=== PATIENT | female | born 1935 | race Caucasian/White ===

== ENCOUNTER 2017-04-08 13:39 | Emergency (ER) | payer MEDICARE, MEDICAID ==
[~2017-04-08] VITALS: Ht 152.4 cm; Wt 70.9 kg
[~2017-04-08 13:39] MED LIST: APIX5TAB PO; CYCL10TA45 PO; DRON400T2 PO; IBUP-2055 PO; METO-270 PO; NAPR-689 PO
--- NOTE | 2017-04-08 14:00 | ED Fever ---
History of Present Illness General Stated Complaint: FEVER/WEAKNESS Source: patient, family () Exam Limitations: no limitations History of Present Illness Time seen by provider: 13:54 Initial Comments For 3 days the patient has had malaise and a productive cough with her sputum and pain whenever she coughs or takes a big deep breath and today. This is progressively gotten worse. Today she developed a fever of 101.9 Fahrenheit at home and was seen at [place] [facility] who sent her over to us. She does have a history of atrial fibrillation for which her substation wireman has implanted a monitor and does not plan to take it out until May. She is on multac. She's had no nausea, vomiting, diarrhea, rash. However she has had chills and cough and produced a sputum sample which she brought in a cup with her. She has had no recent travel abroad nor sick contacts. She denies having an a box in the last 4 weeks. Allergies and Home Medications Allergies Coded Allergies: codeine (Unverified Allergy, Unknown, 09/13/16) Uncoded Allergies: PCN (Allergy, Unknown, 09/13/16) SOME ANTIBIOTICS (Allergy, Unknown, 09/13/16) Home Medications Apixaban 5 Mg Tablet, 5 MG PO BID, #60 Ref 4 Prescribed by: SILVIANO ALEGRE on 09/14/16 0804 Cyclobenzaprine Hcl 10 Mg Tablet, 10 MG PO TID PRN for MUSCLE SPASMS, (Reported) Dronedarone HCl 400 Mg Tablet, 400 MG PO BID, #60 Ref 2 Prescribed by: SILVIANO ALEGRE on 09/14/16 0804 Metoprolol Succinate 25 Mg Tab.er.24h, 50 MG PO DAILY, #30 Ref 4 Prescribed by: SILVIANO ALEGRE on 09/14/16 0804 Constitutional: see HPI, chills, No diaphoresis, fever, malaise EENTM: other, No blurred vision, No ear pain, No hearing loss Respiratory: cough, No hemoptysis, No short of breath ( productive) Cardiovascular: No chest pain, No edema, No syncope Gastrointestinal: No abdominal pain, No constipation, No diarrhea Genitourinary: No discharge, No dysuria Skin: No pruritus, No rash Psychiatric/Neurological: Denies Headache, Denies Numbness Past Fddjfka-Vcixmn-Acwhmc Hx Patient Social History Alcohol Use: Denies Use Recreational Drug Use: No Smoking Status: Never a Smoker Recent Foreign Travel: No Contact w/Someone Who Travel: No Recent Hopitalizations: No Immunizations Up To Date Date of Pneumonia Vaccine: Nov 26, 2007 Seasonal Allergies Seasonal Allergies: No Surgeries HX Surgeries: Yes Surgeries: Appendectomy, Gallbladder, Hysterectomy Respiratory Hx Respiratory Disorders: Yes ( PNEUMONIA) Cardiovascular Hx Cardiac Disorders: No Neurological Hx Neurological Disorders: No Reproductive System Hx Reproductive Disorders: No Genitourinary Hx Genitourinary Disorders: No Gastrointestinal Hx Gastrointestinal Disorders: No Musculoskeletal Hx Musculoskeletal Disorders: Yes (BRUSITIS) Endocrine Hx Endocrine Disorders: No HEENT HX ENT Disorders: No Cancer Hx Cancer: No Psychosocial Hx Psychiatric Problems: No Integumentary HX Skin/Integumentary Disorder: No Blood Transfusions Hx Blood Disorders: No Family Medical History Significant Family History: No Pertinent Family Hx Physical Exam Vital Signs Vital Sign - Last 12Hours 04/08/17 14:04 Temp 101.8 Resp 20 B/P (MAP) 142/90 Capillary Refill : General Appearance: WD/WN, no apparent distress Eyes: Bilateral Eye EOMI, Bilateral Eye Normal Inspection, Bilateral Eye PERRL HEENT: PERRL/EOMI, TM abnormal (R) (sclerotic), TM abnormal (L) (sclerotic perforated and sclerotic), pharyngeal erythema Neck: non-tender, full range of motion, supple, normal inspection Respiratory: lungs clear, normal breath sounds, no respiratory distress, no accessory muscle use, other (cough with productive sputum) Cardiovascular: normal peripheral pulses, regular rate, rhythm, no JVD Skin: normal color, warm/dry Lymphatic: no adenopathy Progress/Results/Core Measures Results/Orders Lab Results Laboratory Tests Test 04/08/17 14:00 04/08/17 14:13 Range/Units Group A Streptococcus Screen NEGATIVE NEGATIVE White Blood Count 12.6 H 4.3-11.0 10^3/uL Red Blood Count 5.35 4.35-5.85 10^6/uL Hemoglobin 15.5 11.5-16.0 G/DL Hematocrit 46 35-52 % Mean Corpuscular Volume 86 80-99 FL Mean Corpuscular Hemoglobin 29 25-34 PG Mean Corpuscular Hemoglobin Concent 34 32-36 G/DL Red Cell Distribution Width 14.3 10.0-14.5 % Platelet Count 225 130-400 10^3/uL Mean Platelet Volume 10.3 7.4-10.4 FL Neutrophils (%) (Auto) 81 H 42-75 % Lymphocytes (%) (Auto) 9 L 12-44 % Monocytes (%) (Auto) 10 0-12 % Eosinophils (%) (Auto) 1 0-10 % Basophils (%) (Auto) 0 0-10 % Neutrophils # (Auto) 10.2 H 1.8-7.8 X 10^3 Lymphocytes # (Auto) 1.1 1.0-4.0 X 10^3 Monocytes # (Auto) 1.2 H 0.0-1.0 X 10^3 Eosinophils # (Auto) 0.1 0.0-0.3 10^3/uL Basophils # (Auto) 0.0 0.0-0.1 10^3/uL Sodium Level 136 135-145 MMOL/L Potassium Level 4.3 3.6-5.0 MMOL/L Chloride Level 100 98-107 MMOL/L Carbon Dioxide Level 24 21-32 MMOL/L Anion Gap 12 5-14 MMOL/L Blood Urea Nitrogen 12 7-18 MG/DL Creatinine 0.84 0.60-1.30 MG/DL Estimat Glomerular Filtration Rate > 60 BUN/Creatinine Ratio 14 Glucose Level 98 70-105 MG/DL Calcium Level 9.2 8.5-10.1 MG/DL Total Bilirubin 0.6 0.1-1.0 MG/DL Aspartate Amino Transf (AST/SGOT) 21 5-34 U/L Alanine Aminotransferase (ALT/SGPT) 17 0-55 U/L Alkaline Phosphatase 64 40-136 U/L Total Protein 6.8 6.4-8.2 G/DL Albumin 3.8 3.2-4.5 G/DL Micro Results Microbiology 04/08/17 Influenza Types A,B Antigen (WANDA) - Final, Complete My Orders Orders - FANI CAM Cbc With Automated Diff (04/08/17 14:00) Comprehensive Metabolic Panel (04/08/17 14:00) Chest Pa/Lat (2 View) (04/08/17 14:00) Rapid Strep A Screen (04/08/17 14:00) Influenza A And B Antigens (04/08/17 14:00) Vital Signs/I&O Vital Sign - Last 12Hours 04/08/17 14:04 Temp 101.8 Resp 20 B/P (MAP) 142/90 Progress Note : Time: 14:06 Progress Note Patient with acute febrile illness and cough. We'll obtain chest x-ray basic lab , strep screen and influenza. While she is age over 50 her heart rate and pulse ox are normal she has no history DVT, hemoptysis or recent surgeries or other reason to have DVTs or PEs. 1500: Chest x-ray clear and strep a and influenza A and B- by rapid assay. Diagnostic Imaging Diagonstic Imaging: Xray Plain Films/CT/US/NM/MRI: chest Comments No acute cardiopulmonary process noted. Reviewed: Reviewed by Me Departure Impression Impression: Primary Impression: Bronchitis Disposition: HOME, SELF-CARE Condition: Stable Departure-Patient Inst. Decision time for Depature: 15:00 Referrals: MATEO MUSA DO (PCP/Family) Primary Care Physician Patient Instructions: Acute Bronchitis, Adult (DC) Add. Discharge Instructions: You have bronchitis and you should drink plenty of fluids and get plenty of rest. If you're having shortness of breath you may take 2 puffs off the pro-air inhaler. Inhaler may cause some racing of the heart this is a normal side effect. The upper respiratory tract symptoms appear to be from a virus and will respond well to plenty of fluids, humidifiers, vapor rubs and Tylenol or Motrin. If you're having new or worsening symptoms should return to the ER or your primary care physician as necessary. Scripts Azithromycin (Azithromycin) 250 Mg Tablet 250 MG PO UD, #6 TAB TAKE 2 TABLETS ON DAY ONE THEN TAKE 1 TABLET DAILY FOR FOUR MORE DAYS Prov: FANI CAM 04/08/17 Albuterol Sulfate (PROAIR HFA) 1 Puff Puff 2 PUFF IH Q4H, #1 PUFF 0 Refills 1 PUFF = 90 MCG Prov: FANI CAM 04/08/17 Copy Copies To 1: MATEO MUSA TITUS J April 08, 2017 14:00
[2017-04-08 14:24] LABS: BASOPHILS % (AUTO) 0 % (0-10); EOSINOPHILS # (AUTO) 0.1 10^3/uL (0.0-0.3); EOSINOPHILS % (AUTO) 1 % (0-10); LYMPHOCYTES # (AUTO) 1.1 X 10^3 (1.0-4.0); LYMPHOCYTES % (AUTO) 9 % (12-44); MEAN CORPUSCULAR HEMOGLOBIN 29 PG (25-34); MEAN CORPUSCULAR HGB CONC 34 G/DL (32-36); MEAN CORPUSCULAR VOLUME 86 FL (80-99); MEAN PLATELET VOLUME 10.3 FL (7.4-10.4); MONOCYTES # (AUTO) 1.2 X 10^3 (0.0-1.0); MONOCYTES % (AUTO) 10 % (0-12); NEUTROPHILS # (AUTO) 10.2 X 10^3 (1.8-7.8); NEUTROPHILS % (AUTO) 81 % (42-75); PLATELET COUNT 225 10^3/uL (130-400); RED BLOOD COUNT 5.35 10^6/uL (4.35-5.85); RED CELL DISTRIBUTION WIDTH 14.3 % (10.0-14.5); WHITE BLOOD COUNT 12.6 10^3/uL (4.3-11.0)
[2017-04-08 14:46] LABS: ALANINE AMINOTRANSFERASE 17 U/L (0-55); ALBUMIN 3.8 G/DL (3.2-4.5); ANION GAP 12 MMOL/L (5-14); ASPARTATE AMINO TRANSFERASE 21 U/L (5-34); BILIRUBIN,TOTAL 0.6 MG/DL (0.1-1.0); BLOOD UREA NITROGEN 12 MG/DL (7-18); BUN/CREATININE RATIO 14; CALCIUM 9.2 MG/DL (8.5-10.1); CARBON DIOXIDE 24 MMOL/L (21-32); CHLORIDE 100 MMOL/L (98-107); CREATININE SERUM 0.84 MG/DL (0.60-1.30); GFR ESTIMATED > 60; GLUCOSE 98 MG/DL (70-105); POTASSIUM 4.3 MMOL/L (3.6-5.0); SODIUM 136 MMOL/L (135-145); TOTAL PROTEIN 6.8 G/DL (6.4-8.2)
[2017-04-08] MEDS ORDERED: AZIT250T5 PO (15:03)
[2017-04-08] MEDS ORDERED: RT-ALBUINH IH (15:03)
--- NOTE | 2017-04-08 15:05 | Diagnostic Imaging Report ---
INDICATION: Cough and fever. COMPARISON: 09/04/2016. TECHNIQUE: Two radiographs of the chest dated April 08, 2017. FINDINGS: Cardiac monitors again identified overlying the left heart border. The cardiac silhouette is within normal limits in size. No significant pulmonary vascular congestion. Calcified granuloma overlying the left lung base is again identified. Senescent changes of the lungs are again identified. No additional focal pulmonary opacity. No pleural effusion. No pneumothorax. Compression deformity at the thoracolumbar junction is stable. No acute osseous abnormality. Scattered vascular calcifications. IMPRESSION: Stable appearing examination demonstrating senescent changes of the lungs without superimposed acute cardiopulmonary abnormality. Dictated by: Dictated on workstation # [id number]
[2017-04-08 15:14] VITALS: BP 140/84
== END 2017-04-08 15:14 | disposition home or self-care (01) ==
LOC: EDUNIT# 13:39 → ER 13:41
DX: J40 Bronchitis, not specified as acute or chronic (principal); R50.9 Fever, unspecified; I48.2 Chronic atrial fibrillation; Z79.01 Long term (current) use of anticoagulants; Z79.899 Other long term (current) drug therapy
CPT/HCPCS: 36415; 71020; 80053; 85025; 87430; 87804; 99282

== ENCOUNTER → 2017-04-26 | Outpatient (CLI) | payer MEDICARE, MEDICAID ==
[~2017-04-26] MED LIST changes: +AZIT250T5 PO; +RT-ALBUINH IH
--- NOTE | 2017-04-26 13:12 | Diagnostic Imaging Report ---
INDICATION: Pneumonia. COMPARISON: 04/08/2017. FINDINGS: There is no focal infiltrate. There is no effusion or pneumothorax. There is no failure pattern. No findings of pneumonia on followup. No effusion. IMPRESSION: 1. Clear chest on followup. No evidence of pneumonia or acute pathology. 2. Not mentioned above, chronic mild superior endplate compression in the upper lumbar spine showed no progressive stature loss. Dictated by: Dictated on workstation # [id number]
== END ==
LOC: RAD 12:32
PROVIDERS: ATTEND Nurse Practitioner Family
DX: R05 Cough (principal)
CPT/HCPCS: 71020

== ENCOUNTER → 2017-05-08 | Outpatient (CLI) | payer MEDICARE, MEDICAID ==
[~2017-05-08] VITALS: Ht 152.4 cm; Wt 68.9 kg
[~2017-05-08] MED LIST changes: +CATHETER FLUSH 10 ML SYR IV PRN; +REGADENOSON 0.4 MG/5 ML SYR (LEXISCAN) IV ONE
[2017-05-08 09:46] VITALS: BP 138/84
[2017-05-08 09:50] VITALS: BP 142/98
[2017-05-08 09:52] VITALS: BP 140/92
--- NOTE | 2017-05-10 08:41 | STRESS TEST ---
DATE OF SERVICE: 05/08/2017 RESTING AND POST REGADENOSON TECHNETIUM-99M TETROFOSMIN SPECT CT IMAGING ORDERING PHYSICIAN: Dr. Harmon. PRIMARY CARE PHYSICIAN: Dr. Garza. CLINICAL DIAGNOSES: Abnormal electrocardiogram, fatigue, atrial fibrillation, hypertension, hyperlipidemia. Baseline images were carried out after injection of 10.64 mCi technetium-99m tetrofosmin. This was followed by 0.4 mg regadenoson and 29.9 mCi of technetium-99m tetrofosmin for stress imaging. The electrocardiogram showed sinus rhythm throughout the study and it did not change significantly with the regadenoson infusion. She reported some abdominal cramping and a headache following regadenoson infusion, which resolved in a few minutes. Review of images at rest and following stress does not indicate any significant myocardial ischemia or infarction. Gated images show normal global left ventricular systolic function with normal regional wall motion. Left ventricular ejection fraction is calculated to be 80%. Left ventricular end diastolic volume is 26 mL. CONCLUSIONS: 1. No evidence of any significant myocardial ischemia or infarction on this study. 2. Normal regional wall motion. 3. Normal global left ventricular systolic function with a calculated ejection fraction of 80%. Job ID: [id number] DocumentID: [id number] Dictated Date: 05/08/2017 13:22:25 [employer] Sorter Date: 05/08/2017 15:15:49 Dictated By: EUGENE HARMON MD, MA, FACP, FACC,
== END ==
LOC: CARD 08:18
PROVIDERS: ATTEND Internal Medicine Cardiovascular Disease
DX: I48.0 Paroxysmal atrial fibrillation (principal); I10 Essential (primary) hypertension; E78.2 Mixed hyperlipidemia; R94.31 Abnormal electrocardiogram [ECG] [EKG]; R53.83 Other fatigue; Z86.73 Personal history of transient ischemic attack (TIA), and cerebral infarction without residual deficits
CPT/HCPCS: 78452; 93017

== ENCOUNTER 2017-12-28 09:17 | Outpatient (CLI) | payer MEDICARE, MEDICAID ==
[~2017-12-28] VITALS: Ht 152.4 cm; Wt 68.9 kg
[~2017-12-28 09:17] MED LIST changes: +AZIT250T12 PO; -AZIT250T5 PO; -CATHETER FLUSH 10 ML SYR IV PRN; -METO-270 PO; +METO-387 PO; -REGADENOSON 0.4 MG/5 ML SYR (LEXISCAN) IV ONE
[2017-12-28] MEDS ORDERED: CYCL10TA9 PO (10:59)
[2017-12-28] MEDS ORDERED: METO-370 PO (10:59)
[2017-12-28] MEDS ORDERED: APIX5TAB PO (10:59)
[2017-12-31] MEDS ORDERED: PANT40TA2 PO (12:07)
== END 2017-12-28 11:01 ==
LOC: PREOP 09:17
PROVIDERS: ATTEND Surgery
DX: Z01.818 Encounter for other preprocedural examination (principal); K21.9 Gastro-esophageal reflux disease without esophagitis

== ENCOUNTER → 2017-12-31 | Day surgery (SDC) | payer MEDICARE, MEDICAID ==
[~2017-12-31] VITALS: Ht 152.4 cm; Wt 68.9 kg
[~2017-12-31] MED LIST changes: +CYCL10TA9 PO; +HURRICAINE EXT TUBE (BENZOCAINE) ONE; +HURRICAINE EXT TUBE (BENZOCAINE) XX PRN; +METO-370 PO; +MIDAZOLAM 2 MG/2 ML (VERSED) VIAL ONE; +NS IV 500 ML 500 ML IV PRN; +NS IV 500 ML 500 ML ONE; +PANT40TA2 PO; +fentaNYL INJECTION 100 MCG/2 ML AMP ONE
--- OUTSIDE RECORDS SUMMARY | 2017-12-31 10:32 | XMS REPORT ---
Author Author ZAHRAA TIDWELL [facility] Address [address] [place] [address] Care Team Providers Care Enrollment Nurse Name Role Phone ZAHRAA TIDWELL Unavailable PROBLEMS Unknown Problems ALLERGIES No Information SOCIAL HISTORY Never Assessed PLAN OF CARE VITAL SIGNS MEDICATIONS No Known Medications RESULTS No Results PROCEDURES No Known procedures IMMUNIZATIONS No Known Immunizations MEDICAL (GENERAL) HISTORY Type Description Date Medical History A fib Surgical History appendectomy Surgical History hysterectomy Surgical History cholecystectomy Surgical History bowel blockage Surgical History bladder and colon repair Surgical History prolapsed rectum Surgical History hemorrhoids Hospitalization History surgeries
--- OUTSIDE RECORDS SUMMARY | 2017-12-31 10:33 | XMS REPORT ---
Author Author CITLALI SCHNEIDER Organization [facility] Address [address] [place] [address] Care Team Providers Care Landscape Foreman Name Role Phone CITLALI SCHNEIDER Unavailable PROBLEMS Unknown Problems ALLERGIES Substance Reaction Event Type Date Status Penicillin V Potassium Unknown Drug Allergy Apr, Active Codeine Sulfate Unknown Drug Allergy Apr, Active SOCIAL HISTORY Never Assessed PLAN OF CARE Activity Details Follow Up prn Reason: VITAL SIGNS Temperature 98.0 degrees Fahrenheit 2017-04-28 Heart Rate 69 bpm 2017-04-28 Respiratory Rate 22 2017-04-28 Oximetry 99 % 2017-04-28 Blood pressure systolic 118 mmHg 2017-04-28 Blood pressure diastolic 78 mmHg 2017-04-28 MEDICATIONS Medication Instructions Dosage Frequency Start Date End Date Duration Status Eliquis 5 mg Orally 2 times a day 12h Active Multaq 400 mg Orally Once a day 1 tablet with meals 24h Active Cyclobenzaprine HCl 10 MG Orally Three times a day 1 tablet as needed 8h Active Metoprolol Succinate ER 25 MG Orally Once a day 1 tablet 24h Active Ventolin HFA 108 (90 Base) MCG/ACT Inhalation every 4 hrs 2 puffs as needed 4h Apr, 30 days Active Mucinex 600 MG Orally every 12 hrs 1 tablet as needed 12h Apr, Active Cefdinir 300 MG Orally every 12 hrs 1 capsule 12h Apr, Apr, 10 day(s) Active RESULTS No Results PROCEDURES Procedure Date Ordered Result Body Site MEASURE BLOOD OXYGEN LEVEL April 28, 2017 [facility] VISIT ESTABLISHED PATIENT April 28, 2017 IMMUNIZATIONS No Known Immunizations MEDICAL (GENERAL) HISTORY Type Description Date Medical History A fib Surgical History appendectomy Surgical History hysterectomy Surgical History cholecystectomy Surgical History bowel blockage Surgical History bladder and colon repair Surgical History prolapsed rectum Surgical History hemorrhoids Hospitalization History surgeries
--- OUTSIDE RECORDS SUMMARY | 2017-12-31 10:33 | XMS REPORT | Continuity of Care Document ---
Author Author [facility] Organization [facility] Address Unknown Phone Unavailable Allergies Active Description Code Type Severity Reaction Onset Reported/Identified Relationship to Patient Clinical Status Yes codeine [id number] Drug Allergy Unknown N/A 09/13/2016 Yes PCN PCN Unknown N/ A 09/13/2016 Yes SOME ANTIBIOTICS SOME ANTIBIOTICS Unknown N/A 09/13/2016 Medications There is no data. Problems Date Dx Coded Attending Type Code Diagnosis Diagnosed By 01/18/2010 Ot 724.5 01/18/2010 Ot 791.9 11/12/2012 Ot 211.3 BENIGN NEOPLASM LG BOWEL 11/12/2012 Ot V12.72 PERSONAL HISTORY OF COLONIC POLYPS 11/12/2012 Ot V76.51 SCREEN MAL NEOP-COLON 11/09/2014 MATEO MUSA DO Ot V76.12 01/17/2015 Ot 719.45 JOINT PAIN- PELVIS 01/17/2015 Ot 729.5 PAIN IN LIMB 03/25/2015 Ot 724.5 03/25/2015 Ot 791.9 03/25/2015 Ot V76.12 03/25/2015 Ot 780.79 03/25/2015 Ot V58.69 03/25/2015 Ot V76.12 03/25/2015 Ot 733.90 03/25/2015 Ot V49.81 03/25/2015 Ot V76.12 03/25/2015 Ot V82.81 03/25/2015 Ot V72.84 03/25/2015 AMELIA MUSA PANTS MAKER Ot 786.50 03/25/2015 AMELIA MUSA PANTS MAKER Ot E888.9 03/25/2015 MATEO MUSA DO Ot V76.12 03/25/2015 MATEO MUSA DO Ot V76.12 04/12/2015 Ot 724.5 04/12/2015 Ot 791.9 04/12/2015 Ot V76.12 04/12/2015 Ot 780.79 04/12/2015 Ot V58.69 04/12/2015 Ot V76.12 04/12/2015 Ot 733.90 04/12/2015 Ot V49.81 04/12/2015 Ot V76.12 04/12/2015 Ot V82.81 04/12/2015 Ot V72.84 04/12/2015 AMELIA MUSA PANTS MAKER Ot 786.50 04/12/2015 AMELIA MUSA PANTS MAKER Ot E888.9 04/12/2015 DIMPLE RUBIO MATEO Tyler Ot V76.12 04/12/2015 MATEO MUSA DO Ot V76.12 06/23/2015 MATEO MUSA DO Ot 486 07/01/2015 MATEO MUSA DO Ot V76.12 08/03/2015 MATEO MUSA DO Ot 486 08/23/2015 MATEO MUSA DO Ot 486 04/08/2016 Ot 780.79 OTH MALAISE FATIGUE 04/08/2016 Ot V58.69 OTH MED,LT, CURRENT USE 04/08/2016 Ot V76.12 OTH SCREEN MAMMO-MALIGN NEOPLASM OF RJ 04/08/2016 Ot 733.90 BONE CARTILAGE DIS NOS 04/08/2016 Ot V49.81 ASYMPT POSTMENOPAUSAL STATUS (AGE-RELATE 04/08/2016 Ot V76.12 OTH SCREEN MAMMO-MALIGN NEOPLASM OF RJ 04/08/2016 Ot V82.81 SCREENING FOR OSTEOPOROSIS 04/08/2016 Ot V72.84 EXAM PRE- OPERATIVE NOS 04/08/2016 AMELIA MUSA PANTS MAKER Ot 786.50 CHEST PAIN NOS 04/08/2016 AMELIA MUSA PANTS MAKER Ot E888.9 FALL NOS 04/08/2016 DIMPLE RUBIO MATEO Tyler Ot V76.12 OTH SCREEN MAMMO-MALIGN NEOPLASM OF RJ 04/08/2016 MATEO MUSA DO Ot V76.12 OTH SCREEN MAMMO-MALIGN NEOPLASM OF RJ 04/08/2016 MATEO MUSA DO Ot 486 PNEUMONIA, ORGANISM NOS 04/08/2016 MATEO MUSA DO Ot V76.12 OTH SCREEN MAMMO-MALIGN NEOPLASM OF RJ 04/08/2016 RAE MARTINEZ, DELIA Quiles Ot S00.511A ABRASION OF LIP, INITIAL ENCOUNTER 04/08/2016 RAE MARTINEZ, DELIA Quiles Ot S09.8XXA OTHER SPECIFIED INJURIES OF HEAD, INITIA 04/08/2016 RAE MARTINEZ, DELIA Quiles Ot W01.0XXA FALL SAME LEV FROM SLIP/TRIP W/O STRIKE 04/08/2016 RAE MARTINEZ, DELIA Quiles Ot Y92.512 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, 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 04/08/2016 DELIA MCBRIDE MD Ot Y99.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 09/14/2016 KENN RUBIO ESSENCE Ot I10 ESSENTIAL (PRIMARY) HYPERTENSION 09/14/2016 ESSENCE HAWK DO Ot I48.0 PAROXYSMAL ATRIAL FIBRILLATION 09/14/2016 ESSENCE HAWK DO Ot I49.1 ATRIAL PREMATURE DEPOLARIZATION 09/14/2016 ESSENCE HAWK DO Ot M19.90 UNSPECIFIED OSTEOARTHRITIS, UNSPECIFIED 09/19/2016 Ot 780.79 OTH MALAISE FATIGUE 09/19/2016 Ot V58.69 OTH MED,LT, CURRENT USE 09/19/2016 Ot V76.12 OTH SCREEN MAMMO-MALIGN NEOPLASM OF RJ 09/19/2016 Ot 733.90 BONE CARTILAGE DIS NOS 09/19/2016 Ot V49.81 ASYMPT POSTMENOPAUSAL STATUS (AGE-RELATE 09/19/2016 Ot V76.12 OTH SCREEN MAMMO-MALIGN NEOPLASM OF RJ 09/19/2016 Ot V82.81 SCREENING FOR OSTEOPOROSIS 09/19/2016 Ot V72.84 EXAM PRE- OPERATIVE NOS 09/19/2016 AMELIA MUSA Ot 786.50 CHEST PAIN NOS 09/19/2016 AMELIA MUSA Ot E888.9 FALL NOS 09/19/2016 MATEO MUSA DO Ot V76.12 OTH SCREEN MAMMO-MALIGN NEOPLASM OF RJ 09/19/2016 MATEO MUSA DO Ot V76.12 OTH SCREEN MAMMO-MALIGN NEOPLASM OF RJ 09/19/2016 MUSA DO, MATEO J Ot 486 PNEUMONIA, ORGANISM NOS 09/19/2016 MATEO MUSA DO Ot V76.12 OTH SCREEN MAMMO-MALIGN NEOPLASM OF RJ 04/08/2017 FANI CAM MD Ot I48.2 CHRONIC ATRIAL FIBRILLATION 04/08/2017 FANI CAM MD Ot J40 BRONCHITIS, NOT SPECIFIED ACUTE OR CH 04/08/2017 FANI CAM MD Ot R05 COUGH 04/08/2017 FANI CAM MD Ot R50.9 FEVER, UNSPECIFIED 04/08/2017 FANI CAM MD Ot Z79.01 LONGTERM (CURRENT) USE OF ANTICOAGULANT 04/08/2017 FANI CAM MD Ot Z79.899 OTHER LONGTERM (CURRENT) DRUG THERAPY 04/10/2017 FANI CAM MD Ot I48.2 CHRONIC ATRIAL FIBRILLATION 04/10/2017 FANI CAM MD Ot J40 BRONCHITIS, NOT SPECIFIED ACUTE OR CH 04/10/2017 FANI CAM MD Ot R05 COUGH 04/10/2017 FANI CAM MD Ot R50.9 FEVER, UNSPECIFIED 04/10/2017 FANI CAM MD Ot Z79.01 LONGTERM (CURRENT) USE OF ANTICOAGULANT 04/10/2017 FANI CAM MD Ot Z79.899 OTHER CENTRIFUGAL SEPARATOR (CURRENT) DRUG THERAPY 04/26/2017 Ot 733.90 BONE CARTILAGE DIS NOS 04/26/2017 Ot V49.81 ASYMPT POSTMENOPAUSAL STATUS (AGE-RELATE 04/26/2017 Ot V76.12 OTH SCREEN MAMMO-MALIGN NEOPLASM OF RJ 04/26/2017 Ot V82.81 SCREENING FOR OSTEOPOROSIS 04/26/2017 Ot V72.84 EXAM PRE- OPERATIVE NOS 04/26/2017 AMELIA MUSA PANTS MAKER Ot 786.50 CHEST PAIN NOS 04/26/2017 AMELIA MUSA Ot E888.9 FALL NOS 04/26/2017 MATEO MUSA DO Ot V76.12 OTH SCREEN MAMMO-MALIGN NEOPLASM OF RJ 04/26/2017 MATEO MUSA DO Ot V76.12 OTH SCREEN MAMMO-MALIGN NEOPLASM OF RJ 04/26/2017 MATEO MUSA DO Ot 486 PNEUMONIA, ORGANISM NOS 04/26/2017 MATEO MSUA DO Ot V76.12 OTH SCREEN MAMMO-MALIGN NEOPLASM OF RJ 05/07/2017 Ot 733.90 BONE CARTILAGE DIS NOS 05/07/2017 Ot V49.81 ASYMPT POSTMENOPAUSAL STATUS (AGE-RELATE 05/07/2017 Ot V76.12 OTH SCREEN MAMMO-MALIGN NEOPLASM OF RJ 05/07/2017 Ot V82.81 SCREENING FOR OSTEOPOROSIS 05/07/2017 Ot V72.84 EXAM PRE- OPERATIVE NOS 05/07/2017 AMELIA MUSA PANTS MAKER Ot 786.50 CHEST PAIN NOS 05/07/2017 AMELIA MUSA PANTS MAKER Ot E888.9 FALL NOS 05/07/2017 MATEO MUSA DO Ot V76.12 OTH SCREEN MAMMO-MALIGN NEOPLASM OF RJ 05/07/2017 MATEO MUSA DO Ot V76.12 OTH SCREEN MAMMO-MALIGN NEOPLASM OF RJ 05/07/2017 MATEO MUSA DO Ot 486 PNEUMONIA, ORGANISM NOS 05/07/2017 MATEO MUSA DO Ot V76.12 OTH SCREEN MAMMO-MALIGN NEOPLASM OF RJ 05/07/2017 AMELIA MUSA PANTS MAKER Ot R05 COUGH 05/09/2017 AVI MARTINEZ FACC, EUGENE ANNP CCDS Ot E78.2 MIXED HYPERLIPIDEMIA 05/09/2017 AVI MARTINEZ FACC, EUGENE ANNP CCDS Ot I10 ESSENTIAL (PRIMARY) HYPERTENSION 05/09/2017 AVI MARTINEZ FACC, EUGENE ANNP CCDS Ot I48.0 PAROXYSMAL ATRIAL FIBRILLATION 05/09/2017 AVI MARTINEZ FACC, EUGENE ANNP CCDS Ot R53.83 OTHER FATIGUE 05/09/2017 AVI MARTINEZ FACC, EUGENE ANNP CCDS Ot R94.31 ABNORMAL ELECTROCARDIOGRAM [ECG] [EKG] 05/09/2017 AVI MARTINEZ FACC, EUGENE ANNP CCDS Ot Z86.73 PRSNL HX OF TIA (TIA), AND CEREB INFRC W 05/17/2017 AMELIA MUSA PANTS MAKER Ot R05 COUGH 05/24/2017 AMELIA MUSA PANTS MAKER Ot R05 COUGH 05/31/2017 AVI MARTINEZ FACC, EUGENE ANNP CCDS Ot E78.2 MIXED HYPERLIPIDEMIA 05/31/2017 AVI MD FACC, ALI FACP CCDS Ot I10 ESSENTIAL (PRIMARY) HYPERTENSION 05/31/2017 AVI MARTINEZ FACC, ALI FACP CCDS Ot I48.0 PAROXYSMAL ATRIAL FIBRILLATION 05/31/2017 AVI MD FACC, ALI FACP CCDS Ot R53.83 OTHER FATIGUE 05/31/2017 AVI MD FACC, ALI FACP CCDS Ot R94.31 ABNORMAL ELECTROCARDIOGRAM [ECG] [EKG] 05/31/2017 AVI MARTINEZ FACC, ALI FACP CCDS Ot Z86.73 PRSNL HX OF TIA (TIA), AND CEREB INFRC W 06/08/2017 AVI MD FACC, ALI FACP CCDS Ot E78.2 MIXED HYPERLIPIDEMIA 06/08/2017 AVI MD FACC, ALI FACP CCDS Ot I10 ESSENTIAL (PRIMARY) HYPERTENSION 06/08/2017 AVI MARTINEZ FACC, ALI FACP CCDS Ot I48.0 PAROXYSMAL ATRIAL FIBRILLATION 06/08/2017 AVI MD [facility], ALI FACP CCDS Ot R53.83 OTHER FATIGUE 06/08/2017 AVI [facility]ARTINEZ [facility], ALI FACP CCDS Ot R94.31 ABNORMAL ELECTROCARDIOGRAM [ECG] [EKG] 06/08/2017 AVI MARTINEZ [facility], ALI FACP CCDS Ot Z86.73 PRSNL HX OF TIA (TIA), AND CEREB INFRC W Procedures Code Description Performed By Performed On [id number] INSERT OF MONITOR DEV INTO CHEST SUBCU/F 09/14/2016 Results Test Result Range Complete blood count (CBC) with automated white blood cell (WBC) differential - 09/13/16 13:34 Blood leukocytes automated count (number/volume) 7.6 10*3/uL 4.3-11.0 Blood erythrocytes automated count (number/volume) 5.45 10*6/uL 4.35-5.85 Venous blood hemoglobin measurement (mass/volume) 15.8 g/dL 11.5-16.0 Blood hematocrit (volume fraction) 47 % 35-52 Automated erythrocyte mean corpuscular volume 86 [foz_us] 80-99 Automated erythrocyte mean corpuscular hemoglobin (mass per erythrocyte) 29 pg 25-34 Automated erythrocyte mean corpuscular hemoglobin concentration measurement ( mass/volume) 34 g/dL 32-36 Automated erythrocyte distribution width ratio 13.6 % 10.0-14.5 Automated blood platelet count (count/volume) 240 10*3/uL 130-400 Automated blood platelet mean volume measurement 10.5 [foz_us] 7.4-10.4 Automated blood neutrophils/100 leukocytes 65 % 42-75 Automated blood lymphocytes/100 leukocytes 22 % 12-44 Blood monocytes/100 leukocytes 10 % 0-12 Automated blood eosinophils/100 leukocytes 2 % 0-10 Automated blood basophils/100 leukocytes 0 % 0-10 Blood neutrophils automated count (number/volume) 5.0 10*3 1.8-7.8 Blood lymphocytes automated count (number/volume) 1.7 10*3 1.0-4.0 Blood monocytes automated count (number/volume) 0.8 10*3 0.0-1.0 Automated eosinophil count 0.2 10*3/uL 0.0-0.3 Automated blood basophil count (count/volume) 0.0 10*3/uL 0.0-0.1 PT panel in platelet poor plasma by coagulation assay - 09/13/16 13:34 Prothrombin time (PT) in platelet poor plasma by coagulation assay 12.7 s 12.2-14.7 INR in platelet poor plasma or blood by coagulation assay 1.0 0.8-1.4 Activated partial thromboplastin time (aPTT) in platelet poor plasma bycoagulation assay - 09/13/16 13:34 Activated partial thromboplastin time (aPTT) in platelet poor plasma bycoagulation assay 28 s 24-35 Comprehensive metabolic panel - 09/13/16 13:34 Serum or plasma sodium measurement (moles/volume) 140 mmol/L 135-145 Serum or plasma potassium measurement (moles/volume) 4.0 mmol/L 3.6-5.0 Serum or plasma chloride measurement (moles/volume) 103 mmol/L 98-107 Carbon dioxide 30 mmol/L 21-32 Serum or plasma anion gap determination (moles/volume) 7 mmol/L 5-14 Serum or plasma urea nitrogen measurement (mass/volume) 15 mg/dL 7-18 Serum or plasma creatinine measurement (mass/volume) 0.75 mg/dL 0.60-1.30 Serum or plasma urea nitrogen/creatinine mass ratio 20 NRG Serum or plasma creatinine measurement with calculation of estimated glomerular filtration rate > NRG Serum or plasma glucose measurement (mass/volume) 95 mg/dL 70-105 Serum or plasma calcium measurement (mass/volume) 9.7 mg/dL 8.5-10.1 Serum or plasma total bilirubin measurement (mass/volume) 0.4 mg/dL 0.1-1.0 Serum or plasma alkaline phosphatase measurement (enzymatic activity/volume) 66 U/L 40-136 Serum or plasma aspartate aminotransferase measurement (enzymatic activity/ volume) 18 U/L 5-34 Serum or plasma alanine aminotransferase measurement (enzymatic activity/volume ) 15 U/L 0-55 Serum or plasma protein measurement (mass/volume) 6.6 g/dL 6.4-8.2 Serum or plasma albumin measurement (mass/volume) 3.9 g/dL 3.2-4.5 THYROID STIMULATING HORMONE - 09/13/16 13:34 THYROID STIMULATING HORMONE 2.42 u[iU]/mL 0.35-4.94 Serum or plasma troponin i.cardiac measurement (mass/volume) - 09/13/16 13:34 Serum or plasma troponin i.cardiac measurement (mass/volume) < ng/ mL <0.30 Automated blood complete blood count (hemogram) panel - 09/14/16 03:32 Blood leukocytes automated count (number/volume) 7.3 10*3/uL 4.3-11.0 Blood erythrocytes automated count (number/volume) 4.91 10*6/uL 4.35-5.85 Venous blood hemoglobin measurement (mass/volume) 14.4 g/dL 11.5-16.0 Blood hematocrit (volume fraction) 42 % 35-52 Automated erythrocyte mean corpuscular volume 86 [foz_us] 80-99 Automated erythrocyte mean corpuscular hemoglobin (mass per erythrocyte) 29 pg 25-34 Automated erythrocyte mean corpuscular hemoglobin concentration measurement ( mass/volume) 34 g/dL 32-36 Automated erythrocyte distribution width ratio 13.5 % 10.0-14.5 Automated blood platelet count (count/volume) 233 10*3/uL 130-400 Automated blood platelet mean volume measurement 10.7 [foz_us] 7.4-10.4 Streptococcus pyogenes antigen detection - 04/08/17 14:00 Streptococcus pyogenes antigen detection NEGATIVE NEGATIVE Influenza virus A and B antigen detection - 04/08/17 14:00 FLU RESULT NEGATIVE FOR INFLUENZA A AND B ANTIGENS BY IA NRG Bacterial throat culture - 04/08/17 14:00 Bacterial throat culture [facility] Complete blood count (CBC) with automated white blood cell (WBC) differential - 04/08/17 14:13 Blood leukocytes automated count (number/volume) 12.6 10*3/uL 4.3-11.0 Blood erythrocytes automated count (number/volume) 5.35 10*6/uL 4.35-5.85 Venous blood hemoglobin measurement (mass/volume) 15.5 g/dL 11.5-16.0 Blood hematocrit (volume fraction) 46 % 35-52 Automated erythrocyte mean corpuscular volume 86 [foz_us] 80-99 Automated erythrocyte mean corpuscular hemoglobin (mass per erythrocyte) 29 pg 25-34 Automated erythrocyte mean corpuscular hemoglobin concentration measurement ( mass/volume) 34 g/dL 32-36 Automated erythrocyte distribution width ratio 14.3 % 10.0-14.5 Automated blood platelet count (count/volume) 225 10*3/uL 130-400 Automated blood platelet mean volume measurement 10.3 [foz_us] 7.4-10.4 Automated blood neutrophils/100 leukocytes 81 % 42-75 Automated blood lymphocytes/100 leukocytes 9 % 12-44 Blood monocytes/100 leukocytes 10 % 0-12 Automated blood eosinophils/100 leukocytes 1 % 0-10 Automated blood basophils/100 leukocytes 0 % 0-10 Blood neutrophils automated count (number/volume) 10.2 10*3 1.8-7.8 Blood lymphocytes automated count (number/volume) 1.1 10*3 1.0-4.0 Blood monocytes automated count (number/volume) 1.2 10*3 0.0-1.0 Automated eosinophil count 0.1 10*3/uL 0.0-0.3 Automated blood basophil count (count/volume) 0.0 10*3/uL 0.0-0.1 Comprehensive metabolic panel - 04/08/17 14:13 Serum or plasma sodium measurement (moles/volume) 136 mmol/L 135-145 Serum or plasma potassium measurement (moles/volume) 4.3 mmol/L 3.6-5.0 Serum or plasma chloride measurement (moles/volume) 100 mmol/L 98-107 Carbon dioxide 24 mmol/L 21-32 Serum or plasma anion gap determination (moles/volume) 12 mmol/L 5-14 Serum or plasma urea nitrogen measurement (mass/volume) 12 mg/dL 7-18 Serum or plasma creatinine measurement (mass/volume) 0.84 mg/dL 0.60-1.30 Serum or plasma urea nitrogen/creatinine mass ratio 14 NRG Serum or plasma creatinine measurement with calculation of estimated glomerular filtration rate > NRG Serum or plasma glucose measurement (mass/volume) 98 mg/dL 70-105 Serum or plasma calcium measurement (mass/volume) 9.2 mg/dL 8.5-10.1 Serum or plasma total bilirubin measurement (mass/volume) 0.6 mg/dL 0.1-1.0 Serum or plasma alkaline phosphatase measurement (enzymatic activity/volume) 64 U/L 40-136 Serum or plasma aspartate aminotransferase measurement (enzymatic activity/ volume) 21 U/L 5-34 Serum or plasma alanine aminotransferase measurement (enzymatic activity/volume ) 17 U/L 0-55 Serum or plasma protein measurement (mass/volume) 6.8 g/dL 6.4-8.2 Serum or plasma albumin measurement (mass/volume) 3.8 g/dL 3.2-4.5 Encounters ACCT No. Visit Date/Time Discharge Status Pt. Type Provider Facility Loc./Unit Complaint [id number] 12/28/2017 09:17:00 12/28/2017 11:01:00 DIS Outpatient KRYS PERRY MD [facility] PREOP EGD [id number] 09/25/2017 14:00:00 09/25/2017 23:59:59 CLS Preadmit EUGENE CÁRDENAS MD, FACC, FACP CCDS [facility] CATH REMOVAL OF ILR DEVICE [id number] 05/08/2017 08:18:00 05/08/2017 23:59:59 CLS Outpatient EUGENE CÁRDENAS MD, FACC, FACP CCDS [facility] CARD R94.31 ABNORMAL ECG [id number] 04/26/2017 12:32:00 04/26/2017 23:59:59 CLS Outpatient AMELIA MUSA [facility] RAD CHRONIC COUGH [id number] 04/08/2017 13:41:00 04/08/2017 15:14:00 DIS Emergency FANI CAM MD [facility] ER FEVER/WEAKNESS [id number] 09/13/2016 13:00:00 09/14/2016 10:15:00 DIS Inpatient ESSENCE HAWK DO [facility] ICU AFIB WITH RVR, TIA [id number] 04/08/2016 07:33:00 04/08/2016 08:59:00 DIS Emergency RAE MARTINEZ, DELIA Quiles [facility] ER FALL, HEAD INJ, R SIDE PAIN [id number] 06/10/2015 11:22:00 06/10/2015 23:59:59 CLS Outpatient DIMPLE RUBIO MATEO Tyler [facility] RAD SCREENING [id number] 05/31/2015 12:01:00 05/31/2015 23:59:59 CLS Outpatient MATEO MUSA DO [facility] RAD PNUEMONIA [id number] 11/05/2014 10:43:00 11/05/2014 23:59:59 CLS Outpatient DIMPLE RUBIO MATEO Tyler [facility] RAD ROUTINE [id number] 10/21/2013 10:36:00 10/21/2013 23:59:59 CLS Outpatient DIMPLE RUBIO MATEO Tyler [facility] RAD SCREENING [id number] 05/30/2013 11:34:00 05/30/2013 23:59:59 CLS Outpatient AMELIA MUSA [facility] RAD PAIN IN RT RIBS AFTER FALL [id number] 12/31/2017 10:28:00 ACT Outpatient KRYS PERRY MD [facility] ENDO GERD [id number] 03/25/2015 10:43:00 Document Registration [id number] 03/25/2015 10:43:00 Document Registration [id number] 03/25/2015 10:43:00 Document Registration [id number] 03/25/2015 10:43:00 Document Registration [id number] 03/25/2015 10:43:00 Document Registration [id number] 03/25/2015 10:43:00 Document Registration [id number] 11/12/2012 06:55:00 Document Registration [id number] 07/26/2012 11:13:00 Document Registration [id number] 07/14/2010 13:53:00 Document Registration [id number] 01/19/2010 00:00:00 Document Registration
--- OUTSIDE RECORDS SUMMARY | 2017-12-31 10:33 | XMS REPORT ---
Author Author ZAHRAA TIDWELL [facility] Address [address] [place] [address] Care Team Providers Care Accounts Receivable Associate Name Role Phone ZAHRAA TIDWELL Unavailable PROBLEMS Unknown Problems ALLERGIES No Information SOCIAL HISTORY Never Assessed PLAN OF CARE VITAL SIGNS MEDICATIONS Medication Instructions Dosage Frequency Start Date End Date Duration Status Ventolin HFA 108 (90 Base) MCG/ACT Inhalation every 4 hrs 2 puffs as needed 4h Apr, 30 days Active RESULTS No Results PROCEDURES No Known procedures IMMUNIZATIONS No Known Immunizations MEDICAL (GENERAL) HISTORY Type Description Date Medical History A fib Surgical History appendectomy Surgical History hysterectomy Surgical History cholecystectomy Surgical History bowel blockage Surgical History bladder and colon repair Surgical History prolapsed rectum Surgical History hemorrhoids Hospitalization History surgeries
--- OUTSIDE RECORDS SUMMARY | 2017-12-31 10:33 | XMS REPORT ---
Author Author ZAHRAA TIDWELL [facility] Address [address] [place] [address] Care Team Providers Care Rescue Instructor Name Role Phone ZAHRAA TIDWELL Unavailable PROBLEMS Unknown Problems ALLERGIES Substance Reaction Event Type Date Status Penicillin V Potassium Unknown Drug Allergy Apr, Active Codeine Sulfate Unknown Drug Allergy Apr, Active SOCIAL HISTORY Never Assessed PLAN OF CARE Activity Details Follow Up 1 Week Reason:pneumonia VITAL SIGNS Weight 151 lbs 2017-04-26 Temperature 98.2 degrees Fahrenheit 2017-04-26 Heart Rate 78 bpm 2017-04-26 Respiratory Rate 20 2017-04-26 Oximetry on room air:93 % 2017-04-26 Blood pressure systolic 130 mmHg 2017-04-26 Blood pressure diastolic 80 mmHg 2017-04-26 MEDICATIONS Medication Instructions Dosage Frequency Start Date End Date Duration Status Cefdinir 300 MG Orally every 12 hrs 1 capsule 12h Apr, Apr, 10 day(s) Active Eliquis 5 mg Orally 2 times a day 12h Active Multaq 400 mg Orally Once a day 1 tablet with meals 24h Active Cyclobenzaprine HCl 10 MG Orally Three times a day 1 tablet as needed 8h Active ProAir HFA 108 (90 Base) MCG/ACT Inhalation every 4 hrs 2 puffs as needed 4h Apr, Active Mucinex 600 MG Orally every 12 hrs 1 tablet as needed 12h Apr, Active Metoprolol Succinate ER 25 MG Orally Once a day 1 tablet 24h Active RESULTS No Results PROCEDURES Procedure Date Ordered Result Body Site MEASURE BLOOD OXYGEN LEVEL April 26, 2017 [facility] VISIT NEW PATIENT April 26, 2017 SOLUMEDROL (UP TO 125 MG) April 26, 2017 THER/PROPH/DIAG INJ, SC/IM April 26, 2017 IMMUNIZATIONS Vaccine Route Administration Date Status SOLUMEDROL (UP TO 125 MG) IM Intramuscular April 26, 2017 Administered MEDICAL (GENERAL) HISTORY Type Description Date Medical History A fib Surgical History appendectomy Surgical History hysterectomy Surgical History cholecystectomy Surgical History bowel blockage Surgical History bladder and colon repair Surgical History prolapsed rectum Surgical History hemorrhoids Hospitalization History surgeries
[2017-12-31 11:00] VITALS: BP 141/81
--- NOTE | 2017-12-31 11:09 | History & Physicial ---
History of Present Illness History of Present Illness Reason for visit/HPI to undergo an upper endoscopy regarding epigastric pain and symptoms of reflux disease Date of Admission 12/31/17 Date Seen by Provider: Dec 31, 2017 Time Seen by Provider: 11:08 I consulted on this patient on 12/31/17 11:04 Attending Physician Krys Perry MD Admitting Physician Domenic Garza DO Consult Allergies and Home Medications Allergies Coded Allergies: codeine (Unverified Allergy, Unknown, 09/13/16) Uncoded Allergies: PCN (Allergy, Unknown, 09/13/16) SOME ANTIBIOTICS (Allergy, Unknown, 09/13/16) Home Medications Apixaban 5 Mg Tablet, 5 MG PO BID, (Reported) Cyclobenzaprine HCl 10 Mg Tablet, 10 MG PO TID PRN for MUSCLE SPASMS, (Reported) Metoprolol Succinate 50 Mg Tab.er.24h, 50 MG PO DAILY, (Reported) Past Cfeaihy-Ioapze-Wzszal Hx Patient Social History 2nd Hand Smoke Exposure: No Recent Foreign Travel: No Contact w/other who traveled: No Recent Hopitalizations: No Immunizations Up To Date Date of Pneumonia Vaccine: Nov 26, 2007 Seasonal Allergies Seasonal Allergies: No Surgeries Yes Appendectomy, Gallbladder, Hysterectomy Respiratory Yes ( PNEUMONIA) Cardiovascular No Atrial Fibrillation, Hypertension Neurological No Reproductive System Hx Reproductive Disorders: No Gastrointestinal No Gastroesophageal Reflux Musculoskeletal Yes (BRUSITIS) Arthritis Endocrine History of Endocrine Disorders: No Cancer No Psychosocial History of Psychiatric Problem: No Integumentary History of Skin or Integumenta: No Blood Transfusions History of Blood Disorders: No Family Medical History Significant Family History: No Pertinent Family Hx Constitutional: no symptoms reported EENTM: no symptoms reported Respiratory: no symptoms reported Cardiovascular: no symptoms reported Gastrointestinal: see HPI Genitourinary: no symptoms reported Musculoskeletal: no symptoms reported Skin: no symptoms reported Psychiatric/Neurological: No Symptoms Reported Physical Exam Vital Signs Capillary Refill : General Appearance: No Apparent Distress HEENT: Normal ENT Inspection Neck: Normal Inspection Respiratory: Lungs Clear Cardiovascular: Regular Rate, Rhythm Gastrointestinal: Non Tender, Soft Extremity: Normal Inspection Neurologic/Psychiatric: Alert, Oriented x3 Skin: Warm/Dry Assessment/Plan Assessment and Plan lady with epigastric pain. For upper endoscopy Problems: KRYS PERRY MD Dec 31, 2017 11:09 am
--- NOTE | 2017-12-31 11:11 | Conscious Sedation/ASA ---
Conscious Sedation Pre-Proced Time Reviewed: 11:11 ASA Class: 2 Airway Mallampati Classification: ([place] appropriate class) I. II. III, IV Lungs Heart ASA score ASA 1: a normal healthy patient ASA 2: a patient with a mild systemic disease (mid diabetes, controlled hypertension, obesity ASA 3: a patient with a severe systemic disease that limits activity (angina , COPD, prior Myocardial infarction) ASA 4: a patient with an incapacitating disease that is a constant threat to life (CHF, renal failure) ASA 5: a moribund patient not expected to survive 24 hrs. (ruptured aneurysm) ASA 6: a declared brain patient whose organs are being harvested. For emergent operations, add the letter E after the classification Grade 2 Sedation Plan: Discussed options with patient/fam Note The patient is an appropriate candidate to undergo the planned procedure, sedation, and anesthesia. The patient immediately re-assessed prior to indication. KRYS PERRY MD Dec 31, 2017 11:11 am
[2017-12-31] MEDS: fentaNYL INJECTION 100 MCG/2 ML AMP IVP PRN ×2 (11:43→11:55)
[2017-12-31] MEDS: MIDAZOLAM 2 MG/2 ML (VERSED) VIAL IVP PRN ×2 (11:45→11:50)
--- NOTE | 2017-12-31 12:06 | Endo Procedure Record ---
Endo Procedure Report Date of Procedure Last Colonoscopy: Yes (UNSURE) Dec 31, 2017 Surgeon (s) KRYS PERRY MD Post Procedure/Op Diagnosis Grade 3 esophagitis with a stricture Multiple antral erosions and shallow ulcers Procedure Performed Upper GI endoscopy [place] cytology of esophageal stricture Balloon dilatation of esophageal stricture Description of Procedure Anesthesia Type: Conscious Sedation Specimen(s) collected/removed brushings from esophageal stricture for cytology Description of the Procedure Indication for the procedure: This lady came in for an upper endoscopy to investigate epigastric pain and intermittent dysphagia with some episodes of for impaction. Informed consent was obtained after reviewing the procedure in detail. Description of procedure: She was placed in left lateral rectus position and her vital signs were monitored. Conscious sedation was achieved using Versed and fentanyl. The flexible gastroscope was introduced down the esophagus, past the stomach, into the proximal duodenum Findings: Esophagus: Grade 3 esophagitis with an associated stricture. Cytology was obtained to rule out any neoplastic changes followed by balloon dilatation to 18 mm Stomach: Multiple distal gastric erosions and shallow ulcers were found. Duodenum: Changes of duodenitis along the first part. She tolerated the procedure well and was taken back to the nursing area in a stable condition. Impression: Epigastric pain and dysphagia. Esophagitis with a stricture. Balloon dilatation completed. Incidental gastric ulcers. Will treat with proton pump inhibitors. Copies To: MATEO MUSA XAVIER M MD Dec 31, 2017 12:06 pm
--- NOTE | 2017-12-31 12:09 | Discharge Inst-Simple/Standard ---
Discharge Inst-Standard Discharge Medications New, Converted or Re-Newed RX: RX on Chart Patient Instructions/Follow Up Plan of Care/Instructions/FU: F/u with her primary physician Activity as Tolerated: Yes Discharge Diet: No Restrictions KRYS PERRY MD Dec 31, 2017 12:09 pm
[2017-12-31 12:35] VITALS: BP 155/86
[2017-12-31 13:15] VITALS: BP 148/84
[2017-12-31 13:31] VITALS: BP 148/84
== END | disposition home or self-care (01) ==
LOC: ENDO 10:28
PROVIDERS: ATTEND Surgery
DX: K20.9 Esophagitis, unspecified (principal); K22.2 Esophageal obstruction; K25.9 Gastric ulcer, unspecified as acute or chronic, without hemorrhage or perforation; I48.91 Unspecified atrial fibrillation; I10 Essential (primary) hypertension; Z88.0 Allergy status to penicillin; Z88.1 Allergy status to other antibiotic agents; Z79.899 Other long term (current) drug therapy

== ENCOUNTER → 2018-01-22 | Day surgery (SDC) | payer MEDICARE, MEDICAID ==
[~2018-01-22] VITALS: Ht 152.4 cm; Wt 68.9 kg
[~2018-01-22] MED LIST changes: -HURRICAINE EXT TUBE (BENZOCAINE) ONE; -HURRICAINE EXT TUBE (BENZOCAINE) XX PRN; +LIDOCAINE 1% INJ 50 ML (XYLOCAINE) VIAL ONE; +NS IV 1000 ML 1,000 ML IV SCH; +NS IV 1000 ML 1,000 ML ONE; -NS IV 500 ML 500 ML IV PRN; -NS IV 500 ML 500 ML ONE; -fentaNYL INJECTION 100 MCG/2 ML AMP ONE
[2018-01-22 10:17] VITALS: BP 148/81
--- NOTE | 2018-01-22 14:46 | Cardiac Procedure Note-CS/ASA ---
Pre-Procedure Note Pre-Op Procedure Note H&P Reviewed The H&P was reviewed, patient examined and no changes noted. Date H&P Reviewed: Jan 22, 2018 Time H&P Reviewed: 12:45 Conscious Sedation Pre-Proced Time Reviewed: 12:45 ASA Class: 2 Airway Mallampati Classification: ([place] appropriate class) I. II. III, IV Lungs Heart ASA score ASA 1: a normal healthy patient ASA 2: a patient with a mild systemic disease (mid diabetes, controlled hypertension, obesity ASA 3: a patient with a severe systemic disease that limits activity (angina , COPD, prior Myocardial infarction) ASA 4: a patient with an incapacitating disease that is a constant threat to life (CHF, renal failure) ASA 5: a moribund patient not expected to survive 24 hrs. (ruptured aneurysm) ASA 6: a declared brain patient whose organs are being harvested. For emergent operations, add the letter E after the classification Grade 2 Sedation Plan: Analgesia, Amnesia, Plan communicated to team members, Discussed options with patient/fam, Discussed risks with patient/fam Note The patient is an appropriate candidate to undergo the planned procedure, sedation, and anesthesia. The patient immediately re-assessed prior to indication. EUGENE CÁRDENAS MD FACP FAC CCDS Jan 22, 2018 2:46 pm
--- NOTE | 2018-01-22 21:56 | OPERATIVE REPORT ---
DATE OF SERVICE: NAME OF THE PROCEDURE: Removal of implantable loop recorder. The patient is an 83-year-old lady who had an implantable loop recorder for evaluation of palpitations. Atrial fibrillation has been documented and treated. She has requested that the implantable loop recorder be removed. Informed consent was obtained. She came to the heart center. The left prepectoral area, the site of an implantable loop recorder implantation, was prepared and draped in usual sterile fashion. A 1% lidocaine was used as local anesthesia. We used a sharp and blunt dissection to remove the implantable loop recorder from its subcutaneous pocket without any significant difficulty. The small incision was closed with two sutures applied with 3-0 Vicryl. She tolerated the procedure well. Job ID: [id number] DocumentID: [id number] Dictated Date: 01/22/2018 14:49:53 Deputy Insurance Commissioner Date: 01/22/2018 19:12:46 Dictated By: EUGENE CÁRDENAS MD, MA, FACP, FACC,
== END | disposition home or self-care (01) ==
LOC: CATH 09:51
PROVIDERS: ATTEND Internal Medicine Cardiovascular Disease
DX: I48.91 Unspecified atrial fibrillation (principal)
CPT/HCPCS: 33284

== ENCOUNTER → 2018-02-12 | Outpatient (CLI) | payer MEDICARE, MEDICAID ==
[~2018-02-12] MED LIST changes: -LIDOCAINE 1% INJ 50 ML (XYLOCAINE) VIAL ONE; -MIDAZOLAM 2 MG/2 ML (VERSED) VIAL ONE; -NS IV 1000 ML 1,000 ML IV SCH; -NS IV 1000 ML 1,000 ML ONE
== END ==
LOC: RAD 12:55
PROVIDERS: ATTEND Internal Medicine Cardiovascular Disease
DX: I73.9 Peripheral vascular disease, unspecified (principal)
CPT/HCPCS: 93923

== ENCOUNTER 2018-11-06 19:20 | Inpatient (IN) | payer MEDICARE, MEDICAID ==
[~2018-11-06] VITALS: Ht 152.4 cm; Wt 70.3 kg
[2018-11-06] VITALS (7 sets, daily range): BP systolic 130–160; BP diastolic 85–139
--- OUTSIDE RECORDS SUMMARY | 2018-11-06 19:25 | XMS REPORT ---
Author Author ZAHRAA Hardwick Organization [facility] Address [address] [place] [address] Care Team Providers Care Chip Drier Name Role Phone ZAHRAA Hardwick Unavailable PROBLEMS Unknown Problems ALLERGIES Substance Reaction Event Type Date Status Penicillin V Potassium Unknown Drug Allergy Apr, Active Codeine Sulfate Unknown Drug Allergy Apr, Active ENCOUNTERS Encounter Location Date Diagnosis [facility] [id number] [place] [phone] Apr, Pneumonia of both upper lobes due to Haemophilus influenzae J14 [facility] [address], [place] [phone] Apr, Pneumonia of left upper lobe due to Haemophilus influenzae J14 [facility] [id number] [place] [phone] Apr, [facility] [id number] [place] [phone] Apr, Pneumonia of both upper lobes due to Haemophilus influenzae 14 [facility] [address] [place] [phone] Apr, Pneumonia of both upper lobes due to Haemophilus influenzae J14 IMMUNIZATIONS No Known Immunizations SOCIAL HISTORY Never Assessed REASON FOR VISIT Pneumonia F/U- States she is feeling better- Rory Birch RN PLAN OF CARE Activity Details Follow Up prn Reason: VITAL SIGNS Height 60 in 2017-05-03 Weight 152 lbs 2017-05-03 Temperature 97.0 degrees Fahrenheit 2017-05-03 Heart Rate 74 bpm 2017-05-03 Respiratory Rate 22 2017-05-03 Oximetry 94 % 2017-05-03 BMI 29.68 kg/m2 2017-05-03 Blood pressure systolic 122 mmHg 2017-05-03 Blood pressure diastolic 64 mmHg 2017-05-03 MEDICATIONS Medication Instructions Dosage Frequency Start Date End Date Duration Status Cyclobenzaprine HCl 10 MG Orally Three times a day 1 tablet as needed 8h Active Metoprolol Succinate ER 50 MG Orally Once a day 1 tablet 24h Active Eliquis 5 mg Orally 2 times a day 12h Active Diflucan 100 MG Orally Once a day 1 tablet 24h Apr, Active RESULTS No Results PROCEDURES Procedure Date Ordered Result Body Site MEASURE BLOOD OXYGEN LEVEL May 03, 2017 [facility] VISIT ESTABLISHED PATIENT May 03, 2017 INSTRUCTIONS MEDICATIONS ADMINISTERED No Known Medications MEDICAL (GENERAL) HISTORY Type Description Date Medical History A fib Surgical History appendectomy Surgical History hysterectomy Surgical History cholecystectomy Surgical History bowel blockage Surgical History bladder and colon repair Surgical History prolapsed rectum Surgical History hemorrhoids Hospitalization History surgeries
--- OUTSIDE RECORDS SUMMARY | 2018-11-06 19:27 | XMS REPORT | Continuity of Care Document ---
Author Author [facility] Organization [facility] Address Unknown Phone Unavailable Allergies Active Description Code Type Severity Reaction Onset Reported/Identified Relationship to Patient Clinical Status Yes codeine [id number] Drug Allergy Unknown N/A 09/13/2016 Yes PCN [...] V82.81 03/25/2015 Ot V72.84 03/25/2015 AMELIA MUSA PLUMBING ENGINEER Ot 786.50 03/25/2015 AMELIA MUSA PLUMBING ENGINEER Ot E888.9 03/25/2015 MATEO MUSA DO Ot V76.12 03/25/2015 MATEO MUSA DO Ot V76.12 04/12/2015 Ot 724.5 04/12/2015 Ot 791.9 04/12/2015 Ot V76.12 04/12/2015 Ot 780.79 04/12/2015 Ot V58.69 04/12/2015 Ot V76.12 04/12/2015 Ot 733.90 04/12/2015 Ot V49.81 04/12/2015 Ot V76.12 04/12/2015 Ot V82.81 04/12/2015 Ot V72.84 04/12/2015 AMELIA MUSA PLUMBING ENGINEER Ot 786.50 04/12/2015 AMELIA MUSA PLUMBING ENGINEER Ot E888.9 04/12/2015 DIMPLE RUBIO MATEO Tyler [...] EXAM PRE- OPERATIVE NOS 04/08/2016 AMELIA MUSA PLUMBING ENGINEER Ot 786.50 CHEST PAIN NOS 04/08/2016 AMELIA MUSA PLUMBING ENGINEER Ot E888.9 FALL NOS 04/08/2016 DIMPLE RUBIO [...] UNSPECIFIED 04/08/2017 FANI CAM MD Ot Z79.01 RESIDENTIAL (CURRENT) USE OF ANTICOAGULANT 04/08/2017 FANI CAM MD Ot Z79.899 OTHER RESIDENTIAL (CURRENT) DRUG THERAPY 04/10/2017 FANI CAM MD Ot I48.2 CHRONIC ATRIAL FIBRILLATION 04/10/2017 FANI CAM MD Ot J40 BRONCHITIS, NOT SPECIFIED ACUTE OR CH 04/10/2017 FANI CAM MD Ot R05 COUGH 04/10/2017 FANI CAM MD Ot R50.9 FEVER, UNSPECIFIED 04/10/2017 FANI CAM MD Ot Z79.01 RESIDENTIAL (CURRENT) USE OF ANTICOAGULANT 04/10/2017 FANI CAM MD Ot Z79.899 OTHER WASH AND GREASER (CURRENT) DRUG THERAPY 04/26/2017 Ot 733.90 BONE CARTILAGE DIS NOS 04/26/2017 Ot V49.81 ASYMPT POSTMENOPAUSAL STATUS (AGE-RELATE 04/26/2017 Ot V76.12 OTH SCREEN MAMMO-MALIGN NEOPLASM OF RJ 04/26/2017 Ot V82.81 SCREENING FOR OSTEOPOROSIS 04/26/2017 Ot V72.84 EXAM PRE- OPERATIVE NOS 04/26/2017 AMELIA MUSA PLUMBING ENGINEER Ot 786.50 CHEST PAIN NOS 04/26/2017 AMLEIA MUSA Ot E888.9 FALL NOS 04/26/2017 MATEO MUSA DO Ot V76.12 OTH SCREEN MAMMO-MALIGN NEOPLASM OF RJ 04/26/2017 MATEO MUSA DO Ot V76.12 OTH SCREEN MAMMO-MALIGN NEOPLASM OF RJ 04/26/2017 MATEO MUSA DO Ot 486 PNEUMONIA, ORGANISM NOS 04/26/2017 MATEO MUSA DO Ot V76.12 OTH SCREEN MAMMO-MALIGN NEOPLASM OF RJ 05/07/2017 Ot 733.90 BONE CARTILAGE DIS NOS 05/07/2017 Ot V49.81 ASYMPT POSTMENOPAUSAL STATUS (AGE-RELATE 05/07/2017 Ot V76.12 OTH SCREEN MAMMO-MALIGN NEOPLASM OF RJ 05/07/2017 Ot V82.81 SCREENING FOR OSTEOPOROSIS 05/07/2017 Ot V72.84 EXAM PRE- OPERATIVE NOS 05/07/2017 AMELIA MUSA PLUMBING ENGINEER Ot 786.50 CHEST PAIN NOS 05/07/2017 AMELIA MUSA PLUMBING ENGINEER Ot E888.9 FALL NOS 05/07/2017 MATEO MUSA DO Ot V76.12 OTH SCREEN MAMMO-MALIGN NEOPLASM OF RJ 05/07/2017 MATEO MUSA DO Ot V76.12 OTH SCREEN MAMMO-MALIGN NEOPLASM OF RJ 05/07/2017 MATEO MUSA DO Ot 486 PNEUMONIA, ORGANISM NOS 05/07/2017 MATEO MUSA DO Ot V76.12 OTH SCREEN MAMMO-MALIGN NEOPLASM OF RJ 05/07/2017 AMELIA MUSA PLUMBING ENGINEER Ot R05 COUGH 05/09/2017 AVI MARTINEZ FACC, [...] AND CEREB INFRC W 05/17/2017 AMELIA MUSA PLUMBING ENGINEER Ot R05 COUGH 05/24/2017 AMELIA MUSA PLUMBING ENGINEER Ot R05 COUGH 05/31/2017 AVI MARTINEZ FACC, EUGENE ANNP CCDS Ot E78.2 MIXED HYPERLIPIDEMIA 05/31/2017 AVI MARTINEZ FACC, ALI FACP CCDS Ot I10 ESSENTIAL (PRIMARY) HYPERTENSION 05/31/2017 AVI MARTINEZ [facility], ALI FACP CCDS Ot I48.0 PAROXYSMAL ATRIAL FIBRILLATION 05/31/2017 AVI MARTINEZ FAC, ALI FACP CCDS Ot R53.83 OTHER FATIGUE 05/31/2017 AVI MARTINEZ FACC, ALI FACP CCDS Ot R94.31 ABNORMAL ELECTROCARDIOGRAM [ECG] [EKG] 05/31/2017 AVI MARTINEZ [facility], ALI FACP CCDS Ot Z86.73 PRSNL HX OF TIA (TIA), AND CEREB INFRC W 06/08/2017 AVI MARTINEZ [facility], ALI FACP CCDS Ot E78.2 MIXED HYPERLIPIDEMIA 06/08/2017 AVI MARTINEZ [facility], ALI FACP CCDS Ot I10 ESSENTIAL (PRIMARY) HYPERTENSION 06/08/2017 AVI MARTINEZ [facility], ALI FACP CCDS Ot I48.0 PAROXYSMAL ATRIAL FIBRILLATION 06/08/2017 AVI MARTINEZ [facility], ALI FACP CCDS Ot R53.83 OTHER FATIGUE 06/08/2017 AVI MARTINEZ [facility], ALI FACP CCDS Ot R94.31 ABNORMAL ELECTROCARDIOGRAM [ECG] [EKG] 06/08/2017 AVI MARTINEZ [facility], ALI FACP CCDS Ot Z86.73 PRSNL HX OF TIA (TIA), AND CEREB INFRC W 12/31/2017 KRYS PERRY MD, Ot K21.9 GASTRO-ESOPHAGEAL REFLUX DISEASE WITHOUT 12/31/2017 KRYS PERRY MD Ot Z01.818 ENCOUNTER FOR OTHER PREPROCEDURAL EXAMIN 01/01/2018 KRYS PERRY MD Ot I10 ESSENTIAL (PRIMARY) HYPERTENSION 01/01/2018 KRYS PERRY MD Ot I48.91 UNSPECIFIED ATRIAL FIBRILLATION 01/01/2018 KRYS PERRY MD, Ot K20.9 ESOPHAGITIS, UNSPECIFIED 01/01/2018 KRYS PERRY MD, Ot K22.2 ESOPHAGEAL OBSTRUCTION 01/01/2018 KRYS PERRY MD, Ot K25.9 GASTRIC ULCER, UNSP ACUTE OR CHRONIC, 01/01/2018 KRYS PERRY MD, Ot Z79.899 OTHER WASH AND GREASER (CURRENT) DRUG THERAPY 01/01/2018 KRYS PERRY MD, Ot Z88.0 ALLERGY STATUS TO PENICILLIN 01/01/2018 PERRY MD, KRYS M Ot Z88.1 ALLERGY STATUS TO OTHER ANTIBIOTIC AGENT 01/23/2018 VICKY MARTINEZ, KRYS M Ot I10 ESSENTIAL (PRIMARY) HYPERTENSION 01/23/2018 VICKY MARTINEZ, KRYS M Ot I48.91 UNSPECIFIED ATRIAL FIBRILLATION 01/23/2018 VICKY MARTINEZ, KRYS M Ot K20.9 ESOPHAGITIS, UNSPECIFIED 01/23/2018 VICKY MARTINEZ, KRYS M Ot K22.2 ESOPHAGEAL OBSTRUCTION 01/23/2018 VICKY MARTINEZ, KRYS M Ot K25.9 GASTRIC ULCER, UNSP ACUTE OR CHRONIC, 01/23/2018 VICKY MARTINEZ, KRYS Sandoval Ot Z79.899 OTHER WASH AND GREASER (CURRENT) DRUG THERAPY 01/23/2018 KRYS PERRY MD Ot Z88.0 ALLERGY STATUS TO PENICILLIN 01/23/2018 VICKY MARTINEZ, KRYS Sandoval Ot Z88.1 ALLERGY STATUS TO OTHER ANTIBIOTIC AGENT 01/23/2018 AVI MARTINEZ FACC, ALI FACP CCDS Ot I48.91 UNSPECIFIED ATRIAL FIBRILLATION 01/23/2018 AVI MARTINEZ FACC, ALI FACP CCDS Ot I48.91 UNSPECIFIED ATRIAL FIBRILLATION 01/25/2018 AVI MARTINEZ FACC, ALI FACP CCDS Ot I48.91 UNSPECIFIED ATRIAL FIBRILLATION 02/01/2018 KRYS PERRY MD Ot I10 ESSENTIAL (PRIMARY) HYPERTENSION 02/01/2018 VICKY MARTINEZ, KRYS M Ot I48.91 UNSPECIFIED ATRIAL FIBRILLATION 02/01/2018 KRYS PERRY MD Ot K20.9 ESOPHAGITIS, UNSPECIFIED 02/01/2018 KRYS PERRY MD Ot K22.2 ESOPHAGEAL OBSTRUCTION 02/01/2018 KRYS PERRY MD Ot K25.9 GASTRIC ULCER, UNSP ACUTE OR CHRONIC, 02/01/2018 KRYS PERRY MD Ot Z79.899 OTHER RESIDENTIAL (CURRENT) DRUG THERAPY 02/01/2018 KRYS PERRY MD Ot Z88.0 ALLERGY STATUS TO PENICILLIN 02/01/2018 KRYS PERRY MD M Ot Z88.1 ALLERGY STATUS TO OTHER ANTIBIOTIC AGENT 02/12/2018 AVI MARTINEZ FACC, ALI FACP CCDS Ot I73.9 PERIPHERAL VASCULAR DISEASE, UNSPECIFIED 02/12/2018 AVI MARTINEZ FACC, ALI FACP CCDS Ot I48.91 UNSPECIFIED ATRIAL FIBRILLATION 03/01/2018 AVI MARTINEZ FACC, EUGENE ANNP CCDS Ot I48.91 UNSPECIFIED ATRIAL FIBRILLATION 03/08/2018 AVI MARTINEZ FACC, ALI FACP CCDS Ot I73.9 PERIPHERAL VASCULAR DISEASE, UNSPECIFIED 03/11/2018 AVI MARTINEZ FACC, ALI FACP CCDS Ot I73.9 PERIPHERAL VASCULAR DISEASE, UNSPECIFIED 03/26/2018 AVI MARTINEZ FACC, ALI FACP CCDS Ot I73.9 PERIPHERAL VASCULAR DISEASE, UNSPECIFIED 04/05/2018 AVI MARTINEZ FACC, ALI FACP CCDS Ot I73.9 PERIPHERAL VASCULAR DISEASE, UNSPECIFIED Procedures Code Description Performed By Performed On [id number] INSERT OF MONITOR DEV INTO CHEST SUBCU/F [...] INFLUENZA A AND B ANTIGENS BY IA [facility] Bacterial throat culture - 04/08/17 14:00 Bacterial throat culture [facility] Complete blood count (CBC) with automated white [...] Status Pt. Type Provider Facility Loc./Unit Complaint [id number] 02/12/2018 12:55:00 02/12/2018 23:59:59 CLS Outpatient AVI MARTINEZ FACC, EUGENE FACP CCDS [facility] RAD I73.9 CLAUDICATION [id number] 01/22/2018 09:51:00 01/22/2018 23:59:59 CLS Outpatient EUGENE CÁRDENAS MD, FACC FACJavy CCDS [facility] CATH AFIB,HTN, FATIGUE,SOB [id number] 12/31/2017 10:28:00 12/31/2017 23:59:59 CLS Outpatient KRYS PERRY MD [facility] ENDO GERD [id number] 12/28/2017 09:17:00 12/28/2017 11:01:00 DIS Outpatient KRYS PERRY MD [facility] PREOP EGD [id number] 09/25/2017 14:00:00 09/25/2017 23:59:59 CLS Preadmit EUGENE CÁRDENAS MD, FACC FACP CCDS [facility] CATH REMOVAL OF ILR DEVICE [id number] 05/08/2017 08:18:00 05/08/2017 23:59:59 CLS Outpatient AVI MARTINEZ FACC ALI FACP CCDS [facility] CARD R94.31 ABNORMAL ECG [id number] 04/26/2017 12:32:00 04/26/2017 23:59:59 CLS Outpatient AMELIA MUSA [facility] RAD CHRONIC COUGH [id number] 04/08/2017 13:41:00 04/08/2017 15:14:00 DIS Emergency FANI CAM MD [facility] ER FEVER/WEAKNESS [id number] 09/13/2016 13:00:00 09/14/2016 10:15:00 DIS Inpatient ESSENCE HAWK DO [facility] ICU AFIB WITH RVR, TIA [id number] 04/08/2016 07:33:00 04/08/2016 08:59:00 DIS Emergency RAE MARTINEZ, DELIA Quiles [facility] ER FALL, HEAD INJ, R SIDE PAIN [id number] 06/10/2015 11:22:00 06/10/2015 23:59:59 CLS Outpatient DIMPLE RUBIO MATEO Tyler [facility] RAD SCREENING [id number] 05/31/2015 12:01:00 05/31/2015 23:59:59 CLS Outpatient DIMPLE RUBIO MATEO Tyler [facility] RAD PNUEMONIA [id number] 11/05/2014 10:43:00 11/05/2014 23:59:59 CLS Outpatient DIMPLE RUBIO MATEO Tyler [facility] RAD ROUTINE [id number] 10/21/2013 10:36:00 10/21/2013 23:59:59 CLS Outpatient DIMPLE RUBIO MATEO Scott [facility] RAD SCREENING [id number] 05/30/2013 11:34:00 05/30/2013 23:59:59 CLS Outpatient AMELIA MUSA [facility] RAD PAIN IN RT RIBS AFTER FALL [id number] 11/06/2018 19:21:00 ACT Emergency GIL FERGUSON MD [facility] ER TACHYCARDIC [id number] 03/25/2015 10:43:00 Document Registration [id number] 03/25/2015 10:43:00 Document Registration [id number] 03/25/2015 10:43:00 Document Registration [id number] 03/25/2015 10:43:00 Document Registration [id number] 03/25/2015 10:43:00 Document Registration [id number] 03/25/2015 10:43:00 Document Registration [id number] 11/12/2012 06:55:00 Document Registration [id number] 07/26/2012 11:13:00 Document Registration [id number] 07/14/2010 13:53:00 Document Registration [id number] 01/19/2010 00:00:00 Document Registration
[2018-11-06 19:43] LABS: BASOPHILS % (AUTO) 1 % (0-10); EOSINOPHILS # (AUTO) 0.1 10^3/uL (0.0-0.3); EOSINOPHILS % (AUTO) 1 % (0-10); HEMATOCRIT 46 % (35-52); HEMOGLOBIN 15.4 G/DL (11.5-16.0); LYMPHOCYTES # (AUTO) 2.1 X 10^3 (1.0-4.0); LYMPHOCYTES % (AUTO) 29 % (12-44); MEAN CORPUSCULAR HEMOGLOBIN 29 PG (25-34); MEAN CORPUSCULAR HGB CONC 34 G/DL (32-36); MEAN CORPUSCULAR VOLUME 85 FL (80-99); MEAN PLATELET VOLUME 10.4 FL (7.4-10.4); MONOCYTES # (AUTO) 0.7 X 10^3 (0.0-1.0); MONOCYTES % (AUTO) 10 % (0-12); NEUTROPHILS # (AUTO) 4.3 X 10^3 (1.8-7.8); NEUTROPHILS % (AUTO) 59 % (42-75); PLATELET COUNT 311 10^3/uL (130-400); RED BLOOD COUNT 5.38 10^6/uL (4.35-5.85); RED CELL DISTRIBUTION WIDTH 14.2 % (10.0-14.5); WHITE BLOOD COUNT 7.3 10^3/uL (4.3-11.0)
[2018-11-06] MEDS ORDERED: DILTIAZEM INJECTION 125 MG in NS (IVPB) 100 ML IV SCH (19:45)
[2018-11-06] MEDS ORDERED: ASPIRIN 81 MG CHEW (CHILDREN'S ASA) PO ONE (19:45)
[2018-11-06] MEDS ORDERED: DILTIAZEM 25 MG/5 ML INJ (CARDIZEM) VIAL IVP ONE (19:45)
[2018-11-06 19:57] LABS: INR 1.1 (0.8-1.4); PROTHROMBIN TIME PATIENT 14.2 SEC (12.2-14.7)
[2018-11-06 20:00] LABS: ALANINE AMINOTRANSFERASE 16 U/L (0-55); ALBUMIN 4.1 GM/DL (3.2-4.5); ALKALINE PHOSPHATASE 88 U/L (40-136); BILIRUBIN,TOTAL 0.3 MG/DL (0.1-1.0); BUN/CREATININE RATIO 16; CARBON DIOXIDE 25 MMOL/L (21-32); CHLORIDE 104 MMOL/L (98-107); GFR ESTIMATED > 60; GLUCOSE 120 MG/DL (70-105); MAGNESIUM 2.3 MG/DL (1.8-2.4); POTASSIUM 3.8 MMOL/L (3.6-5.0); SODIUM 142 MMOL/L (135-145); TOTAL PROTEIN 7.4 GM/DL (6.4-8.2)
--- NOTE | 2018-11-06 20:01 | ED Cardiac General ---
History of Present Illness General Chief Complaint: Cardiac/General Problems Stated Complaint: TACHYCARDIC Nursing Triage Note: PT PRESENTS TO ER WITH COMPLAINT OF TACHYCARDIA. STATES IT STARTED AROUND 5PM TONIGHT. Source: patient, old records Exam Limitations: no limitations History of Present Illness Date Seen by Provider: Nov 06, 2018 Time Seen by Provider: 19:35 Initial Comments This 83-year-old woman presents to the emergency room with complaints of tachycardia. Symptoms started somewhere in the 17:00 hour. After the tachycardia started, she developed pain between her shoulder blades and a heartburn sensation in her chest. She has a narrow complex tachycardia on the monitor with fixed rate around 147. She has a history of atrial fibrillation and was admitted in 2016. She is presently on Eliquis. She reports that she forgot to take her Toprol today. 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 Dr. Garza is her primary care provider. She is also notably hypertensive on assessment. Allergies and Home Medications Allergies Coded Allergies: codeine (Unverified Allergy, Unknown, 09/13/16) Uncoded Allergies: PCN (Allergy, Unknown, 09/13/16) SOME ANTIBIOTICS (Allergy, Unknown, 09/13/16) Home Medications Apixaban 5 Mg Tablet, 5 MG PO BID, (Reported) Calcium Carb/Mag Ox/Zinc Sulf 1 Each Tablet, 1 TAB PO DAILY, (Reported) Cephalexin 500 Mg Capsule, 500 MG PO BID, (Reported) 14 DAY SUPPLY FILLED 11-04-18 Cholecalciferol (Vitamin D3) 5,000 Unit Capsule, 5,000 UNIT PO BID, (Reported) Cyclobenzaprine HCl 10 Mg Tablet, 10 MG PO TID PRN for MUSCLE SPASMS, (Reported) Diltiazem HCl 180 Mg Cap.er.24h, 180 MG PO DAILY Prescribed by: EUGENE HARMON on 11/07/18 1218 [place] 500 Mg Capsule, 500 MG PO DAILY, (Reported) Metoprolol Succinate 50 Mg Tab.er.24h, 50 MG PO DAILY, (Reported) Niacinamide 500 Mg Tablet, 1,000 MG PO BID, (Reported) Pantoprazole Sodium 40 Mg Tablet.dr, 40 MG PO DAILY, (Reported) Turmeric Root Extract 538 Mg Capsule, 538 MG PO DAILY, (Reported) [Cbd Oil] , SL BID, (Reported) Patient Home Medication List Home Medication List Reviewed: Yes Review of Systems Review of Systems Constitutional: no symptoms reported EENTM: No Symptoms Reported Respiratory: No Symptoms Reported Cardiovascular: See HPI Gastrointestinal: No Symptoms Reported Genitourinary: No Symptoms Reported Musculoskeletal: no symptoms reported Skin: no symptoms reported Psychiatric/Neurological: No Symptoms Reported Endocrine: No Symptoms Reported Hematologic/Lymphatic: No Symptoms Reported Past Hatuoyb-Msqzor-Lqygnq Hx Past Med/Social Hx: Reviewed Nursing Past Med/Soc Hx Patient Social History Alcohol Use: Denies Use Recreational Drug Use: No Smoking Status: Never a Smoker 2nd Hand Smoke Exposure: No Recent Foreign Travel: No (T) Contact w/Someone Who Travel: No Recent Infectious Disease Expo: No Recent Hopitalizations: No Immunizations Up To Date Tetanus Booster (TDap): Unknown PED Vaccines UTD: No Date of Pneumonia Vaccine: Nov 26, 2007 Seasonal Allergies Seasonal Allergies: No Past Medical History Surgeries: Yes Appendectomy, Gallbladder, Hysterectomy Respiratory: No ( PNEUMONIA) Cardiac: Yes Atrial Fibrillation, Hypertension Neurological: No Reproductive Disorders: No Genitourinary: No Gastrointestinal: Yes Gastroesophageal Reflux Musculoskeletal: Yes (BRUSITIS) Arthritis Endocrine: No HEENT: No Cancer: No Psychosocial: No Integumentary: No Blood Disorders: No Family Medical History No Pertinent Family Hx Physical Exam Vital Signs Vital Signs - First Documented 11/06/18 19:24 Pulse 146 Resp 20 B/P (MAP) 186/125 (145) Pulse Ox 97 O2 Delivery Room Air Capillary Refill : Less Than 3 Seconds Height, Weight, BMI Height: 5'0" Weight: 145lbs. 0.0oz. 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 Norm as Tested Skin: Normal Color, Warm/Dry Progress/Results/Core Measures Results/Orders Lab Results Laboratory Tests Test 11/06/18 19:37 Range/Units White Blood Count 7.3 4.3-11.0 10^3/uL Red Blood Count 5.38 4.35-5.85 10^6/uL Hemoglobin 15.4 11.5-16.0 G/DL Hematocrit 46 35-52 % Mean Corpuscular Volume 85 80-99 FL Mean Corpuscular Hemoglobin 29 25-34 PG Mean Corpuscular Hemoglobin Concent 34 32-36 G/DL Red Cell Distribution Width 14.2 10.0-14.5 % Platelet Count 311 130-400 10^3/uL Mean Platelet Volume 10.4 7.4-10.4 FL Neutrophils (%) (Auto) 59 42-75 % Lymphocytes (%) (Auto) 29 12-44 % Monocytes (%) (Auto) 10 0-12 % Eosinophils (%) (Auto) 1 0-10 % Basophils (%) (Auto) 1 0-10 % Neutrophils # (Auto) 4.3 1.8-7.8 X 10^3 Lymphocytes # (Auto) 2.1 1.0-4.0 X 10^3 Monocytes # (Auto) 0.7 0.0-1.0 X 10^3 Eosinophils # (Auto) 0.1 0.0-0.3 10^3/uL Basophils # (Auto) 0.0 0.0-0.1 10^3/uL Prothrombin Time 14.2 12.2-14.7 SEC INR Comment 1.1 0.8-1.4 Activated Partial Thromboplast Time 34 24-35 SEC Sodium Level 142 135-145 MMOL/L Potassium Level 3.8 3.6-5.0 MMOL/L Chloride Level 104 98-107 MMOL/L Carbon Dioxide Level 25 21-32 MMOL/L Anion Gap 13 5-14 MMOL/L Blood Urea Nitrogen 13 7-18 MG/DL Creatinine 0.80 0.60-1.30 MG/DL Estimat Glomerular Filtration Rate > 60 BUN/Creatinine Ratio 16 Glucose Level 120 H 70-105 MG/DL Calcium Level 10.0 8.5-10.1 MG/DL Corrected Calcium 9.9 8.5-10.1 MG/DL Magnesium Level 2.3 1.8-2.4 MG/DL Total Bilirubin 0.3 0.1-1.0 MG/DL Aspartate Amino Transf (AST/SGOT) 21 5-34 U/L Alanine Aminotransferase (ALT/SGPT) 16 0-55 U/L Alkaline Phosphatase 88 40-136 U/L Myoglobin 44.1 10.0-92.0 NG/ML Troponin I < 0.30 <0.30 NG/ML Total Protein 7.4 6.4-8.2 GM/DL Albumin 4.1 3.2-4.5 GM/DL TSH [place] Testing 3.03 0.35-4.94 UIU/ML My Orders Orders - GIL FERGUSON MD Cbc With Automated Diff (11/06/18:35) Magnesium (11/06/18:35) Chest 1 View, Ap/Pa Only (11/06/18:35) Ekg Tracing (11/06/18:35) Cardiac Profile 1 (11/06/18:35) Comprehensive Metabolic Panel (11/06/18) Myoglobin Serum (11/06/1835) Protime With Inr (11/06/18:35) Partial Thromboplastin Time (11/06/18:35) O2 (11/06/18:35) Monitor-Rhythm Ecg Trace Only (11/06/18:35) Lipid Panel (11/07/18 06:00) Saline Lock/Iv-Start (11/06/18:35) Aspirin Chewable Tablet (Baby Aspirin Ch (11/06/18 19:45) Thyroid Analyzer (11/06/18 19:43) Ns (Ivpb) (Sodium C... W/Diltiazem Injec (11/06/18 19:45) Diltiazem Injection (Cardizem Injection) (11/06/18 19:45) Medications Given in ED Vital Signs/I&O 11/06/18 11/06/18 19:24 19:30 Pulse 146 Resp 20 B/P (MAP) 186/125 (145) Pulse Ox 97 99 O2 Delivery Room Air Room Air Blood Pressure Mean: 145 Progress Progress Note #1: Time: 20:01 Progress Note Patient was seen and examined. She is being started on Cardizem drip and being given a Cardizem bolus. Labs are pending. Progress Note #2: Time: 20:45 Progress Note Patient was started on a Cardizem drip. She occasionally would break through the rapid conduction and the underlying atrial flutter would be revealed. However, tachycardia persisted despite titrating up on the Cardizem drip. Case was discussed with Dr. Hutchinson who would like to start her on the amiodarone bolus and drip per protocol. He would like her to be nothing by mouth after midnight in anticipation of cardioversion in the morning. Progress Note #3: Time: 21:11 Progress Note Patient converted to sinus rhythm on Cardizem drip. Amiodarone had not yet been administered. Orders for amiodarone and amiodarone drip will be canceled per discussion with Dr. Hutchinson. Initial ECG Impression Date: Nov 06, 2018 Initial ECG Impression Time: 19:30 Initial ECG Rate: 147 Comment Narrow complex tachycardia. Subtle ST depression. No overt ST elevation. This EKG likely represents atrial flutter. EKG : EKG Time: 21:32 Rate: 71 Rhythm: Normal Sinus Comment Conversion to sinus rhythm with no ST elevation or depression. No abnormal intervals or axis deviation. P waves are very small but visible. Diagnostic Imaging Diagonstic Imaging: Xray Plain Films/CT/US/NM/MRI: chest Comments Chest x-ray viewed by me and report reviewed. See report below: NAME: JACKSON BURGOS [facility] REC#: [id number] PT STATUS: REG ER : 1935 PHYSICIAN: GIL FERGUSON MD ADMIT DATE: 11/06/18/ER Draft Date of Exam:11/06/18 CHEST 1 VIEW, AP/PA ONLY EXAMINATION: Single frontal view of the chest. INDICATION: Rapid heartbeat and posterior chest pain between the shoulders COMPARISON: Multiple priors, most recent on 04/26/2017. FINDINGS: Unchanged calcified granuloma in the left lung base. The lungs are otherwise clear and the pulmonary vasculature is normal. No pneumothorax or significant pleural effusion. The heart is top normal in size, increased from the prior exam. There is mild tortuosity of the thoracic aorta. No acute osseous abnormality. IMPRESSION: 1. No focal consolidation. 2. Heart is top normal in size, demonstrating an increased from prior exam. Pericardial effusion is not excluded. Dictated on workstation # [id number] Dict: 11/06/182001 Trans: 11/06/182006 [id number] Interpreted by: ABBEY HAIRSTON DO Departure Communication (Admissions) Time/Spoke to Admitting Phy: 20:40 Dr. Singh Time/Spoke to Consulting Phy: 20:30 Dr. Hutchinson Impression Primary Impression: Atrial flutter with rapid ventricular response Additional Impression: Chest discomfort Disposition: ADMITTED INPATIENT Condition: Improved Admissions Decision to Admit Reason: Admit from ER (General) Decision to Admit/Date: Nov 06, 2018 Time/Decision to Admit Time: 20:30 Departure-Patient Inst. Referrals: MATEO GARZA DO (PCP/Family) Primary Care Physician Scripts Diltiazem HCl (Cardizem Cd) 180 Mg Cap.er.24h 180 MG PO DAILY, #30 CAP 5 Refills Prov: EUGENE HARMON MD FACP [facility] CCDS 11/07/18 GIL FERGUSON MD Nov 06, 2018 20:01
--- NOTE | 2018-11-06 20:07 | Diagnostic Imaging Report ---
EXAMINATION: Single frontal view of the chest. INDICATION: Rapid heartbeat and posterior chest pain between the shoulders COMPARISON: Multiple priors, most recent on 04/26/2017. FINDINGS: Unchanged calcified granuloma in the left lung base. The lungs are otherwise clear and the pulmonary vasculature is normal. No pneumothorax or significant pleural effusion. The heart is top normal in size, increased from the prior exam. There is mild tortuosity of the thoracic aorta. No acute osseous abnormality. IMPRESSION: 1. No focal consolidation. 2. Heart is top normal in size, demonstrating an increase from prior exam. Pericardial effusion is not excluded. Dictated by: Dictated on workstation # [id number]
[2018-11-06 20:19] LABS: MYOGLOBIN SERUM 44.1 NG/ML (10.0-92.0)
[2018-11-06] MEDS ORDERED: AMIODARONE FOR BOLUS 150 MG in D5W 100 ML IVPB 100 ML IV ONE (20:45)
[2018-11-06] MEDS ORDERED: NS IV 1000 ML 1,000 ML ONE (22:23)
[2018-11-06] MEDS: NS IV 1000 ML 1,000 ML IV SCH (22:30)
[2018-11-06] MEDS ORDERED: DILTIAZEM 125 MG/NS 100 ML IV SCH ×2 (22:30)
[2018-11-07] VITALS (14 sets, daily range): BP systolic 111–156; BP diastolic 64–91
[2018-11-07 04:05] LABS: BASOPHILS % (AUTO) 0 % (0-10); EOSINOPHILS # (AUTO) 0.2 10^3/uL (0.0-0.3); EOSINOPHILS % (AUTO) 2 % (0-10); HEMATOCRIT 41 % (35-52); HEMOGLOBIN 13.8 G/DL (11.5-16.0); LYMPHOCYTES # (AUTO) 2.5 X 10^3 (1.0-4.0); LYMPHOCYTES % (AUTO) 32 % (12-44); MEAN CORPUSCULAR HEMOGLOBIN 29 PG (25-34); MEAN CORPUSCULAR HGB CONC 34 G/DL (32-36); MEAN CORPUSCULAR VOLUME 85 FL (80-99); MEAN PLATELET VOLUME 10.5 FL (7.4-10.4); MONOCYTES # (AUTO) 0.9 X 10^3 (0.0-1.0); MONOCYTES % (AUTO) 12 % (0-12); NEUTROPHILS # (AUTO) 4.2 X 10^3 (1.8-7.8); NEUTROPHILS % (AUTO) 54 % (42-75); PLATELET COUNT 251 10^3/uL (130-400); RED BLOOD COUNT 4.77 10^6/uL (4.35-5.85); RED CELL DISTRIBUTION WIDTH 14.3 % (10.0-14.5); WHITE BLOOD COUNT 7.8 10^3/uL (4.3-11.0)
[2018-11-07 04:29] LABS: BUN/CREATININE RATIO 15; CALCIUM 9.1 MG/DL (8.5-10.1); CARBON DIOXIDE 23 MMOL/L (21-32); CHLORIDE 105 MMOL/L (98-107); CREATININE SERUM 0.72 MG/DL (0.60-1.30); GFR ESTIMATED > 60; GLUCOSE 100 MG/DL (70-105); MAGNESIUM 1.9 MG/DL (1.8-2.4); PHOSPHORUS 3.6 MG/DL (2.3-4.7); POTASSIUM 3.6 MMOL/L (3.6-5.0); SODIUM 140 MMOL/L (135-145)
[2018-11-07 04:50] LABS: CHOLESTEROL 225 MG/DL (< 200); HDL CHOLESTEROL 53 MG/DL (40-60); TRIGLYCERIDES 144 MG/DL (<150); VLDL CHOLESTEROL 29 MG/DL (5-40)
--- NOTE | 2018-11-07 05:07 | Pulmonary Consultation ---
LILY WOOD MED STUDENT 11/07/18 0507: History of Present Illness History of Present Illness Date of Consultation 11/07/18 05:02 Time Seen by Provider: 05:02 History of Present Illness This is an 83 yo female who presented to ED with chief complaint of tachycardia. It began around 1700 the evening of 11/06/18. She has a hx of atrial fibrillation and is under the care of Dr. Harmon, currently prescribed eloquis and toporol. She reports that preceeding this episode she forgot to take her toporol at home. Pulse on admission to ED was 147 and EKG showed narrow complex tachycardia. She was started on cardizem drip and her rate has been controlled with this throughout the night and is currently 63 bpm. Allergies and Home Medications Allergies Coded Allergies: codeine (Unverified Allergy, Unknown, 09/13/16) Uncoded Allergies: PCN (Allergy, Unknown, 09/13/16) SOME ANTIBIOTICS (Allergy, Unknown, 09/13/16) Home Medications Apixaban 5 Mg Tablet, 5 MG PO BID, (Reported) Cyclobenzaprine HCl 10 Mg Tablet, 10 MG PO TID PRN for MUSCLE SPASMS, (Reported) Metoprolol Succinate 50 Mg Tab.er.24h, 50 MG PO DAILY, (Reported) Pantoprazole Sodium 40 Mg Tablet.dr, 40 MG PO DAILY Prescribed by: KRYS PERRY on 12/31/17 1207 Past Csgayxn-Dkhlyi-Ufwfzt Hx Past Med/Social Hx: Reviewed Nursing Past Med/Soc Hx Patient Social History Alcohol Use: Denies Use Recreational Drug Use: No Smoking Status: Never a Smoker 2nd Hand Smoke Exposure: No Recent Foreign Travel: No Contact w/Someone Who Travel: No Recent Infectious Disease Expo: No Recent Hopitalizations: No Immunizations Up To Date Tetanus Booster (TDap): Unknown PED Vaccines UTD: No Date of Pneumonia Vaccine: Aug 26, 2013 Seasonal Allergies Seasonal Allergies: No Past Medical History Surgeries: Yes (appy, choley, cataracts, hysterectomy , ) Appendectomy, Gallbladder, Hysterectomy Respiratory: Yes ( PNEUMONIA) Cardiac: Yes Atrial Fibrillation, Hypertension Neurological: Yes Reproductive Disorders: No Sexually Transmitted Disease: No Genitourinary: No Gastrointestinal: Yes (ulceritive cholitis, ) Gastroesophageal Reflux, Obstructive Bowel Musculoskeletal: Yes (BRUSITIS) Arthritis Endocrine: No HEENT: Yes Cataract Cancer: No Psychosocial: No Integumentary: Yes (bacterial folliculitis) Blood Disorders: No Adverse Reaction/Blood Tranf: No Family Medical History No Pertinent Family Hx Review of Systems Time Seen by Provider: 05:08 Constitutional: No: Fever, Chills Respiratory: No: Cough Sepsis Event Evaluation Height, Weight, BMI Height: 5'0.00" Weight: 155lbs. 0.0oz. 70.688292fj; 30.3 BMI Method:Stated Exam Exam Vital Signs Date Time Temp Pulse Resp B/P (MAP) Pulse Ox O2 Delivery O2 Flow Rate FiO2 11/07/18 04:00 99 Room Air 11/07/18 04:00 96.8 11/07/18 03:00 63 16 127/64 (85) 96 Room Air 11/07/18 02:00 58 21 123/64 (83) 96 Room Air 11/07/18 01:00 65 21 124/67 (86) 95 Room Air 11/07/18 01:00 65 11/07/18 00:00 65 21 152/91 (111) 98 Room Air 11/07/18 00:00 99 Room Air 11/06/18 23:45 63 11 144/85 (104) 97 Room Air 11/06/18 23:30 67 17 148/95 (112) 96 Room Air 11/06/18 23:15 67 14 160/89 (112) 95 Room Air 11/06/18 23:00 86 25 136/88 (104) 97 Room Air 11/06/18 22:48 99 Room Air 11/06/18 22:45 72 21 149/114 (126) 96 Room Air 11/06/18 22:30 77 23 153/139 (144) 96 Room Air 11/06/18 22:30 77 11/06/18 22:27 97.7 72 22 130/107 (115) 95 Room Air 11/06/18 21:37 72 14 144/87 (106) 98 Room Air 11/06/18 19:30 99 Room Air 11/06/18 19:24 146 20 186/125 (145) 97 Room Air I & O 11/07/18 07:00 Intake Total 150 ml Output Total 300 ml Balance -150 ml Height & Weight Height: 5'0.00" Weight: 155lbs. 0.0oz. 70.634122na; 30.3 BMI Method:Stated General Appearance: No Apparent Distress, WD/WN HEENT: PERRL/EOMI, Normal ENT Inspection Neck: Normal Inspection Respiratory: Lungs Clear, Normal Breath Sounds, No Accessory Muscle Use, No Respiratory Distress Cardiovascular: Regular Rate, Rhythm, No Edema, No Murmur Capillary Refill: Less Than 3 Seconds Extremity: Normal Inspection, No Pedal Edema Neurologic/Psychiatric: Alert, Oriented x3, No Motor/Sensory Deficits, Normal Mood/Affect Skin: Normal Color, Warm/Dry Results Lab Laboratory Tests 11/06/18 19:37 11/07/18 03:46 Assessment/Plan Assessment/Plan A Flutter with RVR -converted to sinus rhythm in ED -cardizem gtt started and titrated down to 2.5 -rate controlled at 50-65 bpm throughout the night -Cardiology consulted Hx Afib -Prescribed Eloquis and Toporol TESSIE BEJARANO DO 11/07/18 0557: History of Present Illness History of Present Illness Time Seen by Provider: 05:52 History of Present Illness 83yo with hx of afib presented to ED secondary to tachycardia that started around 1700 last night. PT did for get to take her home Toprol prior to tachycardia. Pt is also on eliquis for anticoagulation. HR on ED admission was 147. PT was was started on Cardizem gtt and admitted to ICU for close monitoring. She has had prior episodes with Afib. I am consulted for ICU management. Allergies and Home Medications Allergies Coded Allergies: codeine (Unverified Allergy, Unknown, 09/13/16) Uncoded Allergies: PCN (Allergy, Unknown, 09/13/16) SOME ANTIBIOTICS (Allergy, Unknown, 09/13/16) Home Medications Apixaban 5 Mg Tablet, 5 MG PO BID, (Reported) Cyclobenzaprine HCl 10 Mg Tablet, 10 MG PO TID PRN for MUSCLE SPASMS, (Reported) Metoprolol Succinate 50 Mg Tab.er.24h, 50 MG PO DAILY, (Reported) Pantoprazole Sodium 40 Mg Tablet.dr, 40 MG PO DAILY Prescribed by: KRYS PERRY on 12/31/17 1207 Review of Systems Time Seen by Provider: 05:56 Constitutional: No: Fever, Chills Eyes: No: Pain, Vision change, Conjunctivae inflammation, Eyelid inflammation, Other, Redness ENT: No: Ear pain, Ear discharge, Nose pain, Nose discharge, Nose congestion, Mouth pain, Mouth swelling, Throat pain, Throat swelling, Other Respiratory: No: Cough Exam Exam General Appearance: No Apparent Distress, WD/WN HEENT: PERRL/EOMI, Normal ENT Inspection Neck: Normal Inspection Respiratory: Lungs Clear, Normal Breath Sounds, No Accessory Muscle Use, No Respiratory Distress Cardiovascular: Regular Rate, Rhythm, No Edema, No Murmur Extremity: Normal Inspection, No Pedal Edema Neurologic/Psychiatric: Alert, Oriented x3, No Motor/Sensory Deficits, Normal Mood/Affect Skin: Normal Color, Warm/Dry Assessment/Plan Assessment/Plan A Fib/Flutter with RVR - now converted -D/C cardizem gtt -Restart home Toprol, and Eliquis -Cardiology consulted Transfer to 4th floor later today if pt remains rate controlled. Once pt is transferred to 4th I will sign off. Please call with any questions or concerns. LILY WOOD MED STUDENT Nov 07, 2018 05:07 TESSIE BEJARANO DO Nov 07, 2018 05:57
[2018-11-07] MEDS ORDERED: FLU QUADRIvalent (5+ YOA) 2018-2019 (AFLURIA) 0.5 ML IM ONE (07:15)
--- NOTE | 2018-11-07 07:33 | Diagnostic Imaging Report ---
INDICATION: Chest pain. Portable chest 3:12 AM FINDINGS: Heart size and pulmonary vascularity are normal. Lungs are clear. There are no effusions or pneumothoraces. IMPRESSION: Negative chest. Dictated by: Dictated on workstation # [id number]
--- NOTE | 2018-11-07 08:03 | Consultation-Cardiology ---
HPI-Cardiology Cardiology Consultation: Date of Consultation 11/07/18 Time Seen by a Provider: 08:25 Date of Admission 11-06-18 Attending Physician Sylvia Singh DO Admitting Physician Domenic Garza DO Consulting Physician Jett Harmon MD HPI: Chief Complaint: P. a-flutter with RVR Ms. Burgos is an 83 year old female who has been admitted to ICU 9 from the ED with c/o palpitations. She reports last evening she was getting ready to go bowling when she had a sudden onset of palpitations. She reports it lasted for over an hour. She denies any SOB, syncope or near syncope. She reports she got up to sit at the kitchen table and had an ache in between her shoulder blades which lasted for a few minutes. She also reports a feeling of heartburn. She reports she has missed her Toprol XL for the last 2 days. She is on Eliquis, but she has missed "a few doses". She denies any LE edema. She denies any n/v/d. She states she is feeling better this morning. Review of Systems-Cardiology Review of Systems Constitutional: No chills, No fever Eyes: No vision change Ears/Nose/Throat: No epistaxis, No recent hearing loss Respiratory: As described under HPI Cardiovascular: As described under HPI Gastrointestinal: No constipation, No diarrhea, No nausea, No vomiting Genitourinary: No dysuria, No hematuria Musculoskeletal: no symptoms reported Skin: No rash, No ulcerations Psychiatric/Neurological: No seizure, No focal weakness, No syncope Hematologic: No bleeding abnormalities OVE-Orcdel-Rjjoxt Hx Patient Social History Alcohol Use: Denies Use Recreational Drug Use: No Smoking Status: Never a Smoker 2nd Hand Smoke Exposure: No Recent Foreign Travel: No Recent Infectious Disease Expo: No Hospitalization with Isolation: Denies Physical Abuse Screen: No Sexual Abuse: No Immunizations Up To Date Tetanus Booster (TDap): Unknown Date of Pneumonia Vaccine: Aug 26, 2013 Past Medical History PMH As described under Assessment. Allergies and Home Medications Allergies Coded Allergies: codeine (Unverified Allergy, Unknown, 09/13/16) Uncoded Allergies: PCN (Allergy, Unknown, 09/13/16) SOME ANTIBIOTICS (Allergy, Unknown, 09/13/16) Home Medications Apixaban 5 Mg Tablet, 5 MG PO BID, (Reported) Calcium Carb/Mag Ox/Zinc Sulf 1 Each Tablet, 1 TAB PO DAILY, (Reported) Cephalexin 500 Mg Capsule, 500 MG PO BID, (Reported) 14 DAY SUPPLY FILLED 11-04-18 Cholecalciferol (Vitamin D3) 5,000 Unit Capsule, 5,000 UNIT PO BID, (Reported) Cyclobenzaprine HCl 10 Mg Tablet, 10 MG PO TID PRN for MUSCLE SPASMS, (Reported) Diltiazem HCl 180 Mg Cap.er.24h, 180 MG PO DAILY Prescribed by: JETT HARMON on 11/07/18 1218 [place] 500 Mg Capsule, 500 MG PO DAILY, (Reported) Metoprolol Succinate 50 Mg Tab.er.24h, 50 MG PO DAILY, (Reported) Niacinamide 500 Mg Tablet, 1,000 MG PO BID, (Reported) Pantoprazole Sodium 40 Mg Tablet.dr, 40 MG PO DAILY, (Reported) Turmeric Root Extract 538 Mg Capsule, 538 MG PO DAILY, (Reported) [Cbd Oil] , SL BID, (Reported) Patient Home Medication List Home Medication List Reviewed: Yes Physical Exam-Cardiology Physical Exam Vital Signs/I&O 11/07/18 11/07/18 11/07/18 11/07/18 02:00 03:00 04:00 04:00 Temp 96.8 Pulse 58 63 Resp 21 16 B/P (MAP) 123/64 (83) 127/64 (85) Pulse Ox 96 96 99 O2 Delivery Room Air Room Air Room Air 11/07/18 11/07/18 11/07/18 11/07/18 04:00 05:00 06:00 07:00 Pulse 63 65 64 63 Resp 9 34 17 11 B/P (MAP) 136/74 (94) 153/79 (103) 156/82 (106) 145/70 (95) Pulse Ox 96 99 97 95 O2 Delivery Room Air Room Air Room Air Room Air 11/07/18 11/07/18 11/07/18 11/07/18 07:27 08:00 08:00 08:00 Temp 97.2 Pulse 58 62 Resp 21 B/P (MAP) 128/70 (89) Pulse Ox 99 95 O2 Delivery Room Air Room Air 11/07/18 11/07/18 11/07/18 11/07/18 09:00 10:00 11:00 12:00 Pulse 62 66 68 67 Resp 21 10 25 14 B/P (MAP) 136/89 (105) 111/74 (86) 135/65 (88) 150/75 (100) Pulse Ox 95 95 95 95 O2 Delivery Room Air Room Air Room Air Room Air Capillary Refill : Less Than 3 Seconds Constitutional: AAO x 3, well-developed, well-nourished HEENT: PERRL, hearing is well preserved, oral hygience is good Neck: No carotid bruit; carotid pulses are 2 + bilaterally Respiratory: No accessory muscle use, No respiratory distress; chest expansion is symmetric, chest is bilaterally symmetric, lungs clear to auscultation Cardiovascular: regular rate-rhythm; No JVD; S1 and S2 Gastrointestinal: No tender; soft, round, audible bowel sounds Rectal: deferred Extremities: no lower extremity edema bilateral Neurologic/Psychiatric: grossly intact, power is 5/5 both on sides Skin: No rash, No ulcerations Data Review Labs Laboratory Tests 11/06/18 19:37: White Blood Count 7.3, Red Blood Count 5.38, Hemoglobin 15.4, Hematocrit 46, Mean Corpuscular Volume 85, Mean Corpuscular Hemoglobin 29, Mean Corpuscular Hemoglobin Concent 34, Red Cell Distribution Width 14.2, Platelet Count 311, Mean Platelet Volume 10.4, Neutrophils (%) (Auto) 59, Lymphocytes (%) (Auto) 29 , Monocytes (%) (Auto) 10, Eosinophils (%) (Auto) 1, Basophils (%) (Auto) 1, Neutrophils # (Auto) 4.3, Lymphocytes # (Auto) 2.1, Monocytes # (Auto) 0.7, Eosinophils # (Auto) 0.1, Basophils # (Auto) 0.0, Prothrombin Time 14.2, INR Comment 1.1, Activated Partial Thromboplast Time 34, Sodium Level 142, Potassium Level 3.8, Chloride Level 104, Carbon Dioxide Level 25, Anion Gap 13, Blood Urea Nitrogen 13, Creatinine 0.80, Estimat Glomerular Filtration Rate > 60 , BUN/Creatinine Ratio 16, Glucose Level 120H, Calcium Level 10.0, Corrected Calcium 9.9, Magnesium Level 2.3, Total Bilirubin 0.3, Aspartate Amino Transf ( AST/SGOT) 21, Alanine Aminotransferase (ALT/SGPT) 16, Alkaline Phosphatase 88, Myoglobin 44.1, Troponin I < 0.30, Total Protein 7.4, Albumin 4.1, TSH [place] Testing 3.03 11/07/18 03:46: White Blood Count 7.8, Red Blood Count 4.77, Hemoglobin 13.8, Hematocrit 41, Mean Corpuscular Volume 85, Mean Corpuscular Hemoglobin 29, Mean Corpuscular Hemoglobin Concent 34, Red Cell Distribution Width 14.3, Platelet Count 251, Mean Platelet Volume 10.5H, Neutrophils (%) (Auto) 54, Lymphocytes (%) (Auto) 32 , Monocytes (%) (Auto) 12, Eosinophils (%) (Auto) 2, Basophils (%) (Auto) 0, Neutrophils # (Auto) 4.2, Lymphocytes # (Auto) 2.5, Monocytes # (Auto) 0.9, Eosinophils # (Auto) 0.2, Basophils # (Auto) 0.0, Sodium Level 140, Potassium Level 3.6, Chloride Level 105, Carbon Dioxide Level 23, Anion Gap 12, Blood Urea Nitrogen 11, Creatinine 0.72, Estimat Glomerular Filtration Rate > 60, BUN/ Creatinine Ratio 15, Glucose Level 100, Calcium Level 9.1, Magnesium Level 1.9, Troponin I < 0.30, Phosphorus Level 3.6, Triglycerides Level 144, Cholesterol Level 225H, LDL Cholesterol Direct 160H, VLDL Cholesterol 29, HDL Cholesterol 53 Radiology NAME: JACKSON BURGOS [facility] REC#: [id number] PT STATUS: ADM IN : 1935 PHYSICIAN: TESSIE BEJARANO DO ADMIT DATE: 11/06/18/ICU Draft Date of Exam:11/07/18 CHEST 1 VIEW, AP/PA ONLY INDICATION: Chest pain. Portable chest 3:12 AM FINDINGS: Heart size and pulmonary vascularity are normal. Lungs are clear. There are no effusions or pneumothoraces. IMPRESSION: Negative chest. Dictated on workstation # [id number] Dict: 11/07/1809 Trans: 11/07/18 0733 [id number] Interpreted by: NADIA MORA MD Electronically signed by: ECG Impression ECG Comment A-flutter with RVR - converted to SR with a controlled rate A/P-Cardiology Assessment/Admission Diagnosis A-flutter with RVR - converted to SR PAF. ILR (implanted by Dr Sofia in August 2016) interrogations have shown brief PAF with good vent rate control - device removed per pt request on 01-22-18 Probable TIA in Aug 2016 (CT head at that time is reported to have been negative ) Eliquis for stroke prophylaxis No evidence of myocardial ischemia or infarction, LVEF 80%, on MPI of 05/08/17 Gen weakness and malaise TSH normal (2.42) on 09/13/16 Echo of on 09/13/17 (Dr Sofia): LVEF 60%, mild LVH, mild MR & TR, PASP 25 mmHg, small and insignificant pericard eff Abnormal ECG on which a prior ASMI cannot be excluded Symptoms of leg claudication. No evidence of significant obstructive PAD of the legs on seg pressures of 02/17/18 Mild bilat carotid dz on u/s of June 2017 Non-compliance with medications Discussion and Recomendations Episode of a-flutter with RVR - which has converted to SR with a controlled rate Home dose of Toprol XL resumed this morning Continue Eliquis for stroke prophylaxis Discussed the importance of compliance with medications We would like to thank medical services for this consult Further recs will be based on her hospital course Clinical Quality Measures DVT/VTE Risk/Contraindication: Risk Factor Score Per Nursin RFS Level Per Nursing on Admit: 2=Moderate GREG CUMMINS Nov 07, 2018 08:03
[2018-11-07] MEDS ORDERED: APIXABAN 5 MG (ELIQUIS) TABLET PO SCH ×2 (09:00→21:00)
[2018-11-07] MEDS ORDERED: PANTOPRAZOLE 40 MG (PROTONIX) VIAL IV SCH (09:00)
[2018-11-07] MEDS ORDERED: meTOproloL SUCCINATE 50 MG (TOPROL XL) TAB PO SCH (09:00)
[2018-11-07] MEDS ORDERED: PANT40TA3 PO (09:51)
[2018-11-07] MEDS ORDERED: CEPH500C PO (09:51)
[2018-11-07] MEDS ORDERED: CBD OIL SL (09:52)
[2018-11-07] MEDS ORDERED: CHOL5000 PO (09:53)
[2018-11-07] MEDS: NS IV 1000 ML 1,000 ML IV SCH (09:53)
[2018-11-07] MEDS ORDERED: NIAC500T24 PO (09:53)
[2018-11-07] MEDS ORDERED: HAWT500C PO (09:54)
[2018-11-07] MEDS ORDERED: CALC-927 PO (09:54)
[2018-11-07] MEDS ORDERED: TURM538C PO (09:54)
--- NOTE | 2018-11-07 11:43 | Short Stay Summary-Hospitalist ---
History of Present Illness HPI/Chief Complaint CC: Chest pain with atrial fibrillation with rapid ventricular response History of present illness: This is an 83-year-old white female of Dr. Garza who has a past medical history of atrial fibrillation with rapid ventricular response last year maintain on Eliquis and cardiac meds who presented to the ER with heart fluttering found to have heart rate of 147 and malignant hypertension level of 190 systolic so she was admitted risk stratified with troponins and cardiology consultation which required Cardizem drip but now patient is rate controlled. 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 Source: patient, RN/MD Exam Limitations: no limitations Date Seen 11/07/18 Time Seen by a Provider: 10:30 Attending Physician Sylvia Singh DO PCP Domenic Garza DO Referring Physician Date of Admission Nov 06, 2018 at 20:40 Home Medications & Allergies Home Medications Reviewed patient Home Medication Reconciliation performed by pharmacy medication reconciliations on site wastewater systems technician and/or nursing. Patients Allergies have been reviewed. Allergies Allergies Coded Allergies codeine (Unverified Allergy, Unknown, 09/13/16) Uncoded Allergies PCN ( Allergy, Unknown, 09/13/16) SOME ANTIBIOTICS ( Allergy, Unknown, 09/13/16) Past Jbjendn-Kzmiwl-Wtvhom Hx Past Med/Social Hx: Reviewed Nursing Past Med/Soc Hx, Reviewed and Corrections made Patient Social History Marrital Status: Employed/Student: retired Alcohol Use: Denies Use Recreational Drug Use: No Smoking Status: Never a Smoker 2nd Hand Smoke Exposure: No Physical Abuse Screen: No Sexual Abuse: No Recent Foreign Travel: No Contact w/other who traveled: No Recent Hopitalizations: No Recent Infectious Disease Expo: No Immunizations Up To Date Tetanus Booster (TDap): Unknown Pediatric: No Date of Pneumonia Vaccine: Aug 26, 2013 Seasonal Allergies Seasonal Allergies: No Past Medical History Surgeries: Appendectomy, Gallbladder, Hysterectomy Cardiac: Atrial Fibrillation, Hypertension Reproductive: No Sexually Transmitted Disease: No Gastrointestinal: Gastroesophageal Reflux, Obstructive Bowel Musculoskeletal: Arthritis HEENT: Cataract History of Blood Disorders: No Adverse Reaction to Blood Hilario: No Family History No Pertinent Family Hx Review of Systems Constitutional: see HPI, dizziness EENTM: no symptoms reported Respiratory: short of breath Cardiovascular: chest pain Gastrointestinal: no symptoms reported Genitourinary: no symptoms reported Musculoskeletal: no symptoms reported Skin: no symptoms reported Psychiatric/Neurological: No Symptoms Reported All Other Systems Reviewed Negative Unless Noted: Yes Physical Exam Physical Exam Vital Signs Vital Signs - First Documented 11/06/18 11/06/18 19:24 22:27 Temp 97.7 Pulse 146 Resp 20 B/P (MAP) 186/125 (145) Pulse Ox 97 O2 Delivery Room Air Capillary Refill : Less Than 3 Seconds Height, Weight, BMI Height: 5'0.00" Weight: 155lbs. 0.0oz. 70.786901gw; 30.3 BMI Method:Stated General Appearance: No Apparent Distress, WD/WN Eyes: Bilateral Eye Normal Inspection, Bilateral Eye PERRL HEENT: PERRL/EOMI, Normal ENT Inspection, Pharynx Normal Neck: Full Range of Motion, Normal Inspection, Non Tender, Supple, Carotid Bruit Respiratory: Chest Non Tender, Lungs Clear, Normal Breath Sounds, No Accessory Muscle Use, No Respiratory Distress Cardiovascular: Regular Rate, Rhythm, No Edema, No Gallop, No JVD, No Murmur, Normal Peripheral Pulses Gastrointestinal: Normal Bowel Sounds, No Organomegaly, No Pulsatile Mass, Non Tender, Soft Back: Normal Inspection, No CVA Tenderness, No Vertebral Tenderness Extremity: Normal Capillary Refill, Normal Inspection, Normal Range of Motion, Non Tender, No Calf Tenderness, No Pedal Edema Neurologic/Psychiatric: Alert, Oriented x3, No Motor/Sensory Deficits, Normal Mood/Affect Skin: Normal Color, Warm/Dry Lymphatic: No Adenopathy Results Results/Procedures Labs Laboratory Tests 11/06/18 19:37 11/07/18 03:46 Patient resulted labs reviewed. Short Stay Diagnosis Discharge Diagnosis-Short Stay Admission Diagnosis Chest pain Atrial fibrillation with rapid ventricular response Malignant hypertension Final Discharge Diagnosis Chest pain Atrial fibrillation with rapid ventricular response Malignant hypertension Conclusion Plan Cardiology consultation is appreciated Discharge home when okay with cardiology Diagnosis/Problems Diagnosis/Problems (1) Atrial flutter with rapid ventricular response Status: Acute (2) Chest discomfort Status: Acute (3) Hypertension, malignant Status: Acute Clinical Quality Measures DVT/VTE Risk/Contraindication: Risk Factor Score Per Nursin RFS Level Per Nursing on Admit: 2=Moderate SYLVIA SINGH DO Nov 07, 2018 11:43
[2018-11-07] MEDS ORDERED: CYCLOBENZAPRINE 10 MG (FLEXERIL) TAB PO PRN (11:45)
[2018-11-07] MEDS ORDERED: DILT180C67 PO (12:18)
--- NOTE | 2018-11-07 12:20 | Discharge Inst-Cardiology ---
EUGENE CÁRDENAS MD FACP FAC CCDS Nov 07, 2018 12:20
--- NOTE | 2018-11-07 12:26 | Consultation-Cardiology ---
HPI-Cardiology Cardiology Consultation: Date of Consultation 11/07/18 Time Seen by a Provider: 12:10 Date of Admission Attending Physician Sylvia Singh DO Admitting Physician Domenic Garza DO Consulting Physician EUGENE CÁRDENAS MD, MA, FACP, FACC, FSCAI, CCDS HPI: Chief Complaint: Reason for consultation: P. a-flutter with RVR HPI: Ms. Vieyra is an 83 year old female who has been admitted to ICU 9 from the ED with c/o palpitations. She reports last evening she was getting ready to go bowling when she had a sudden onset of palpitations. She reports it lasted for over an hour. She denies any SOB, syncope or near syncope. She reports she got up to sit at the kitchen table and had an ache in between her shoulder blades which lasted for a few minutes. She also reports a feeling of heartburn. She reports she has missed her Toprol XL for the last 2 days. She is on Eliquis, but she has missed "a few doses". She denies any LE edema. She denies any n/v/d. She states she is feeling better this morning. Recently on antibiotics for a skin infection, as prescribed by her pcp Review of Systems-Cardiology Review of Systems Constitutional: No chills, No fever Eyes: No vision change Ears/Nose/Throat: No epistaxis, No recent hearing loss Respiratory: As described under HPI Cardiovascular: As described under HPI Gastrointestinal: No constipation, No diarrhea, No nausea, No vomiting Genitourinary: No dysuria, No hematuria Musculoskeletal: no symptoms reported Skin: No rash, No ulcerations Psychiatric/Neurological: No seizure, No focal weakness, No syncope Hematologic: No bleeding abnormalities All Other Systems Reviewed Negative Unless Noted: Yes UPH-Lvgrre-Yasubf Hx Patient Social History Marrital Status: Employed/Student: retired Alcohol Use: Denies Use Recreational Drug Use: No Smoking Status: Never a Smoker 2nd Hand Smoke Exposure: No Recent Foreign Travel: No Recent Infectious Disease Expo: No Hospitalization with Isolation: Denies Physical Abuse Screen: No Sexual Abuse: No Immunizations Up To Date Tetanus Booster (TDap): Unknown Date of Pneumonia Vaccine: Aug 26, 2013 Past Medical History PMH As described under Assessment. Allergies and Home Medications Allergies Coded Allergies: codeine (Unverified Allergy, Unknown, 09/13/16) Uncoded Allergies: PCN (Allergy, Unknown, 09/13/16) SOME ANTIBIOTICS (Allergy, Unknown, 09/13/16) Home Medications Apixaban 5 Mg Tablet, 5 MG PO BID, (Reported) Calcium Carb/Mag Ox/Zinc Sulf 1 Each Tablet, 1 TAB PO DAILY, (Reported) Cephalexin 500 Mg Capsule, 500 MG PO BID, (Reported) 14 DAY SUPPLY FILLED 11-04-18 Cholecalciferol (Vitamin D3) 5,000 Unit Capsule, 5,000 UNIT PO BID, (Reported) Cyclobenzaprine HCl 10 Mg Tablet, 10 MG PO TID PRN for MUSCLE SPASMS, (Reported) Diltiazem HCl 180 Mg Cap.er.24h, 180 MG PO DAILY Prescribed by: EUGENE CÁRDENAS on 11/07/18 1218 [place] 500 Mg Capsule, 500 MG PO DAILY, (Reported) Metoprolol Succinate 50 Mg Tab.er.24h, 50 MG PO DAILY, (Reported) Niacinamide 500 Mg Tablet, 1,000 MG PO BID, (Reported) Pantoprazole Sodium 40 Mg Tablet.dr, 40 MG PO DAILY, (Reported) Turmeric Root Extract 538 Mg Capsule, 538 MG PO DAILY, (Reported) [Cbd Oil] , SL BID, (Reported) Patient Home Medication List Home Medication List Reviewed: Yes Physical Exam-Cardiology Physical Exam Vital Signs/I&O 11/07/18 11/07/18 11/07/18 11/07/18 01:00 01:00 02:00 03:00 Pulse 65 65 58 63 Resp 21 21 16 B/P (MAP) 124/67 (86) 123/64 (83) 127/64 (85) Pulse Ox 95 96 96 O2 Delivery Room Air Room Air Room Air 11/07/18 11/07/18 11/07/18 11/07/18 04:00 04:00 04:00 05:00 Temp 96.8 Pulse 63 65 Resp 9 34 B/P (MAP) 136/74 (94) 153/79 (103) Pulse Ox 99 96 99 O2 Delivery Room Air Room Air Room Air 11/07/18 11/07/18 11/07/18 11/07/18 06:00 07:00 07:27 08:00 Temp 97.2 Pulse 64 63 58 Resp 17 11 B/P (MAP) 156/82 (106) 145/70 (95) Pulse Ox 97 95 O2 Delivery Room Air Room Air 11/07/18 11/07/18 11/07/18 11/07/18 08:00 08:00 09:00 10:00 Pulse 62 62 66 Resp 21 21 10 B/P (MAP) 128/70 (89) 136/89 (105) 111/74 (86) Pulse Ox 99 95 95 95 O2 Delivery Room Air Room Air Room Air Room Air Capillary Refill : Less Than 3 Seconds Constitutional: AAO x 3, well-developed, well-nourished HEENT: PERRL, hearing is well preserved, oral hygience is good Neck: No carotid bruit; carotid pulses are 2 + bilaterally Respiratory: No accessory muscle use, No respiratory distress; chest expansion is symmetric, chest is bilaterally symmetric, lungs clear to auscultation Cardiovascular: regular rate-rhythm; No JVD; S1 and S2 Gastrointestinal: No tender; soft, round, audible bowel sounds Rectal: deferred Extremities: no lower extremity edema bilateral Neurologic/Psychiatric: grossly intact, power is 5/5 both on sides Skin: No rash, No ulcerations Data Review Labs Laboratory Tests 11/06/18 19:37: White Blood Count 7.3, Red Blood Count 5.38, Hemoglobin 15.4, Hematocrit 46, Mean Corpuscular Volume 85, Mean Corpuscular Hemoglobin 29, Mean Corpuscular Hemoglobin Concent 34, Red Cell Distribution Width 14.2, Platelet Count 311, Mean Platelet Volume 10.4, Neutrophils (%) (Auto) 59, Lymphocytes (%) (Auto) 29 , Monocytes (%) (Auto) 10, Eosinophils (%) (Auto) 1, Basophils (%) (Auto) 1, Neutrophils # (Auto) 4.3, Lymphocytes # (Auto) 2.1, Monocytes # (Auto) 0.7, Eosinophils # (Auto) 0.1, Basophils # (Auto) 0.0, Prothrombin Time 14.2, INR Comment 1.1, Activated Partial Thromboplast Time 34, Sodium Level 142, Potassium Level 3.8, Chloride Level 104, Carbon Dioxide Level 25, Anion Gap 13, Blood Urea Nitrogen 13, Creatinine 0.80, Estimat Glomerular Filtration Rate > 60 , BUN/Creatinine Ratio 16, Glucose Level 120H, Calcium Level 10.0, Corrected Calcium 9.9, Magnesium Level 2.3, Total Bilirubin 0.3, Aspartate Amino Transf ( AST/SGOT) 21, Alanine Aminotransferase (ALT/SGPT) 16, Alkaline Phosphatase 88, Myoglobin 44.1, Troponin I < 0.30, Total Protein 7.4, Albumin 4.1, TSH [place] Testing 3.03 11/07/18 03:46: White Blood Count 7.8, Red Blood Count 4.77, Hemoglobin 13.8, Hematocrit 41, Mean Corpuscular Volume 85, Mean Corpuscular Hemoglobin 29, Mean Corpuscular Hemoglobin Concent 34, Red Cell Distribution Width 14.3, Platelet Count 251, Mean Platelet Volume 10.5H, Neutrophils (%) (Auto) 54, Lymphocytes (%) (Auto) 32 , Monocytes (%) (Auto) 12, Eosinophils (%) (Auto) 2, Basophils (%) (Auto) 0, Neutrophils # (Auto) 4.2, Lymphocytes # (Auto) 2.5, Monocytes # (Auto) 0.9, Eosinophils # (Auto) 0.2, Basophils # (Auto) 0.0, Sodium Level 140, Potassium Level 3.6, Chloride Level 105, Carbon Dioxide Level 23, Anion Gap 12, Blood Urea Nitrogen 11, Creatinine 0.72, Estimat Glomerular Filtration Rate > 60, BUN/ Creatinine Ratio 15, Glucose Level 100, Calcium Level 9.1, Magnesium Level 1.9, Troponin I < 0.30, Phosphorus Level 3.6, Triglycerides Level 144, Cholesterol Level 225H, LDL Cholesterol Direct 160H, VLDL Cholesterol 29, HDL Cholesterol 53 A/P-Cardiology Assessment/Admission Diagnosis Paroxysmal A-flutter with RVR - converted to SR PAF. ILR (implanted by Dr Sofia in August 2016) interrogations have shown brief PAF with good vent rate control - device removed per pt request on 01-22-18 Probable TIA in Aug 2016 (CT head at that time is reported to have been negative ) Eliquis for stroke prophylaxis No evidence of myocardial ischemia or infarction, LVEF 80%, on MPI of 05/08/17 Gen weakness and malaise TSH normal (2.42) on 09/13/16 Echo of on 09/13/17 (Dr Sofia): LVEF 60%, mild LVH, mild MR & TR, PASP 25 mmHg, small and insignificant pericard eff Abnormal ECG on which a prior ASMI cannot be excluded Symptoms of leg claudication. 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 She states she will consider and let us know We discussed rhythm vs rate control treatment options for A Fib/Fl Close outpt f/u for now Clinical Quality Measures DVT/VTE Risk/Contraindication: Risk Factor Score Per Nursin RFS Level Per Nursing on Admit: 2=Moderate EUGENE CÁRDENAS MD FACP FAC CCDS Nov 07, 2018 12:26
[2018-11-07] MEDS ORDERED: CEPHALEXIN 250 MG (KEFLEX) CAP PO SCH (21:00)
[2018-11-08] MEDS ORDERED: meTOproloL SUCCINATE 50 MG (TOPROL XL) TAB PO SCH (09:00)
[2018-11-08] MEDS ORDERED: PANTOPRAZOLE 40 MG (PROTONIX) TAB PO SCH (09:00)
== END 2018-11-07 13:53 | disposition home or self-care (01) | DRG 310 ==
LOC: EDUNIT# 19:20 → ER 19:21 → ICU 20:40
PROVIDERS: ADMIT Internal Medicine; ATTEND Internal Medicine
DX: I48.92 Unspecified atrial flutter (principal); I48.0 Paroxysmal atrial fibrillation; R07.89 Other chest pain; I10 Essential (primary) hypertension; I73.9 Peripheral vascular disease, unspecified; I87.8 Other specified disorders of veins; K21.9 Gastro-esophageal reflux disease without esophagitis; R94.31 Abnormal electrocardiogram [ECG] [EKG]; Z79.01 Long term (current) use of anticoagulants; Z91.14 Patient's other noncompliance with medication regimen
CPT/HCPCS: 36415; 71045; 80048; 80053; 80061; 83735; 83874; 84100; 84443; 84484; 85025; 85610; 85730; 87081; 93005; 93041; 96365; 96366

== ENCOUNTER 2018-11-18 11:15 | Emergency (ER) | payer MEDICARE, MEDICAID ==
[~2018-11-18] VITALS: Ht 152.4 cm; Wt 65.8 kg
[~2018-11-18 11:15] MED LIST changes: +CALC-927 PO; +CBD OIL SL; +CEPH500C PO; +CHOL5000 PO; +DILT180C67 PO; +HAWT500C PO; +NIAC500T24 PO; +PANT40TA3 PO; +TURM538C PO
--- OUTSIDE RECORDS SUMMARY | 2018-11-18 11:22 | XMS REPORT | Continuity of Care Document ---
Author Author [facility] Organization [facility] Address Unknown Phone Unavailable Allergies Active Description Code Type Severity Reaction Onset Reported/Identified Relationship to Patient Clinical Status Yes codeine [id number] Drug Allergy Unknown N/A 09/13/2016 Yes PCN [...] V82.81 03/25/2015 Ot V72.84 03/25/2015 AMELIA MUSA CORROSION CONTROL TECHNICIAN Ot 786.50 03/25/2015 AMELIA MUSA CORROSION CONTROL TECHNICIAN Ot E888.9 03/25/2015 MATEO MUSA DO Ot V76.12 03/25/2015 MATEO MUSA DO Ot V76.12 04/12/2015 Ot 724.5 04/12/2015 Ot 791.9 04/12/2015 Ot V76.12 04/12/2015 Ot 780.79 04/12/2015 Ot V58.69 04/12/2015 Ot V76.12 04/12/2015 Ot 733.90 04/12/2015 Ot V49.81 04/12/2015 Ot V76.12 04/12/2015 Ot V82.81 04/12/2015 Ot V72.84 04/12/2015 AMELIA MUSA CORROSION CONTROL TECHNICIAN Ot 786.50 04/12/2015 AMELIA MUSA CORROSION CONTROL TECHNICIAN Ot E888.9 04/12/2015 DIMPLE RUBIO MATEO Tyler Ot V76.12 04/12/2015 DIMPLE RUBIO MATEO Tyler Ot V76.12 06/23/2015 MATEO MUSA DO Ot [...] EXAM PRE- OPERATIVE NOS 04/08/2016 AMELIA MUSA CORROSION CONTROL TECHNICIAN Ot 786.50 CHEST PAIN NOS 04/08/2016 AMELIA MUSA CORROSION CONTROL TECHNICIAN Ot E888.9 FALL NOS 04/08/2016 DIMPLE RUBIO [...] 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.512 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, 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 04/08/2016 RAE MARTINEZ, DELIA Quiles Ot Y99.8 OTHER EXTERNAL CAUSE STATUS 09/14/2016 [...] OF RJ 09/19/2016 MATEO MUSA DO Ot 486 PNEUMONIA, ORGANISM NOS 09/19/2016 MATEO MUSA DO Ot V76.12 OTH SCREEN MAMMO-MALIGN NEOPLASM OF RJ 04/08/2017 FANI CAM MD Ot I48.2 CHRONIC ATRIAL FIBRILLATION 04/08/2017 FANI CAM MD Ot J40 BRONCHITIS, NOT SPECIFIED ACUTE OR CH 04/08/2017 FANI CAM MD Ot R05 COUGH 04/08/2017 FANI CAM MD Ot R50.9 FEVER, UNSPECIFIED 04/08/2017 FANI CAM MD Ot Z79.01 SOLE SEAMER (CURRENT) USE OF ANTICOAGULANT 04/08/2017 FANI CAM MD Ot Z79.899 OTHER RESIDENTIAL (CURRENT) DRUG THERAPY 04/10/2017 FANI CAM MD Ot I48.2 CHRONIC ATRIAL FIBRILLATION 04/10/2017 FANI CAM MD Ot J40 BRONCHITIS, NOT SPECIFIED ACUTE OR CH 04/10/2017 FANI CAM MD Ot R05 COUGH 04/10/2017 FANI CAM MD Ot R50.9 FEVER, UNSPECIFIED 04/10/2017 FANI CAM MD Ot Z79.01 SOLE SEAMER (CURRENT) USE OF ANTICOAGULANT 04/10/2017 FANI CAM MD Ot Z79.899 OTHER SOLE SEAMER (CURRENT) DRUG THERAPY 04/26/2017 Ot 733.90 BONE CARTILAGE DIS NOS 04/26/2017 Ot V49.81 ASYMPT POSTMENOPAUSAL STATUS (AGE-RELATE 04/26/2017 Ot V76.12 OTH SCREEN MAMMO-MALIGN NEOPLASM OF RJ 04/26/2017 Ot V82.81 SCREENING FOR OSTEOPOROSIS 04/26/2017 Ot V72.84 EXAM PRE- OPERATIVE NOS 04/26/2017 AMELIA MUSA CORROSION CONTROL TECHNICIAN Ot 786.50 CHEST PAIN NOS 04/26/2017 AMELIA [...] EXAM PRE- OPERATIVE NOS 05/07/2017 AMELIA MUSA CORROSION CONTROL TECHNICIAN Ot 786.50 CHEST PAIN NOS 05/07/2017 AMELIA MUSA CORROSION CONTROL TECHNICIAN Ot E888.9 FALL NOS 05/07/2017 MATEO MUSA DO Ot V76.12 OTH SCREEN MAMMO-MALIGN NEOPLASM OF RJ 05/07/2017 MATEO MUSA DO Ot V76.12 OTH SCREEN MAMMO-MALIGN NEOPLASM OF RJ 05/07/2017 MATEO MUSA DO Ot 486 PNEUMONIA, ORGANISM NOS 05/07/2017 MATEO MUSA DO Ot V76.12 OTH SCREEN MAMMO-MALIGN NEOPLASM OF RJ 05/07/2017 AMELIA MUSA CORROSION CONTROL TECHNICIAN Ot R05 COUGH 05/09/2017 AVI MARTINEZ FACC, [...] AND CEREB INFRC W 05/17/2017 AMELIA MUSA CORROSION CONTROL TECHNICIAN Ot R05 COUGH 05/24/2017 AMELIA MUSA CORROSION CONTROL TECHNICIAN Ot R05 COUGH 05/31/2017 AVI MARTINEZ FACC, EUGENE ANNP CCDS Ot E78.2 MIXED HYPERLIPIDEMIA 05/31/2017 AVI MD FACC, ALI FACP CCDS Ot I10 ESSENTIAL (PRIMARY) HYPERTENSION 05/31/2017 AVI MARTINEZ FACC, ALI FACP CCDS Ot I48.0 PAROXYSMAL ATRIAL FIBRILLATION 05/31/2017 AVI MARTINEZ FACC, ALI FACP CCDS Ot R53.83 OTHER FATIGUE 05/31/2017 AVI MARTINEZ FACC, ALI FACP CCDS Ot R94.31 ABNORMAL ELECTROCARDIOGRAM [ECG] [EKG] 05/31/2017 AVI MARTINEZ FACC, ALI FACP CCDS Ot Z86.73 PRSNL HX OF TIA (TIA), AND CEREB INFRC W 06/08/2017 AVI MARTINEZ [facility], ALI FACP CCDS Ot E78.2 MIXED HYPERLIPIDEMIA 06/08/2017 AVI MARTINEZ [facility], ALI FACP CCDS Ot I10 ESSENTIAL (PRIMARY) HYPERTENSION 06/08/2017 AVI MARTINEZ [facility], ALI FACP CCDS Ot I48.0 PAROXYSMAL ATRIAL FIBRILLATION 06/08/2017 AVI MARTINEZ [facility], ALI FACP CCDS Ot R53.83 OTHER FATIGUE 06/08/2017 AVI MARTINEZ [facility], ALI FACP CCDS Ot R94.31 ABNORMAL ELECTROCARDIOGRAM [ECG] [EKG] 06/08/2017 AVI MARTINEZ [facility], ALI FACP CCDS Ot Z86.73 PRSNL HX OF TIA (TIA), AND CEREB INFRC W 12/28/2017 KRYS PERRY MD Ot K21.9 GASTRO-ESOPHAGEAL REFLUX DISEASE WITHOUT 12/28/2017 KRYS PERRY MD Ot Z01.818 ENCOUNTER FOR OTHER PREPROCEDURAL EXAMIN 12/31/2017 KRYS PERRY MD Ot K21.9 GASTRO-ESOPHAGEAL REFLUX DISEASE WITHOUT 12/31/2017 KRYS PERRY MD Ot Z01.818 ENCOUNTER FOR OTHER PREPROCEDURAL EXAMIN 01/01/2018 KRYS PERRY MD Ot I10 ESSENTIAL (PRIMARY) HYPERTENSION 01/01/2018 VICKY MARTINEZ, KRYS Sandoval Ot I48.91 UNSPECIFIED ATRIAL FIBRILLATION 01/01/2018 KRYS PERRY MD, Ot K20.9 ESOPHAGITIS, UNSPECIFIED 01/01/2018 KRYS PERRY MD Ot K22.2 ESOPHAGEAL OBSTRUCTION 01/01/2018 KRYS PERRY MD, Ot K25.9 GASTRIC ULCER, UNSP ACUTE OR CHRONIC, 01/01/2018 VICKY MARTINEZ, KRYS Snadoval Ot Z79.899 OTHER RESIDENTIAL (CURRENT) DRUG THERAPY 01/01/2018 KRYS PERRY MD M Ot Z88.0 ALLERGY STATUS TO PENICILLIN 01/01/2018 VICKY MARTINEZ, KRYS M Ot Z88.1 ALLERGY STATUS TO OTHER ANTIBIOTIC AGENT 01/23/2018 VICKY MARTINEZ, KRYS M Ot I10 ESSENTIAL (PRIMARY) HYPERTENSION 01/23/2018 VICKY MARTINEZ, KRYS M Ot I48.91 UNSPECIFIED ATRIAL FIBRILLATION 01/23/2018 VICKY MARTINEZ, KRYS M Ot K20.9 ESOPHAGITIS, UNSPECIFIED 01/23/2018 VICKY MARTINEZ, KRYS M Ot K22.2 ESOPHAGEAL OBSTRUCTION 01/23/2018 KRYS PERRY MD Ot K25.9 GASTRIC ULCER, UNSP ACUTE OR CHRONIC, 01/23/2018 KRYS PERRY MD Ot Z79.899 OTHER SOLE SEAMER (CURRENT) DRUG THERAPY 01/23/2018 KRYS PERRY MD Ot Z88.0 ALLERGY STATUS TO PENICILLIN 01/23/2018 KRYS PERRY MD M Ot Z88.1 ALLERGY [...] UNSPECIFIED ATRIAL FIBRILLATION 02/01/2018 KRYS PERRY MD M Ot K20.9 ESOPHAGITIS, UNSPECIFIED 02/01/2018 KRYS PERRY MD M Ot K22.2 ESOPHAGEAL OBSTRUCTION 02/01/2018 KRYS PERRY MD Ot K25.9 GASTRIC ULCER, UNSP ACUTE OR CHRONIC, 02/01/2018 KRYS PERRY MD Ot Z79.899 OTHER SOLE SEAMER (CURRENT) DRUG THERAPY 02/01/2018 KRYS PERRY MD M Ot Z88.0 ALLERGY STATUS TO PENICILLIN 02/01/2018 KRYS PERRY MD M Ot Z88.1 ALLERGY STATUS TO OTHER ANTIBIOTIC AGENT 02/12/2018 AVI MARTINEZ FACC, EUGENE FACP CCDS Ot I73.9 PERIPHERAL VASCULAR DISEASE, UNSPECIFIED 02/12/2018 AVI MARTINEZ FACC, EUGENE FACP CCDS Ot I48.91 UNSPECIFIED ATRIAL FIBRILLATION 03/01/2018 AVI MARTINEZ FACC, ALI FACP CCDS Ot I48.91 UNSPECIFIED ATRIAL FIBRILLATION 03/08/2018 AVI MARTINEZ FACC, ALI FACP CCDS Ot I73.9 PERIPHERAL VASCULAR DISEASE, UNSPECIFIED 03/11/2018 AVI MARTINEZ FACC, EUGENE FACP CCDS Ot I73.9 PERIPHERAL VASCULAR DISEASE, UNSPECIFIED 03/26/2018 AVI MARTINEZ FACC, EUGENE FACP CCDS Ot I73.9 PERIPHERAL VASCULAR DISEASE, UNSPECIFIED 04/05/2018 AVI MARTINEZ FACC, EUGENE FACP CCDS Ot I73.9 PERIPHERAL VASCULAR DISEASE, UNSPECIFIED 11/06/2018 AMELIA MUSA CORROSION CONTROL TECHNICIAN Ot 786.50 CHEST PAIN NOS 11/06/2018 AMELIA MUSA CORROSION CONTROL TECHNICIAN Ot E888.9 FALL NOS 11/06/2018 MATEO MUSA DO Ot V76.12 OTH SCREEN MAMMO-MALIGN NEOPLASM OF RJ 11/06/2018 MATEO MUSA DO Ot V76.12 OTH SCREEN MAMMO-MALIGN NEOPLASM OF RJ 11/06/2018 MATEO MUSA DO Ot 486 PNEUMONIA, ORGANISM NOS 11/06/2018 MATEO MUSA DO Ot V76.12 OTH SCREEN MAMMO-MALIGN NEOPLASM OF RJ 11/06/2018 AMELIA MUSA CORROSION CONTROL TECHNICIAN Ot R05 COUGH 11/06/2018 AVI MARTINEZ FACC, EUGENE ANNP CCDS Ot E78.2 MIXED HYPERLIPIDEMIA 11/06/2018 EUGENE CÁRDENAS MD, FACC FACP CCDS Ot I10 ESSENTIAL (PRIMARY) HYPERTENSION 11/06/2018 EUGENE CÁRDENAS MD, FACC FACP CCDS Ot I48.0 PAROXYSMAL ATRIAL FIBRILLATION 11/06/2018 EUGENE CÁRDENAS MD, FACC FACP CCDS Ot R53.83 OTHER FATIGUE 11/06/2018 EUGENE CÁRDENAS MD, FACC FACP CCDS Ot R94.31 ABNORMAL ELECTROCARDIOGRAM [ECG] [EKG] 11/06/2018 EUGENE CÁRDENAS MD, FACC FACP CCDS Ot Z86.73 PRSNL HX OF TIA (TIA), AND CEREB INFRC W 11/06/2018 VICKY MARTINEZ, KRYS Sandoval Ot I10 ESSENTIAL (PRIMARY) HYPERTENSION 11/06/2018 VICKY MARTINEZ, KRYS Sandoval Ot I48.91 UNSPECIFIED ATRIAL FIBRILLATION 11/06/2018 VICKY MARTINEZ, KRYS Sandoval Ot K20.9 ESOPHAGITIS, UNSPECIFIED 11/06/2018 KRYS PERRY MD Ot K22.2 ESOPHAGEAL OBSTRUCTION 11/06/2018 KRYS PERRY MD Ot K25.9 GASTRIC ULCER, UNSP ACUTE OR CHRONIC, 11/06/2018 VICKY MARTINEZ, KRYS Sandoval Ot Z79.899 OTHER RESIDENTIAL (CURRENT) DRUG THERAPY 11/06/2018 KRYS PERRY MD Ot Z88.0 ALLERGY STATUS TO PENICILLIN 11/06/2018 KRYS PERRY MD Ot Z88.1 ALLERGY STATUS TO OTHER ANTIBIOTIC AGENT 11/06/2018 AVI ANNC, EUGENE FACP CCDS Ot I73.9 PERIPHERAL VASCULAR DISEASE, UNSPECIFIED 11/06/2018 AVI MARTINEZ FACC, ALI FACP CCDS Ot I48.91 UNSPECIFIED ATRIAL FIBRILLATION 11/06/2018 AMELIA MUSA CORROSION CONTROL TECHNICIAN Ot 786.50 CHEST PAIN NOS 11/06/2018 AMELIA MUSA CORROSION CONTROL TECHNICIAN Ot E888.9 FALL NOS 11/06/2018 MATEO MUSA DO Ot V76.12 OTH SCREEN MAMMO-MALIGN NEOPLASM OF RJ 11/06/2018 MATEO MUSA DO Ot V76.12 OTH SCREEN MAMMO-MALIGN NEOPLASM OF RJ 11/06/2018 MATEO MUSA DO Ot 486 PNEUMONIA, ORGANISM NOS 11/06/2018 MATEO MUSA DO Ot V76.12 OTH SCREEN MAMMO-MALIGN NEOPLASM OF RJ 11/06/2018 AMELIA MUSA L CORROSION CONTROL TECHNICIAN Ot R05 COUGH 11/06/2018 AVI MARTINEZ FACC, ALI FACP CCDS Ot E78.2 MIXED HYPERLIPIDEMIA 11/06/2018 AVI MARTINEZ FACC, ALI FACP CCDS Ot I10 ESSENTIAL (PRIMARY) HYPERTENSION 11/06/2018 AVI ANNC, ALI FACP CCDS Ot I48.0 PAROXYSMAL ATRIAL FIBRILLATION 11/06/2018 AVI MARTINEZ FACC, ALI FACP CCDS Ot R53.83 OTHER FATIGUE 11/06/2018 AVI MARTINEZ FAC, ALI FACP CCDS Ot R94.31 ABNORMAL ELECTROCARDIOGRAM [ECG] [EKG] 11/06/2018 AVI MATRINEZ FACC, ALI FACP CCDS Ot Z86.73 PRSNL HX OF TIA (TIA), AND CEREB INFRC W 11/06/2018 VICKY MARTINEZ, KRYS Sandoval Ot I10 ESSENTIAL (PRIMARY) HYPERTENSION 11/06/2018 VICKY MARTINEZ, KRYS Sandoval Ot I48.91 UNSPECIFIED ATRIAL FIBRILLATION 11/06/2018 VICKY MARTINEZ, KRYS Sandoval Ot K20.9 ESOPHAGITIS, UNSPECIFIED 11/06/2018 VICKY MARTINEZ, KRYS Sandoval Ot K22.2 ESOPHAGEAL OBSTRUCTION 11/06/2018 KRYS PERRY MD, Ot K25.9 GASTRIC ULCER, UNSP ACUTE OR CHRONIC, 11/06/2018 VICKY MARTINEZ, KRYS Sandoval Ot Z79.899 OTHER SOLE SEAMER (CURRENT) DRUG THERAPY 11/06/2018 KRYS PERRY MD Ot Z88.0 ALLERGY STATUS TO PENICILLIN 11/06/2018 VICKY MARTINEZ, KRYS Sandoval Ot Z88.1 ALLERGY STATUS TO OTHER ANTIBIOTIC AGENT 11/06/2018 AVI MARTINEZ [facility], ALI FACP CCDS Ot I73.9 PERIPHERAL VASCULAR DISEASE, UNSPECIFIED 11/06/2018 AVI MARTINEZ FAC, ALI FACP CCDS Ot I48.91 UNSPECIFIED ATRIAL FIBRILLATION 11/07/2018 KENN DO, ESSENCE Ot I10 ESSENTIAL (PRIMARY) HYPERTENSION 11/07/2018 KENN RUBIO ESSENCE Ot I48.0 PAROXYSMAL ATRIAL FIBRILLATION 11/07/2018 KENN RUBIO ESSENCE Ot I48.92 UNSPECIFIED ATRIAL FLUTTER 11/07/2018 KENN DO ESSENCE Ot I73.9 PERIPHERAL VASCULAR DISEASE, UNSPECIFIED 11/07/2018 HAWK DO ESSENCE Ot I87.8 OTHER SPECIFIED DISORDERS OF VEINS 11/07/2018 KENN RUBIO ESSENCE Ot K21.9 GASTRO-ESOPHAGEAL REFLUX DISEASE WITHOUT 11/07/2018 KENN DO ESSENCE Ot R07.89 OTHER CHEST PAIN 11/07/2018 KENN RUBIO ESSENCE Ot R94.31 ABNORMAL ELECTROCARDIOGRAM [ECG] [EKG] 11/07/2018 KENN RUBIO ESSENCE Ot Z79.01 SOLE SEAMER (CURRENT) USE OF ANTICOAGULANT 11/07/2018 KENN RUBIO ESSENCE Ot Z91.14 PATIENT'S OTHER NONCOMPLIANCE WITH MEDIC Procedures Code Description Performed By Performed On [id number] INSERT OF MONITOR DEV INTO CHEST SUBCU/F [...] INFLUENZA A AND B ANTIGENS BY IA NR Bacterial throat culture - 04/08/17 14:00 Bacterial throat culture [facility] Complete blood count (CBC) with automated white [...] plasma albumin measurement (mass/volume) 3.8 g/dL 3.2-4.5 Complete blood count (CBC) with automated white blood cell (WBC) differential - 11/06/18 19:37 Blood leukocytes automated count (number/volume) 7.3 10*3/uL 4.3-11.0 Blood erythrocytes automated count (number/volume) 5.38 10*6/uL 4.35-5.85 Venous blood hemoglobin measurement (mass/volume) 15.4 g/dL 11.5-16.0 Blood hematocrit (volume fraction) 46 % 35-52 Automated erythrocyte mean corpuscular volume 85 [foz_us] 80-99 Automated erythrocyte mean corpuscular hemoglobin (mass per erythrocyte) 29 pg 25-34 Automated erythrocyte mean corpuscular hemoglobin concentration measurement ( mass/volume) 34 g/dL 32-36 Automated erythrocyte distribution width ratio 14.2 % 10.0-14.5 Automated blood platelet count (count/volume) 311 10*3/uL 130-400 Automated blood platelet mean volume measurement 10.4 [foz_us] 7.4-10.4 Automated blood neutrophils/100 leukocytes 59 % 42-75 Automated blood lymphocytes/100 leukocytes 29 % 12-44 Blood monocytes/100 leukocytes 10 % 0-12 Automated blood eosinophils/100 leukocytes 1 % 0-10 Automated blood basophils/100 leukocytes 1 % 0-10 Blood neutrophils automated count (number/volume) 4.3 10*3 1.8-7.8 Blood lymphocytes automated count (number/volume) 2.1 10*3 1.0-4.0 Blood monocytes automated count (number/volume) 0.7 10*3 0.0-1.0 Automated eosinophil count 0.1 10*3/uL 0.0-0.3 Automated blood basophil count (count/volume) 0.0 10*3/uL 0.0-0.1 PT panel in platelet poor plasma by coagulation assay - 11/06/18 19:37 Prothrombin time (PT) in platelet poor plasma by coagulation assay 14.2 s 12.2-14.7 INR in platelet poor plasma or blood by coagulation assay 1.1 0.8-1.4 Activated partial thromboplastin time (aPTT) in platelet poor plasma bycoagulation assay - 11/06/18 19:37 Activated partial thromboplastin time (aPTT) in platelet poor plasma bycoagulation assay 34 s 24-35 Comprehensive metabolic panel - 11/06/18 19:37 Serum or plasma sodium measurement (moles/volume) 142 mmol/L 135-145 Serum or plasma potassium measurement (moles/volume) 3.8 mmol/L 3.6-5.0 Serum or plasma chloride measurement (moles/volume) 104 mmol/L 98-107 Carbon dioxide 25 mmol/L 21-32 Serum or plasma anion gap determination (moles/volume) 13 mmol/L 5-14 Serum or plasma urea nitrogen measurement (mass/volume) 13 mg/dL 7-18 Serum or plasma creatinine measurement (mass/volume) 0.80 mg/dL 0.60-1.30 Serum or plasma urea nitrogen/creatinine mass ratio 16 NRG Serum or plasma creatinine measurement with calculation of estimated glomerular filtration rate > NRG Serum or plasma glucose measurement (mass/volume) 120 mg/dL 70-105 Serum or plasma calcium measurement (mass/volume) 10.0 mg/dL 8.5-10.1 Serum or plasma total bilirubin measurement (mass/volume) 0.3 mg/dL 0.1-1.0 Serum or plasma alkaline phosphatase measurement (enzymatic activity/volume) 88 U/L 40-136 Serum or plasma aspartate aminotransferase measurement (enzymatic activity/ volume) 21 U/L 5-34 Serum or plasma alanine aminotransferase measurement (enzymatic activity/volume ) 16 U/L 0-55 Serum or plasma protein measurement (mass/volume) 7.4 g/dL 6.4-8.2 Serum or plasma albumin measurement (mass/volume) 4.1 g/dL 3.2-4.5 CALCIUM CORRECTED 9.9 mg/dL 8.5-10.1 Magnesium - 11/06/18 19:37 Magnesium 2.3 mg/dL 1.8-2.4 Serum or plasma troponin i.cardiac measurement (mass/volume) - 11/06/18 19:37 Serum or plasma troponin i.cardiac measurement (mass/volume) < ng/ mL <0.30 Myoglobin, serum - 11/06/18 19:37 Myoglobin, serum 44.1 ng/mL 10.0-92.0 Serum or plasma thyrotropin measurement by detection limit <=0.05 miu/l (units/ volume) - 11/06/18 19:37 Serum or plasma thyrotropin measurement by detection limit <=0.05 miu/l (units/ volume) 3.03 u[iU]/mL 0.35-4.94 Methicillin resistant Staphylococcus aureus (MRSA) screening culture - 23:05 Methicillin resistant Staphylococcus aureus (MRSA) screening culture NEG NRG Complete blood count (CBC) with automated white blood cell (WBC) differential - 11/07/18 03:46 Blood leukocytes automated count (number/volume) 7.8 10*3/uL 4.3-11.0 Blood erythrocytes automated count (number/volume) 4.77 10*6/uL 4.35-5.85 Venous blood hemoglobin measurement (mass/volume) 13.8 g/dL 11.5-16.0 Blood hematocrit (volume fraction) 41 % 35-52 Automated erythrocyte mean corpuscular volume 85 [foz_us] 80-99 Automated erythrocyte mean corpuscular hemoglobin (mass per erythrocyte) 29 pg 25-34 Automated erythrocyte mean corpuscular hemoglobin concentration measurement ( mass/volume) 34 g/dL 32-36 Automated erythrocyte distribution width ratio 14.3 % 10.0-14.5 Automated blood platelet count (count/volume) 251 10*3/uL 130-400 Automated blood platelet mean volume measurement 10.5 [foz_us] 7.4-10.4 Automated blood neutrophils/100 leukocytes 54 % 42-75 Automated blood lymphocytes/100 leukocytes 32 % 12-44 Blood monocytes/100 leukocytes 12 % 0-12 Automated blood eosinophils/100 leukocytes 2 % 0-10 Automated blood basophils/100 leukocytes 0 % 0-10 Blood neutrophils automated count (number/volume) 4.2 10*3 1.8-7.8 Blood lymphocytes automated count (number/volume) 2.5 10*3 1.0-4.0 Blood monocytes automated count (number/volume) 0.9 10*3 0.0-1.0 Automated eosinophil count 0.2 10*3/uL 0.0-0.3 Automated blood basophil count (count/volume) 0.0 10*3/uL 0.0-0.1 Whole blood basic metabolic panel - 11/07/18 03:46 Serum or plasma sodium measurement (moles/volume) 140 mmol/L 135-145 Serum or plasma potassium measurement (moles/volume) 3.6 mmol/L 3.6-5.0 Serum or plasma chloride measurement (moles/volume) 105 mmol/L 98-107 Carbon dioxide 23 mmol/L 21-32 Serum or plasma anion gap determination (moles/volume) 12 mmol/L 5-14 Serum or plasma urea nitrogen measurement (mass/volume) 11 mg/dL 7-18 Serum or plasma creatinine measurement (mass/volume) 0.72 mg/dL 0.60-1.30 Serum or plasma urea nitrogen/creatinine mass ratio 15 NRG Serum or plasma creatinine measurement with calculation of estimated glomerular filtration rate > NRG Serum or plasma glucose measurement (mass/volume) 100 mg/dL 70-105 Serum or plasma calcium measurement (mass/volume) 9.1 mg/dL 8.5-10.1 Serum or plasma phosphate measurement (mass/volume) - 11/07/18 03:46 Serum or plasma phosphate measurement (mass/volume) 3.6 mg/dL 2.3-4.7 Magnesium - 11/07/18 03:46 Magnesium 1.9 mg/dL 1.8-2.4 Serum or plasma troponin i.cardiac measurement (mass/volume) - 11/07/18 03:46 Serum or plasma troponin i.cardiac measurement (mass/volume) < ng/ mL <0.30 Lipid 1996 panel - 11/07/18 03:46 Serum or plasma triglyceride measurement (mass/volume) 144 mg/dL <150 Serum or plasma cholesterol measurement (mass/volume) 225 mg/dL < 200 Serum or plasma cholesterol in HDL measurement (mass/volume) 53 mg/ dL 40-60 Cholesterol in LDL [mass/volume] in serum or plasma by direct assay 160 mg/dL 1-129 Serum or plasma cholesterol in VLDL measurement (mass/volume) 29 mg/ dL 5-40 Encounters ACCT No. Visit Date/Time Discharge Status Pt. Type Provider Facility Loc./Unit Complaint [id number] 11/06/2018 20:40:00 11/06/2018 23:59:59 CLS Outpatient ESSENCE HAWK DO [facility] ICU A FLUTTER WITH RVR, CHEST PAIN [id number] 02/12/2018 12:55:00 02/12/2018 23:59:59 CLS Outpatient AVI MARTINEZ FACC, EUGENE VIERA CCDS [facility] RAD I73.9 CLAUDICATION [id number] 01/22/2018 09:51:00 01/22/2018 23:59:59 CLS Outpatient AVI MARTINEZ FACC, EUGENE VIERA CCDS [facility] CATH AFIB,HTN, FATIGUE,SOB [id number] 12/31/2017 10:28:00 12/31/2017 23:59:59 CLS Outpatient KRYS PERRY MD [facility] ENDO GERD [id number] 12/28/2017 09:17:00 12/28/2017 11:01:00 DIS Outpatient KRYS PERRY MD [facility] PREOP EGD [id number] 09/25/2017 14:00:00 09/25/2017 23:59:59 CLS Preadmit AVI MARTINEZ FACC, EUGENE VIERA CCDS [facility] CATH REMOVAL OF ILR DEVICE [id number] 05/08/2017 08:18:00 05/08/2017 23:59:59 CLS Outpatient EUGENE CÁRDENAS MD, FACC FACP CCDS [facility] CARD R94.31 ABNORMAL ECG [id number] 04/26/2017 12:32:00 04/26/2017 23:59:59 CLS Outpatient AMELIA MUSA CORROSION CONTROL TECHNICIAN [facility] RAD CHRONIC COUGH [id number] 04/08/2017 13:41:00 04/08/2017 15:14:00 DIS Emergency FANI CAM MD [facility] ER FEVER/WEAKNESS [id number] 09/13/2016 13:00:00 09/14/2016 10:15:00 DIS Inpatient ESSENCE HAWK DO [facility] ICU AFIB WITH RVR, TIA [id number] 04/08/2016 07:33:00 04/08/2016 08:59:00 DIS Emergency DELIA MCBRIDE MD [facility] ER FALL, HEAD INJ, R SIDE PAIN [id number] 06/10/2015 11:22:00 06/10/2015 23:59:59 CLS Outpatient MATEO MUSA DO [facility] RAD SCREENING [id number] 05/31/2015 12:01:00 05/31/2015 23:59:59 CLS Outpatient MATEO MUSA DO [facility] RAD PNUEMONIA [id number] 11/05/2014 10:43:00 11/05/2014 23:59:59 CLS Outpatient MATEO MUSA DO [facility] RAD ROUTINE [id number] 10/21/2013 10:36:00 10/21/2013 23:59:59 CLS Outpatient MATEO MUSA DO [facility] RAD SCREENING [id number] 05/30/2013 11:34:00 05/30/2013 23:59:59 CLS Outpatient AMELIA MUSA [facility] RAD PAIN IN RT RIBS AFTER FALL [id number] 12/16/2018 11:00:00 PEN Preadmit Jaime KAUR MD [facility] CATH TYPICAL ATRIAL FLUTTER [id number] 03/25/2015 10:43:00 Document Registration [id number] 03/25/2015 10:43:00 Document Registration [id number] 03/25/2015 10:43:00 Document Registration [id number] 03/25/2015 10:43:00 Document Registration [id number] 03/25/2015 10:43:00 Document Registration [id number] 03/25/2015 10:43:00 Document Registration [id number] 11/12/2012 06:55:00 Document Registration [id number] 07/26/2012 11:13:00 Document Registration [id number] 07/14/2010 13:53:00 Document Registration [id number] 01/19/2010 00:00:00 Document Registration
[2018-11-18] MEDS ORDERED: LIDOCAINE 1% INJ 20 ML 20 ML VIAL INJ ONE (12:15)
[2018-11-18] MEDS ORDERED: SULF-222 PO (12:15)
[2018-11-18] MEDS ORDERED: METR-197 PO (12:15)
--- NOTE | 2018-11-18 12:15 | ED Integumentary General ---
General Chief Complaint: Skin/Wound Problems Stated Complaint: PELVIC/GROIN PAIN Nursing Triage Note: ARRIVED VIA AMB TO ROOM 09. COMPLAINS OF ABSCESS ON GROIN AREA X1 WEEK. Source: patient Exam Limitations: no limitations History of Present Illness Date Seen by Provider: Nov 18, 2018 Time Seen by Provider: 11:56 Initial Comments Here with complaint of abscess to left labia majora periods been going on for several days. She was on Keflex at the time when the abscess started and that did not help. It is swollen and worsening. Unable to get into her doctor today so presented to the emergency department due to pain and worsening. Timing/Duration: week, getting worse Severity: moderate Location: genitalia Possible Cause: no cause identified Associated Symptoms: edema; No fever; swelling/mass/lumps Allergies and Home Medications Allergies Coded Allergies: codeine (Unverified Allergy, Unknown, 09/13/16) Uncoded Allergies: PCN (Allergy, Unknown, 09/13/16) SOME ANTIBIOTICS (Allergy, Unknown, 09/13/16) Home Medications Apixaban 5 Mg Tablet, 5 MG PO BID, (Reported) Calcium Carb/Mag Ox/Zinc Sulf 1 Each Tablet, 1 TAB PO DAILY, (Reported) Cephalexin 500 Mg Capsule, 500 MG PO BID, (Reported) 14 DAY SUPPLY FILLED 11-04-18 Cholecalciferol (Vitamin D3) 5,000 Unit Capsule, 5,000 UNIT PO BID, (Reported) Cyclobenzaprine HCl 10 Mg Tablet, 10 MG PO TID PRN for MUSCLE SPASMS, (Reported) Diltiazem HCl 180 Mg Cap.er.24h, 180 MG PO DAILY Prescribed by: EUGENE CÁRDENAS on 11/07/18 1218 [place] 500 Mg Capsule, 500 MG PO DAILY, (Reported) Metoprolol Succinate 50 Mg Tab.er.24h, 50 MG PO DAILY, (Reported) Metronidazole 500 Mg Tablet, 500 MG PO BID Prescribed by: NADIA HUYNH on 11/18/18 1215 Niacinamide 500 Mg Tablet, 1,000 MG PO BID, (Reported) Pantoprazole Sodium 40 Mg Tablet.dr, 40 MG PO DAILY, (Reported) Sulfamethoxazole/Trimethoprim 1 Each Tablet, 1 EACH PO BID Prescribed by: NADIA HUYNH on 11/18/18 1215 Turmeric Root Extract 538 Mg Capsule, 538 MG PO DAILY, (Reported) [Cbd Oil] , SL BID, (Reported) Patient Home Medication List Home Medication List Reviewed: Yes Review of Systems Review of Systems Constitutional: see HPI; No chills, No fever Respiratory: no symptoms reported Cardiovascular: no symptoms reported Genitourinary: No dysuria, No frequency, No pain Skin: see HPI, change in color, lesions Psychiatric/Neurological: No Symptoms Reported Past Jjbeizm-Acehwr-Pxupew Hx Past Med/Social Hx: Reviewed Nursing Past Med/Soc Hx Patient Social History Alcohol Use: Denies Use Recreational Drug Use: No Smoking Status: Never a Smoker 2nd Hand Smoke Exposure: No Recent Foreign Travel: No Contact w/Someone Who Travel: No Recent Infectious Disease Expo: No Recent Hopitalizations: No Immunizations Up To Date Tetanus Booster (TDap): Unknown PED Vaccines UTD: No Date of Pneumonia Vaccine: Aug 26, 2013 Seasonal Allergies Seasonal Allergies: No Past Medical History Surgeries: Yes (appy, choley, cataracts, hysterectomy , ) Appendectomy, Gallbladder, Hysterectomy Respiratory: Yes ( PNEUMONIA) Cardiac: Yes Atrial Fibrillation, Hypertension Neurological: Yes Reproductive Disorders: No Sexually Transmitted Disease: No Genitourinary: No Gastrointestinal: Yes (ulceritive cholitis, ) Gastroesophageal Reflux, Obstructive Bowel Musculoskeletal: Yes (BRUSITIS) Arthritis Endocrine: No HEENT: No Cataract Cancer: No Psychosocial: No Integumentary: Yes (bacterial folliculitis) Blood Disorders: No Adverse Reaction/Blood Tranf: No Family Medical History Reviewed Nursing Family Hx No Pertinent Family Hx Physical Exam Vital Signs Vital Signs - First Documented 11/18/18 11:44 Temp 97.8 Pulse 16 B/P (MAP) 149/87 (107) Pulse Ox 96 O2 Delivery Room Air Capillary Refill : Less Than 3 Seconds General Appearance: WD/WN, no apparent distress Cardiovascular: regular rate, rhythm, no murmur Respiratory: lungs clear, normal breath sounds Neurologic/Psychiatric: alert, oriented x 3 Skin: warm/dry Skin Problem Location: other (left labia) Skin Problem Character: abscess (1.5 x 1.5 cm), erythema (2 cm surrounding abscess) Procedures/Interventions I&D : Blade Size: 11 I & D Procedure: betadine prep Packing/Drain: Plain Packing 1/2 Progress Prepped with Betadine. Anesthetized with 1 percent lidocaine plain 5 mL around the abscess. Incised 2 cm opening and had several milliliters of purulent drainage. Wound culture obtained. Flushed and packed with half-inch plain packing. Covered with dressing. Tolerated procedure well with no complications. Progress/Results/Core Measures Results/Orders My Orders Orders - NADIA HUYNH MD Wound Culture (11/18/18 12:07) Lidocaine 1% Inj 20 Ml (Xylocaine 1% Inj (11/18/18 12:15) Vital Signs/I&O 11/18/18 11:44 Temp 97.8 Pulse 16 B/P (MAP) 149/87 (107) Pulse Ox 96 O2 Delivery Room Air Blood Pressure Mean: 107 Progress Progress Note : Progress Note Seen and evaluated. I&D required. I did discuss with the patient and she agrees. 1250: I&D complete. Wound culture complete. Discharged home with return precautions. Patient verbalize understanding instructions and agreement with plan. Departure Impression Primary Impression: Abscess of labia majora Disposition: 01 HOME, SELF-CARE Condition: Improved Departure-Patient Inst. Decision time for Depature: 12:14 Referrals: MATEO MUSA DO (PCP/Family) Primary Care Physician Patient Instructions: Abscess Incision and Drainage (DC) Add. Discharge Instructions: All discharge instructions reviewed with patient and/or family. Voiced understanding. You may shower. Keep wound covered otherwise. If the wick falls out, that is okay, continue to rinse wound once or twice daily to clear drainage. Cover with dressing. Return in a few days for recheck if not improving. Take medications as directed. You may take Tylenol/acetaminophen 1000 mg every 8 hours as needed for pain. You may take that with the prescribed pain medicine. Return for worse pain, fever, weakness, breathing problems or other concerns as needed. Scripts Tramadol HCl (Tramadol HCl) 50 Mg Tablet 50 MG PO Q6H PRN for PAIN, #20 TAB 0 Refills Prov: NADIA HUYNH MD 11/18/18 Metronidazole (Metronidazole) 500 Mg Tablet 500 MG PO BID, #14 TAB 0 Refills Prov: NADIA HUYNH MD 11/18/18 Sulfamethoxazole/Trimethoprim (Sulfamethoxazole-Tmp Ds Tablet) 1 Each Tablet 1 EACH PO BID, #14 TAB 0 Refills Prov: NADIA HUYNH MD 11/18/18 Copy Copies To 1: MATEO MUSA TIMOTHY D MD Nov 18, 2018 12:15
[2018-11-18] MEDS ORDERED: TRAM50TA2 PO (12:52)
[2018-11-18 13:03] VITALS: BP 149/87
== END 2018-11-18 13:03 | disposition home or self-care (01) ==
LOC: EDUNIT# 11:15 → ER 11:16
DX: N76.4 Abscess of vulva (principal); I48.91 Unspecified atrial fibrillation; I10 Essential (primary) hypertension; K21.9 Gastro-esophageal reflux disease without esophagitis; Z86.19 Personal history of other infectious and parasitic diseases; Z87.19 Personal history of other diseases of the digestive system; Z88.5 Allergy status to narcotic agent; Z88.0 Allergy status to penicillin; Z79.01 Long term (current) use of anticoagulants; Z90.710 Acquired absence of both cervix and uterus; Z90.49 Acquired absence of other specified parts of digestive tract
CPT/HCPCS: 10061; 87070; 87077; 87205

== ENCOUNTER 2018-11-20 10:43 | Emergency (ER) | payer MEDICARE, MEDICAID ==
[~2018-11-20] VITALS: Ht 152.4 cm; Wt 65.8 kg
[~2018-11-20 10:43] MED LIST changes: +METR-197 PO; +SULF-222 PO; +TRAM50TA2 PO
[2018-11-20] MEDS ORDERED: NS IV 500 ML 500 ML IV ONE (11:45)
[2018-11-20] MEDS ORDERED: ONDANSETRON 4 MG/2 ML (SDV) Z0FRAN IVP ONE (11:45)
[2018-11-20 11:52] LABS: BASOPHILS % (AUTO) 0 % (0-10); EOSINOPHILS # (AUTO) 0.1 10^3/uL (0.0-0.3); EOSINOPHILS % (AUTO) 1 % (0-10); HEMATOCRIT 43 % (35-52); HEMOGLOBIN 14.2 G/DL (11.5-16.0); LYMPHOCYTES # (AUTO) 1.6 X 10^3 (1.0-4.0); LYMPHOCYTES % (AUTO) 20 % (12-44); MEAN CORPUSCULAR HEMOGLOBIN 29 PG (25-34); MEAN CORPUSCULAR HGB CONC 33 G/DL (32-36); MEAN CORPUSCULAR VOLUME 85 FL (80-99); MEAN PLATELET VOLUME 10.6 FL (7.4-10.4); MONOCYTES # (AUTO) 0.6 X 10^3 (0.0-1.0); MONOCYTES % (AUTO) 8 % (0-12); NEUTROPHILS # (AUTO) 5.5 X 10^3 (1.8-7.8); NEUTROPHILS % (AUTO) 71 % (42-75); PLATELET COUNT 293 10^3/uL (130-400); RED BLOOD COUNT 4.99 10^6/uL (4.35-5.85); RED CELL DISTRIBUTION WIDTH 14.3 % (10.0-14.5); WHITE BLOOD COUNT 7.8 10^3/uL (4.3-11.0)
[2018-11-20 12:07] LABS: BUN/CREATININE RATIO 14; CALCIUM 9.4 MG/DL (8.5-10.1); CARBON DIOXIDE 25 MMOL/L (21-32); CHLORIDE 103 MMOL/L (98-107); CREATININE SERUM 0.86 MG/DL (0.60-1.30); GFR ESTIMATED > 60; GLUCOSE 96 MG/DL (70-105); POTASSIUM 4.1 MMOL/L (3.6-5.0); SODIUM 138 MMOL/L (135-145)
[2018-11-20] MEDS ORDERED: ONDA4TAB11 SL (12:22)
--- NOTE | 2018-11-20 12:23 | ED General ---
General Chief Complaint: General Problems/Pain Stated Complaint: LOW HEART RATE;TIRED;N/V Nursing Triage Note: Pt reports HR running in 40s at home. Pt reports she has not taken her home medication for heart rate since it has been low. Pt was seen here at this facility and had an abcess drained on labia. Pt reports nausea/vomiting since abcess procedure. Nursing Sepsis Screen: No Definite Risk Source of Information: Patient, Old Records Exam Limitations: No Limitations History of Present Illness Date Seen by Provider: Nov 20, 2018 Time Seen by Provider: 11:38 Initial Comments This pleasant 83-year-old woman presents to emergency room with 2 concerns. First, she has a left labial abscess that was incised and drained [address] Huynh. She had a packing placed. The packing needs to be removed. Also , she has been experiencing nausea and vomiting which she believes is directly due to Flagyl she was prescribed during that encounter. Her second concern is regarding her heart rate. She has been experiencing bradycardia as low as 39 at home after starting Cartia XT 180 mg daily. She was started on this medication after an admission for atrial fibrillation with RVR. She denies any lightheadedness, shortness of breath, or dizziness associated with this bradycardia. She does feel tired. She did not take any of her medications this morning due to nausea. Wound cultures from the incision and drainage were checked and were still pending. Allergies and Home Medications Allergies Coded Allergies: codeine (Unverified Allergy, Unknown, 09/13/16) Uncoded Allergies: PCN (Allergy, Unknown, 09/13/16) SOME ANTIBIOTICS (Allergy, Unknown, 09/13/16) Home Medications Apixaban 5 Mg Tablet, 5 MG PO BID, (Reported) Calcium Carb/Mag Ox/Zinc Sulf 1 Each Tablet, 1 TAB PO DAILY, (Reported) Cephalexin 500 Mg Capsule, 500 MG PO BID, (Reported) 14 DAY SUPPLY FILLED 11-04-18 Cholecalciferol (Vitamin D3) 5,000 Unit Capsule, 5,000 UNIT PO BID, (Reported) Cyclobenzaprine HCl 10 Mg Tablet, 10 MG PO TID PRN for MUSCLE SPASMS, (Reported) Diltiazem HCl 180 Mg Cap.er.24h, 180 MG PO DAILY Prescribed by: EUGENE HARMON on 11/07/18 1218 [place] 500 Mg Capsule, 500 MG PO DAILY, (Reported) Metoprolol Succinate 50 Mg Tab.er.24h, 50 MG PO DAILY, (Reported) Metronidazole 500 Mg Tablet, 500 MG PO BID Prescribed by: NADIA HUYNH on 11/18/18 1215 Niacinamide 500 Mg Tablet, 1,000 MG PO BID, (Reported) Ondansetron 4 Mg Tab.rapdis, 4 MG SL Q4H PRN for NAUSEA/VOMITING Prescribed by: GIL PARRA on 11/20/18 1222 Pantoprazole Sodium 40 Mg Tablet.dr, 40 MG PO DAILY, (Reported) Sulfamethoxazole/Trimethoprim 1 Each Tablet, 1 EACH PO BID Prescribed by: NADIA HUYNH on 11/18/18 1215 Tramadol HCl 50 Mg Tablet, 50 MG PO Q6H PRN for PAIN Prescribed by: NADIA HUYNH on 11/18/18 1252 Turmeric Root Extract 538 Mg Capsule, 538 MG PO DAILY, (Reported) [Cbd Oil] , SL BID, (Reported) Patient Home Medication List Home Medication List Reviewed: Yes Review of Systems Review of Systems Constitutional: no symptoms reported EENTM: no symptoms reported Respiratory: no symptoms reported Cardiovascular: see HPI Gastrointestinal: see HPI Genitourinary: see HPI : No Musculoskeletal: no symptoms reported Skin: see HPI Psychiatric/Neurological: No Symptoms Reported Hematologic/Lymphatic: No Symptoms Reported Immunological/Allergic: no symptoms reported Past Euidqmd-Bfcthu-Chopqx Hx Past Med/Social Hx: Reviewed Nursing Past Med/Soc Hx Patient Social History 2nd Hand Smoke Exposure: No Recent Foreign Travel: No Contact w/Someone Who Travel: No Recent Infectious Disease Expo: No Recent Hopitalizations: No Immunizations Up To Date Tetanus Booster (TDap): Unknown PED Vaccines UTD: No Date of Pneumonia Vaccine: Aug 26, 2013 Seasonal Allergies Seasonal Allergies: No Past Medical History Surgeries: Yes (appy, choley, cataracts, hysterectomy , ) Appendectomy, Gallbladder, Hysterectomy Respiratory: Yes ( PNEUMONIA) Cardiac: Yes Atrial Fibrillation, Hypertension Neurological: Yes Reproductive Disorders: No Sexually Transmitted Disease: No Genitourinary: No Gastrointestinal: Yes (ulceritive cholitis, ) Gastroesophageal Reflux, Obstructive Bowel Musculoskeletal: Yes (BRUSITIS) Arthritis Endocrine: No HEENT: No Cataract Cancer: No Psychosocial: No Integumentary: Yes (bacterial folliculitis) Blood Disorders: No Adverse Reaction/Blood Tranf: No Family Medical History No Pertinent Family Hx Physical Exam Vital Signs Vital Signs - First Documented 11/20/18 10:59 Temp 96.7 Pulse 45 Resp 18 B/P (MAP) 167/64 (98) Pulse Ox 97 O2 Delivery Room Air Capillary Refill : Less Than 3 Seconds Height, Weight, BMI Height: 5'0" Weight: 145lbs. 0.0oz. [id number]; 30.3 BMI Method:Stated General Appearance: No Apparent Distress, WD/WN HEENT: PERRL/EOMI, Normal ENT Inspection Neck: Normal Inspection Respiratory: Lungs Clear, Normal Breath Sounds, No Accessory Muscle Use, No Respiratory Distress Cardiovascular: No Edema, No Murmur, Irregularly Irregular Genital/Rectal: Other (packing in the left labia in place with some purulent drainage on the packing. Mild erythema around the incisional wound.) Extremity: Normal Inspection, No Pedal Edema Neurologic/Psychiatric: Alert, Oriented x3, No Motor/Sensory Deficits, Normal Mood/Affect, adult protective caseworker II-XII Norm as Tested Skin: Normal Color, Warm/Dry, Other (see above) Progress/Results/Core Measures Suspected Sepsis Recent Fever Within 48 Hours: No Infection Criteria Present: Suspected New Infection New/Unexplained Altered Menta: No Sepsis Screen: No Definite Risk SIRS Temperature:96.7 Pulse: 45 Respiratory Rate: 18 Laboratory Tests 11/20/18 11:45: White Blood Count 7.8 Blood Pressure 167 /64 Mean: 98 Laboratory Tests 11/20/18 11:45: Creatinine 0.86, Platelet Count 293 Results/Orders Lab Results Laboratory Tests Test 11/20/18 11:45 Range/Units White Blood Count 7.8 4.3-11.0 10^3/uL Red Blood Count 4.99 4.35-5.85 10^6/uL Hemoglobin 14.2 11.5-16.0 G/DL Hematocrit 43 35-52 % Mean Corpuscular Volume 85 80-99 FL Mean Corpuscular Hemoglobin 29 25-34 PG Mean Corpuscular Hemoglobin Concent 33 32-36 G/DL Red Cell Distribution Width 14.3 10.0-14.5 % Platelet Count 293 130-400 10^3/uL Mean Platelet Volume 10.6 H 7.4-10.4 FL Neutrophils (%) (Auto) 71 42-75 % Lymphocytes (%) (Auto) 20 12-44 % Monocytes (%) (Auto) 8 0-12 % Eosinophils (%) (Auto) 1 0-10 % Basophils (%) (Auto) 0 0-10 % Neutrophils # (Auto) 5.5 1.8-7.8 X 10^3 Lymphocytes # (Auto) 1.6 1.0-4.0 X 10^3 Monocytes # (Auto) 0.6 0.0-1.0 X 10^3 Eosinophils # (Auto) 0.1 0.0-0.3 10^3/uL Basophils # (Auto) 0.0 0.0-0.1 10^3/uL Sodium Level 138 135-145 MMOL/L Potassium Level 4.1 3.6-5.0 MMOL/L Chloride Level 103 98-107 MMOL/L Carbon Dioxide Level 25 21-32 MMOL/L Anion Gap 10 5-14 MMOL/L Blood Urea Nitrogen 12 7-18 MG/DL Creatinine 0.86 0.60-1.30 MG/DL Estimat Glomerular Filtration Rate > 60 BUN/Creatinine Ratio 14 Glucose Level 96 70-105 MG/DL Calcium Level 9.4 8.5-10.1 MG/DL Magnesium Level 2.0 1.8-2.4 MG/DL My Orders Orders - GIL FERGUSON MD Ekg Tracing (11/20/18 11:32) Basic Metabolic Panel (11/20/18 11:45) Cbc With Automated Diff (11/20/18 11:45) Magnesium (11/20/18 11:45) Saline Lock/Iv-Start (11/20/18 11:45) Monitor-Rhythm Ecg Trace Only (11/20/18 11:45) Ondansetron Injection (Zofran Injectio (11/20/18 11:45) Ns Iv 500 Ml (Sodium Chloride 0.9%) (11/20/18 11:45) Vital Signs/I&O Capillary Refill : Less Than 3 Seconds Blood Pressure Mean: 98 Progress Note : Progress Note Packing was removed. Labs were checked because of vomiting. I discussed the case with Dr. Harmon who recommended stopping either Toprol or Cartia. Patient has been on Toprol for a very long time and feels more comfortable continuing this medication. She will stop Cartia until she sees Dr. Harmon again. Packing was removed from the incisional wound. Patient was instructed to stop Flagyl. ECG Initial ECG Impression Date: Nov 20, 2018 Initial ECG Impression Time: 11:34 Initial ECG Rate: 57 Comment Bradycardic arrhythmia, likely atrial fibrillation. No ST elevation or depression. No axis deviation. Departure Impression Primary Impression: Atrial fibrillation Qualified Codes: I48.91 - Unspecified atrial fibrillation Additional Impressions: Bradycardia Nausea and vomiting Qualified Codes: R11.2 - Nausea with vomiting, unspecified Labial abscess Disposition: HOME, SELF-CARE Condition: Stable Departure-Patient Inst. Decision time for Depature: 12:19 Referrals: MATEO MUSA DO (PCP/Family) Primary Care Physician Patient Instructions: Atrial Fibrillation Add. Discharge Instructions: Stop Cartia XT. Continue with Toprol. Stop metronidazole (Flagyl). Continue with Bactrim (trimethoprim/sulfamethoxazole). Fill the Zofran prescription as prescribed and use if needed for nausea and vomiting. Follow-up with Dr. Harmon as soon as possible. Drink plenty of clear liquids. All discharge instructions reviewed with patient and/or family. Voiced understanding. Scripts Ondansetron (Ondansetron Odt) 4 Mg Tab.rapdis 4 MG SL Q4H PRN for NAUSEA/VOMITING, #10 TAB Prov: GIL FERGUSON MD 11/20/18 Copy Copies To 1: EUGENE HARMON MD FACP FAC CCDS Copies To 2: MATEO MUSA JOSHUA T MD Nov 20, 2018 12:23
[2018-11-20 12:37] VITALS: BP 167/64
--- OUTSIDE RECORDS SUMMARY | 2018-11-20 14:20 | XMS REPORT | Continuity of Care Document ---
Author Author [facility] Organization [facility] Address Unknown Phone Unavailable Allergies Active Description Code Type Severity Reaction Onset Reported/Identified Relationship to Patient Clinical Status Yes codeine [id number] Drug Allergy Unknown N/A 09/13/2016 Yes PCN [...] V82.81 03/25/2015 Ot V72.84 03/25/2015 AMELIA MUSA BAR ROLLER Ot 786.50 03/25/2015 AMELIA MUSA BAR ROLLER Ot E888.9 03/25/2015 MATEO MUSA DO Ot V76.12 03/25/2015 MATEO MUSA DO Ot V76.12 04/12/2015 Ot 724.5 04/12/2015 Ot 791.9 04/12/2015 Ot V76.12 04/12/2015 Ot 780.79 04/12/2015 Ot V58.69 04/12/2015 Ot V76.12 04/12/2015 Ot 733.90 04/12/2015 Ot V49.81 04/12/2015 Ot V76.12 04/12/2015 Ot V82.81 04/12/2015 Ot V72.84 04/12/2015 AMELIA MUSA BAR ROLLER Ot 786.50 04/12/2015 AMELIA MUSA BAR ROLLER Ot E888.9 04/12/2015 DIMPLE RUBIO MATEO Tyler [...] EXAM PRE- OPERATIVE NOS 04/08/2016 AMELIA MUSA BAR ROLLER Ot 786.50 CHEST PAIN NOS 04/08/2016 AMELIA MUSA BAR ROLLER Ot E888.9 FALL NOS 04/08/2016 DIMPLE RUBIO [...] Ot V72.84 EXAM PRE- OPERATIVE NOS 09/19/2016 AMELAI MUSA Ot 786.50 CHEST PAIN NOS 09/19/2016 [...] UNSPECIFIED 04/08/2017 FANI CAM MD Ot Z79.01 ELEVATED WORK PLATFORM OPERATOR (CURRENT) USE OF ANTICOAGULANT 04/08/2017 FANI CAM MD Ot Z79.899 OTHER [facility] (CURRENT) DRUG THERAPY 04/10/2017 FANI CAM MD Ot I48.2 CHRONIC ATRIAL FIBRILLATION 04/10/2017 FANI CAM MD Ot J40 BRONCHITIS, NOT SPECIFIED ACUTE OR CH 04/10/2017 FANI CAM MD Ot R05 COUGH 04/10/2017 FANI CAM MD Ot R50.9 FEVER, UNSPECIFIED 04/10/2017 FANI CAM MD Ot Z79.01 ELEVATED WORK PLATFORM OPERATOR (CURRENT) USE OF ANTICOAGULANT 04/10/2017 FANI CAM MD Ot Z79.899 OTHER E[employer] WORK [employer]ATFORM OPERATOR (CURRENT) DRUG THERAPY 04/26/2017 Ot 733.90 BONE CARTILAGE DIS NOS 04/26/2017 Ot V49.81 ASYMPT POSTMENOPAUSAL STATUS (AGE-RELATE 04/26/2017 Ot V76.12 OTH SCREEN MAMMO-MALIGN NEOPLASM OF RJ 04/26/2017 Ot V82.81 SCREENING FOR OSTEOPOROSIS 04/26/2017 Ot V72.84 EXAM PRE- OPERATIVE NOS 04/26/2017 AMELIA MUSA BAR ROLLER Ot 786.50 CHEST PAIN NOS 04/26/2017 AMELIA [...] EXAM PRE- OPERATIVE NOS 05/07/2017 AMELIA MUSA BAR ROLLER Ot 786.50 CHEST PAIN NOS 05/07/2017 AMELIA MUSA BAR ROLLER Ot E888.9 FALL NOS 05/07/2017 MATEO MUSA DO Ot V76.12 OTH SCREEN MAMMO-MALIGN NEOPLASM OF RJ 05/07/2017 MATEO MUSA DO Ot V76.12 OTH SCREEN MAMMO-MALIGN NEOPLASM OF RJ 05/07/2017 MATEO MUSA DO Ot 486 PNEUMONIA, ORGANISM NOS 05/07/2017 MATEO MUSA DO Ot V76.12 OTH SCREEN MAMMO-MALIGN NEOPLASM OF RJ 05/07/2017 AMELIA MUSA BAR ROLLER Ot R05 COUGH 05/09/2017 AVI MARTINEZ FACC, [...] AND CEREB INFRC W 05/17/2017 AMELIA MUSA BAR ROLLER Ot R05 COUGH 05/24/2017 AMELIA MUSA BAR ROLLER Ot R05 COUGH 05/31/2017 AVI MARTINEZ FACC, [...] AND CEREB INFRC W 06/08/2017 AVI MARTINEZ [facility], ALI FACP CCDS Ot E78.2 MIXED HYPERLIPIDEMIA 06/08/2017 AVI MARTINEZ [facility], ALI FACP CCDS Ot I10 ESSENTIAL (PRIMARY) HYPERTENSION 06/08/2017 AVI MARTINEZ [facility], ALI FACP CCDS Ot I48.0 PAROXYSMAL ATRIAL FIBRILLATION 06/08/2017 AVI MARTINEZ [facility], ALI FACP CCDS Ot R53.83 OTHER FATIGUE 06/08/2017 AVI MARTINEZ [facility], ALI FACP CCDS Ot R94.31 ABNORMAL ELECTROCARDIOGRAM [ECG] [EKG] 06/08/2017 AVI MARTINEZ [facility], ALI FACP CCDS Ot Z86.73 PRSNL [...] ACUTE OR CHRONIC, 01/01/2018 VICKY MARTINEZ, KRYS Sandoval Ot Z79.899 OTHER [facility] (CURRENT) DRUG THERAPY 01/01/2018 KRYS PERRY MD [...] ULCER, UNSP ACUTE OR CHRONIC, 01/23/2018 KRYS PRERY MD Ot Z79.899 OTHER ELEVATED WORK PLATFORM OPERATOR (CURRENT) DRUG THERAPY 01/23/2018 KRYS PERRY MD [...] 02/01/2018 KRYS PERRY MD Ot Z79.899 OTHER ELEVATED WORK PLATFORM OPERATOR (CURRENT) DRUG THERAPY 02/01/2018 KRYS PERRY MD [...] PERIPHERAL VASCULAR DISEASE, UNSPECIFIED 11/06/2018 AMELIA MUSA BAR ROLLER Ot 786.50 CHEST PAIN NOS 11/06/2018 AMELIA MUSA BAR ROLLER Ot E888.9 FALL NOS 11/06/2018 MATEO MUSA DO Ot V76.12 OTH SCREEN MAMMO-MALIGN NEOPLASM OF RJ 11/06/2018 MATEO MUSA DO Ot V76.12 OTH SCREEN MAMMO-MALIGN NEOPLASM OF RJ 11/06/2018 MATEO MUSA DO Ot 486 PNEUMONIA, ORGANISM NOS 11/06/2018 MATEO MUSA DO Ot V76.12 OTH SCREEN MAMMO-MALIGN NEOPLASM OF RJ 11/06/2018 AMELIA MUSA BAR ROLLER Ot R05 COUGH 11/06/2018 AVI MARTINEZ FACC, [...] VICKY MARTINEZ, KRYS Sandoval Ot Z79.899 OTHER [facility] (CURRENT) DRUG THERAPY 11/06/2018 KRYS PERRY MD Ot Z88.0 ALLERGY STATUS TO PENICILLIN 11/06/2018 KRYS PERRY MD Ot Z88.1 ALLERGY STATUS TO OTHER ANTIBIOTIC AGENT 11/06/2018 AVI ANNC, EUGENE FACP CCDS Ot I73.9 PERIPHERAL VASCULAR DISEASE, UNSPECIFIED 11/06/2018 AVI MARTINEZ FACC, ALI FACP CCDS Ot I48.91 UNSPECIFIED ATRIAL FIBRILLATION 11/06/2018 AMELIA MUSA BAR ROLLER Ot 786.50 CHEST PAIN NOS 11/06/2018 AMELIA MUSA BAR ROLLER Ot E888.9 FALL NOS 11/06/2018 MATEO MUSA DO Ot V76.12 OTH SCREEN MAMMO-MALIGN NEOPLASM OF RJ 11/06/2018 MATEO MUSA DO Ot V76.12 OTH SCREEN MAMMO-MALIGN NEOPLASM OF RJ 11/06/2018 MATEO MUSA DO Ot 486 PNEUMONIA, ORGANISM NOS 11/06/2018 MATEO MUSA DO Ot V76.12 OTH SCREEN MAMMO-MALIGN NEOPLASM OF RJ 11/06/2018 AMELIA MUSA L BAR ROLLER Ot R05 COUGH 11/06/2018 AVI MARTINEZ FACC, ALI FACP CCDS Ot E78.2 MIXED HYPERLIPIDEMIA 11/06/2018 AVI MARTINEZ FACC, ALI FACP CCDS Ot I10 ESSENTIAL (PRIMARY) HYPERTENSION 11/06/2018 AVI ANNC, ALI FACP CCDS Ot I48.0 PAROXYSMAL ATRIAL FIBRILLATION 11/06/2018 AVI MARTINEZ FACC, ALI FACP CCDS Ot R53.83 OTHER FATIGUE 11/06/2018 AVI MARTINEZ FAC, ALI FACP CCDS Ot R94.31 ABNORMAL ELECTROCARDIOGRAM [ECG] [EKG] 11/06/2018 AVI MARTINEZ FACC, ALI FACP CCDS [...] VICKY MARTINEZ, KRYS Sandoval Ot Z79.899 OTHER ELEVATED WORK PLATFORM OPERATOR (CURRENT) DRUG THERAPY 11/06/2018 KRYS PERRY MD Ot Z88.0 ALLERGY STATUS TO PENICILLIN 11/06/2018 VICKY MARTINEZ, KRYS Sandoval Ot Z88.1 ALLERGY STATUS TO OTHER ANTIBIOTIC AGENT 11/06/2018 AVI MARTINEZ [facility], ALI FACP CCDS Ot I73.9 PERIPHERAL VASCULAR [...] [EKG] 11/07/2018 KENN RUBIO ESSENCE Ot Z79.01 ELEVATED WORK PLATFORM OPERATOR (CURRENT) USE OF ANTICOAGULANT 11/07/2018 KENN RUBIO ESSENCE Ot Z91.14 PATIENT'S OTHER NONCOMPLIANCE WITH MEDIC Procedures Code Description Performed By Performed On [id number] INSERT OF MONITOR DEV INTO CHEST SUBCU/F [...] - 04/08/17 14:00 Bacterial throat culture [facility] Complete blood count (CBC) with [...] Status Pt. Type Provider Facility Loc./Unit Complaint [id number] 11/06/2018 20:40:00 11/06/2018 23:59:59 CLS Outpatient ESSENCE HAWK DO [facility] ICU A FLUTTER WITH RVR, CHEST PAIN [id number] 02/12/2018 12:55:00 02/12/2018 23:59:59 CLS Outpatient AVI MARTINEZ FACC, EUGENE VIERA CCDS [facility] RAD I73.9 CLAUDICATION [id number] 01/22/2018 09:51:00 01/22/2018 23:59:59 CLS Outpatient AVI MARTINEZ FACC, EUGENE VIERA CCDS [facility] CATH AFIB,HTN, FATIGUE,SOB [id number] 12/31/2017 10:28:00 12/31/2017 23:59:59 CLS Outpatient KRYS PERRY MD [facility] ENDO GERD [id number] 12/28/2017 09:17:00 12/28/2017 11:01:00 DIS Outpatient KRYS PERRY MD [facility] PREOP EGD [id number] 09/25/2017 14:00:00 09/25/2017 23:59:59 CLS Preadmit AVI MARTINEZ FACC, EUGENE VIERA CCDS [facility] CATH REMOVAL OF ILR DEVICE [id number] 05/08/2017 08:18:00 05/08/2017 23:59:59 CLS Outpatient EUGENE CÁRDENAS MD, FACC FACP CCDS [facility] CARD R94.31 ABNORMAL ECG [id number] 04/26/2017 12:32:00 04/26/2017 23:59:59 CLS Outpatient AMELIA MUSA BAR ROLLER [facility] RAD CHRONIC COUGH [id number] 04/08/2017 13:41:00 04/08/2017 15:14:00 DIS Emergency FANI CAM MD [facility] ER FEVER/WEAKNESS [id number] 09/13/2016 13:00:00 09/14/2016 10:15:00 DIS Inpatient ESSENCE HAWK DO [facility] ICU AFIB WITH RVR, TIA [id number] 04/08/2016 07:33:00 04/08/2016 08:59:00 DIS Emergency DELIA MCBRIDE MD [facility] ER FALL, HEAD INJ, R SIDE PAIN [id number] 06/10/2015 11:22:00 06/10/2015 23:59:59 CLS Outpatient MATEO MUSA DO [facility] RAD SCREENING [id number] 05/31/2015 12:01:00 05/31/2015 23:59:59 CLS Outpatient MATEO MUSA DO [facility] RAD PNUEMONIA [id number] 11/05/2014 10:43:00 11/05/2014 23:59:59 CLS Outpatient MATEO MUSA DO [facility] RAD ROUTINE [id number] 10/21/2013 10:36:00 10/21/2013 23:59:59 CLS Outpatient MATEO MUSA DO [facility] RAD SCREENING [id number] 05/30/2013 11:34:00 05/30/2013 23:59:59 CLS Outpatient AMELIA MUSA [facility] RAD PAIN IN RT RIBS AFTER FALL [id number] 12/16/2018 11:00:00 PEN Preadmit Jaime KAUR MD [facility] CATH TYPICAL ATRIAL FLUTTER [id number] 03/25/2015 10:43:00 Document Registration [id number] 03/25/2015 10:43:00 Document Registration [id number] 03/25/2015 10:43:00 Document Registration [id number] 03/25/2015 10:43:00 Document Registration [id number] 03/25/2015 10:43:00 Document Registration [id number] 03/25/2015 10:43:00 Document Registration [id number] 11/12/2012 06:55:00 Document Registration [id number] 07/26/2012 11:13:00 Document Registration [id number] 07/14/2010 13:53:00 Document Registration [id number] 01/19/2010 00:00:00 Document Registration
== END 2018-11-20 12:37 | disposition home or self-care (01) ==
LOC: EDUNIT# 10:43 → ER 10:44
DX: I48.91 Unspecified atrial fibrillation (principal); N76.4 Abscess of vulva; R11.2 Nausea with vomiting, unspecified; I10 Essential (primary) hypertension; K21.9 Gastro-esophageal reflux disease without esophagitis; Z86.19 Personal history of other infectious and parasitic diseases; Z87.19 Personal history of other diseases of the digestive system; Z88.5 Allergy status to narcotic agent; Z88.0 Allergy status to penicillin; Z88.1 Allergy status to other antibiotic agents; Z79.01 Long term (current) use of anticoagulants; Z90.710 Acquired absence of both cervix and uterus; Z90.49 Acquired absence of other specified parts of digestive tract
CPT/HCPCS: 36415; 80048; 83735; 85025; 93005; 93041

== ENCOUNTER 2018-12-08 12:22 | Emergency (ER) | payer MEDICARE, MEDICAID ==
[~2018-12-08] VITALS: Ht 152.4 cm; Wt 63.5 kg
[~2018-12-08 12:22] MED LIST changes: +ONDA4TAB11 SL
--- OUTSIDE RECORDS SUMMARY | 2018-12-08 12:28 | XMS REPORT | Continuity of Care Document ---
Author Author [facility] Organization [facility] Address Unknown Phone Unavailable Allergies Active Description Code Type Severity Reaction Onset Reported/Identified Relationship to Patient Clinical Status Yes codeine [id number] Drug Allergy Unknown N/A 09/13/2016 Yes PCN [...] V82.81 03/25/2015 Ot V72.84 03/25/2015 AMELIA MUSA ENGLISH FACULTY MEMBER Ot 786.50 03/25/2015 AMELIA MUSA ENGLISH FACULTY MEMBER Ot E888.9 03/25/2015 MATEO MUSA DO Ot V76.12 03/25/2015 MATEO MUSA DO Ot V76.12 04/12/2015 Ot 724.5 04/12/2015 Ot 791.9 04/12/2015 Ot V76.12 04/12/2015 Ot 780.79 04/12/2015 Ot V58.69 04/12/2015 Ot V76.12 04/12/2015 Ot 733.90 04/12/2015 Ot V49.81 04/12/2015 Ot V76.12 04/12/2015 Ot V82.81 04/12/2015 Ot V72.84 04/12/2015 AMELIA MUSA ENGLISH FACULTY MEMBER Ot 786.50 04/12/2015 AMELIA MUSA ENGLISH FACULTY MEMBER Ot E888.9 04/12/2015 DIMPLE RUBIO MATEO Tyler [...] EXAM PRE- OPERATIVE NOS 04/08/2016 AMELIA MUSA ENGLISH FACULTY MEMBER Ot 786.50 CHEST PAIN NOS 04/08/2016 AMELIA MUSA ENGLISH FACULTY MEMBER Ot E888.9 FALL NOS 04/08/2016 DIMPLE RUBIO [...] UNSPECIFIED 04/08/2017 FANI CAM MD Ot Z79.01 WORKDAY CONSULTANT (CURRENT) USE OF ANTICOAGULANT 04/08/2017 FANI CAM MD Ot Z79.899 OTHER SKILLED NURSING (CURRENT) DRUG THERAPY 04/10/2017 FANI CAM MD Ot I48.2 CHRONIC ATRIAL FIBRILLATION 04/10/2017 FANI CAM MD Ot J40 BRONCHITIS, NOT SPECIFIED ACUTE OR CH 04/10/2017 FANI CAM MD Ot R05 COUGH 04/10/2017 FANI CAM MD Ot R50.9 FEVER, UNSPECIFIED 04/10/2017 FANI CAM MD Ot Z79.01 WORKDAY CONSULTANT (CURRENT) USE OF ANTICOAGULANT 04/10/2017 FANI CAM MD Ot Z79.899 OTHER WORKDAY CONSULTANT (CURRENT) DRUG THERAPY 04/26/2017 Ot 733.90 BONE CARTILAGE DIS NOS 04/26/2017 Ot V49.81 ASYMPT POSTMENOPAUSAL STATUS (AGE-RELATE 04/26/2017 Ot V76.12 OTH SCREEN MAMMO-MALIGN NEOPLASM OF RJ 04/26/2017 Ot V82.81 SCREENING FOR OSTEOPOROSIS 04/26/2017 Ot V72.84 EXAM PRE- OPERATIVE NOS 04/26/2017 AMELIA MUSA ENGLISH FACULTY MEMBER Ot 786.50 CHEST PAIN NOS 04/26/2017 AMELIA [...] EXAM PRE- OPERATIVE NOS 05/07/2017 AMELIA MUSA ENGLISH FACULTY MEMBER Ot 786.50 CHEST PAIN NOS 05/07/2017 AMELIA MUSA ENGLISH FACULTY MEMBER Ot E888.9 FALL NOS 05/07/2017 MATEO MUSA DO Ot V76.12 OTH SCREEN MAMMO-MALIGN NEOPLASM OF RJ 05/07/2017 MATEO MUSA DO Ot V76.12 OTH SCREEN MAMMO-MALIGN NEOPLASM OF RJ 05/07/2017 MATEO MUSA DO Ot 486 PNEUMONIA, ORGANISM NOS 05/07/2017 MATEO MUSA DO Ot V76.12 OTH SCREEN MAMMO-MALIGN NEOPLASM OF RJ 05/07/2017 AMELIA MUSA ENGLISH FACULTY MEMBER Ot R05 COUGH 05/09/2017 AVI MARTINEZ FACC, [...] AND CEREB INFRC W 05/17/2017 AMELIA MUSA ENGLISH FACULTY MEMBER Ot R05 COUGH 05/24/2017 AMELIA MUSA ENGLISH FACULTY MEMBER Ot R05 COUGH 05/31/2017 AVI MARTINEZ FACC, [...] AND CEREB INFRC W 06/08/2017 AVI MARTINEZ [facility], ALI FACP CCDS Ot E78.2 MIXED HYPERLIPIDEMIA 06/08/2017 AVI MARTINEZ [facility], ALI FACP CCDS Ot I10 ESSENTIAL (PRIMARY) HYPERTENSION 06/08/2017 AVI MARTINEZ [facility], ALI FACP CCDS Ot I48.0 PAROXYSMAL ATRIAL FIBRILLATION 06/08/2017 AVI MARTINEZ [facility], ALI FACP CCDS Ot R53.83 OTHER FATIGUE 06/08/2017 AVI MARTINEZ [facility], ALI FACP CCDS Ot R94.31 ABNORMAL ELECTROCARDIOGRAM [ECG] [EKG] 06/08/2017 AVI MARTINEZ [facility], ALI FACP CCDS Ot Z86.73 PRSNL HX [...] VICKY MARTINEZ, KRYS Sandoval Ot Z79.899 OTHER SKILLED NURSING (CURRENT) DRUG THERAPY 01/01/2018 KRYS PERRY MD [...] 01/23/2018 KRYS PERRY MD Ot Z79.899 OTHER WORKDAY CONSULTANT (CURRENT) DRUG THERAPY 01/23/2018 KRYS PERRY MD [...] 02/01/2018 KRYS PERRY MD Ot Z79.899 OTHER WORKDAY CONSULTANT (CURRENT) DRUG THERAPY 02/01/2018 KRYS PERRY MD [...] PERIPHERAL VASCULAR DISEASE, UNSPECIFIED 11/06/2018 AMELIA MUSA ENGLISH FACULTY MEMBER Ot 786.50 CHEST PAIN NOS 11/06/2018 AMELIA MUSA ENGLISH FACULTY MEMBER Ot E888.9 FALL NOS 11/06/2018 MATEO MUSA DO Ot V76.12 OTH SCREEN MAMMO-MALIGN NEOPLASM OF RJ 11/06/2018 MATEO MUSA DO Ot V76.12 OTH SCREEN MAMMO-MALIGN NEOPLASM OF RJ 11/06/2018 MATEO MUSA DO Ot 486 PNEUMONIA, ORGANISM NOS 11/06/2018 MATEO MUSA DO Ot V76.12 OTH SCREEN MAMMO-MALIGN NEOPLASM OF RJ 11/06/2018 AMELIA MUSA ENGLISH FACULTY MEMBER Ot R05 COUGH 11/06/2018 AVI MARTINEZ FACC, [...] VICKY MARTINEZ, KRYS Sandoval Ot Z79.899 OTHER SKILLED NURSING (CURRENT) DRUG THERAPY 11/06/2018 KRYS PERRY MD Ot Z88.0 ALLERGY STATUS TO PENICILLIN 11/06/2018 KRYS PERRY MD Ot Z88.1 ALLERGY STATUS TO OTHER ANTIBIOTIC AGENT 11/06/2018 AVI ANNC, EUGENE FACP CCDS Ot I73.9 PERIPHERAL VASCULAR DISEASE, UNSPECIFIED 11/06/2018 AVI MARTINEZ FACC, ALI FACP CCDS Ot I48.91 UNSPECIFIED ATRIAL FIBRILLATION 11/06/2018 AMELIA MUSA ENGLISH FACULTY MEMBER Ot 786.50 CHEST PAIN NOS 11/06/2018 AMELIA MUSA ENGLISH FACULTY MEMBER Ot E888.9 FALL NOS 11/06/2018 MATEO MUSA DO Ot V76.12 OTH SCREEN MAMMO-MALIGN NEOPLASM OF RJ 11/06/2018 MATEO MUSA DO Ot V76.12 OTH SCREEN MAMMO-MALIGN NEOPLASM OF RJ 11/06/2018 MATEO MUSA DO Ot 486 PNEUMONIA, ORGANISM NOS 11/06/2018 MATEO MUSA DO Ot V76.12 OTH SCREEN MAMMO-MALIGN NEOPLASM OF RJ 11/06/2018 AMELIA MUSA L ENGLISH FACULTY MEMBER Ot R05 COUGH 11/06/2018 AVI MARTINEZ FACC, [...] VICKY MARTINEZ, KRYS Sandoval Ot Z79.899 OTHER WORKDAY CONSULTANT (CURRENT) DRUG THERAPY 11/06/2018 KRYS PERRY MD Ot Z88.0 ALLERGY STATUS TO PENICILLIN 11/06/2018 VICKY MARTINEZ, KRYS Sandoval Ot Z88.1 ALLERGY STATUS TO OTHER ANTIBIOTIC AGENT 11/06/2018 AVI MARTINEZ [facility], ALI FACP CCDS Ot I73.9 PERIPHERAL VASCULAR [...] [EKG] 11/07/2018 KENN RUBIO ESSENCE Ot Z79.01 WORKDAY CONSULTANT (CURRENT) USE OF ANTICOAGULANT 11/07/2018 HAWK DO, ESSENCE Ot Z91.14 PATIENT'S OTHER NONCOMPLIANCE WITH MEDIC 11/22/2018 GIL FERGUSON MD Ot I10 ESSENTIAL (PRIMARY) HYPERTENSION 11/22/2018 GIL FERGUSON MD Ot I48.91 UNSPECIFIED ATRIAL FIBRILLATION 11/22/2018 GIL FERGUSON MD, Ot K21.9 GASTRO-ESOPHAGEAL REFLUX DISEASE WITHOUT 11/22/2018 GIL FERGUSON MD Ot N76.4 ABSCESS OF VULVA 11/22/2018 GIL FERGUSON MD Ot R11.2 NAUSEA WITH VOMITING, UNSPECIFIED 11/22/2018 GIL FERGUSON MD Ot Z79.01 SKILLED NURSING (CURRENT) USE OF ANTICOAGULANT 11/22/2018 GIL FERGUSON MD Ot Z86.19 PERSONAL HISTORY OF OTHER INFECTIOUS AND 11/22/2018 GIL FERGUSON MD Ot Z87.19 PERSONAL HISTORY OF OTHER DISEASES OF TH 11/22/2018 GIL FERGUSON MD Ot Z88.0 ALLERGY STATUS TO PENICILLIN 11/22/2018 GIL FERGUSON MD Ot Z88.1 ALLERGY STATUS TO OTHER ANTIBIOTIC AGENT 11/22/2018 GIL FERGUSON MD Ot Z88.5 ALLERGY STATUS TO NARCOTIC AGENT STATUS 11/22/2018 GIL FERGUSON MD Ot Z90.49 ACQUIRED ABSENCE OF OTHER SPECIFIED PART 11/22/2018 GIL FERGUSON MD Ot Z90.710 ACQUIRED ABSENCE OF BOTH CERVIX AND UTER 11/24/2018 NADIA HUYNH MD Ot I10 ESSENTIAL (PRIMARY) HYPERTENSION 11/24/2018 NADIA HUYNH MD, Ot I48.91 UNSPECIFIED ATRIAL FIBRILLATION 11/24/2018 NADIA HUYNH MD, Ot K21.9 GASTRO-ESOPHAGEAL REFLUX DISEASE WITHOUT 11/24/2018 NADIA HUYNH MD Ot N76.4 ABSCESS OF VULVA 11/24/2018 NADIA HUYNH MD Ot Z79.01 SKILLED NURSING (CURRENT) USE OF ANTICOAGULANT 11/24/2018 NADIA HUYNH MD Ot Z86.19 PERSONAL HISTORY OF OTHER INFECTIOUS AND 11/24/2018 NADIA HUYNH MD Ot Z87.19 PERSONAL HISTORY OF OTHER DISEASES OF 11/24/2018 NADIA HUYNH MD, Ot Z88.0 ALLERGY STATUS TO PENICILLIN 11/24/2018 NADIA HUYNH MD, Ot Z88.5 ALLERGY STATUS TO NARCOTIC AGENT STATUS 11/24/2018 NADIA HUYNH MD, Ot Z90.49 ACQUIRED ABSENCE OF OTHER SPECIFIED PART 11/24/2018 NADIA HUYNH MD, Ot Z90.710 ACQUIRED ABSENCE OF BOTH CERVIX AND UTER Procedures Code Description Performed By Performed On [id number] INSERT OF MONITOR DEV INTO CHEST SUBCU/F [...] INFLUENZA A AND B ANTIGENS BY [facility] Bacterial throat culture - 04/08/17 14:00 Bacterial throat culture [facility] Complete blood count (CBC) with [...] VLDL measurement (mass/volume) 29 mg/ dL 5-40 Gram stain microscopy - 11/18/18 12:30 Gram stain microscopy Many Gram positive cocci NRG Bacteria identification in wound by culture - 11/18/18 12:30 Bacteria identification in wound by culture [id number] NR FREE TEXT EXTERNAL ID REPORTED 11/21/18 14:05 NR QUANTITY OF GROWTH FEW NR FREE TEXT ENTRY 2 SENSITIVITY REPORTED 11/22/18 11:05 [facility] Sensitivity [facility] - 11/18/18 12:30 Oxacillin susceptibility test by minimum inhibitory concentration < = NRG Clindamycin susceptibility test by minimum inhibitory concentration <= NRG Erythromycin susceptibility test by minimum inhibitory concentration <= NRG Vancomycin susceptibility test by minimum inhibitory concentration 1 NRG Levofloxacin susceptibility test by minimum inhibitory concentration <= NRG Rifampin susceptibility test by minimum inhibitory concentration <= NRG Cefazolin susceptibility test by minimum inhibitory concentration < = NRG Linezolid susceptibility test by minimum inhibitory concentration < = NRG Moxifloxacin susceptibility test by minimum inhibitory concentration S NRG Minocycline susc WANDA <= NRG RML Sensitivity Panel - 11/18/18 12:30 Gentamicin susceptibility test by minimum inhibitory concentration < = NRG Trimethoprim/sulfamethoxazole susceptibility test by minimum inhibitoryconcentration S NRG Levofloxacin susceptibility test by minimum inhibitory concentration <= NRG Ampicillin susceptibility test by minimum inhibitory concentration < = NRG Cefazolin susceptibility test by minimum inhibitory concentration 8 NRG Ceftriaxone susceptibility test by minimum inhibitory concentration <= NRG Piperacillin/tazobactam susceptibility test by minimum inhibitory concentration S NRG Ciprofloxacin susceptibility test by minimum inhibitory concentration <= NRG Amoxicillin and clavulanate potassium susc WANDA <= NRG Complete blood count (CBC) with automated white blood cell (WBC) differential - 11/20/18 11:45 Blood leukocytes automated count (number/volume) 7.8 10*3/uL 4.3-11.0 Blood erythrocytes automated count (number/volume) 4.99 10*6/uL 4.35-5.85 Venous blood hemoglobin measurement (mass/volume) 14.2 g/dL 11.5-16.0 Blood hematocrit (volume fraction) 43 % 35-52 Automated erythrocyte mean corpuscular volume 85 [foz_us] 80-99 Automated erythrocyte mean corpuscular hemoglobin (mass per erythrocyte) 29 pg 25-34 Automated erythrocyte mean corpuscular hemoglobin concentration measurement ( mass/volume) 33 g/dL 32-36 Automated erythrocyte distribution width ratio 14.3 % 10.0-14.5 Automated blood platelet count (count/volume) 293 10*3/uL 130-400 Automated blood platelet mean volume measurement 10.6 [foz_us] 7.4-10.4 Automated blood neutrophils/100 leukocytes 71 % 42-75 Automated blood lymphocytes/100 leukocytes 20 % 12-44 Blood monocytes/100 leukocytes 8 % 0-12 Automated blood eosinophils/100 leukocytes 1 % 0-10 Automated blood basophils/100 leukocytes 0 % 0-10 Blood neutrophils automated count (number/volume) 5.5 10*3 1.8-7.8 Blood lymphocytes automated count (number/volume) 1.6 10*3 1.0-4.0 Blood monocytes automated count (number/volume) 0.6 10*3 0.0-1.0 Automated eosinophil count 0.1 10*3/uL 0.0-0.3 Automated blood basophil count (count/volume) 0.0 10*3/uL 0.0-0.1 Whole blood basic metabolic panel - 11/20/18 11:45 Serum or plasma sodium measurement (moles/volume) 138 mmol/L 135-145 Serum or plasma potassium measurement (moles/volume) 4.1 mmol/L 3.6-5.0 Serum or plasma chloride measurement (moles/volume) 103 mmol/L 98-107 Carbon dioxide 25 mmol/L 21-32 Serum or plasma anion gap determination (moles/volume) 10 mmol/L 5-14 Serum or plasma urea nitrogen measurement (mass/volume) 12 mg/dL 7-18 Serum or plasma creatinine measurement (mass/volume) 0.86 mg/dL 0.60-1.30 Serum or plasma urea nitrogen/creatinine mass ratio 14 NRG Serum or plasma creatinine measurement with calculation of estimated glomerular filtration rate > NRG Serum or plasma glucose measurement (mass/volume) 96 mg/dL 70-105 Serum or plasma calcium measurement (mass/volume) 9.4 mg/dL 8.5-10.1 Magnesium - 11/20/18 11:45 Magnesium 2.0 mg/dL 1.8-2.4 Encounters ACCT No. Visit Date/Time Discharge Status Pt. Type Provider Facility Loc./Unit Complaint [id number] 11/20/2018 10:44:00 11/20/2018 12:37:00 DIS Outpatient PHYLLIS MARTINEZ, GIL Lee [facility] ER LOW HEART RATE;TIRED ;N/V [id number] 11/18/2018 11:16:00 11/18/2018 13:03:00 DIS Outpatient LINO MARTINEZ, NADIA Zavala [facility] ER PELVIC/GROIN PAIN [id number] 11/06/2018 20:40:00 11/06/2018 23:59:59 CLS Inpatient ESSENCE HAWK DO [facility] ICU A FLUTTER WITH RVR, CHEST PAIN [id number] 02/12/2018 12:55:00 02/12/2018 23:59:59 CLS Outpatient AVI MARTINEZ FACC, ALI FACP CCDS [facility] RAD I73.9 CLAUDICATION [id number] 01/22/2018 09:51:00 01/22/2018 23:59:59 CLS Outpatient AVI MARTINEZ FACC, ALI FACP CCDS [facility] CATH AFIB,HTN, FATIGUE,SOB [id number] 12/31/2017 10:28:00 12/31/2017 23:59:59 CLS Outpatient KRYS PERRY MD [facility] ENDO GERD [id number] 12/28/2017 09:17:00 12/28/2017 11:01:00 DIS Outpatient KRYS PERRY MD [facility] PREOP EGD [id number] 09/25/2017 14:00:00 09/25/2017 23:59:59 CLS Preadmit AVI MARTINEZ FACC, ALI FACP CCDS [facility] CATH REMOVAL OF ILR DEVICE [id number] 05/08/2017 08:18:00 05/08/2017 23:59:59 CLS Outpatient AVI MARTINEZ FACC, ALI FACP CCDS [facility] CARD R94.31 ABNORMAL ECG [id number] 04/26/2017 12:32:00 04/26/2017 23:59:59 CLS Outpatient AMELIA MUSA [facility] RAD CHRONIC COUGH [id number] 04/08/2017 13:41:00 04/08/2017 15:14:00 DIS Emergency FANI CAM MD [facility] ER FEVER/WEAKNESS [id number] 09/13/2016 13:00:00 09/14/2016 10:15:00 DIS Inpatient ESSENCE HAWK DO [facility] ICU AFIB WITH RVR, TIA [id number] 04/08/2016 07:33:00 04/08/2016 08:59:00 DIS Emergency DELIA MCBRIDE MD [facility] ER FALL, HEAD INJ, R SIDE PAIN [id number] 06/10/2015 11:22:00 06/10/2015 23:59:59 CLS Outpatient DIMPLE RUBIO MATEO Tyler [facility] RAD SCREENING [id number] 05/31/2015 12:01:00 05/31/2015 23:59:59 CLS Outpatient MUSA MATEO Tyler [facility] RAD PNUEMONIA [id number] 11/05/2014 10:43:00 11/05/2014 23:59:59 CLS Outpatient MUSA MATEO Tyler [facility] RAD ROUTINE [id number] 10/21/2013 10:36:00 10/21/2013 23:59:59 CLS Outpatient MATEO MUSA DO [facility] RAD SCREENING [id number] 05/30/2013 11:34:00 05/30/2013 23:59:59 CLS Outpatient AMELIA MUSA [facility] RAD PAIN IN RT RIBS AFTER FALL [id number] 12/16/2018 11:00:00 PEN Preadmit Jaime KAUR MD [facility] CATH TYPICAL ATRIAL FLUTTER [id number] 03/25/2015 10:43:00 Document Registration [id number] 03/25/2015 10:43:00 Document Registration [id number] 03/25/2015 10:43:00 Document Registration [id number] 03/25/2015 10:43:00 Document Registration [id number] 03/25/2015 10:43:00 Document Registration [id number] 03/25/2015 10:43:00 Document Registration [id number] 11/12/2012 06:55:00 Document Registration [id number] 07/26/2012 11:13:00 Document Registration [id number] 07/14/2010 13:53:00 Document Registration [id number] 01/19/2010 00:00:00 Document Registration
[2018-12-08] MEDS ORDERED: LEVO500T2 PO (13:08)
--- NOTE | 2018-12-08 13:08 | ED General ---
General Chief Complaint: Skin/Wound Problems Stated Complaint: GENITAL ABSCESS Nursing Triage Note: PT PRESENTS TO ED ROOM 9 WITH COMPLAINTS OF GENITAL/GROIN ABCESS. PT WAS SEEN IN ED ON 11/18/18 FOR SAME ISSUE. ABCESS WAS DRAINED ATT AND PT WAS PLACED ON ANTIBIOTICS. ABCESS BEGAN BLEEDING AGAIN TODAY. PT HAS NOT FOLLOWED UP WITH HER PCP FOR THIS ISSUE. Nursing Sepsis Screen: No Definite Risk Source of Information: Patient, Old Records Exam Limitations: No Limitations Allergies and Home Medications Allergies Coded Allergies: codeine (Unverified Allergy, Unknown, 09/13/16) Uncoded Allergies: PCN (Allergy, Unknown, 09/13/16) SOME ANTIBIOTICS (Allergy, Unknown, 09/13/16) Home Medications Apixaban 5 Mg Tablet, 5 MG PO BID, (Reported) Calcium Carb/Mag Ox/Zinc Sulf 1 Each Tablet, 1 TAB PO DAILY, (Reported) Cephalexin 500 Mg Capsule, 500 MG PO BID, (Reported) 14 DAY SUPPLY FILLED 11-04-18 Cholecalciferol (Vitamin D3) 5,000 Unit Capsule, 5,000 UNIT PO BID, (Reported) Cyclobenzaprine HCl 10 Mg Tablet, 10 MG PO TID PRN for MUSCLE SPASMS, (Reported) Diltiazem HCl 180 Mg Cap.er.24h, 180 MG PO DAILY Prescribed by: EUGENE CÁRDENAS on 11/07/18 1218 Diana 500 Mg Capsule, 500 MG PO DAILY, (Reported) Metoprolol Succinate 50 Mg Tab.er.24h, 50 MG PO DAILY, (Reported) Metronidazole 500 Mg Tablet, 500 MG PO BID Prescribed by: NADIA HUYNH on 11/18/18 1215 Niacinamide 500 Mg Tablet, 1,000 MG PO BID, (Reported) Ondansetron 4 Mg Tab.rapdis, 4 MG SL Q4H PRN for NAUSEA/VOMITING Prescribed by: GIL PARRA on 11/20/18 1222 Pantoprazole Sodium 40 Mg Tablet.dr, 40 MG PO DAILY, (Reported) Sulfamethoxazole/Trimethoprim 1 Each Tablet, 1 EACH PO BID Prescribed by: NADIA HUYNH on 11/18/18 1215 Tramadol HCl 50 Mg Tablet, 50 MG PO Q6H PRN for PAIN Prescribed by: NADIA HUYNH on 11/18/18 1252 Turmeric Root Extract 538 Mg Capsule, 538 MG PO DAILY, (Reported) [Cbd Oil] , SL BID, (Reported) Past Sqwzdsp-Rwdrir-Drbzyr Hx Patient Social History Alcohol Use: Denies Use Recreational Drug Use: No 2nd Hand Smoke Exposure: No Recent Foreign Travel: No Contact w/Someone Who Travel: No Recent Infectious Disease Expo: No Recent Hopitalizations: No Physical Abuse: No Sexual Abuse: No Immunizations Up To Date Tetanus Booster (TDap): Unknown PED Vaccines UTD: No Date of Pneumonia Vaccine: Aug 26, 2013 Seasonal Allergies Seasonal Allergies: No Past Medical History Surgeries: Yes (appy, choley, cataracts, hysterectomy , ) Appendectomy, Gallbladder, Hysterectomy Respiratory: Yes ( PNEUMONIA) Cardiac: Yes Atrial Fibrillation, Hypertension Neurological: Yes Reproductive Disorders: No Sexually Transmitted Disease: No Genitourinary: No Gastrointestinal: Yes (ulceritive cholitis, ) Gastroesophageal Reflux, Obstructive Bowel Musculoskeletal: Yes (BRUSITIS) Arthritis Endocrine: No HEENT: No Cataract Cancer: No Psychosocial: No Integumentary: Yes (bacterial folliculitis) Blood Disorders: No Adverse Reaction/Blood Tranf: No Family Medical History No Pertinent Family Hx Physical Exam Vital Signs Vital Signs - First Documented 12/08/18 12:26 Temp 98.4 Pulse 77 Resp 16 B/P (MAP) 147/82 (103) Pulse Ox 95 Capillary Refill : Less Than 3 Seconds Height, Weight, BMI Height: 5'0" Weight: 140lbs. 0oz. 63.030575oq; 30.3 BMI Method:Stated Progress/Results/Core Measures Suspected Sepsis Recent Fever Within 48 Hours: No Infection Criteria Present: None New/Unexplained Altered Menta: No Sepsis Screen: No Definite Risk SIRS Temperature:98.4 Pulse: 77 Respiratory Rate: 16 Blood Pressure 147 /82 Mean: 103 Results/Orders Vital Signs/I&O 12/08/18 12:26 Temp 98.4 Pulse 77 Resp 16 B/P (MAP) 147/82 (103) Pulse Ox 95 Capillary Refill : Less Than 3 Seconds Blood Pressure Mean: 103 Departure Impression Primary Impression: Labial abscess Disposition: 01 HOME, SELF-CARE Condition: Stable Departure-Patient Inst. Decision time for Depature: 13:06 Referrals: MATEO MUSA DO (PCP/Family) Primary Care Physician Patient Instructions: Skin Abscess Add. Discharge Instructions: Complete your antibiotic as prescribed. Contact your primary care provider within the other problems or concerns. All discharge instructions reviewed with patient and/or family. Voiced understanding. Scripts Levofloxacin (Levaquin) 500 Mg Tablet 500 MG PO DAILY, #5 TAB Prov: GIL FERGUSON MD 12/08/18 GIL FERGUSON MD Dec 08, 2018 13:08
[2018-12-08 13:12] VITALS: BP 147/82
== END 2018-12-08 13:12 | disposition home or self-care (01) ==
LOC: EDUNIT# 12:22 → ER 12:22
DX: N76.4 Abscess of vulva (principal); I48.91 Unspecified atrial fibrillation; I10 Essential (primary) hypertension; K21.9 Gastro-esophageal reflux disease without esophagitis; Z87.19 Personal history of other diseases of the digestive system; Z88.5 Allergy status to narcotic agent; Z88.0 Allergy status to penicillin; Z88.1 Allergy status to other antibiotic agents; Z79.01 Long term (current) use of anticoagulants; Z90.49 Acquired absence of other specified parts of digestive tract; Z90.710 Acquired absence of both cervix and uterus; Z98.890 Other specified postprocedural states; Z87.01 Personal history of pneumonia (recurrent)
CPT/HCPCS: 99281

== ENCOUNTER 2018-12-12 09:45 | Outpatient (CLI) | payer MEDICARE, MEDICAID ==
[~2018-12-12] VITALS: Ht 152.4 cm; Wt 63.5 kg
[~2018-12-12 09:45] MED LIST changes: +LEVO500T2 PO
[2018-12-12] MEDS ORDERED: VIT1CAPS44 PO (09:48)
[2018-12-12] MEDS ORDERED: COCO1000 PO (09:48)
== END 2018-12-12 09:52 | disposition home or self-care (01) ==
LOC: PREOP 09:45
PROVIDERS: ATTEND Internal Medicine Interventional Cardiology
DX: Z01.818 Encounter for other preprocedural examination (principal)

== ENCOUNTER 2018-12-16 07:42 | Day surgery (SDC) | payer MEDICARE, MEDICAID ==
[~2018-12-16] VITALS: Ht 152.4 cm; Wt 64.4 kg
[~2018-12-16 07:42] MED LIST changes: +COCO1000 PO; +METR-145 PO; -METR-197 PO; +VIT1CAPS44 PO
[2018-12-16] MEDS ORDERED: NS IV 1000 ML 1,000 ML ONE (07:47)
[2018-12-16] MEDS ORDERED: HEParin (CATH LAB) 1,000 ML IV ONE ×2 (07:47→09:22)
[2018-12-16] MEDS ORDERED: LIDOCAINE 1% INJ 20 ML 20 ML VIAL ONE (07:47)
[2018-12-16] MEDS ORDERED: NS IV 1000 ML 1,000 ML IV SCH (07:53)
[2018-12-16] MEDS ORDERED: ISOPROTERENOL 0.2 MG/100 ML D5W IV ONE (08:00)
[2018-12-16 08:12] VITALS: BP 167/93
[2018-12-16] MEDS ORDERED: proPOfol 200 MG/20 ML (DIPRIVAN) VIAL IV ONE (08:13)
[2018-12-16] MEDS ORDERED: ONDANSETRON 4 MG/2 ML (SDV) Z0FRAN ONE (08:13)
[2018-12-16] MEDS ORDERED: LIDOCAINE 2% 20 ML (XYLOCAINE) VIAL ONE (08:13)
[2018-12-16] MEDS ORDERED: SEVOFLURANE (ULTANE) 15 ML INHAL SOLN ONE ×2 (08:16→13:08)
[2018-12-16 08:21] LABS: HEMOGLOBIN 14.8 G/DL (11.5-16.0); MEAN PLATELET VOLUME 10.1 FL (7.4-10.4); RED BLOOD COUNT 5.24 10^6/uL (4.35-5.85); WHITE BLOOD COUNT 6.8 10^3/uL (4.3-11.0)
[2018-12-16 08:33] LABS: INR 0.9 (0.8-1.4); PROTHROMBIN TIME PATIENT 12.5 SEC (12.2-14.7)
[2018-12-16 08:40] LABS: ALANINE AMINOTRANSFERASE 12 U/L (0-55); ALKALINE PHOSPHATASE 70 U/L (40-136); BILIRUBIN,TOTAL 0.4 MG/DL (0.1-1.0); BUN/CREATININE RATIO 18; CALCIUM 9.8 MG/DL (8.5-10.1); CARBON DIOXIDE 27 MMOL/L (21-32); CHLORIDE 103 MMOL/L (98-107); CREATININE SERUM 0.84 MG/DL (0.60-1.30); GFR ESTIMATED > 60; GLUCOSE 89 MG/DL (70-105); POTASSIUM 4.1 MMOL/L (3.6-5.0); SODIUM 139 MMOL/L (135-145); TOTAL PROTEIN 7.1 GM/DL (6.4-8.2)
[2018-12-16] MEDS ORDERED: FLU QUADRIvalent (5+ YOA) 2018-2019 (AFLURIA) 0.5 ML IM ONE (08:45)
[2018-12-16] MEDS ORDERED: PHENYLEPHRINE 100 MCG/ML 10 ML (ANESTHESIA) SYR ONE (11:36)
[2018-12-16] MEDS ORDERED: LACTATED RINGERS 1,000 ML IV ONE (12:29)
--- NOTE | 2018-12-16 13:13 | Cardiac Procedure Note-CS/ASA ---
Pre-Procedure Note Pre-Op Procedure Note H&P Reviewed The H&P was reviewed, patient examined and no changes noted. Date H&P Reviewed: Dec 16, 2018 Time H&P Reviewed: 09:00 Conscious Sedation Pre-Proced Time 09:00 ASA Score 3 For ASA 3 and 4: Consider anesthesia and medical clearance. Also, for patients with a history of failed moderate sedation consider anesthesia. Airway Lungs Heart ASA score ASA 1: a normal healthy patient ASA 2: a patient with a mild systemic disease (mid diabetes, controlled hypertension, obesity ASA 3: a patient with a severe systemic disease that limits activity (angina , COPD, prior Myocardial infarction) ASA 4: a patient with an incapacitating disease that is a constant threat to life (CHF, renal failure) ASA 5: a moribund patient not expected to survive 24 hrs. (ruptured aneurysm) ASA 6: a declared brain patient whose organs are being harvested. For emergent operations, add the letter E after the classification Mallampati Classification Grade 1 Sedation Plan Analgesia, Amnesia, Plan communicated to team members, Discussed options with patient/fam, Discussed risks with patient/fam The patient is an appropriate candidate to undergo the planned procedure, sedation, and anesthesia. The patient immediately re-assessed prior to indication. Jaime KAUR MD Dec 16, 2018 13:13
--- NOTE | 2018-12-16 13:13 | Electrophysiology Procedure ---
EP Procedure DATE OF SERVICE:12/16/18 REFERRING PHYSICIAN: Dr. Jett Harmon CARDIAC ANTHROPOLOGICAL LINGUIST: Dr. Yusuf Hutchinson INDICATION: Typical Atrial Flutter PREOPERATIVE DIAGNOSIS: Typical Atrial Flutter, AVNRT POSTOPERATIVE DIAGNOSES: 1. Typical Atrial Flutter ablation. 2. AVNRT ablation (Slow pathway ablation). HISTORY: This is a 83 year old lady with history of PAF. However, she presented on 2017 with typical atrial flutter with 2:1 AV block. The patient is planned for comprehensive EP study and ablation. PROCEDURE PERFORMED: 1. Comprehensive EP study with induction. 2. Fluoroscopy. 3. CS pacing. 4. Drug infusion. 5. Ablation of typical atrial flutter. 6. AVNRT ablation. 7. Comprehensive 3D mapping with the carto system. COMPLICATION: None. ESTIMATED BLOOD LOSS: 10 mL. CONTRAST USED: None. FLUOROSCOPY TIME: 10.21 minutes. FLUOROSCOPY DOSE: 58 mgy. SPECIMENS: None. ANESTHESIA: Done by our anesthesia colleagues. ANTICOAGULATION: None. PROCEDURE IN DETAIL: After informed consent was taken, the patient was brought to the EP lab. Anesthesia was provided by our anesthesia colleagues. The patient was draped and prepped in the usual sterile fashion. The patient presented to the EP lab in sinus rhythm. Access was gained in the right femoral vein with a 6-Lithuanian and an 8-Lithuanian sheath. Left access in left femoral vein was gained with 5-Lithuanian and 6-Lithuanian sheath respectively. High right atrial catheter was an ablation catheter, right ventricular catheter was placed, his catheter and the CS catheter were also placed. A comprehensive EP study was done including a CS pacing. Typical atrial flutter was not induced with rapid atrial pacing with and without Isuprel infusion. A 3D electroanatomic mapping was donewith the carto system. Ablation was performed in the cavotricuspid isthmus.CS pacing and pacing from the ablation catheter at different positions on the lateral side of the ablation line were used to verify bidirectional block. We then waited for 30 minutes and rechecked and confirmed bidirectional block.Isuprel was given post-procedure, however, we could not induce atrial flutter. Dual AV vijaya physiology was noted with dual AV vijaya echos with and without isuprel. No sustained tachycardia induced. However, AV vijaya echos were consistently noted at critical AH. Therefore, fine voltage mapping was done of the slow pathway region and slow pathway ablation was done based on EGM and under carto guidance. Numerous junctional beats were noted. Reliable AV conduction was demonstrated post procedure. Post ablation, no jump or echos were noted with and without isuprel. The patienttolerated the procedurewell and did not have any complication. The patientleft the lab in sinus rhythm. Total ablation time was 6 minutes and 58 seconds. MEASUREMENTS/EP STUDY: AH Interval 144 ms, HV Interval 39 ms, AV Wenckebachpacing cycle length 370 ms, retrograde Wenckebachpacing cycle length 440 ms, AV node [id number]/320 ms, Ventricular [id number]/300 ms PLAN: The patient will be observed overnight and will be discharged home tomorrow with precise followup instructions. Yusuf Hutchinson MD, RS, CCDS Cardiac Electrophysiology Jaime HUTCHINSON MD Dec 16, 2018 1:13 pm
[2018-12-16] MEDS ORDERED: PATIENT MAY USE OWN MEDS, ALL PO SCH (13:15)
[2018-12-16 14:45] VITALS: BP 167/81
--- NOTE | 2018-12-16 14:45 | NUR ---
PT ADMITTED TO ICU12 VIA BED W/ PACU STAFF. PT PLACED ON MONITORS AND ORIENTED TO SURROUNDINGS. VSS. [facility] SITES WNL. NO C/O AT THIS TIME. WILL CONT TO MONITOR.
[2018-12-16 15:15] VITALS: BP 143/86
[2018-12-16 15:30] VITALS: BP 153/83
[2018-12-16] MEDS: NS IV 1000 ML 1,000 ML IV SCH (17:46)
[2018-12-16 19:00] VITALS: BP 158/98
[2018-12-16 20:02] VITALS: BP 132/77
[2018-12-17] VITALS: BP 138/62
[2018-12-17] MEDS: NS IV 1000 ML 1,000 ML IV SCH (01:52)
[2018-12-17 03:49] VITALS: BP 133/66
[2018-12-17 03:53] LABS: HEMOGLOBIN 12.5 G/DL (11.5-16.0); RED BLOOD COUNT 4.34 10^6/uL (4.35-5.85); RED CELL DISTRIBUTION WIDTH 14.5 % (10.0-14.5); WHITE BLOOD COUNT 7.4 10^3/uL (4.3-11.0)
[2018-12-17 04:21] LABS: BUN/CREATININE RATIO 18; CALCIUM 8.1 MG/DL (8.5-10.1); CARBON DIOXIDE 23 MMOL/L (21-32); CHLORIDE 108 MMOL/L (98-107); CREATININE SERUM 0.72 MG/DL (0.60-1.30); GFR ESTIMATED > 60; GLUCOSE 104 MG/DL (70-105); SODIUM 140 MMOL/L (135-145)
[2018-12-17 08:00] VITALS: BP 138/67
[2018-12-17] MEDS ORDERED: APIXABAN 5 MG (ELIQUIS) TABLET PO NR (09:30)
--- NOTE | 2018-12-17 09:30 | NUR ---
Pt taking one of her own medications of the following Eliquis 5 mg Metoprolol 50 mg er refused hospital medication due to having her own
--- NOTE | 2018-12-17 10:05 | NUR ---
PT DISCHARGED HOME WITH DAUGHTER VIA PRIVATE CAR. ALL POSSESSIONS AND MEDICATIONS WHERE SENT. WITH PT. APPOINTMENT FOR [address] KAUR'S OFFICE. DISCHARGE INSTRUCTION PACKET WAS REVIEWED WITH PT AND HER DAUGHTER BEFORE DISCHARGE. SHE IS TAKEN TO [facility] BY WHEELCHAIR AND PLACED IN PRIVATE CARE FOR TRANSPORT.
--- NOTE | 2018-12-17 10:11 | Anesthesia-General Post-Op ---
General Patient Condition Mental Status/LOC: Same as Preop Cardiovascular: Satisfactory Nausea/Vomiting: Absent Respiratory: Satisfactory Pain: Controlled Complications: Absent Post Op Complications Complications None Follow Up Care/Instructions Patient Instructions None needed. Anesthesia/Patient Condition Patient Condition Patient is doing well, no complaints, stable vital signs, no apparent adverse anesthesia problems. No complications reported per nursing. DAMIAN CARVAJAL CRNA Dec 17, 2018 10:11
--- NOTE | 2018-12-17 10:39 | Discharge Inst-Post CATH ---
Discharge Inst-CATH/EP Post Cardiac Cath/EP D/C Inst Follow Up/Plan Dr Hutchinson in two to three weeks CARDIAC CATH DISCHARGE INSTRUCTIONS *Hold Metformin for 48 hours post heart cath. ACTIVITY * Go Home directly and rest. * Limit activity of the leg (or wrist if it was used) for 7 days including aerobics, swimming, jogging, bicycling, etc. * Restrict stair-climbing for 7 days if possible, if not, climb up with your non -cath leg, then bring together on the same step. * Avoid lifting, pushing, pulling or excessive movement of the affected extremity for 7 days. * Customary sexual activity may be resumed after 2 days-use caution not to use a position that strains or causes pain to the affected extremity. * No driving for 24 hours. * NO SMOKING. * Avoid straining for bowel movements for 7 days. * Gentle walking on level ground is allowed. * Returning to work will depend on the type of procedure and the results. Your doctor will discuss this with you. CALL YOUR DOCTOR FOR ANY OF THE FOLLOWING: *If bleeding from the puncture site occurs- Apply gentle pressure to site with clean cloth and call your doctor or EMS. * If a knot or lump forms under the skin, increases in size, or causes pain. * If bruising appears to be worsening or moving further down your leg instead of disappearing. * Temperature above 101 F. CARE OF YOUR GROIN INCISION; * Bruising or purple discoloration of the skin near the puncture site is common. * You may shower only, no bathtub bathing for 5 days. Be careful to avoid slipping as your leg may feel stiff. * If a closure device was used on your femoral artery, please see the attached guide regarding care of the device and your leg. * Leave the dressing on, until removed by office staff. CARE OF YOUR WRIST INCISION; * Bruising or purple discoloration of the skin near the puncture site is common. * You may shower. * DO NOT submerge wrist. * Leave dressing on, until removed by office staff.. Jaime HUTCHINSON MD Dec 17, 2018 10:39
--- NOTE | 2018-12-17 10:39 | Cardiology Discharge Summary ---
Diagnosis/Chief Complaint Date of Admission 12/16/2018 Date of Discharge 12/17/2018 Admission Diagnosis Typical atrial flutter Final/Discharge Diagnosis Typical atrial flutter, s/p ablation. AVNRT, s/p ablation Chief Complaint/HPI Chief Complaint/HPI This is a 83 year old lady with history of PAF. However, she presented on 2017 with typical atrial flutter with 2:1 AV block. The patient is planned for comprehensive EP study and ablation. Discharge Summary Procedures Comprehensive EP study with 3D mapping. Typical atrial flutter ablation. AVNRT ablation. Discharge Physical Examination Normal Hospital Course Was the Problem List Reviewed?: Yes Unremarkable Pending Labs Laboratory Tests 12/17/18 03:40: White Blood Count 7.4, Red Blood Count 4.34, Hemoglobin 12.5, Hematocrit 38, Mean Corpuscular Volume 87, Mean Corpuscular Hemoglobin 29, Mean Corpuscular Hemoglobin Concent 33, Red Cell Distribution Width 14.5, Platelet Count 250, Mean Platelet Volume 10.0, Sodium Level 140, Potassium Level 4.0, Chloride Level 108, Carbon Dioxide Level 23, Anion Gap 9, Blood Urea Nitrogen 13, Creatinine 0.72, Estimat Glomerular Filtration Rate > 60, BUN/Creatinine Ratio 18, Glucose Level 104, Calcium Level 8.1 Discussion & Recommendations Discussion Procedure discussed at length with the daughter, and again with the patient. All dc instructions discussed and given. Patient will continue NOAC and BB. Discharge took over 30 minutes to complete. Follow up appt.: Dr Hutchinson in two to three weeks. Dicharge Diet: Regular Diet Activity as Tolerated: Yes Home Medications Reviewed patient Home Medication Reconciliation performed by pharmacy medication reconciliations technician telecommunication systems and/or nursing. Patients Allergies have been reviewed. Discharge Home Medications: Reviewed and agree with Discharge Medication list on patient's Discharge Instruction sheet Condition at discharge stable Instructions to patient/family Provided Jaime HUTCHINSON MD Dec 17, 2018 10:39
[2018-12-17 10:53] VITALS: BP 138/67
== END 2018-12-17 10:05 | disposition home or self-care (01) ==
LOC: CATH 07:42 → ICU 14:42 → CATH 12-17 10:05
PROVIDERS: ATTEND Internal Medicine Interventional Cardiology
DX: I48.3 Typical atrial flutter (principal); I48.0 Paroxysmal atrial fibrillation; I10 Essential (primary) hypertension; E78.2 Mixed hyperlipidemia; Z79.01 Long term (current) use of anticoagulants; Z79.899 Other long term (current) drug therapy
CPT/HCPCS: 36415; 80048; 80053; 85027; 85610; 85730; 87081; 93005; 93613; 93621; 93623; 93653; 93655

== ENCOUNTER 2020-02-12 20:50 | Emergency (ER) | payer MEDICARE, MEDICAID ==
[~2020-02-12] VITALS: Ht 152 cm; Wt 66.8 kg
[~2020-02-12 20:50] MED LIST changes: -IBUP-2055 PO; +IBUP-2473 PO; -METO-370 PO; -METO-387 PO; +METO50TA7 PO; +MTP25TSR PO; -TRAM50TA2 PO; +TRM50T PO
[2020-02-12] MEDS ORDERED: dilTIAZem DRIP PRE-MIX 125 ML IV SCH (21:00)
[2020-02-12] MEDS ORDERED: APIXABAN 5 MG (ELIQUIS) TABLET PO ONE (21:00)
--- NOTE | 2020-02-12 21:07 | NUR ---
pt converted to sinus rhythm prior to cardizem bolus.
[2020-02-12 21:19] LABS: BASOPHILS % (AUTO) 0 % (0-10); EOSINOPHILS # (AUTO) 0.1 10^3/uL (0.0-0.3); EOSINOPHILS % (AUTO) 1 % (0-10); HEMATOCRIT 47 % (35-52); HEMOGLOBIN 15.6 G/DL (11.5-16.0); LYMPHOCYTES # (AUTO) 2.2 X 10^3 (1.0-4.0); LYMPHOCYTES % (AUTO) 26 % (12-44); MEAN CORPUSCULAR HEMOGLOBIN 28 PG (25-34); MEAN CORPUSCULAR HGB CONC 33 G/DL (32-36); MEAN CORPUSCULAR VOLUME 84 FL (80-99); MEAN PLATELET VOLUME 10.5 FL (7.4-10.4); MONOCYTES # (AUTO) 0.8 X 10^3 (0.0-1.0); MONOCYTES % (AUTO) 9 % (0-12); NEUTROPHILS # (AUTO) 5.5 X 10^3 (1.8-7.8); NEUTROPHILS % (AUTO) 64 % (42-75); PLATELET COUNT 323 10^3/uL (130-400); RED CELL DISTRIBUTION WIDTH 14.5 % (10.0-14.5); WHITE BLOOD COUNT 8.7 10^3/uL (4.3-11.0)
[2020-02-12 21:27] LABS: PROTHROMBIN TIME PATIENT 13.3 SEC (12.2-14.7)
[2020-02-12 21:34] LABS: ALANINE AMINOTRANSFERASE 17 U/L (0-55); ALBUMIN 4.2 GM/DL (3.2-4.5); ALKALINE PHOSPHATASE 90 U/L (40-136); BILIRUBIN,TOTAL 0.2 MG/DL (0.1-1.0); BUN/CREATININE RATIO 18; CARBON DIOXIDE 24 MMOL/L (21-32); CHLORIDE 104 MMOL/L (98-107); CREATININE SERUM 0.79 MG/DL (0.60-1.30); GFR ESTIMATED > 60; GLUCOSE 152 MG/DL (70-105); MAGNESIUM 2.5 MG/DL (1.6-2.4); POTASSIUM 3.6 MMOL/L (3.6-5.0); SODIUM 141 MMOL/L (135-145); TOTAL PROTEIN 7.4 GM/DL (6.4-8.2)
--- NOTE | 2020-02-12 21:43 | Diagnostic Imaging Report ---
INDICATION: Atrial fibrillation. EXAMINATION: Portable chest was obtained. FINDINGS: Normal heart size and vascularity. The lungs are clear. There is no effusion or pneumothorax. There is no bony abnormality. IMPRESSION: Normal chest with no change from 11/07/2018. Dictated by: Dictated on workstation # [id number]
[2020-02-12] MEDS ORDERED: AMIODARONE 200 MG (CORDARONE) TAB PO ONE (21:45)
--- NOTE | 2020-02-12 22:29 | ED Cardiac General ---
History of Present Illness General Chief Complaint: Cardiac/General Problems Stated Complaint: FAST HEART RATE 143 Nursing Triage Note: weakness, palpatations Source: patient Exam Limitations: no limitations History of Present Illness Date Seen by Provider: Feb 13, 2020 Time Seen by Provider: 20:54 Initial Comments This 85-year-old woman with history of atrial flutter status post ablation presents to the emergency room with sudden onset of tachycardia and pain in the left neck radiating up through her head starting at 17:30. She noted her blood pressure to be lower at 19:00 and her heart rate to be accelerated. On arrival her heart rate is in the 130s to 150s. She reports having no difficulty with atrial fibrillation since her ablation in November. She is not currently on any antiarrhythmics. She is on Eliquis. Her cardiology team includes both Dr. Harmon and Dr. Hutchinson. Allergies and Home Medications Allergies Coded Allergies: Penicillins (Verified Allergy, Unknown, 12/16/18) codeine (Unverified Allergy, Unknown, 12/16/18) glycopyrrolate (Verified Allergy, Unknown, VOMITING, 12/16/18) Home Medications Amiodarone HCl 400 Mg Tablet, 400 MG PO BID Prescribed by: GIL PARRA on 02/12/202230 Apixaban 5 Mg Tablet, 5 MG PO BID, (Reported) Calcium Carb/Mag Ox/Zinc Sulf 1 Each Tablet, 1 TAB PO DAILY, (Reported) Cholecalciferol (Vitamin D3) 5,000 Unit Capsule, 5,000 UNIT PO BID, (Reported) Coconut Oil 1,000 Mg Capsule, 1,000 MG PO DAILY, (Reported) Cyclobenzaprine HCl 10 Mg Tablet, 10 MG PO TID PRN for MUSCLE SPASMS, (Reported) [place] 500 Mg Capsule, 500 MG PO DAILY, (Reported) Metoprolol Succinate 50 Mg Tab.er.24h, 50 MG PO DAILY, (Reported) Niacinamide 500 Mg Tablet, 1,000 MG PO BID, (Reported) Pantoprazole Sodium 40 Mg Tablet.dr, 40 MG PO DAILY, (Reported) Turmeric Root Extract 538 Mg Capsule, 538 MG PO DAILY, (Reported) Vit C/E/Zn/Coppr/Lutein/Zeaxan 1 Each Capsule, 1 EACH PO DAILY, (Reported) [Cbd Oil] , SL BID, (Reported) Patient Home Medication List Home Medication List Reviewed: Yes Review of Systems Review of Systems Constitutional: no symptoms reported EENTM: No Symptoms Reported Respiratory: No Symptoms Reported Cardiovascular: See HPI Gastrointestinal: No Symptoms Reported Genitourinary: No Symptoms Reported Musculoskeletal: no symptoms reported Skin: no symptoms reported Psychiatric/Neurological: No Symptoms Reported Endocrine: No Symptoms Reported Past Roshtaq-Thjqwx-Jscnsw Hx Past Med/Social Hx: Reviewed Nursing Past Med/Soc Hx Patient Social History Alcohol Use: Denies Use Recreational Drug Use: No Smoking Status: Never a Smoker 2nd Hand Smoke Exposure: No Recent Foreign Travel: No Contact w/Someone Who Travel: No Recent Infectious Disease Expo: No Recent Hopitalizations: No Physical Abuse: No Sexual Abuse: No Mistreated: No Fear: No Immunizations Up To Date Tetanus Booster (TDap): Unknown PED Vaccines UTD: No Date of Pneumonia Vaccine: Aug 26, 2013 Seasonal Allergies Seasonal Allergies: No Past Medical History Surgeries: Yes ( cataracts, colon sx, hemorrhoids x3, labia abscess) Appendectomy, Cardiac (cardiac ablation for atrial flutter), Gallbladder, Hysterectomy Respiratory: No Cardiac: Yes (typical atrial flutter) Atrial Fibrillation, Hypertension Neurological: No : No Reproductive Disorders: 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 Sexually Transmitted Disease: No Genitourinary: No Gastrointestinal: Yes (ulceritive cholitis, ) Gastroesophageal Reflux, Obstructive Bowel Musculoskeletal: Yes (BRUSITIS) Arthritis Endocrine: No HEENT: Yes Cataract Cancer: No Psychosocial: No Integumentary: Yes (bacterial folliculitis) Blood Disorders: No Adverse Reaction/Blood Tranf: No Family Medical History No Pertinent Family Hx Physical Exam Vital Signs Vital Signs - First Documented 02/12/20 20:53 Temp 36.7 Pulse 152 Resp 16 B/P (MAP) 164/116 (132) Pulse Ox 98 O2 Delivery Room Air Capillary Refill : Less Than 3 Seconds Height, Weight, BMI Height: 5'0.00" Weight: 142lbs. 0.0oz. 64.293429cx; 28.00 BMI Method:Stated General Appearance: No Apparent Distress, WD/WN HEENT: PERRL/EOMI, Normal ENT Inspection Neck: Normal Inspection Respiratory: Lungs Clear, Normal Breath Sounds, No Accessory Muscle Use, No Respiratory Distress Cardiovascular: No Edema, No Murmur, Irregularly Irregular, Tachycardia Gastrointestinal: Normal Bowel Sounds, Non Tender, Soft Extremity: Normal Inspection, Non Tender, No Pedal Edema Neurologic/Psychiatric: Alert, Oriented x3, No Motor/Sensory Deficits, Normal Mood/Affect, crime scene photographer II-XII Norm as Tested Skin: Normal Color, Warm/Dry Progress/Results/Core Measures Results/Orders Lab Results Laboratory Tests Test 02/12/20 21:00 Range/Units White Blood Count 8.7 4.3-11.0 10^3/uL Red Blood Count 5.56 4.35-5.85 10^6/uL Hemoglobin 15.6 11.5-16.0 G/DL Hematocrit 47 35-52 % Mean Corpuscular Volume 84 80-99 FL Mean Corpuscular Hemoglobin 28 25-34 PG Mean Corpuscular Hemoglobin Concent 33 32-36 G/DL Red Cell Distribution Width 14.5 10.0-14.5 % Platelet Count 323 130-400 10^3/uL Mean Platelet Volume 10.5 H 7.4-10.4 FL Neutrophils (%) (Auto) 64 42-75 % Lymphocytes (%) (Auto) 26 12-44 % Monocytes (%) (Auto) 9 0-12 % Eosinophils (%) (Auto) 1 0-10 % Basophils (%) (Auto) 0 0-10 % Neutrophils # (Auto) 5.5 1.8-7.8 X 10^3 Lymphocytes # (Auto) 2.2 1.0-4.0 X 10^3 Monocytes # (Auto) 0.8 0.0-1.0 X 10^3 Eosinophils # (Auto) 0.1 0.0-0.3 10^3/uL Basophils # (Auto) 0.0 0.0-0.1 10^3/uL Prothrombin Time 13.3 12.2-14.7 SEC INR Comment 1.0 0.8-1.4 Activated Partial Thromboplast Time 33 24-35 SEC Sodium Level 141 135-145 MMOL/L Potassium Level 3.6 3.6-5.0 MMOL/L Chloride Level 104 98-107 MMOL/L Carbon Dioxide Level 24 21-32 MMOL/L Anion Gap 13 5-14 MMOL/L Blood Urea Nitrogen 14 7-18 MG/DL Creatinine 0.79 0.60-1.30 MG/DL Estimat Glomerular Filtration Rate > 60 BUN/Creatinine Ratio 18 Glucose Level 152 H 70-105 MG/DL Calcium Level 9.0 8.5-10.1 MG/DL Corrected Calcium 8.8 8.5-10.1 MG/DL Magnesium Level 2.5 H 1.6-2.4 MG/DL Total Bilirubin 0.2 0.1-1.0 MG/DL Aspartate Amino Transf (AST/SGOT) 22 5-34 U/L Alanine Aminotransferase (ALT/SGPT) 17 0-55 U/L Alkaline Phosphatase 90 40-136 U/L Myoglobin 33.9 10.0-92.0 NG/ML Troponin I < 0.028 <0.028 NG/ML Total Protein 7.4 6.4-8.2 GM/DL Albumin 4.2 3.2-4.5 GM/DL TSH [place] Testing 2.35 0.35-4.94 UIU/ML My Orders Orders - GIL FERGUSON MD Ekg Tracing (02/12/20 20:54) Monitor-Rhythm Ecg Trace Only (02/12/20 20:54) Cbc With Automated Diff (02/12/20 20:59) Magnesium (02/12/20 20:59) Chest 1 View, Ap/Pa Only (02/12/20 20:59) Ekg Tracing (02/12/20 20:59) Comprehensive Metabolic Panel (02/12/20 20:59) Myoglobin Serum (02/12/20 20:59) Protime With Inr (02/12/20 20:59) Partial Thromboplastin Time (02/12/20 20:59) O2 (02/12/20 20:59) Ed Iv/Invasive Line Start (02/12/20 20:59) Troponin I (02/12/20 20:59) Diltiazem Injection (Cardizem Injection) (02/12/20 21:00) Diltiazem Drip Pre-Mix (Cardizem Drip Pr (02/12/20 21:00) Apixaban Tablet (Eliquis Tablet) (02/12/20 21:00) Amiodarone Tablet (Cordarone Tablet) (02/12/20 21:45) Thyroid Analyzer (02/12/20 21:39) Medications Given in ED Current Medications Medications Dose Ordered Sig/Marysol Route Start Time Stop Time Status Last Admin Dose Admin Amiodarone HCl 400 mg ONCE ONCE PO 02/12/20 21:45 02/12/20 21:46 DC 02/12/20 21:47 400 MG Apixaban 5 mg ONCE ONCE PO 02/12/20 21:00 02/12/20 21:01 DC 02/12/20 21:06 5 MG Vital Signs/I&O 02/12/20 02/12/20 20:53 22:34 Temp 36.7 36.5 Pulse 152 73 Resp 16 18 B/P (MAP) 164/116 (132) 142/86 (132) Pulse Ox 98 95 O2 Delivery Room Air Room Air Blood Pressure Mean: 132 Progress Progress Note : Progress Note Patient demonstrated atrial fibrillation with RVR on the cardiac monitors. Cardizem bolus and drip were ordered. The Cardizem drip was being initiated when patient suddenly converted to sinus rhythm. She did not receive the Cardizem bolus. Case was discussed with Dr. Sofia. He recommended starting amiodarone 400 mg twice a day. The first dose was given in the ER. Patient remained in sinus rhythm throughout her ER stay. Initial ECG Impression Date: Feb 12, 2020 Initial ECG Impression Time: 21:22 Initial ECG Rate: 67 Initial ECG Rhythm: Normal Sinus Initial ECG Impression: Normal Comment Normal sinus rhythm with no ST elevation or depression. No abnormal intervals or axis deviation. Diagnostic Imaging Diagonstic Imaging: Xray Plain Films/CT/US/NM/MRI: chest Comments Chest x-ray viewed by me and report reviewed. See report below: NAME: JACKSON BURGOS [facility] REC#: [id number] PT STATUS: REG ER : 1935 PHYSICIAN: GIL FERGUSON MD ADMIT DATE: 02/12/20/ER Signed Date of Exam:02/12/20 CHEST 1 VIEW, AP/PA ONLY INDICATION: Atrial fibrillation. EXAMINATION: Portable chest was obtained. FINDINGS: Normal heart size and vascularity. The lungs are clear. There is no effusion or pneumothorax. There is no bony abnormality. IMPRESSION: Normal chest with no change from 11/07/2018. Dictated by: Dictated on workstation # [id number] Dict: 02/12/202141 Trans: 02/12/202143 [facility] [id number] Interpreted by: GUEVARA HALL MD Electronically signed by: GUEVARA HALL MD 02/12/202143 Departure Impression Primary Impression: Paroxysmal atrial fibrillation Additional Impression: Atrial fibrillation with RVR Disposition: 01 HOME, SELF-CARE Condition: Improved Departure-Patient Inst. Decision time for Depature: 22:27 Referrals: MATEO MUSA DO (PCP/Family) Primary Care Physician Patient Instructions: Atrial Fibrillation (DC) Add. Discharge Instructions: Start amiodarone as prescribed. Please contact Dr. Hutchinson's office tomorrow morning to arrange follow-up. Inform him you had atrial fibrillation with rapid rate in the ER and you were started on amiodarone. Continue your other medications. Return to care if you have worsening symptoms or return of persistent rapid heart rate. All discharge instructions reviewed with patient and/or family. Voiced understanding. Scripts Amiodarone HCl (Amiodarone HCl) 400 Mg Tablet 400 MG PO BID, #30 TAB Prov: GIL FERGUSON MD 02/12/20 Copy Copies To 1: Jaime HUTCHINSON MD Copies To 2: EUGENE HARMON MD FACP FAC CCDS GIL FERGUSON MD Feb 12, 2020 22:29
[2020-02-12] MEDS ORDERED: AMIO400T5 PO (22:31)
[2020-02-12 22:34] VITALS: BP 142/86
== END 2020-02-12 22:38 | disposition home or self-care (01) ==
LOC: EDUNIT# 20:50 → ER 20:52
DX: I48.0 Paroxysmal atrial fibrillation (principal); I48.4 Atypical atrial flutter; K21.9 Gastro-esophageal reflux disease without esophagitis; Z79.01 Long term (current) use of anticoagulants; Z88.0 Allergy status to penicillin; Z88.5 Allergy status to narcotic agent; Z88.8 Allergy status to other drugs, medicaments and biological substances; Z90.49 Acquired absence of other specified parts of digestive tract
CPT/HCPCS: 36415; 71045; 80053; 83735; 83874; 84443; 84484; 85025; 85610; 85730; 93005; 93041; 96365

== ENCOUNTER → 2020-05-10 | Outpatient (CLI) | payer MEDICARE, MEDICAID ==
[~2020-05-10] MED LIST changes: +AMIO400T5 PO
== END ==
LOC: CARD 11:37
PROVIDERS: ATTEND Internal Medicine Cardiovascular Disease
DX: I48.91 Unspecified atrial fibrillation (principal); I77.89 Other specified disorders of arteries and arterioles; I10 Essential (primary) hypertension; E78.5 Hyperlipidemia, unspecified; R53.83 Other fatigue; Z86.73 Personal history of transient ischemic attack (TIA), and cerebral infarction without residual deficits
CPT/HCPCS: 93306

== ENCOUNTER → 2020-05-11 | Outpatient (CLI) | payer MEDICARE, MEDICAID ==
[~2020-05-11] VITALS: Ht 152 cm; Wt 70.0 kg
[~2020-05-11] MED LIST changes: +REGADENOSON 0.4 MG/5 ML SYR (LEXISCAN) IV ONE
[2020-05-11] MEDS: CATHETER FLUSH 10 ML SYR IV PRN ×2 (11:38→13:00)
[2020-05-11 12:58] VITALS: BP 168/98
--- NOTE | 2020-05-12 09:38 | STRESS TEST ---
DATE OF SERVICE: 05/11/2020 RESTING AND POST REGADENOSON TECHNETIUM-99M TETROFOSMIN ORDERING PHYSICIAN: Dr. Harmon. PRIMARY PHYSICIAN: Dr. Garza. CLINICAL DIAGNOSES: Atrial fibrillation, hypertension, hyperlipidemia and obesity. Baseline images were carried out after injection of 10.32 mCi of technetium-99m Tetrofosmin. This was followed by 0.4 mg of Regadenoson and 29.7 mCi of technetium-99m Tetrofosmin for stress imaging. The electrocardiogram showed sinus rhythm at baseline. Old septal wall myocardial infarction cannot be excluded on the electrocardiogram. The electrocardiogram did not change significantly with the Regadenoson infusion. The patient tolerated the procedure well. Review of images at rest and following stress does not indicate evidence of significant myocardial ischemia or infarction. Gated images show normal global left ventricular systolic function with normal regional wall motion. Left ventricular ejection fraction is calculated to be 77%. Left ventricular end diastolic volume is 21 mL. TID is absent (0.95). CONCLUSIONS: 1. No evidence of any significant myocardial ischemia or infarction on this study. 2. Normal regional wall motion. 3. Normal global left ventricular systolic function with an ejection fraction of 67%. Job ID: [id number] DocumentID: [id number] Dictated Date: 05/12/2020 08:56:14 Load Checker Date: 05/12/2020 09:37:41 Dictated By: EUGENE HARMON MD, MA, FACP, FACC,
== END ==
LOC: CARD 11:12
PROVIDERS: ATTEND Internal Medicine Cardiovascular Disease
DX: I48.91 Unspecified atrial fibrillation (principal); I10 Essential (primary) hypertension; E78.2 Mixed hyperlipidemia; I65.23 Occlusion and stenosis of bilateral carotid arteries; E66.9 Obesity, unspecified; Z86.73 Personal history of transient ischemic attack (TIA), and cerebral infarction without residual deficits
CPT/HCPCS: 78452; 93017; A9502

== ENCOUNTER 2020-07-08 16:40 | Inpatient (IN) | payer MEDICARE, MEDICAID ==
[~2020-07-08] VITALS: Ht 152.4 cm; Wt 69.2 kg
[2020-07-08] MEDS: polyethylene glycoL POWDER 17 GM (MIRALAX) PACK PO SCH ×2 (09:00→19:47)
[2020-07-08] MEDS: SENNA W/DOCUSATE (SENOKOT S) TABLET PO SCH ×2 (09:00→19:53)
--- NOTE | 2020-07-08 15:46 | NUR ---
I ENTERED THE MED REC USING THE DISCHARGE ORDERS FROM [facility]- AFTER THE MEDICATIONS ARE CONTINUED I WILL SPEAK WITH THE PT AND MAKE ANY CHANGES TO THE MED REC/NOTES IF NEEDED Addendum: 07/12/20 at 1549 by NIKKI CROUCH CPhT I SPOKE WITH THE PT TO COMPLETE THE MED REC THE FOLLOWING MEDICATIONS HAVE BEEN REMOVED DUE TO PT NOT TAKING PRIOR TO [facility]: AMLODIPINE 10MG ATORVASTATIN 40MG LISINOPRIL 10MG THERE WERE NO MEDICATIONS THE PT WAS TAKING PRIOR TO [facility] THAT THEY DISCONTINUED OTC MEDS: AMNINO ACIDS CO-Q 10 PRESERVISION MTV NIACIN FLUSH FREE CARDIO OGL[place] PHOSPHA NEUTRAL SELENIUM TURMERIC
[~2020-07-08 16:40] MED LIST changes: +ACETAMINOPHEN 500 MG TAB (TYLENOL) PO PRN; +ALPRAZolam 0.25 MG (XANAX) TAB PO PRN; +AMIN1CAP5 PO; +AMIO200T4 PO; +AMLO10TA7 PO; +ASPI-999 PO; +ATOR40TA70 PO; +BISACODYL 10 MG SUPP (DULCOLAX) PR PRN; +BLACK SEED OIL; +CALCIUM CARBONATE 500 MG (TUMS) TAB.CHEW PO PRN; +DOCUSATE SODIUM 100 MG (COLACE) CAP PO PRN; +DOCUSATE SODIUM 100 MG (COLACE) CAP PO SCH; +FLEET ENEMA ADULT 1 EA BTL PR PRN; +LACTULOSE SYRUP 10GM/15ML (ENULOSE) 30ML UDC PO PRN; +LEVO25TA5 PO; +LISI10TA2 PO; +LOPERAMIDE 2 MG (IMODIUM) TABLET PO PRN; +MELATONIN 3 MG TABLET PO PRN; +MULT-1136 PO; +NIAC250T8 PO; +ONDANSETRON 4 MG (ZOFRAN) ORAL DISSOLVE TAB PO PRN; +PHOS250T5 PO; -REGADENOSON 0.4 MG/5 ML SYR (LEXISCAN) IV ONE; +SELE200C PO; +UBID30CA13 PO; +[UNRECOGNIZED DRUG - OTHER] PO; +diphenhydrAMINE 25 MG TAB (BENADRYL) PO PRN; +guaiFENesin/CODEINE (ROBITUSSIN AC) 10ML UDC PO PRN
--- NOTE | 2020-07-08 18:00 | NUR ---
Jacksonjaclyn Vieyra admitted to room 229-1, with an admitting diagnosis of CVA, on 07/08/20 from [facility] via Private Vehicle, accompanied by Daughter.JACKSON VIEYRA introduced to surroundings, call light, bed controls, phone, TV, temperature control, lights, meal times, smoking policy, visitor policy, side rail policy, bathrooms and showers. Patient Rights given to patient in the handbook.JACKSON VIEYRA verbalizes understanding that [facility] is not responsible for the loss or damage to any personal effects or valuables that are kept in the patients possession during their hospitalization. The following Patient Care Plans were discussed with the Patient: Discharge Planning,CVA, Risk for falls. JACKSON VIEYRA verbalizes understanding of Interdisciplinary Patient Education. Patient and/or family were informed about the Rapid Response Team and its purpose.
[2020-07-08 18:28] VITALS: BP 137/68
[2020-07-08] MEDS ORDERED: AMIODARONE 200 MG (CORDARONE) TAB PO PRN (18:30)
[2020-07-08] MEDS ORDERED: ACETAMINOPHEN 325 MG TABLET PO PRN (18:45)
--- OUTSIDE RECORDS SUMMARY | 2020-07-08 19:05 | XMS REPORT | Continuity of Care Document ---
Author Organization Unknown Address Unknown Phone Unavailable Allergies Active Description Code Type Severity Reaction Onset Reported/Identified Relationship to Patient Clinical Status Yes PCN PCN Unknown N/A 09/13/2016 Yes SOME ANTIBIOTICS SOME ANTIBIOTICS Unknown N/A 09/13/2016 Yes codeine [id number] Drug Allergy Unknown N/A 12/16/[id number] ug Allergy Unknown VOMITING 12/16/2018 Yes Penicillins [id number] Drug Aller gy Unknown N/A 12/16/2018 Medications There is no data. Problems Date Dx Coded Attending Type Code Diagnosis Diagnosed By 01/18/2010 Ot 724.5 01/18/2010 Ot 791.9 11/12/2012 Ot 211.3 EDD GN NEOPLASM LG BOWEL 11/12/2012 Ot V12.72 PER DI HISTORY OF COLONIC POLYPS 11/12/2012 Ot V76.51 SCR EEN MAL NEOP- COLON 11/09/2014 MATEO MUSA DO Ot V76.12 01/17/2015 Ot 719.45 LATONIA NT PAIN-PELVIS 01/17/2015 Ot 729.5 PAIN IN LIMB 03/25/2015 Ot 724.5 03/25/2015 Ot 791.9 03/25/2015 Ot V76.12 03/25/2015 Ot 780.79 03/25/2015 Ot V58.69 03/25/2015 Ot V76.12 03/25/2015 Ot 733.90 03/25/2015 Ot V49.81 03/25/2015 Ot V76.12 03/25/2015 Ot V82.81 03/25/2015 Ot V72.84 03/25/2015 AMELIA MUSA TRAIN SYSTEM OPERATOR Ot 786.50 03/25/2015 AMELIA MUSA TRAIN SYSTEM OPERATOR Ot E888.9 03/25/2015 MATEO MUSA DO Ot V76.12 03/25/2015 MATEO MUSA DO Ot V76.12 04/12/2015 Ot 724.5 04/12/2015 Ot 791.9 04/12/2015 Ot V76.12 04/12/2015 Ot 780.79 04/12/2015 Ot V58.69 04/12/2015 Ot V76.12 04/12/2015 Ot 733.90 04/12/2015 Ot V49.81 04/12/2015 Ot V76.12 04/12/2015 Ot V82.81 04/12/2015 Ot V72.84 04/12/2015 AMELIA MUSA TRAIN SYSTEM OPERATOR Ot 786.50 04/12/2015 AMELIA MUSA TRAIN SYSTEM OPERATOR Ot E888.9 04/12/2015 MATEO MUSA DO Ot V76.12 04/12/2015 MATEO MUSA DO Ot V76.12 06/23/2015 MATEO MUSA DO Ot 486 07/01/2015 MATEO MUSA DO Ot V76.12 08/03/2015 MATEO MUSA DO Ot 486 08/23/2015 MATEO MUSA DO Ot 486 04/08/2016 Ot 780.79 OTH MALAISE FATIGUE 04/08/2016 Ot V58.69 OTH MED,LT,CURRENT USE 04/08/2016 Ot V76.12 OTH SCREEN MAMMO- MALIGN NEOPLASM OF RJ 04/08/2016 Ot 733.90 BON E CARTILAGE DIS NOS 04/08/2016 Ot V49.81 ASY MPT POSTMENOPAUSAL STATUS (AGE-RELATE 04/08/2016 Ot V76.12 OTH SCREEN MAMMO- MALIGN NEOPLASM OF RJ 04/08/2016 Ot V82.81 SCR EENING FOR OSTEOPOROSIS 04/08/2016 Ot V72.84 EXA M PRE- OPERATIVE NOS 04/08/2016 AMELIA MUSA TRAIN SYSTEM OPERATOR Ot 786.50 CHEST PAIN NOS 04/08/2016 AMELIA MUSA TRAIN SYSTEM OPERATOR Ot E888.9 FALL NOS 04/08/2016 MATEO MUSA DO Ot V76.12 [...] PLACE 04/08/2016 RAE MARTINEZ, DELIA Quiles Ot Y99. 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 09/14/2016 ESSENCE HAWK DO Ot I10 ESSENTIAL (PRIMARY) HYPERTENSION 09/14/2016 ESSENCE HAWK DO Ot I48.0 PAROXYSMAL ATRIAL FIBRILLATION 09/14/2016 ESSENCE HAWK DO Ot I49.1 ATRIAL PREMATURE DEPOLARIZATION 09/14/2016 ESSENCE HAWK DO Ot M19.90 UNSPECIFIED OSTEOARTHRITIS, UNSPECIFIED 09/19/2016 Ot 780.79 OTH MALAISE FATIGUE 09/19/2016 Ot V58.69 OTH MED,LT,CURRENT USE 09/19/2016 Ot V76.12 OTH SCREEN MAMMO- MALIGN NEOPLASM OF RJ 09/19/2016 Ot 733.90 BON E CARTILAGE DIS NOS 09/19/2016 Ot V49.81 ASY MPT POSTMENOPAUSAL STATUS (AGE-RELATE 09/19/2016 Ot V76.12 OTH SCREEN MAMMO- MALIGN NEOPLASM OF RJ 09/19/2016 Ot V82.81 SCR EENING FOR OSTEOPOROSIS 09/19/2016 Ot V72.84 EXA M PRE- OPERATIVE NOS 09/19/2016 AMELIA MUSA TRAIN SYSTEM OPERATOR Ot 786.50 CHEST PAIN NOS 09/19/2016 AMELIA MUSA TRAIN SYSTEM OPERATOR Ot E888.9 FALL NOS 09/19/2016 MATEO MUSA DO Ot V76.12 OTH SCREEN MAMMO-MALIGN NEOPLASM OF RJ 09/19/2016 MATEO MUSA DO Ot V76.12 OTH SCREEN MAMMO-MALIGN NEOPLASM OF RJ 09/19/2016 MATEO MUSA DO Ot 486 PNEUMONIA, ORGANISM NOS 09/19/2016 MATEO MUSA DO, Ot V76.12 OTH SCREEN MAMMO-MALIGN NEOPLASM OF RJ 04/08/2017 FANI CAM MD Ot I48. 2 CHRONIC ATRIAL FIBRILLATION 04/08/2017 FANI CAM MD Ot J40 BRONCHITIS, NOT SPECIFIED ACUTE OR CH 04/08/2017 FANI CAM MD Ot R05 COUGH 04/08/2017 FANI CAM MD Ot R50. 9 FEVER, UNSPECIFIED 04/08/2017 FANI CAM MD Ot Z79. 01 DIRECTOR OF EDUCATION AND TRAINING (CURRENT) USE OF ANTICOAGULANT 04/08/2017 FANI CAM MD Ot Z79.899 OTHER DIRECTOR OF EDUCATION AND TRAINING (CURRENT) DRUG THERAPY 04/10/2017 FANI CAM MD Ot I48. 2 CHRONIC ATRIAL FIBRILLATION 04/10/2017 FANI CAM MD Ot J40 BRONCHITIS, NOT SPECIFIED ACUTE OR CH 04/10/2017 FANI CAM MD Ot R05 COUGH 04/10/2017 FANI CAM MD Ot R50. 9 FEVER, UNSPECIFIED 04/10/2017 FANI CAM MD Ot Z79. 01 DIRECTOR OF EDUCATION AND TRAINING (CURRENT) USE OF ANTICOAGULANT 04/10/2017 FANI CAM MD Ot Z79.899 OTHER SHELTER (CURRENT) DRUG THERAPY 04/26/2017 Ot 733.90 BON E CARTILAGE DIS NOS 04/26/2017 Ot V49.81 ASY MPT POSTMENOPAUSAL STATUS (AGE-RELATE 04/26/2017 Ot V76.12 OTH SCREEN MAMMO- MALIGN NEOPLASM OF RJ 04/26/2017 Ot V82.81 SCR EENING FOR OSTEOPOROSIS 04/26/2017 Ot V72.84 EXA M PRE- OPERATIVE NOS 04/26/2017 AMELIA MUSA TRAIN SYSTEM OPERATOR Ot 786.50 CHEST PAIN NOS 04/26/2017 AMELIA MUSA TRAIN SYSTEM OPERATOR Ot E888.9 FALL NOS 04/26/2017 MATEO MUSA DO Ot V76.12 OTH SCREEN MAMMO-MALIGN NEOPLASM OF RJ 04/26/2017 DIMPLE RUBIO MATEO Tyler Ot V76.12 OTH SCREEN MAMMO-MALIGN NEOPLASM OF RJ 04/26/2017 MATEO MUSA DO Ot 486 PNEUMONIA, ORGANISM NOS 04/26/2017 DIMPLE RUBIO MATEO Tyler Ot V76.12 OTH SCREEN MAMMO-MALIGN NEOPLASM OF RJ 05/07/2017 Ot 733.90 BON E CARTILAGE DIS NOS 05/07/2017 Ot V49.81 ASY MPT POSTMENOPAUSAL STATUS (AGE-RELATE 05/07/2017 Ot V76.12 OTH SCREEN MAMMO- MALIGN NEOPLASM OF RJ 05/07/2017 Ot V82.81 SCR EENING FOR OSTEOPOROSIS 05/07/2017 Ot V72.84 EXA M PRE- OPERATIVE NOS 05/07/2017 AMEILA MUSA TRAIN SYSTEM OPERATOR Ot 786.50 CHEST PAIN NOS 05/07/2017 AMELIA MUSA TRAIN SYSTEM OPERATOR Ot E888.9 FALL NOS 05/07/2017 MATEO MUSA DO Ot V76.12 OTH SCREEN MAMMO-MALIGN NEOPLASM OF RJ 05/07/2017 DIMPLE RUBIO MATEO Tyler Ot V76.12 OTH SCREEN MAMMO-MALIGN NEOPLASM OF RJ 05/07/2017 MATEO MUSA DO Ot 486 PNEUMONIA, ORGANISM NOS 05/07/2017 MATEO MUSA DO Ot V76.12 OTH SCREEN MAMMO-MALIGN NEOPLASM OF RJ 05/07/2017 AMELIA MUSA TRAIN SYSTEM OPERATOR Ot R05 COUGH 05/09/2017 AVI MARTINEZ FACC, EUGENE ANNP CCDS Ot E78.2 MIXED HYPERLIPIDEMIA 05/09/2017 AVI MARTINEZ FACC, EUGENE FACP CCDS Ot I10 ESSENTIAL (PRIMARY) HYPERTENSION 05/09/2017 AVI MARTINEZ FACC, EUGENE ANNP CCDS Ot I48.0 PAROXYSMAL ATRIAL FIBRILLATION 05/09/2017 AVI MARTINEZ FACC, EUGENE ANNP CCDS Ot R53.83 OTHER FATIGUE 05/09/2017 AVI MARTINEZ FACC, EUGENE ANNP CCDS Ot R94.31 ABNORMAL ELECTROCARDIOGRAM [ECG] [EKG] 05/09/2017 AVI MARTINEZ FACC, EUGENE FACP CCDS Ot Z86.73 PRSNL HX OF TIA (TIA), AND CEREB INFRC W 05/17/2017 AMELIA MUSA TRAIN SYSTEM OPERATOR Ot R05 COUGH 05/24/2017 DIMPLEAMELIA TRAIN SYSTEM OPERATOR Ot R05 COUGH 05/31/2017 AVI ANN, ALI FACP CCDS Ot E78.2 MIXED HYPERLIPIDEMIA 05/31/2017 AVI MARTINEZ FACC, ALI FACP CCDS Ot I10 ESSENTIAL (PRIMARY) HYPERTENSION 05/31/2017 AVI MARTINEZ FACC, ALI FACP CCDS Ot I48.0 PAROXYSMAL ATRIAL FIBRILLATION 05/31/2017 AVI MARTINEZ FACC, ALI FACP CCDS Ot R53.83 OTHER FATIGUE 05/31/2017 AVI MARTINEZ FACC, ALI FACP CCDS Ot R94.31 ABNORMAL ELECTROCARDIOGRAM [ECG] [EKG] 05/31/2017 [facility]I [facility]ARTINEZ [facility], ALI FACP CCDS Ot Z86.73 PRSNL HX OF TIA (TIA), AND CEREB INFRC W 06/08/2017 AVI ANN, ALI FACP CCDS Ot E78.2 MIXED HYPERLIPIDEMIA 06/08/2017 AVI MARTINEZ [facility], ALI FACP CCDS Ot I10 ESSENTIAL (PRIMARY) HYPERTENSION 06/08/2017 AVI MARTINEZ [facility], ALI FACP CCDS Ot I48.0 PAROXYSMAL ATRIAL FIBRILLATION 06/08/2017 AVI MARTINEZ [facility], ALI FACP CCDS Ot R53.83 OTHER FATIGUE 06/08/2017 AVI MARTINEZ [facility], ALI FACP CCDS Ot R94.31 ABNORMAL ELECTROCARDIOGRAM [ECG] [EKG] 06/08/2017 AVI MARTINEZ [facility], ALI FACP CCDS Ot Z86.73 PRSNL HX OF TIA (TIA), AND CEREB INFRC W 12/28/2017 KRYS PERRY MD Ot K21.9 GASTRO-ESOPHAGEAL REFLUX DISEASE WITHOUT 12/28/2017 KRYS PERRY MD Ot Z01.818 ENCOUNTER FOR OTHER PREPROCEDURAL EXAMIN 12/31/2017 KRYS PERRY MD Ot K21.9 GASTRO-ESOPHAGEAL REFLUX DISEASE WITHOUT 12/31/2017 KRYS PERRY MD Ot Z01.818 ENCOUNTER FOR OTHER PREPROCEDURAL EXAMIN 01/01/2018 KRYS PERRY MD Ot I1 0 ESSENTIAL (PRIMARY) HYPERTENSION 01/01/2018 KRYS PERRY MD Ot I48.91 UNSPECIFIED ATRIAL FIBRILLATION 01/01/2018 PERRY MD, KRYS M Ot K20.9 ESOPHAGITIS, UNSPECIFIED 01/01/2018 VICKY MARTINEZ, KRYS M Ot K22.2 ESOPHAGEAL OBSTRUCTION 01/01/2018 VICKY MARTINEZ, KRYS M Ot K25.9 GASTRIC ULCER, UNSP ACUTE OR CHRONIC, 01/01/2018 VICKY MARTINEZ, KRYS M Ot Z79.899 OTHER SHELTER (CURRENT) DRUG THERAPY 01/01/2018 VICKY MARTINEZ, KRYS M Ot Z88.0 ALLERGY STATUS TO PENICILLIN 01/01/2018 VICKY MARTINEZ, KRYS M Ot Z88.1 ALLERGY STATUS TO OTHER ANTIBIOTIC AGENT 01/23/2018 VICKY MARTINEZ, KRYS M Ot I1 0 ESSENTIAL (PRIMARY) HYPERTENSION 01/23/2018 VICKY MARTINEZ, KRYS M Ot I48.91 UNSPECIFIED ATRIAL FIBRILLATION 01/23/2018 VICKY MARTINEZ, KRYS M Ot K20.9 ESOPHAGITIS, UNSPECIFIED 01/23/2018 VICKY MARTINEZ, KRYS M Ot K22.2 ESOPHAGEAL OBSTRUCTION 01/23/2018 KRYS PERRY MD Ot K25.9 GASTRIC ULCER, UNSP ACUTE OR CHRONIC, 01/23/2018 VICKY MARTINEZ, KRYS Sandoval Ot Z79.899 OTHER DIRECTOR OF EDUCATION AND TRAINING (CURRENT) DRUG THERAPY 01/23/2018 KRYS PERRY MD M Ot Z88.0 ALLERGY STATUS TO PENICILLIN 01/23/2018 VICKY MARTINEZ, KRYS M Ot Z88.1 ALLERGY STATUS TO OTHER ANTIBIOTIC AGENT 01/23/2018 AVI MARTINEZ FACC, ALI FACP CCDS Ot I48.91 UNSPECIFIED ATRIAL FIBRILLATION 01/23/2018 AVI MARTINEZ FACC, ALI FACP CCDS Ot I48.91 UNSPECIFIED ATRIAL FIBRILLATION 01/25/2018 AVI MARTINEZ FACC, ALI FACP CCDS Ot I48.91 UNSPECIFIED ATRIAL FIBRILLATION 02/01/2018 KRYS PERRY MD Ot I1 0 ESSENTIAL (PRIMARY) HYPERTENSION 02/01/2018 VICKY MARTINEZ, KRYS M Ot I48.91 UNSPECIFIED ATRIAL FIBRILLATION 02/01/2018 KRYS PERRY MD M Ot K20.9 ESOPHAGITIS, UNSPECIFIED 02/01/2018 VICKY MARTINEZ, KRYS M Ot K22.2 ESOPHAGEAL OBSTRUCTION 02/01/2018 KRYS PERRY MD Ot K25.9 GASTRIC ULCER, UNSP ACUTE OR CHRONIC, 02/01/2018 KRYS PERRY MD Ot Z79.899 OTHER DIRECTOR OF EDUCATION AND TRAINING (CURRENT) DRUG THERAPY 02/01/2018 VICKY MARTINEZ, KRYS Sandoval Ot Z88.0 ALLERGY STATUS TO PENICILLIN 02/01/2018 VICKY MARTINEZ, KRYS Sandoval Ot Z88.1 ALLERGY [...] I73.9 PERIPHERAL VASCULAR DISEASE, UNSPECIFIED 03/26/2018 AVI MRATINEZ FACC, ALI FACP CCDS Ot I73.9 PERIPHERAL VASCULAR DISEASE, UNSPECIFIED 04/05/2018 AVI MARTINEZ FACC, ALI FACP CCDS Ot I73.9 PERIPHERAL VASCULAR DISEASE, UNSPECIFIED 11/06/2018 AMELIA MUSA TRAIN SYSTEM OPERATOR Ot 786.50 CHEST PAIN NOS 11/06/2018 AMELIA MUSA TRAIN SYSTEM OPERATOR Ot E888.9 FALL NOS 11/06/2018 MATEO MUSA DO Ot V76.12 OTH SCREEN MAMMO-MALIGN NEOPLASM OF RJ 11/06/2018 MATEO MUSA DO Ot V76.12 OTH SCREEN MAMMO-MALIGN NEOPLASM OF RJ 11/06/2018 MATEO MUSA DO Ot 486 PNEUMONIA, ORGANISM NOS 11/06/2018 MATEO MUSA DO Ot V76.12 OTH SCREEN MAMMO-MALIGN NEOPLASM OF RJ 11/06/2018 AMELIA MUSA TRAIN SYSTEM OPERATOR Ot R05 COUGH 11/06/2018 AVI MARTINEZ FACC, EUGENE FACP CCDS Ot E78.2 MIXED HYPERLIPIDEMIA 11/06/2018 AVI MARTINEZ FACC, ALI FACP CCDS Ot I10 ESSENTIAL (PRIMARY) HYPERTENSION 11/06/2018 AVI MARTINEZ FACC, ALI FACP CCDS Ot I48.0 PAROXYSMAL ATRIAL FIBRILLATION 11/06/2018 AVI MARTINEZ FACC, ALI FACP CCDS Ot R53.83 OTHER FATIGUE 11/06/2018 AVI MARTINEZ FACNikolas, EUGENE FACP CCDS Ot R94.31 ABNORMAL ELECTROCARDIOGRAM [ECG] [EKG] 11/06/2018 AVI MARTINEZ FACNikolas, ALI FACP CCDS Ot Z86.73 PRSNL HX OF TIA (TIA), AND CEREB INFRC W 11/06/2018 VICKY MARTINEZ, KRYS Sandoval Ot I1 0 ESSENTIAL (PRIMARY) HYPERTENSION 11/06/2018 VICKY MARTINEZ, KRYS Sandoval Ot I48.91 UNSPECIFIED ATRIAL FIBRILLATION 11/06/2018 VICKY MARTINEZ, KRYS Sandoval Ot K20.9 ESOPHAGITIS, UNSPECIFIED 11/06/2018 VICKY MARTINEZ, KRYS Sandoval Ot K22.2 ESOPHAGEAL OBSTRUCTION 11/06/2018 KRYS PERRY MD, Ot K25.9 GASTRIC ULCER, UNSP ACUTE OR CHRONIC, 11/06/2018 VICKY MARTINEZ, KRYS Sandoval Ot Z79.899 OTHER SHELTER (CURRENT) DRUG THERAPY 11/06/2018 VICKY MARTINEZ, KRYS Sandoval Ot Z88.0 ALLERGY STATUS TO PENICILLIN 11/06/2018 VICKY MARTINEZ, KRYS Sandoval Ot Z88.1 ALLERGY STATUS TO OTHER ANTIBIOTIC AGENT 11/06/2018 AVI MARTINEZ FACC, EUGENE FACP CCDS Ot I73.9 PERIPHERAL VASCULAR DISEASE, UNSPECIFIED 11/06/2018 AVI MARTINEZ FACC, EUGENE FACP CCDS Ot I48.91 UNSPECIFIED ATRIAL FIBRILLATION 11/06/2018 AMELIA MUSA TRAIN SYSTEM OPERATOR Ot 786.50 CHEST PAIN NOS 11/06/2018 AMELIA MUSA TRAIN SYSTEM OPERATOR Ot E888.9 FALL NOS 11/06/2018 MATEO MUSA DO Ot V76.12 OTH SCREEN MAMMO-MALIGN NEOPLASM OF RJ 11/06/2018 MATEO MUSA DO Ot V76.12 OTH SCREEN MAMMO-MALIGN NEOPLASM OF RJ 11/06/2018 MATEO MUSA DO Ot 486 PNEUMONIA, ORGANISM NOS 11/06/2018 MATEO MUSA DO Ot V76.12 OTH SCREEN MAMMO-MALIGN NEOPLASM OF RJ 11/06/2018 AMELIA MUSA TRAIN SYSTEM OPERATOR Ot R05 COUGH 11/06/2018 AVI MARTINEZ FACC, ALI FACP CCDS Ot E78.2 MIXED HYPERLIPIDEMIA 11/06/2018 AVI MD FACC, ALI FACP CCDS Ot I10 ESSENTIAL (PRIMARY) HYPERTENSION 11/06/2018 AVI MARTINEZ FAC, ALI FACP CCDS Ot I48.0 PAROXYSMAL ATRIAL FIBRILLATION 11/06/2018 AVI MARTINEZ FAC, ALI FACP CCDS Ot R53.83 OTHER FATIGUE 11/06/2018 AVI MARTINEZ FAC, ALI FACP CCDS Ot R94.31 ABNORMAL ELECTROCARDIOGRAM [ECG] [EKG] 11/06/2018 AVI MARTINEZ [facility], ALI FACP CCDS Ot Z86.73 PRSNL HX OF TIA (TIA), AND CEREB INFRC W 11/06/2018 KRYS PERRY MD Ot I1 0 ESSENTIAL (PRIMARY) HYPERTENSION 11/06/2018 KRYS PERRY MD Ot I48.91 UNSPECIFIED ATRIAL FIBRILLATION 11/06/2018 KRYS PERRY MD Ot K20.9 ESOPHAGITIS, UNSPECIFIED 11/06/2018 KRYS PERRY MD Ot K22.2 ESOPHAGEAL OBSTRUCTION 11/06/2018 KRYS PERRY MD Ot K25.9 GASTRIC ULCER, UNSP ACUTE OR CHRONIC, 11/06/2018 VICKY MARTINEZ, KRYS Sandoval Ot Z79.899 OTHER SHELTER (CURRENT) DRUG THERAPY 11/06/2018 KRYS PERRY MD Ot Z88.0 ALLERGY STATUS TO PENICILLIN 11/06/2018 KRYS PERRY MD Ot Z88.1 ALLERGY STATUS TO OTHER ANTIBIOTIC AGENT 11/06/2018 AVI MARTINEZ [facility], ALI FACP CCDS Ot I73.9 PERIPHERAL VASCULAR DISEASE, UNSPECIFIED 11/06/2018 AVI MARTINEZ [facility], ALI FACP CCDS Ot I48.91 UNSPECIFIED ATRIAL FIBRILLATION 11/07/2018 HAWK DO, ESSENCE Ot I10 ESSENTIAL (PRIMARY) HYPERTENSION 11/07/2018 HAWK DO, ESSENCE Ot I48.0 PAROXYSMAL ATRIAL FIBRILLATION 11/07/2018 HAWK DO, ESSENCE Ot I48.92 UNSPECIFIED ATRIAL FLUTTER 11/07/2018 HAWK DO, ESSENCE Ot I73.9 PERIPHERAL VASCULAR DISEASE, UNSPECIFIED 11/07/2018 HAWK DO, ESSENCE Ot I87.8 OTHER SPECIFIED DISORDERS OF VEINS 11/07/2018 HAWK DO, ESSENCE Ot K21.9 GASTRO-ESOPHAGEAL REFLUX DISEASE WITHOUT 11/07/2018 HAWK DO, ESSENCE Ot R07.89 OTHER CHEST PAIN 11/07/2018 ESSENCE HAWK DO Ot R94.31 ABNORMAL ELECTROCARDIOGRAM [ECG] [EKG] 11/07/2018 ESSENCE HAWK DO Ot Z79.01 DIRECTOR OF EDUCATION AND TRAINING (CURRENT) USE OF ANTICOAGULANT 11/07/2018 ESSENCE HAWK DO Ot Z91.14 PATIENT'S OTHER NONCOMPLIANCE WITH MEDIC 11/18/2018 NADIA HUYNH MD, Ot I10 ESSENTIAL (PRIMARY) HYPERTENSION 11/18/2018 NADIA HUYNH MD, Ot I48.91 UNSPECIFIED ATRIAL FIBRILLATION 11/18/2018 NADIA HUYNH MD, Ot K21.9 GASTRO-ESOPHAGEAL REFLUX DISEASE WITHOUT 11/18/2018 NADIA HUYNH MD, Ot N76.4 ABSCESS OF VULVA 11/18/2018 NADIA HUYNH MD, Ot Z79.01 DIRECTOR OF EDUCATION AND TRAINING (CURRENT) USE OF ANTICOAGULANT 11/18/2018 NADIA HUYNH MD, Ot Z86.19 PERSONAL HISTORY OF OTHER INFECTIOUS AND 11/18/2018 NADIA HUYNH MD, Ot Z87.19 PERSONAL HISTORY OF OTHER DISEASES OF TH 11/18/2018 NADIA HUYNH MD, Ot Z88.0 ALLERGY STATUS TO PENICILLIN 11/18/2018 NADIA HUYNH MD, Ot Z88.5 ALLERGY STATUS TO NARCOTIC AGENT STATUS 11/18/2018 NADIA HUYNH MD, Ot Z90.49 ACQUIRED ABSENCE OF OTHER SPECIFIED PART 11/18/2018 NADIA HUYNH MD Ot Z90.710 ACQUIRED ABSENCE OF BOTH CERVIX AND UTER 11/20/2018 GIL FERGUSON MD, Ot I10 ESSENTIAL (PRIMARY) HYPERTENSION 11/20/2018 GIL FERGUSON MD, Ot I48.91 UNSPECIFIED ATRIAL FIBRILLATION 11/20/2018 GIL FERGUSON MD, Ot K21.9 GASTRO-ESOPHAGEAL REFLUX DISEASE WITHOUT 11/20/2018 GIL FERGUSON MD Ot N76.4 ABSCESS OF VULVA 11/20/2018 GIL FERGUSON MD Ot R11.2 NAUSEA WITH VOMITING, UNSPECIFIED 11/20/2018 GIL FERGUSON MD, Ot Z79.01 DIRECTOR OF EDUCATION AND TRAINING (CURRENT) USE OF ANTICOAGULANT 11/20/2018 BRUEGGEMANN MD, GIL T Ot Z86.19 PERSONAL HISTORY OF OTHER INFECTIOUS AND 11/20/2018 GIL FERGUSON MD Ot Z87.19 PERSONAL HISTORY OF OTHER DISEASES OF 11/20/2018 GIL FERGUSON MD Ot Z88.0 ALLERGY STATUS TO PENICILLIN 11/20/2018 GIL FERGUSON MD Ot Z88.1 ALLERGY STATUS TO OTHER ANTIBIOTIC AGENT 11/20/2018 GIL FERGUSON MD Ot Z88.5 ALLERGY STATUS TO NARCOTIC AGENT STATUS 11/20/2018 GIL FERGUSON MD Ot Z90.49 ACQUIRED ABSENCE OF OTHER SPECIFIED PART 11/20/2018 GIL FERGUSON MD Ot Z90.710 ACQUIRED ABSENCE OF BOTH CERVIX AND UTER 11/22/2018 GIL FERGUSON MD Ot I10 ESSENTIAL (PRIMARY) HYPERTENSION 11/22/2018 GIL FERGUSON MD Ot I48.91 UNSPECIFIED ATRIAL FIBRILLATION 11/22/2018 GIL FERGUSON MD Ot K21.9 GASTRO-ESOPHAGEAL REFLUX DISEASE WITHOUT 11/22/2018 GIL FERGUSON MD Ot N76.4 ABSCESS OF VULVA 11/22/2018 GIL FERGUSON MD Ot R11.2 NAUSEA WITH VOMITING, UNSPECIFIED 11/22/2018 GIL FERGUSON MD Ot Z79.01 DIRECTOR OF EDUCATION AND TRAINING (CURRENT) USE OF ANTICOAGULANT 11/22/2018 GIL FERGUSON MD Ot Z86.19 PERSONAL HISTORY OF OTHER INFECTIOUS AND 11/22/2018 GIL FERGUSON MD Ot Z87.19 PERSONAL HISTORY OF OTHER DISEASES OF 11/22/2018 GIL FERGUSON MD Ot Z88.0 ALLERGY [...] N76.4 ABSCESS OF VULVA 11/24/2018 NADIA HUYNH MD, Ot Z79.01 SHELTER (CURRENT) USE OF ANTICOAGULANT 11/24/2018 NADIA HUYNH MD, Ot Z86.19 PERSONAL HISTORY OF OTHER INFECTIOUS AND 11/24/2018 NADIA HUYNH MD, Ot Z87.19 PERSONAL HISTORY OF OTHER DISEASES OF 11/24/2018 NADIA HUYNH MD, Ot Z88.0 ALLERGY STATUS TO PENICILLIN 11/24/2018 NADIA HUYNH MD, Ot Z88.5 ALLERGY STATUS TO NARCOTIC AGENT STATUS 11/24/2018 NADIA HUYNH MD Ot Z90.49 ACQUIRED ABSENCE OF OTHER SPECIFIED PART 11/24/2018 NADIA HUYNH MD Ot Z90.710 ACQUIRED ABSENCE OF BOTH CERVIX AND UTER 12/08/2018 GIL FERGUSON MD Ot I10 ESSENTIAL (PRIMARY) HYPERTENSION 12/08/2018 GIL FERGUSON MD, Ot I48.91 UNSPECIFIED ATRIAL FIBRILLATION 12/08/2018 GIL FERGUSON MD, Ot K21.9 GASTRO-ESOPHAGEAL REFLUX DISEASE WITHOUT 12/08/2018 GIL FERGUSON MD Ot L02.214 CUTANEOUS ABSCESS OF GROIN 12/08/2018 GIL FERGUSON MD Ot N76.4 ABSCESS OF VULVA 12/08/2018 GIL FREGUSON MD Ot Z79.01 SHELTER (CURRENT) USE OF ANTICOAGULANT 12/08/2018 GIL FERGUSON MD Ot Z87.01 PERSONAL HISTORY OF PNEUMONIA (RECURRENT 12/08/2018 GIL FERGUSON MD Ot Z87.19 PERSONAL HISTORY OF OTHER DISEASES OF 12/08/2018 GIL FERGUSON MD Ot Z88.0 ALLERGY STATUS TO PENICILLIN 12/08/2018 GIL FERGUSON MD Ot Z88.1 ALLERGY STATUS TO OTHER ANTIBIOTIC AGENT 12/08/2018 GIL FERGUSON MD Ot Z88.5 ALLERGY STATUS TO NARCOTIC AGENT STATUS 12/08/2018 GIL FERGUSON MD Ot Z90.49 ACQUIRED ABSENCE OF OTHER SPECIFIED PART 12/08/2018 GIL FERGUSON MD Ot Z90.710 ACQUIRED ABSENCE OF BOTH CERVIX AND UTER 12/08/2018 GIL FERGUSON MD Ot Z98.890 OTHER SPECIFIED POSTPROCEDURAL STATES 12/12/2018 Jaime KAUR MD Ot Z01.818 ENCOUNTER FOR OTHER PREPROCEDURAL EXAMIN 12/17/2018 Jaime KAUR MD Ot E78 .2 MIXED HYPERLIPIDEMIA 12/17/2018 Jaime KAUR MD Ot I10 ESSENTIAL (PRIMARY) HYPERTENSION 12/17/2018 Jaime KAUR MD Ot I48 .0 PAROXYSMAL ATRIAL FIBRILLATION 12/17/2018 Jaime KAUR MD Ot I48 .3 TYPICAL ATRIAL FLUTTER 12/17/2018 Jaime KAUR MD Ot Z79.01 SHELTER (CURRENT) USE OF ANTICOAGULANT 12/17/2018 Jaime KAUR MD Ot Z79.899 OTHER DIRECTOR OF EDUCATION AND TRAINING (CURRENT) DRUG THERAPY 12/18/2018 Jaime KAUR MD Ot E78 .2 MIXED HYPERLIPIDEMIA 12/18/2018 Jaime KAUR MD Ot I10 ESSENTIAL (PRIMARY) HYPERTENSION 12/18/2018 Jaime KAUR MD Ot I48 .0 PAROXYSMAL ATRIAL FIBRILLATION 12/18/2018 Jaime KAUR MD Ot I48 .3 TYPICAL ATRIAL FLUTTER 12/18/2018 Jaime KAUR MD Ot Z79.01 SHELTER (CURRENT) USE OF ANTICOAGULANT 12/18/2018 Jaime KAUR MD Ot Z79.899 OTHER DIRECTOR OF EDUCATION AND TRAINING (CURRENT) DRUG THERAPY 02/12/2020 GIL FERGUSON MD Ot I48.0 PAROXYSMAL ATRIAL FIBRILLATION 02/12/2020 GIL FERGUSON MD Ot I48.4 ATYPICAL ATRIAL FLUTTER 02/12/2020 GIL FERGUSON MD Ot K21.9 GASTRO-ESOPHAGEAL REFLUX DISEASE WITHOUT 02/12/2020 GIL FERGUSON MD Ot R00.0 TACHYCARDIA, UNSPECIFIED 02/12/2020 GIL FERGUSON MD Ot Z79.01 DIRECTOR OF EDUCATION AND TRAINING (CURRENT) USE OF ANTICOAGULANT 02/12/2020 GIL FERGUSON MD Ot Z88.0 ALLERGY STATUS TO PENICILLIN 02/12/2020 GIL FERGUSON MD Ot Z88.5 ALLERGY STATUS TO NARCOTIC AGENT STATUS 02/12/2020 GIL FERGUSON MD Ot Z88.8 ALLERGY STATUS TO OTH DRUG/MEDS/BIOL SUB 02/12/2020 GIL FERGUSON MD Ot Z90.49 ACQUIRED ABSENCE OF OTHER SPECIFIED PART 02/17/2020 GIL FERGUSON MD Ot I48.0 PAROXYSMAL ATRIAL FIBRILLATION 02/17/2020 GIL FERGUSON MD Ot I48.4 ATYPICAL ATRIAL FLUTTER 02/17/2020 GIL FERGUSON MD Ot K21.9 GASTRO-ESOPHAGEAL REFLUX DISEASE WITHOUT 02/17/2020 GIL FERGUSON MD Ot R00.0 TACHYCARDIA, UNSPECIFIED 02/17/2020 GIL FERGUSON MD Ot Z79.01 DIRECTOR OF EDUCATION AND TRAINING (CURRENT) USE OF ANTICOAGULANT 02/17/2020 GIL FERGUSON MD Ot Z88.0 ALLERGY STATUS TO PENICILLIN 02/17/2020 GIL FERGUSON MD Ot Z88.5 ALLERGY STATUS TO NARCOTIC AGENT STATUS 02/17/2020 GIL FERGUSON MD Ot Z88.8 ALLERGY STATUS TO OTH DRUG/MEDS/BIOL SUB 02/17/2020 GIL FERGUSON MD Ot Z90.49 ACQUIRED ABSENCE OF OTHER SPECIFIED PART 02/18/2020 MATEO MUSA DO Ot V76.12 OTH SCREEN MAMMO-MALIGN NEOPLASM OF RJ 02/18/2020 MATEO MUSA DO Ot 486 PNEUMONIA, ORGANISM NOS 02/18/2020 MATEO MUSA DO Ot V76.12 OTH SCREEN MAMMO-MALIGN NEOPLASM OF RJ 02/18/2020 AMELIA MUSA TRAIN SYSTEM OPERATOR Ot R05 COUGH 02/18/2020 [facility], ALI F[facility] CCDS Ot E78.2 MIXED HYPERLIPIDEMIA 02/18/2020 [facility], ALI [facility] CCDS Ot I10 ESSENTIAL (PRIMARY) HYPERTENSION 02/18/2020 [facility], ALI [facility] CCDS Ot I48.0 PAROXYSMAL ATRIAL FIBRILLATION 02/18/2020 [facility], [facility]I [facility] CCDS Ot R53.83 OTHER FATIGUE 02/18/2020 [facility], [facility]I [facility] CCDS Ot R94.31 ABNORMAL ELECTROCARDIOGRAM [ECG] [EKG] 02/18/2020 [facility], ALI [facility] CCDS Ot Z86.73 PRSNL HX OF TIA (TIA), AND CEREB INFRC W 02/18/2020 VICKY MARTINEZ, KRYS Sandoval Ot I1 0 ESSENTIAL (PRIMARY) HYPERTENSION 02/18/2020 VICKY MARTINEZ, KRYS Sandoval Ot I48.91 UNSPECIFIED ATRIAL FIBRILLATION 02/18/2020 KRYS PERRY MD Ot K20.9 ESOPHAGITIS, UNSPECIFIED 02/18/2020 KRYS PERRY MD Ot K22.2 ESOPHAGEAL OBSTRUCTION 02/18/2020 KRYS PERRY MD Ot K25.9 GASTRIC ULCER, UNSP ACUTE OR CHRONIC, 02/18/2020 VICKY MARTINEZ, KRYS Sandoval Ot Z79.899 OTHER SHELTER (CURRENT) DRUG THERAPY 02/18/2020 KRYS PERRY MD Ot Z88.0 ALLERGY STATUS TO PENICILLIN 02/18/2020 KRYS PERRY MD Ot Z88.1 ALLERGY STATUS TO OTHER ANTIBIOTIC AGENT 02/18/2020 [facility], EUGENE FACP CCDS Ot I73.9 PERIPHERAL VASCULAR DISEASE, UNSPECIFIED 02/18/2020 [facility], EUGENE FACP CCDS Ot I48.91 UNSPECIFIED ATRIAL FIBRILLATION 05/06/2020 MATEO MUSA DO Ot 486 PNEUMONIA, ORGANISM NOS 05/06/2020 MATEO MUSA DO Ot V76.12 OTH SCREEN MAMMO-MALIGN NEOPLASM OF RJ 05/06/2020 AMELIA MUSA TRAIN SYSTEM OPERATOR Ot R05 COUGH 05/06/2020 [facility], ALI FACP CCDS Ot E78.2 MIXED HYPERLIPIDEMIA 05/06/2020 [facility], ALI FACP CCDS Ot I10 ESSENTIAL (PRIMARY) HYPERTENSION 05/06/2020 [facility], ALI FACP CCDS Ot I48.0 PAROXYSMAL ATRIAL FIBRILLATION 05/06/2020 [facility] ANN, ALI FACP CCDS Ot R53.83 OTHER FATIGUE 05/06/2020 [facility], ALI FACP CCDS Ot R94.31 ABNORMAL ELECTROCARDIOGRAM [ECG] [EKG] 05/06/2020 [facility], ALI FACP CCDS Ot Z86.73 PRSNL HX OF TIA (TIA), AND CEREB INFRC W 05/06/2020 VICKY MARTINEZ, KRYS Sandoval Ot I1 0 ESSENTIAL (PRIMARY) HYPERTENSION 05/06/2020 VICKY MARTINEZ, KRYS Sandoval Ot I48.91 UNSPECIFIED ATRIAL FIBRILLATION 05/06/2020 KRYS PERRY MD Ot K20.9 ESOPHAGITIS, UNSPECIFIED 05/06/2020 KRYS PERRY MD Ot K22.2 ESOPHAGEAL OBSTRUCTION 05/06/2020 KRYS PERRY MD, Ot K25.9 GASTRIC ULCER, UNSP ACUTE OR CHRONIC, 05/06/2020 VICKY MARTINEZ, KRYS Sandoval Ot Z79.899 OTHER DIRECTOR OF EDUCATION AND TRAINING (CURRENT) DRUG THERAPY 05/06/2020 KRYS PERRY MD Ot Z88.0 ALLERGY STATUS TO PENICILLIN 05/06/2020 KRYS PERRY MD Ot Z88.1 ALLERGY STATUS TO OTHER ANTIBIOTIC AGENT 05/06/2020 AVI ANN, EUGENE ANNP CCDS Ot I73.9 PERIPHERAL VASCULAR DISEASE, UNSPECIFIED 05/06/2020 AVI ANN, EUGENE ANNP CCDS Ot I48.91 UNSPECIFIED ATRIAL FIBRILLATION 05/10/2020 MATEO MUSA DO Ot 486 PNEUMONIA, ORGANISM NOS 05/10/2020 MATEO MUSA DO Ot V76.12 OTH SCREEN MAMMO-MALIGN NEOPLASM OF RJ 05/10/2020 AMELIA MUSA TRAIN SYSTEM OPERATOR Ot R05 COUGH 05/10/2020 [facility], EUGENE FACP CCDS Ot E78.2 MIXED HYPERLIPIDEMIA 05/10/2020 AVI ANN, ALI FACP CCDS Ot I10 ESSENTIAL (PRIMARY) HYPERTENSION 05/10/2020 [facility], ALI FACP CCDS Ot I48.0 PAROXYSMAL ATRIAL FIBRILLATION 05/10/2020 AVI MARTINEZ FACC, EUGENE FACP CCDS Ot R53.83 OTHER FATIGUE 05/10/2020 AVI MARTINEZ FACC, EUGENE FACP CCDS Ot R94.31 ABNORMAL ELECTROCARDIOGRAM [ECG] [EKG] 05/10/2020 AVI MARTINEZ FACC, ALI FACP CCDS Ot Z86.73 PRSNL HX OF TIA (TIA), AND CEREB INFRC W 05/10/2020 KRYS PERRY MD Ot I1 0 ESSENTIAL (PRIMARY) HYPERTENSION 05/10/2020 VICKY MARTINEZ, KRYS Sandoval Ot I48.91 UNSPECIFIED ATRIAL FIBRILLATION 05/10/2020 VICKY MARTINEZ, KRYS Sandoval Ot K20.9 ESOPHAGITIS, UNSPECIFIED 05/10/2020 VICKY MARTINEZ, KRYS Sandoval Ot K22.2 ESOPHAGEAL OBSTRUCTION 05/10/2020 VICKY MARTINEZ, KRYS Sandoval Ot K25.9 GASTRIC ULCER, UNSP ACUTE OR CHRONIC, 05/10/2020 VICKY MARTINEZ, KRYS Sandoval Ot Z79.899 OTHER DIRECTOR OF EDUCATION AND TRAINING (CURRENT) DRUG THERAPY 05/10/2020 VICKY MARTINEZ, KRYS Sandoval Ot Z88.0 ALLERGY STATUS TO PENICILLIN 05/10/2020 VICKY MARTINEZ, KRYS Sandoval Ot Z88.1 ALLERGY STATUS TO OTHER ANTIBIOTIC AGENT 05/10/2020 AVI MARTINEZ FACC, EUGENE FACP CCDS Ot I73.9 PERIPHERAL VASCULAR DISEASE, UNSPECIFIED 05/10/2020 AVI MARTINEZ FACC, EUGENE FACP CCDS Ot I48.91 UNSPECIFIED ATRIAL FIBRILLATION 05/11/2020 MATEO MUSA DO Ot 486 PNEUMONIA, ORGANISM NOS 05/11/2020 MATEO MUSA DO Ot V76.12 OTH SCREEN MAMMO-MALIGN NEOPLASM OF RJ 05/11/2020 AMELIA MUSA L TRAIN SYSTEM OPERATOR Ot R05 COUGH 05/11/2020 AVI MARTINEZ FAC, EUGENE FACP CCDS Ot E78.2 MIXED HYPERLIPIDEMIA 05/11/2020 AVI MARTINEZ FACC, ALI FACP CCDS Ot I10 ESSENTIAL (PRIMARY) HYPERTENSION 05/11/2020 AVI MARTINEZ FACC, ALI FACP CCDS Ot I48.0 PAROXYSMAL ATRIAL FIBRILLATION 05/11/2020 AVI MARTINEZ FACC, ALI FACP CCDS Ot R53.83 OTHER FATIGUE 05/11/2020 AVI MARTINEZ FACC, ALI FACP CCDS Ot R94.31 ABNORMAL ELECTROCARDIOGRAM [ECG] [EKG] 05/11/2020 [facility], ALI FACP CCDS Ot Z86.73 PRSNL HX OF TIA (TIA), AND CEREB INFRC W 05/11/2020 KRYS PERRY MD Ot I1 0 ESSENTIAL (PRIMARY) HYPERTENSION 05/11/2020 KRYS PERRY MD Ot I48.91 UNSPECIFIED ATRIAL FIBRILLATION 05/11/2020 KRYS PERRY MD Ot K20.9 ESOPHAGITIS, UNSPECIFIED 05/11/2020 KRYS PERRY MD Ot K22.2 ESOPHAGEAL OBSTRUCTION 05/11/2020 KRYS PERRY MD, Ot K25.9 GASTRIC ULCER, UNSP ACUTE OR CHRONIC, 05/11/2020 KRYS PERRY MD Ot Z79.899 OTHER DIRECTOR OF EDUCATION AND TRAINING (CURRENT) DRUG THERAPY 05/11/2020 KRYS PERRY MD Ot Z88.0 ALLERGY STATUS TO PENICILLIN 05/11/2020 KRYS PERRY MD Ot Z88.1 ALLERGY STATUS TO OTHER ANTIBIOTIC AGENT 05/11/2020 [facility], ALI FACP CCDS Ot I73.9 PERIPHERAL VASCULAR DISEASE, UNSPECIFIED 05/11/2020 [facility], EUGENE FACP CCDS Ot I48.91 UNSPECIFIED ATRIAL FIBRILLATION 05/11/2020 MATEO MUSA DO Ot 486 PNEUMONIA, ORGANISM NOS 05/11/2020 MATEO MUSA DO Ot V76.12 OTH SCREEN MAMMO-MALIGN NEOPLASM OF RJ 05/11/2020 AMELIA MUSA TRAIN SYSTEM OPERATOR Ot R05 COUGH 05/11/2020 [facility], ALI FACP CCDS Ot E78.2 MIXED HYPERLIPIDEMIA 05/11/2020 [facility], ALI FACP CCDS Ot I10 ESSENTIAL (PRIMARY) HYPERTENSION 05/11/2020 [facility], ALI FACP CCDS Ot I48.0 PAROXYSMAL ATRIAL FIBRILLATION 05/11/2020 [facility], ALI FACP CCDS Ot R53.83 OTHER FATIGUE 05/11/2020 [facility], ALI FACP CCDS Ot R94.31 ABNORMAL ELECTROCARDIOGRAM [ECG] [EKG] 05/11/2020 [facility], ALI FACP CCDS Ot Z86.73 PRSNL HX OF TIA (TIA), AND CEREB INFRC W 05/11/2020 PERRY MD, KRYS M Ot I1 0 ESSENTIAL (PRIMARY) HYPERTENSION 05/11/2020 KRYS PERRY MD Ot I48.91 UNSPECIFIED ATRIAL FIBRILLATION 05/11/2020 KRYS PERRY MD Ot K20.9 ESOPHAGITIS, UNSPECIFIED 05/11/2020 KRYS PERRY MD Ot K22.2 ESOPHAGEAL OBSTRUCTION 05/11/2020 KRYS PERRY MD Ot K25.9 GASTRIC ULCER, UNSP ACUTE OR CHRONIC, 05/11/2020 KRYS PERRY MD Ot Z79.899 OTHER SHELTER (CURRENT) DRUG THERAPY 05/11/2020 KRYS PERRY MD Ot Z88.0 ALLERGY STATUS TO PENICILLIN 05/11/2020 KRYS PERRY MD Ot Z88.1 ALLERGY STATUS TO OTHER ANTIBIOTIC AGENT 05/11/2020 AVI MARTINEZ FAC, ALI FACP CCDS Ot I73.9 PERIPHERAL VASCULAR DISEASE, UNSPECIFIED 05/11/2020 AVI MARTINEZ FACC, ALI FACP CCDS Ot I48.91 UNSPECIFIED ATRIAL FIBRILLATION 05/11/2020 MATEO MUSA DO Ot 486 PNEUMONIA, ORGANISM NOS 05/11/2020 MATEO MUSA DO Ot V76.12 OTH SCREEN MAMMO-MALIGN NEOPLASM OF RJ 05/11/2020 AMELIA MUSA TRAIN SYSTEM OPERATOR Ot R05 COUGH 05/11/2020 AVI [facility]ARTINEZ FAC, ALI FACP CCDS Ot E78.2 MIXED HYPERLIPIDEMIA 05/11/2020 AVI MARTINEZ FACC, ALI FACP CCDS Ot I10 ESSENTIAL (PRIMARY) HYPERTENSION 05/11/2020 AVI MARTINEZ FACC, ALI FACP CCDS Ot I48.0 PAROXYSMAL ATRIAL FIBRILLATION 05/11/2020 AVI MARTINEZ FAC, ALI FACP CCDS Ot R53.83 OTHER FATIGUE 05/11/2020 AVI MARTINEZ FACC, ALI FACP CCDS Ot R94.31 ABNORMAL ELECTROCARDIOGRAM [ECG] [EKG] 05/11/2020 AVI MARTINEZ FACC, ALI FACP CCDS Ot Z86.73 PRSNL HX OF TIA (TIA), AND CEREB INFRC W 05/11/2020 KRYS PERRY MD Ot I1 0 ESSENTIAL (PRIMARY) HYPERTENSION 05/11/2020 KRYS PERRY MD Ot I48.91 UNSPECIFIED ATRIAL FIBRILLATION 05/11/2020 KRYS PERRY MD Ot K20.9 ESOPHAGITIS, UNSPECIFIED 05/11/2020 VICKY MARTINEZ, KRYS Sandoval Ot K22.2 ESOPHAGEAL OBSTRUCTION 05/11/2020 VICKY MARTINEZ, KRYS Sandoval Ot K25.9 GASTRIC ULCER, UNSP ACUTE OR CHRONIC, 05/11/2020 VICKY MARTINEZ, KRYS Sandoval Ot Z79.899 OTHER SHELTER (CURRENT) DRUG THERAPY 05/11/2020 KRYS PERRY MD Ot Z88.0 ALLERGY STATUS TO PENICILLIN 05/11/2020 VICKY MARTINEZ, KRYS Sandoval Ot Z88.1 ALLERGY STATUS TO OTHER ANTIBIOTIC AGENT 05/11/2020 [facility], ALI FACP CCDS Ot I73.9 PERIPHERAL VASCULAR DISEASE, UNSPECIFIED 05/11/2020 [facility], ALI FACP CCDS Ot I48.91 UNSPECIFIED ATRIAL FIBRILLATION 05/14/2020 [facility], ALI FACP CCDS Ot E78.5 HYPERLIPIDEMIA, UNSPECIFIED 05/14/2020 [facility], ALI FACP CCDS Ot I10 ESSENTIAL (PRIMARY) HYPERTENSION 05/14/2020 [facility], ALI FACP CCDS Ot I48.91 UNSPECIFIED ATRIAL FIBRILLATION 05/14/2020 [facility], ALI FACP CCDS Ot 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 05/14/2020 [facility], ALI FACP CCDS Ot R53.83 OTHER FATIGUE 05/14/2020 [facility], ALI FACP CCDS Ot Z86.73 PRSNL HX OF TIA (TIA), AND CEREB INFRC W 05/17/2020 [facility], ALI FACP CCDS Ot E66.9 OBESITY, UNSPECIFIED 05/17/2020 [facility], ALI FACP CCDS Ot E78.2 MIXED HYPERLIPIDEMIA 05/17/2020 [facility], ALI FACP CCDS Ot I10 ESSENTIAL (PRIMARY) HYPERTENSION 05/17/2020 [facility], ALI FACP CCDS Ot I48.91 UNSPECIFIED ATRIAL FIBRILLATION 05/17/2020 [facility], ALI FACP CCDS Ot I65.23 OCCLUSION AND STENOSIS OF BILATERAL [place] 05/17/2020 [facility], ALI FACP CCDS Ot Z86.73 PRSNL HX OF TIA (TIA), AND CEREB INFRC W 05/18/2020 DIMPLE RUBIO MATEO Scott Ot 486 PNEUMONIA, ORGANISM NOS 05/18/2020 DIMPLE RUBIO MATEO Scott Ot V76.12 OTH SCREEN MAMMO-MALIGN NEOPLASM OF RJ 05/18/2020 DIMPLE AMELIA Ledezma TRAIN SYSTEM OPERATOR Ot R05 COUGH 05/18/2020 [facility], EUGENE FACP CCDS Ot E78.2 MIXED HYPERLIPIDEMIA 05/18/2020 [facility], ALI FACP CCDS Ot I10 ESSENTIAL (PRIMARY) HYPERTENSION 05/18/2020 [facility], ALI FACP CCDS Ot I48.0 PAROXYSMAL ATRIAL FIBRILLATION 05/18/2020 [facility], ALI FACP CCDS Ot R53.83 OTHER FATIGUE 05/18/2020 AVI ANN, EUGENE FACP CCDS Ot R94.31 ABNORMAL ELECTROCARDIOGRAM [ECG] [EKG] 05/18/2020 AVI ANN, EUGENE ANNP CCDS Ot Z86.73 PRSNL HX OF TIA (TIA), AND CEREB INFRC W 05/18/2020 KRYS PERRY MD Ot I1 0 ESSENTIAL (PRIMARY) HYPERTENSION 05/18/2020 KRYS PERRY MD Ot I48.91 UNSPECIFIED ATRIAL FIBRILLATION 05/18/2020 KRYS PERRY MD Ot K20.9 ESOPHAGITIS, UNSPECIFIED 05/18/2020 VICKY MARTINEZ, KRYS Sandoval Ot K22.2 ESOPHAGEAL OBSTRUCTION 05/18/2020 KRYS PERRY MD Ot K25.9 GASTRIC ULCER, UNSP ACUTE OR CHRONIC, 05/18/2020 KRYS PERRY MD Ot Z79.899 OTHER SHELTER (CURRENT) DRUG THERAPY 05/18/2020 VICKY MARTINEZ, KRYS Sandoval Ot Z88.0 ALLERGY STATUS TO PENICILLIN 05/18/2020 VICKY MARTINEZ, KRYS Sandoval Ot Z88.1 ALLERGY STATUS TO OTHER ANTIBIOTIC AGENT 05/18/2020 [facility], EUGENE FACP CCDS Ot I73.9 PERIPHERAL VASCULAR DISEASE, UNSPECIFIED 05/18/2020 AVI ANN, EUGENE FACP CCDS Ot I48.91 UNSPECIFIED ATRIAL FIBRILLATION 05/18/2020 [facility], ALI FACP CCDS Ot E66.9 OBESITY, UNSPECIFIED 05/18/2020 AVI ANN, ALI FACP CCDS Ot E78.2 MIXED HYPERLIPIDEMIA 05/18/2020 [facility], ALI FACP CCDS Ot I10 ESSENTIAL (PRIMARY) HYPERTENSION 05/18/2020 [facility], ALI FACP CCDS Ot I48.91 UNSPECIFIED ATRIAL FIBRILLATION 05/18/2020 [facility], ALI FACP CCDS Ot I65.23 OCCLUSION AND STENOSIS OF BILATERAL [place] 05/18/2020 [facility], ALI FACP CCDS Ot Z86.73 PRSNL HX OF TIA (TIA), AND CEREB INFRC W 05/18/2020 [facility], ALI FACP CCDS Ot E78.5 HYPERLIPIDEMIA, UNSPECIFIED 05/18/2020 [facility], ALI FACP CCDS Ot I10 ESSENTIAL (PRIMARY) HYPERTENSION 05/18/2020 [facility], ALI FACP CCDS Ot I48.91 UNSPECIFIED ATRIAL FIBRILLATION 05/18/2020 [facility], ALI FACP CCDS Ot 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 05/18/2020 [facility], ALI FACP CCDS Ot R53.83 OTHER FATIGUE 05/18/2020 [facility], ALI FACP CCDS Ot Z86.73 PRSNL HX OF TIA (TIA), AND CEREB INFRC W 05/27/2020 [facility], ALI FACP CCDS Ot E66.9 OBESITY, UNSPECIFIED 05/27/2020 [facility], ALI FACP CCDS Ot E78.2 MIXED HYPERLIPIDEMIA 05/27/2020 [facility], ALI FACP CCDS Ot I10 ESSENTIAL (PRIMARY) HYPERTENSION 05/27/2020 [facility], ALI FACP CCDS Ot I48.91 UNSPECIFIED ATRIAL FIBRILLATION 05/27/2020 [facility], ALI FACP CCDS Ot I65.23 OCCLUSION AND STENOSIS OF BILATERAL [place] 05/27/2020 [facility], ALI FACP CCDS Ot Z86.73 PRSNL HX OF TIA (TIA), AND CEREB INFRC W 06/10/2020 [facility], ALI FACP CCDS Ot E78.5 HYPERLIPIDEMIA, UNSPECIFIED 06/10/2020 [facility], ALI FACP CCDS Ot I10 ESSENTIAL (PRIMARY) HYPERTENSION 06/10/2020 [facility], ALI FACP CCDS Ot I48.91 UNSPECIFIED ATRIAL FIBRILLATION 06/10/2020 AVI MARTINEZ FACC, EUGENE ANNP CCDS Ot 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 06/10/2020 AVI MARTINEZ FACC, EUGENE ANNP CCDS Ot R53.83 OTHER FATIGUE 06/10/2020 [facility], [facility] Z86.73 PRSNL HX OF TIA (TIA), AND CEREB INFRC W Procedures Code Description Performed By Per kristan On [id number] IN SERT OF MONITOR DEV INTO CHEST SUBCU/F 09/14/2016 Results Test Result Range Complete blood count (CBC) with automate d white blood cell (WBC) differential - 09/13/16 13:34 Blood leukocytes automated count (number/volume) 7.6 10*3/uL 4.3-11.0 Blood erythrocytes automated count (number/volume) 5.45 10*6/uL 4.35-5.85 Venous blood hemoglobin measurement (mass/volume) 15.8 g/dL 11.5-16.0 Blood hematocrit (volume fraction) 47 % 35-52 Automated erythrocyte mean corpuscular volume 86 [ foz_us] 80-99 Automated erythrocyte mean corpuscular h emoglobin (mass per erythrocyte) 29 pg 25-34 Automated erythrocyte mean corpuscular h emoglobin concentration measurement (mass/volume) 34 g/dL 32-36 Automated erythrocyte distribution width ratio 13. 6 % 10.0- 14.5 Automated blood platelet count (count/volume) 240 10*3/uL [...] 10*3 1.0-4.0 Blood monocytes automated count (number/volume) 0. 8 10*3 0.0-1.0 Automated eosinophil count 0.2 10*3/uL 0 .0-0.3 Automated blood basophil count (count/volume) 0.0 10*3/uL 0.0-0.1 PT panel in platelet poor plasma by coag ulation assay - 09/13/16 13:34 Prothrombin time (PT) in platelet poor plasma by coagu lation assay 12.7 s 12.2-14.7 INR in platelet poor plasma or blood by coagulation as say 1.0 0.8-1.4 Activated partial thromboplastin time (a PTT) in platelet poor plasma bycoagulation assay - 09/13/16 13:34 Activated partial thromboplastin time (a PTT) in platelet poor plasma bycoagulation assay 28 s 24-35 Comprehensive metabolic panel - 09/13/16 13:34 Serum or plasma sodium measurement (moles/volume) 140 mmol/L 135-145 Serum or plasma potassium measurement (moles/volume) 4.0 mmol/L 3.6-5.0 Serum or plasma chloride measurement (moles/volume) 103 mmol/L 98-107 Carbon dioxide 30 mmol/L 21-32 Serum or plasma anion gap determination (moles/volume) 7 mmol/L 5-14 Serum or plasma urea nitrogen measurement (mass/volume ) 15 mg/dL 7-18 Serum or plasma creatinine measurement (mass/volume) 0.75 mg/dL 0.60-1.30 Serum or plasma urea nitrogen/creatinine mass ratio 20 NRG Serum or plasma creatinine measurement w ith calculation of estimated glomerular filtration rate > NRG Serum or plasma glucose measurement (mass/volume) 95 mg/dL 70-105 Serum or plasma calcium measurement (mass/volume) 9.7 mg/dL 8.5-10.1 Serum or plasma total bilirubin measurement (mass/volu me) 0.4 mg/dL 0.1-1.0 Serum or plasma alkaline phosphatase frank surement (enzymatic activity/volume) 66 U/L 40-136 Serum or plasma aspartate aminotransfera se measurement (enzymatic activity/volume) 18 U/L 5-34 Serum or plasma alanine aminotransferase measurement (enzymatic activity/volume) 15 U/L 0-55 Serum or plasma protein measurement (mass/volume) 6.6 g/dL 6.4-8.2 Serum or plasma albumin measurement (mass/volume) 3.9 g/dL 3.2-4.5 THYROID STIMULATING HORMONE - 09/13/16 1 3:34 THYROID STIMULATING HORMONE 2.42 u[iU]/mL 0.35-4.94 Serum or plasma troponin i.cardiac measu rement (mass/volume) - 09/13/16 13:34 Serum or plasma troponin i.cardiac measurement (mass/v olume) < ng/mL <0.30 Automated blood complete blood count (he mogram) panel - 09/14/16 03:32 Blood leukocytes automated count (number/volume) 7.3 10*3/uL 4.3-11.0 Blood erythrocytes automated count (number/volume) 4.91 10*6/uL 4.35-5.85 Venous blood hemoglobin measurement (mass/volume) 14.4 g/dL 11.5-16.0 Blood hematocrit (volume fraction) 42 % 35-52 Automated erythrocyte mean corpuscular volume 86 [ foz_us] 80-99 Automated erythrocyte mean corpuscular h emoglobin (mass per erythrocyte) 29 pg 25-34 Automated erythrocyte mean corpuscular h emoglobin concentration measurement (mass/volume) 34 g/dL 32-36 Automated erythrocyte distribution width ratio 13. 5 % 10.0- 14.5 Automated blood platelet count (count/volume) 233 10*3/uL 130-400 Automated blood platelet mean volume measurement 10.7 [foz_us] 7.4-10.4 Streptococcus pyogenes antigen detection - 04/08/17 14:00 Streptococcus pyogenes antigen detection NEGATIVE NEGATIVE Influenza virus A and B antigen detectio n - 04/08/17 14:00 FLU RESULT NEGATIVE FOR INFLUENZA A AND B ANTIGENS BY [facility] Bacterial throat culture - 04/08/17 14:0 0 Bacterial throat culture [facility] Complete blood count (CBC) with automate d white blood cell (WBC) differential - 04/08/17 14:13 Blood leukocytes automated count (number/volume) 12.6 10*3/uL 4.3-11.0 Blood erythrocytes automated count (number/volume) 5.35 10*6/uL 4.35-5.85 Venous blood hemoglobin measurement (mass/volume) 15.5 g/dL 11.5-16.0 Blood hematocrit (volume fraction) 46 % 35-52 Automated erythrocyte mean corpuscular volume 86 [ foz_us] 80-99 Automated erythrocyte mean corpuscular h emoglobin (mass per erythrocyte) 29 pg 25-34 Automated erythrocyte mean corpuscular h emoglobin concentration measurement (mass/volume) 34 g/dL 32-36 Automated erythrocyte distribution width ratio 14. 3 % 10.0- 14.5 Automated blood platelet count (count/volume) 225 10*3/uL [...] 10*3 1.0-4.0 Blood monocytes automated count (number/volume) 1. 2 10*3 0.0-1.0 Automated eosinophil count 0.1 10*3/uL 0 .0-0.3 Automated blood basophil count (count/volume) 0.0 10*3/uL 0.0-0.1 Comprehensive metabolic panel - 04/08/17 14:13 Serum or plasma sodium measurement (moles/volume) 136 mmol/L 135-145 Serum or plasma potassium measurement (moles/volume) 4.3 mmol/L 3.6-5.0 Serum or plasma chloride measurement (moles/volume) 100 mmol/L 98-107 Carbon dioxide 24 mmol/L 21-32 Serum or plasma anion gap determination (moles/volume) 12 mmol/L 5-14 Serum or plasma urea nitrogen measurement (mass/volume ) 12 mg/dL 7-18 Serum or plasma creatinine measurement (mass/volume) 0.84 mg/dL 0.60-1.30 Serum or plasma urea nitrogen/creatinine mass ratio 14 NRG Serum or plasma creatinine measurement w ith calculation of estimated glomerular filtration rate > NRG Serum or plasma glucose measurement (mass/volume) 98 mg/dL 70-105 Serum or plasma calcium measurement (mass/volume) 9.2 mg/dL 8.5-10.1 Serum or plasma total bilirubin measurement (mass/volu me) 0.6 mg/dL 0.1-1.0 Serum or plasma alkaline phosphatase frank surement (enzymatic activity/volume) 64 U/L 40-136 Serum or plasma aspartate aminotransfera se measurement (enzymatic activity/volume) 21 U/L 5-34 Serum or plasma alanine aminotransferase measurement (enzymatic activity/volume) 17 U/L 0-55 Serum or plasma protein measurement (mass/volume) 6.8 g/dL 6.4-8.2 Serum or plasma albumin measurement (mass/volume) 3.8 g/dL 3.2-4.5 Complete blood count (CBC) with automate d white blood cell (WBC) differential - 11/06/18 19:37 Blood leukocytes automated count (number/volume) 7.3 10*3/uL 4.3-11.0 Blood erythrocytes automated count (number/volume) 5.38 10*6/uL 4.35-5.85 Venous blood hemoglobin measurement (mass/volume) 15.4 g/dL 11.5-16.0 Blood hematocrit (volume fraction) 46 % 35-52 Automated erythrocyte mean corpuscular volume 85 [ foz_us] 80-99 Automated erythrocyte mean corpuscular h emoglobin (mass per erythrocyte) 29 pg 25-34 Automated erythrocyte mean corpuscular h emoglobin concentration measurement (mass/volume) 34 g/dL 32-36 Automated erythrocyte distribution width ratio 14. 2 % 10.0- 14.5 Automated blood platelet count (count/volume) 311 10*3/uL [...] 10*3 1.0-4.0 Blood monocytes automated count (number/volume) 0. 7 10*3 0.0-1.0 Automated eosinophil count 0.1 10*3/uL 0 .0-0.3 Automated blood basophil count (count/volume) 0.0 10*3/uL 0.0-0.1 PT panel in platelet poor plasma by coag ulation assay - 11/06/18 19:37 Prothrombin time (PT) in platelet poor plasma by coagu lation assay 14.2 s 12.2-14.7 INR in platelet poor plasma or blood by coagulation as say 1.1 0.8-1.4 Activated partial thromboplastin time (a PTT) in platelet poor plasma bycoagulation assay - 11/06/18 19:37 Activated partial thromboplastin time (a PTT) in platelet poor plasma bycoagulation assay 34 s 24-35 Comprehensive metabolic panel - 11/06/18 19:37 Serum or plasma sodium measurement (moles/volume) 142 mmol/L 135-145 Serum or plasma potassium measurement (moles/volume) 3.8 mmol/L 3.6-5.0 Serum or plasma chloride measurement (moles/volume) 104 mmol/L 98-107 Carbon dioxide 25 mmol/L 21-32 Serum or plasma anion gap determination (moles/volume) 13 mmol/L 5-14 Serum or plasma urea nitrogen measurement (mass/volume ) 13 mg/dL 7-18 Serum or plasma creatinine measurement (mass/volume) 0.80 mg/dL 0.60-1.30 Serum or plasma urea nitrogen/creatinine mass ratio 16 NRG Serum or plasma creatinine measurement w ith calculation of estimated glomerular filtration rate > NRG Serum or plasma glucose measurement (mass/volume) 120 mg/dL 70-105 Serum or plasma calcium measurement (mass/volume) 10.0 mg/dL 8.5-10.1 Serum or plasma total bilirubin measurement (mass/volu me) 0.3 mg/dL 0.1-1.0 Serum or plasma alkaline phosphatase frank surement (enzymatic activity/volume) 88 U/L 40-136 Serum or plasma aspartate aminotransfera se measurement (enzymatic activity/volume) 21 U/L 5-34 Serum or plasma alanine aminotransferase measurement (enzymatic activity/volume) 16 U/L 0-55 Serum or plasma protein measurement (mass/volume) 7.4 g/dL 6.4-8.2 Serum or plasma albumin measurement (mass/volume) 4.1 g/dL 3.2-4.5 CALCIUM CORRECTED 9.9 mg/dL 8.5-10.1 Magnesium - 11/06/18 19:37 Magnesium 2.3 mg/dL 1.8-2.4 Serum or plasma troponin i.cardiac measu rement (mass/volume) - 11/06/18 19:37 Serum or plasma troponin i.cardiac measurement (mass/v olume) < ng/mL <0.30 Myoglobin, serum - 11/06/18 19:37 Myoglobin, serum 44.1 ng/mL 10.0-92.0 Serum or plasma thyrotropin measurement by detection limit <=0.05 miu/l (units/volume) - 11/06/18 19:37 Serum or plasma thyrotropin measurement by detection limit <=0.05 miu/l (units/volume) 3.03 u[iU]/mL 0.35-4.94 Methicillin resistant Staphylococcus aur eus (MRSA) screening culture - 11/06/18 23:05 Methicillin resistant Staphylococcus aureus (MRSA) scr eening culture NEG NRG Complete blood count (CBC) with automate d white blood cell (WBC) differential - 11/07/18 03:46 Blood leukocytes automated count (number/volume) 7.8 10*3/uL 4.3-11.0 Blood erythrocytes automated count (number/volume) 4.77 10*6/uL 4.35-5.85 Venous blood hemoglobin measurement (mass/volume) 13.8 g/dL 11.5-16.0 Blood hematocrit (volume fraction) 41 % 35-52 Automated erythrocyte mean corpuscular volume 85 [ foz_us] 80-99 Automated erythrocyte mean corpuscular h emoglobin (mass per erythrocyte) 29 pg 25-34 Automated erythrocyte mean corpuscular h emoglobin concentration measurement (mass/volume) 34 g/dL 32-36 Automated erythrocyte distribution width ratio 14. 3 % 10.0- 14.5 Automated blood platelet count (count/volume) 251 10*3/uL [...] 10*3 1.0-4.0 Blood monocytes automated count (number/volume) 0. 9 10*3 0.0-1.0 Automated eosinophil count 0.2 10*3/uL 0 .0-0.3 Automated blood basophil count (count/volume) 0.0 10*3/uL 0.0-0.1 Whole blood basic metabolic panel - 10/26 02/10 03:46 Serum or plasma sodium measurement (moles/volume) 140 mmol/L 135-145 Serum or plasma potassium measurement (moles/volume) 3.6 mmol/L 3.6-5.0 Serum or plasma chloride measurement (moles/volume) 105 mmol/L 98-107 Carbon dioxide 23 mmol/L 21-32 Serum or plasma anion gap determination (moles/volume) 12 mmol/L 5-14 Serum or plasma urea nitrogen measurement (mass/volume ) 11 mg/dL 7-18 Serum or plasma creatinine measurement (mass/volume) 0.72 mg/dL 0.60-1.30 Serum or plasma urea nitrogen/creatinine mass ratio 15 NRG Serum or plasma creatinine measurement w ith calculation of estimated glomerular filtration rate > NRG Serum or plasma glucose measurement (mass/volume) 100 mg/dL 70-105 Serum or plasma calcium measurement (mass/volume) 9.1 mg/dL 8.5-10.1 Serum or plasma phosphate measurement (m ass/volume) - 11/07/18 03:46 Serum or plasma phosphate measurement (mass/volume) 3.6 mg/dL 2.3-4.7 Magnesium - 11/07/18 03:46 Magnesium 1.9 mg/dL 1.8-2.4 Serum or plasma troponin i.cardiac measu rement (mass/volume) - 11/07/18 03:46 Serum or plasma troponin i.cardiac measurement (mass/v olume) < ng/mL <0.30 Lipid 1996 panel - 11/07/18 03:46 Serum or plasma triglyceride measurement (mass/volume) 144 mg/dL <150 Serum or plasma cholesterol measurement (mass/volume) 225 mg/dL < 200 Serum or plasma cholesterol in HDL measurement (mass/v olume) 53 mg/dL 40-60 Cholesterol in LDL [mass/volume] in serum or plasma by direct assay 160 mg/dL 1-129 Serum or plasma cholesterol in VLDL measurement (mass/ volume) 29 mg/dL 5-40 Gram stain microscopy - 11/18/18 12:30 Gram stain microscopy Many Gram positive cocci NRG Bacteria identification in wound by cult ure - 11/18/18 12:30 Bacteria identification in wound by culture [id number] NRG FREE TEXT EXTERNAL ID REPORTED 11/21/18 14:05 NRG QUANTITY OF GROWTH FEW NRG FREE TEXT ENTRY 2 SENSITIVITY REPORTED 11/22/18 11 :05 NRG RML Sensitivity Panel - 11/18/18 12:30 Oxacillin susceptibility test by minimum inhibitory co ncentration <= NRG Clindamycin susceptibility test by minimum inhibitory concentration <= NRG Erythromycin susceptibility test by minimum inhibitory concentration <= NRG Vancomycin susceptibility test by minimum inhibitory c oncentration 1 NRG Levofloxacin susceptibility test by minimum inhibitory concentration <= NRG Rifampin susceptibility test by minimum inhibitory con centration <= NRG Cefazolin susceptibility test by minimum inhibitory co ncentration <= NRG Linezolid susceptibility test by minimum inhibitory co ncentration <= NRG Moxifloxacin susceptibility test by minimum inhibitory concentration S NRG Minocycline susc WANDA <= NRG RML Sensitivity Panel - 11/18/18 12:30 Gentamicin susceptibility test by minimum inhibitory c oncentration <= NRG Trimethoprim/sulfamethoxazole susceptibi lity test by minimum inhibitoryconcentration S NRG Levofloxacin susceptibility test by minimum inhibitory concentration <= NRG Ampicillin susceptibility test by minimum inhibitory c oncentration <= NRG Cefazolin susceptibility test by minimum inhibitory co ncentration 8 NRG Ceftriaxone susceptibility test by minimum inhibitory concentration <= NRG Piperacillin/tazobactam susceptibility t est by minimum inhibitory concentration S NRG Ciprofloxacin susceptibility test by minimum inhibitor y concentration <= NRG Amoxicillin and clavulanate potassium susc WANDA <= NRG Complete blood count (CBC) with automate d white blood cell (WBC) differential - 11/20/18 11:45 Blood leukocytes automated count (number/volume) 7.8 10*3/uL 4.3-11.0 Blood erythrocytes automated count (number/volume) 4.99 10*6/uL 4.35-5.85 Venous blood hemoglobin measurement (mass/volume) 14.2 g/dL 11.5-16.0 Blood hematocrit (volume fraction) 43 % 35-52 Automated erythrocyte mean corpuscular volume 85 [ foz_us] 80-99 Automated erythrocyte mean corpuscular h emoglobin (mass per erythrocyte) 29 pg 25-34 Automated erythrocyte mean corpuscular h emoglobin concentration measurement (mass/volume) 33 g/dL 32-36 Automated erythrocyte distribution width ratio 14. 3 % 10.0- 14.5 Automated blood platelet count (count/volume) 293 10*3/uL [...] 10*3 1.0-4.0 Blood monocytes automated count (number/volume) 0. 6 10*3 0.0-1.0 Automated eosinophil count 0.1 10*3/uL 0 .0-0.3 Automated blood basophil count (count/volume) 0.0 10*3/uL 0.0-0.1 Whole blood basic metabolic panel - 10/27 05/13 11:45 Serum or plasma sodium measurement (moles/volume) 138 mmol/L 135-145 Serum or plasma potassium measurement (moles/volume) 4.1 mmol/L 3.6-5.0 Serum or plasma chloride measurement (moles/volume) 103 mmol/L 98-107 Carbon dioxide 25 mmol/L 21-32 Serum or plasma anion gap determination (moles/volume) 10 mmol/L 5-14 Serum or plasma urea nitrogen measurement (mass/volume ) 12 mg/dL 7-18 Serum or plasma creatinine measurement (mass/volume) 0.86 mg/dL 0.60-1.30 Serum or plasma urea nitrogen/creatinine mass ratio 14 NRG Serum or plasma creatinine measurement w ith calculation of estimated glomerular filtration rate > NRG Serum or plasma glucose measurement (mass/volume) 96 mg/dL 70-105 Serum or plasma calcium measurement (mass/volume) 9.4 mg/dL 8.5-10.1 Magnesium - 11/20/18 11:45 Magnesium 2.0 mg/dL 1.8-2.4 Automated blood complete blood count (he mogram) panel - 12/16/18 08:14 Blood leukocytes automated count (number/volume) 6.8 10*3/uL 4.3-11.0 Blood erythrocytes automated count (number/volume) 5.24 10*6/uL 4.35-5.85 Venous blood hemoglobin measurement (mass/volume) 14.8 g/dL 11.5-16.0 Blood hematocrit (volume fraction) 45 % 35-52 Automated erythrocyte mean corpuscular volume 86 [ foz_us] 80-99 Automated erythrocyte mean corpuscular h emoglobin (mass per erythrocyte) 28 pg 25-34 Automated erythrocyte mean corpuscular h emoglobin concentration measurement (mass/volume) 33 g/dL 32-36 Automated erythrocyte distribution width ratio 14. 0 % 10.0- 14.5 Automated blood platelet count (count/volume) 275 10*3/uL 130-400 Automated blood platelet mean volume measurement 10.1 [foz_us] 7.4-10.4 PT panel in platelet poor plasma by coag ulation assay - 12/16/18 08:14 Prothrombin time (PT) in platelet poor plasma by coagu lation assay 12.5 s 12.2-14.7 INR in platelet poor plasma or blood by coagulation as say 0.9 0.8-1.4 Activated partial thromboplastin time (a PTT) in platelet poor plasma bycoagulation assay - 12/16/18 08:14 Activated partial thromboplastin time (a PTT) in platelet poor plasma bycoagulation assay 30 s 24-35 Comprehensive metabolic panel - 12/16/18 08:14 Serum or plasma sodium measurement (moles/volume) 139 mmol/L 135-145 Serum or plasma potassium measurement (moles/volume) 4.1 mmol/L 3.6-5.0 Serum or plasma chloride measurement (moles/volume) 103 mmol/L 98-107 Carbon dioxide 27 mmol/L 21-32 Serum or plasma anion gap determination (moles/volume) 9 mmol/L 5-14 Serum or plasma urea nitrogen measurement (mass/volume ) 15 mg/dL 7-18 Serum or plasma creatinine measurement (mass/volume) 0.84 mg/dL 0.60-1.30 Serum or plasma urea nitrogen/creatinine mass ratio 18 NRG Serum or plasma creatinine measurement w ith calculation of estimated glomerular filtration rate > NRG Serum or plasma glucose measurement (mass/volume) 89 mg/dL 70-105 Serum or plasma calcium measurement (mass/volume) 9.8 mg/dL 8.5-10.1 Serum or plasma total bilirubin measurement (mass/volu me) 0.4 mg/dL 0.1-1.0 Serum or plasma alkaline phosphatase frank surement (enzymatic activity/volume) 70 U/L 40-136 Serum or plasma aspartate aminotransfera se measurement (enzymatic activity/volume) 18 U/L 5-34 Serum or plasma alanine aminotransferase measurement (enzymatic activity/volume) 12 U/L 0-55 Serum or plasma protein measurement (mass/volume) 7.1 g/dL 6.4-8.2 Serum or plasma albumin measurement (mass/volume) 4.0 g/dL 3.2-4.5 CALCIUM CORRECTED 9.8 mg/dL 8.5-10.1 Methicillin resistant Staphylococcus aur eus (MRSA) screening culture - 12/16/18 08:14 Methicillin resistant Staphylococcus aureus (MRSA) scr eening culture NEG NRG Automated blood complete blood count (he mogram) panel - 12/17/18 03:40 Blood leukocytes automated count (number/volume) 7.4 10*3/uL 4.3-11.0 Blood erythrocytes automated count (number/volume) 4.34 10*6/uL 4.35-5.85 Venous blood hemoglobin measurement (mass/volume) 12.5 g/dL 11.5-16.0 Blood hematocrit (volume fraction) 38 % 35-52 Automated erythrocyte mean corpuscular volume 87 [ foz_us] 80-99 Automated erythrocyte mean corpuscular h emoglobin (mass per erythrocyte) 29 pg 25-34 Automated erythrocyte mean corpuscular h emoglobin concentration measurement (mass/volume) 33 g/dL 32-36 Automated erythrocyte distribution width ratio 14. 5 % 10.0- 14.5 Automated blood platelet count (count/volume) 250 10*3/uL 130-400 Automated blood platelet mean volume measurement 10.0 [foz_us] 7.4-10.4 Whole blood basic metabolic panel - 11/27 01/14 03:40 Serum or plasma sodium measurement (moles/volume) 140 mmol/L 135-145 Serum or plasma potassium measurement (moles/volume) 4.0 mmol/L 3.6-5.0 Serum or plasma chloride measurement (moles/volume) 108 mmol/L 98-107 Carbon dioxide 23 mmol/L 21-32 Serum or plasma anion gap determination (moles/volume) 9 mmol/L 5-14 Serum or plasma urea nitrogen measurement (mass/volume ) 13 mg/dL 7-18 Serum or plasma creatinine measurement (mass/volume) 0.72 mg/dL 0.60-1.30 Serum or plasma urea nitrogen/creatinine mass ratio 18 NRG Serum or plasma creatinine measurement w ith calculation of estimated glomerular filtration rate > NRG Serum or plasma glucose measurement (mass/volume) 104 mg/dL 70-105 Serum or plasma calcium measurement (mass/volume) 8.1 mg/dL 8.5-10.1 Complete blood count (CBC) with automate d white blood cell (WBC) differential - 02/12/20 21:00 Blood leukocytes automated count (number/volume) 8.7 10*3/uL 4.3-11.0 Blood erythrocytes automated count (number/volume) 5.56 10*6/uL 4.35-5.85 Venous blood hemoglobin measurement (mass/volume) 15.6 g/dL 11.5-16.0 Blood hematocrit (volume fraction) 47 % 35-52 Automated erythrocyte mean corpuscular volume 84 [ foz_us] 80-99 Automated erythrocyte mean corpuscular h emoglobin (mass per erythrocyte) 28 pg 25-34 Automated erythrocyte mean corpuscular h emoglobin concentration measurement (mass/volume) 33 g/dL 32-36 Automated erythrocyte distribution width ratio 14. 5 % 10.0- 14.5 Automated blood platelet count (count/volume) 323 10*3/uL 130-400 Automated blood platelet mean volume measurement 10.5 [foz_us] 7.4-10.4 Automated blood neutrophils/100 leukocytes 64 % 42-75 Automated blood lymphocytes/100 leukocytes 26 % 12-44 Blood monocytes/100 leukocytes 9 % 0-12 Automated blood eosinophils/100 leukocytes 1 % 0-10 Automated blood basophils/100 leukocytes 0 % 0-10 Blood neutrophils automated count (number/volume) 5.5 10*3 1.8-7.8 Blood lymphocytes automated count (number/volume) 2.2 10*3 1.0-4.0 Blood monocytes automated count (number/volume) 0. 8 10*3 0.0-1.0 Automated eosinophil count 0.1 10*3/uL 0 .0-0.3 Automated blood basophil count (count/volume) 0.0 10*3/uL 0.0-0.1 Comprehensive metabolic panel - 02/12/20 21:00 Serum or plasma sodium measurement (moles/volume) 141 mmol/L 135-145 Serum or plasma potassium measurement (moles/volume) 3.6 mmol/L 3.6-5.0 Serum or plasma chloride measurement (moles/volume) 104 mmol/L 98-107 Carbon dioxide 24 mmol/L 21-32 Serum or plasma anion gap determination (moles/volume) 13 mmol/L 5-14 Serum or plasma urea nitrogen measurement (mass/volume ) 14 mg/dL 7-18 Serum or plasma creatinine measurement (mass/volume) 0.79 mg/dL 0.60-1.30 Serum or plasma urea nitrogen/creatinine mass ratio 18 NRG Serum or plasma creatinine measurement w ith calculation of estimated glomerular filtration rate > NRG Serum or plasma glucose measurement (mass/volume) 152 mg/dL 70-105 Serum or plasma calcium measurement (mass/volume) 9.0 mg/dL 8.5-10.1 Serum or plasma total bilirubin measurement (mass/volu me) 0.2 mg/dL 0.1-1.0 Serum or plasma alkaline phosphatase frank surement (enzymatic activity/volume) 90 U/L 40-136 Serum or plasma aspartate aminotransfera se measurement (enzymatic activity/volume) 22 U/L 5-34 Serum or plasma alanine aminotransferase measurement (enzymatic activity/volume) 17 U/L 0-55 Serum or plasma protein measurement (mass/volume) 7.4 g/dL 6.4-8.2 Serum or plasma albumin measurement (mass/volume) 4.2 g/dL 3.2-4.5 CALCIUM CORRECTED 8.8 mg/dL 8.5-10.1 Magnesium - 02/12/20 21:00 Magnesium 2.5 mg/dL 1.6-2.4 PT panel in platelet poor plasma by coag ulation assay - 02/12/20 21:00 Prothrombin time (PT) in platelet poor plasma by coagu lation assay 13.3 s 12.2-14.7 INR in platelet poor plasma or blood by coagulation as say 1.0 0.8-1.4 Activated partial thromboplastin time (a PTT) in platelet poor plasma bycoagulation assay - 02/12/20 21:00 Activated partial thromboplastin time (a PTT) in platelet poor plasma bycoagulation assay 33 s 24-35 Myoglobin, serum - 02/12/20 21:00 Myoglobin, serum 33.9 ng/mL 10.0-92.0 Serum or plasma troponin i.cardiac measu rement (mass/volume) - 02/12/20 21:00 Serum or plasma troponin i.cardiac measurement (mass/v olume) < ng/mL <0.028 Serum or plasma thyrotropin measurement by detection limit <=0.05 miu/l (units/volume) - 02/12/20 21:00 Serum or plasma thyrotropin measurement by detection limit <=0.05 miu/l (units/volume) 2.35 u[iU]/mL 0.35-4.94 Encounters ACCT No. Visit Date/Time Discharge Status Pt. Type Provider Facility Loc./Unit Complaint [id number] 08/27/2018 13:34:00 08/27/2018 23:59: 00 DIS Outpatient MARC MARCELINO [id number] 07/19/2018 10:19:00 07/19/2018 23:59: 00 DIS Outpatient Rufino Oscar [id number] 05/11/2020 11:12:00 23:59:59 CLS Outpatient AVI MARTINEZ FACC, EUGENE VIERA CC DS [facility] CARD AFIB,HYPERLIPIDEMIA,FATIGUE,HTN [id number] 05/10/2020 11:37:00 23:59:59 CLS Outpatient EUGENE CÁRDENAS MD, FACC, FACP CC DS [facility] CARD AFIB,HYPERLIPIDEMIA,FATIGUE,HTN [id number] 02/12/2020 20:52:00 22:38:00 DIS Emergency GIL FERGUSON MD [facility] ER FAST HEART RATE 143 [id number] 12/16/2018 07:42:00 019 10:05:00 DIS Outpatient Jaime KAUR MD [facility] CATH TYPICAL ATRIAL FLUTTER [id number] 12/12/2018 09:45:00 09:52:00 DIS Outpatient Jaime KAUR MD [facility] PREOP RIGHT EP STUDY [id number] 12/08/2018 12:22:00 13:12:00 DIS Emergency GIL FERGUSON MD [facility] ER GENITAL ABSCESS [id number] 11/20/2018 10:44:00 12:37:00 DIS Emergency PHYLLIS MARTINEZ, GIL Lee [facility] ER LOW HEART RATE; TIRED;N/V [id number] 11/18/2018 11:16:00 13:03:00 DIS Emergency NADIA HUYNH MD [facility] ER PELVIC/GROIN PA IN [id number] 11/06/2018 20:40:00 23:59:59 CLS Inpatient ESSENCE HAWK DO, V [facility] ICU A FLUTTER WITH RVR, LIU ST PAIN [id number] 02/12/2018 12:55:00 23:59:59 CLS Outpatient AVI MARTINEZ FACC, EUGENE VIERA CC DS [facility] RAD I73.9 TIMBO ICATION [id number] 01/22/2018 09:51:00 23:59:59 CLS Outpatient AVI MARTINEZ FACC, EUGENE VIERA CC DS [facility] CATH AFIB,HTN,FA TIGUE,SOB [id number] 12/31/2017 10:28:00 23:59:59 CLS Outpatient KRYS PERRY MD [facility] ENDO GERD [id number] 12/28/2017 09:17:00 11:01:00 DIS Outpatient KRYS PERRY MD [facility] PREOP EGD [id number] 09/25/2017 14:00:00 23:59:59 CLS Preadmit AVI MARTINEZ FACC, EUGENE VIERA CCDS [facility] CATH REMOVAL OF ILR DEVICE [id number] 05/08/2017 08:18:00 017 23:59:59 CLS Outpatient AVI MARTINEZ FACC, EUGENE VEIRA CC DS [facility] CARD R94.31 ABNO RMAL ECG [id number] 04/26/2017 12:32:00 017 23:59:59 CLS Outpatient AMELIA MUSA [facility] RAD CHRONIC COUGH [id number] 04/08/2017 13:41:00 017 15:14:00 DIS Emergency TUTU MARTINEZ, FANI Scott [facility] ER FEVER/WEAKNESS [id number] 09/13/2016 13:00:00 016 10:15:00 DIS Inpatient ESSENCE HAWK DO, V [facility] ICU AFIB WITH RVR, TIA [id number] 04/08/2016 07:33:00 016 08:59:00 DIS Emergency DELIA MCBRIDE MD [facility] ER FALL, HEAD INJ, R SIDE PAIN [id number] 06/10/2015 11:22:00 015 23:59:59 CLS Outpatient MATEO MUSA DO [facility] RAD SCREENING [id number] 05/31/2015 12:01:00 015 23:59:59 CLS Outpatient MATEO MUSA DO [facility] RAD PNUEMONIA [id number] 11/05/2014 10:43:00 014 23:59:59 CLS Outpatient MATEO MUSA DO [facility] RAD ROUTINE [id number] 10/21/2013 10:36:00 013 23:59:59 CLS Outpatient MATEO MUSA DO [facility] RAD SCREENING [id number] 05/30/2013 11:34:00 23:59:59 CLS Outpatient AMELIA MUSA [facility] RAD PAIN IN RT RIBS AFTER FALL [id number] 07/08/2020 16:40:00 P EN Preadmit HAWK DO, ESSENCE CV A [id number] 03/25/2015 10:43:00 Document Registration [id number] 03/25/2015 10:43:00 Document Registration [id number] 03/25/2015 10:43:00 Document Registration [id number] 03/25/2015 10:43:00 Document Registration [id number] 03/25/2015 10:43:00 Document Registration [id number] 03/25/2015 10:43:00 Document Registration [id number] 11/12/2012 06:55:00 Document Registration [id number] 07/26/2012 11:13:00 Document Registration [id number] 07/14/2010 13:53:00 Document Registration [id number] 01/19/2010 00:00:00 Document Registration
[2020-07-08] MEDS ORDERED: IBUPROFEN TABLET 200 MG TAB PO ONE (19:46)
[2020-07-08] MEDS: DOCUSATE SODIUM 100 MG (COLACE) CAP PO SCH (19:53)
[2020-07-08] MEDS: APIXABAN 5 MG (ELIQUIS) TABLET PO SCH (19:54)
[2020-07-08] MEDS: IBUPROFEN TABLET 200 MG TAB PO PRN (19:54)
--- NOTE | 2020-07-08 20:41 | PM&R Post Admission Assessment ---
PM&R HP Date of Visit: Jul 08, 2020 Time of Visit: 18:20 History of Present Illness CC: CVA embolic type following right CEA HPI: This is an 85yoWF clinic patient of Dr Garza and Dr Harmon with known h/o AF who presents to IRF in need of recovery following CVA with resultant left arm weakness along with left hand flaccidity. 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 She lives at home with her . Her daughter is also at the bedside. Patient reports a headache currently. PLOF was independent. [facility] note: Admit date:07/02/2020 Discharge date:07/08/2020 Admitting Diagnoses:Principal Problem: Atherosclerosis of both carotid arteries Overview: S/p right CEA with PTFE repair 07/04/2020 Active Problems: Benign hypertension Mixed hyperlipidemia History of atrial fibrillation Cerebrovascular accident (CVA) Discharge Diagnoses:Principal Problem: Atherosclerosis of both carotid arteries Overview: S/p right CEA with PTFE repair 07/04/2020 Active Problems: Benign hypertension Mixed hyperlipidemia History of atrial fibrillation Cerebrovascular accident (CVA) Operations/Procedures: Procedure(s) and Anesthesia Type: * CAROTID ENDARTERECTOMY - General Hospital Course: The patient was admitted to [facility] carotid endarterectomy. She tolerated surgery well and arrived to the recovery unit neurologically intact. Approximately 30 minutes after surgery patient developed left hemiparesis. Stat CT scan of the head showed no acute bleed or other abnormality. Stat carotid duplex scan showed patent repair with no technical abnormalities identified. Patient was admitted to the intensive care unit. Her symptoms have slowly improved significantly. By the next morning she was moving her left leg almost normally. She has normal speech. She is able to swallow without difficulties. She has proximal muscle strength 4/5 in the left arm. Fine motor movements of the hand are still lacking but slowly regaining. Upon evaluation, the patient does have known paroxysmal atrial fibrillation. It appears that she is having more frequent paroxysms than she had appreciated. She did develop atrial fibrillation while here in the hospital and was converted with IV amiodarone. She was asymptomatic with the atrial fibrillation with rapid rate. She has been maintaining sinus rhythm. We resumed her Eliquis today. We did consult Dr. Chapman electrophysiology. He agreed with continuing amiodarone. He had discussed appropriateness of Coumadin for anticoagulation as it appears that she has failed Eliquis therapy. The patient is fairly adamant she does not want to take Coumadin due to the difficulties in the medication. It appears that her postoperative stroke was secondary to cardiac etiology of embolus as opposed to the carotid surgery as the repair appeared to be widely patent and without issue. Patient is making a very nice recovery and will be transferred to rehab today. Plans were discussed with patient and her daughter. All questions were answered. We will defer further rhythm management to Dr. Patricia who is the patient's treating chief inspector. 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) Alcohol Use: Denies Use Smoking Status: Never a Smoker 2nd Hand Smoke Exposure: No Recent Foreign Travel: No Contact w/other who traveled: No Recent Hopitalizations: No Recent Infectious Disease Expo: No Immunizations Up To Date Tetanus Booster (TDap): Unknown Pediatric: No Date of Pneumonia Vaccine: Aug 26, 2013 Seasonal Allergies Seasonal Allergies: No Past Medical History Surgeries: Appendectomy, Cardiac, Gallbladder, Hysterectomy, Vascular Surgery Cardiac: Atrial Fibrillation, Hypertension, Peripheral Vascular Reproductive: No Sexually Transmitted Disease: No Menopausal Gastrointestinal: Gastroesophageal Reflux, Obstructive Bowel Musculoskeletal: Arthritis HEENT: Cataract History of Blood Disorders: No Adverse Reaction to Blood Hilario: No Family History No Pertinent Family Hx PM&R Allergy/Meds/Data Review Allergies Coded Allergies: Penicillins (Verified Allergy, Unknown, 12/16/18) codeine (Unverified Allergy, Unknown, 12/16/18) glycopyrrolate (Verified Allergy, Unknown, VOMITING, 12/16/18) Home Medications Scheduled Amino Acids (Amino Acid), 1 EACH PO DAILY, (Reported) Amlodipine Besylate (Amlodipine Besylate), 10 MG PO DAILY, (Reported) Apixaban (Eliquis), 5 MG PO BID, (Reported) Aspirin (Aspirin), 81 MG PO DAILY, (Reported) Atorvastatin Calcium (Atorvastatin Calcium), 40 MG PO HS, (Reported) Levothyroxine Sodium (Levothyroxine Sodium), 25 MCG PO DAILY, (Reported) Lisinopril (Lisinopril), 10 MG PO DAILY, (Reported) Multivitamin (Multivitamin), 1 EACH PO DAILY, (Reported) Niacin (Niacin), 250 MG PO DAILY, (Reported) Phosphate (Phospha 250 Neutral Tablet), 1 EA PO DAILY, (Reported) Selenium (Selenium), 200 MCG PO DAILY, (Reported) Turmeric Root Extract (Turmeric), 538 MG PO DAILY, (Reported) Ubidecarenone (Coq-10), 30 MG PO DAILY, (Reported) Vit C/E/Zn/Coppr/Lutein/Zeaxan (Preservision Areds 2 Softgel), 1 EACH PO DAILY, (Reported) [Cardio [place]], 1 PO DAILY, (Reported) Scheduled PRN Amiodarone HCl (Amiodarone HCl), 200 MG PO DAILY PRN for IRREGULAR HEART RYTHYM, (Reported) Cyclobenzaprine HCl (Cyclobenzaprine HCl), 10 MG PO TID PRN for MUSCLE SPASMS, (Reported) Discontinued Medications Amiodarone HCl (Amiodarone HCl), 400 MG PO BID Discontinued Reason: Duplicate Order Calcium Carb/Mag Ox/Zinc Sulf (Zhjzrfz-Vgijevmgp-Xybk Tablet), 1 TAB PO DAILY, (Reported) Discontinued Reason: No Longer Taking Cholecalciferol (Vitamin D3) (Vitamin D3), 5,000 UNIT PO BID, (Reported) Discontinued Reason: No Longer Taking Coconut Oil (Coconut Oil), 1,000 MG PO DAILY, (Reported) Discontinued Reason: No Longer Taking [place] ([place]), 500 MG PO DAILY, (Reported) Discontinued Reason: No Longer Taking Lisinopril (Lisinopril), 10 MG PO DAILY, (Reported) Discontinued Reason: No Longer Taking Metoprolol Succinate (Metoprolol Succinate), 50 MG PO DAILY, (Reported) Discontinued Reason: No Longer Taking Niacinamide (Niacin), 1,000 MG PO BID, (Reported) Discontinued Reason: Prescription changed Pantoprazole Sodium (Pantoprazole Sodium), 40 MG PO DAILY, (Reported) Discontinued Reason: No Longer Taking [Cbd Oil], SL BID, (Reported) Discontinued Reason: No Longer Taking Current Medications Current Medications Reviewed Review of Systems Constitutional: see HPI, malaise, weakness EENTM: no symptoms reported Respiratory: no symptoms reported Cardiovascular: no symptoms reported Gastrointestinal: no symptoms reported Genitourinary: no symptoms reported Musculoskeletal: no symptoms reported Skin: no symptoms reported Psychiatric/Neurological: Depressed, Weakness All Other Systems Reviewed Negative Unless Noted: Yes Physical Exam Physical Exam Vital Signs Vital Signs - First Documented 07/08/20 18:28 Temp 36.2 Pulse 63 Resp 18 B/P (MAP) 137/68 Pulse Ox 93 O2 Delivery Room Air Capillary Refill : Height, Weight, BMI Height: 5'0.00" Weight: 142lbs. 0.0oz. 64.290857tt; 29.79 BMI Method:Stated General Appearance: No Apparent Distress, WD/WN, Chronically ill Eyes: Bilateral Eye Normal Inspection, Bilateral Eye PERRL HEENT: PERRL/EOMI, Normal ENT Inspection, Pharynx Normal Neck: Full Range of Motion, Normal Inspection, Non Tender, Supple, Carotid Bruit Respiratory: Chest Non Tender, Lungs Clear, Normal Breath Sounds, No Accessory Muscle Use, No Respiratory Distress Cardiovascular: No Edema, No Gallop, No JVD, No Murmur, Normal Peripheral Pulses, Irregularly Irregular Gastrointestinal: Normal Bowel Sounds, No Organomegaly, No Pulsatile Mass, Non Tender, Soft Back: Normal Inspection, No CVA Tenderness, No Vertebral Tenderness Extremity: Normal Capillary Refill, Normal Inspection, Normal Range of Motion (except left upper extremity upper arm 3/5 left hand 0/5), Non Tender, No Calf Tenderness, No Pedal Edema Neurologic/Psychiatric: Alert, Oriented x3, No Motor/Sensory Deficits, Normal Mood/Affect, Abnormal Gait, Motor Weakness (left arm) Skin: Normal Color, Warm/Dry Lymphatic: No Adenopathy PM&R Medical Assessment & Plan REHAB/MEDICAL ASSESSMENT AND PLAN: REHAB IMPAIRMENT GROUP: CVA ETIOLOGIC DIAGNOSIS: CVA The comorbidities that impact the patients function and/or functional outcome by: advanced age, AF, subtle confusion and memory loss REHAB PLAN: The patient is being admitted to our comprehensive inpatient rehabilitation facility and can tolerate the intensity of service consisting of at least: 180 minutes of therapy a day, 5 out of 7 days a week Rehab treatment will consist of: PT OT will focus on regaining strength in left arm and left hand and ST will focus on swallowing and left facial droop and subtle confusion The patient/family has a good understanding of our discharge process and will benefit from an interdisciplinary inpatient rehabilitation program. The patient has potential to make improvement and is in need of at least two of the following multidisciplinary therapies including but not limited to physical, occupational, speech, and prosthetics and orthotics. Additionally the patient will need services from respiratory, nutritional services, wound care, psychology, etc. (Customize this to each patient). Given the patients complex condition and risk of further medical complications, rehabilitation services cannot be safely or effectively provided at a lower level of care such as a penitentiary facility. BARRIERS TO DISCHARGE: Advanced age ESTIMATED LOS: 14 days DISPOSITION: Home RELEVANT CHANGES SINCE PREADMISSION SCREENING: I have compared the patients medical and functional status at the time of the preadmission screening and there are: no changes PROGNOSIS: Good REHABILITATION GOALS: 1. PT OT will focus on regaining strength in left arm and left hand and ST will focus on swallowing and left facial droop and subtle confusion All the above goals were reviewed with the patient and he/she is in agreement. By signing this document, I acknowledge that I have personally performed a full physical examination on this patient within 24 hours of admission to this inpatient rehabilitation facility and have determined the patient to be able to tolerate the above course of treatment at an intensive level for a reasonable period of time. I will be completing a detailed individualized Plan of Care for this patient by day #4 of the patients stay based upon the Preadmission Screen, the Post-Admission Evaluation, and the therapy evaluations. Admission Dx/Comorbidities: (1) CVA (cerebral vascular accident) ICD Codes: I63.9 - Cerebral infarction, unspecified (2) Atrial fibrillation Status: Acute ICD Codes: I48.91 - Atrial fibrillation (3) Carotid stenosis, bilateral ICD Codes: I65.23 - Occlusion and stenosis of bilateral carotid arteries (4) S/P carotid endarterectomy ICD Codes: Z98.890 - Other specified postprocedural states (5) Confusion ICD Codes: R41.0 - Disorientation, unspecified Assessment/Plan Assessment and Plan Assess & Plan/Chief Complaint Assessment: CVA embolic type following right CEA Left arm weakness and left hand flaccidity Chronic AF OAC HTN Plan: Cardiology consulting Home meds Pain meds IRF protocol ESSENCE HAWK DO Jul 08, 2020 20:41
[2020-07-09 05:05] LABS: BASOPHILS % (AUTO) 0 % (0-10); EOSINOPHILS # (AUTO) 0.2 10^3/uL (0.0-0.3); EOSINOPHILS % (AUTO) 2 % (0-10); HEMATOCRIT 40 % (35-52); HEMOGLOBIN 13.4 G/DL (11.5-16.0); LYMPHOCYTES # (AUTO) 1.6 X 10^3 (1.0-4.0); LYMPHOCYTES % (AUTO) 20 % (12-44); MEAN CORPUSCULAR HEMOGLOBIN 29 PG (25-34); MEAN CORPUSCULAR HGB CONC 33 G/DL (32-36); MEAN CORPUSCULAR VOLUME 87 FL (80-99); MEAN PLATELET VOLUME 10.6 FL (7.4-10.4); MONOCYTES # (AUTO) 0.9 X 10^3 (0.0-1.0); MONOCYTES % (AUTO) 11 % (0-12); NEUTROPHILS # (AUTO) 5.4 X 10^3 (1.8-7.8); NEUTROPHILS % (AUTO) 67 % (42-75); PLATELET COUNT 297 10^3/uL (130-400); RED CELL DISTRIBUTION WIDTH 13.8 % (10.0-14.5)
[2020-07-09] MEDS: MULTIVIT W/MINERALS TAB (THERAGRAN M) PO SCH (05:42)
[2020-07-09] MEDS: IBUPROFEN TABLET 200 MG TAB PO PRN ×2 (05:42→16:41)
[2020-07-09] MEDS: LEVOTHYROXINE 25 MCG (LEVOTHROID) TAB PO SCH (05:42)
[2020-07-09 05:46] LABS: ALANINE AMINOTRANSFERASE 41 U/L (0-55); ALBUMIN 3.4 GM/DL (3.2-4.5); ALKALINE PHOSPHATASE 104 U/L (40-136); BILIRUBIN,TOTAL 0.3 MG/DL (0.1-1.0); BUN/CREATININE RATIO 15; CALCIUM 9.2 MG/DL (8.5-10.1); CARBON DIOXIDE 24 MMOL/L (21-32); CHLORIDE 107 MMOL/L (98-107); CREATININE SERUM 0.67 MG/DL (0.60-1.30); GFR ESTIMATED > 60; GLUCOSE 109 MG/DL (70-105); POTASSIUM 3.2 MMOL/L (3.6-5.0); SODIUM 141 MMOL/L (135-145)
[2020-07-09 06:00] VITALS: BP 180/72
[2020-07-09] MEDS ORDERED: PRESERVISION AREDS PO SCH (09:00)
[2020-07-09] MEDS ORDERED: NON-FORMULARY MEDICATION 1 EA EA (Multivitamin 1 EACH) PO SCH (09:00)
[2020-07-09] MEDS ORDERED: lisINopril 10 MG (PRINIVIL) TABLET PO SCH (09:00)
[2020-07-09] MEDS ORDERED: UBIDECARENONE 30 MG PO SCH (09:00)
[2020-07-09] MEDS: APIXABAN 5 MG (ELIQUIS) TABLET PO SCH ×2 (09:09→20:58)
[2020-07-09] MEDS: amLODIPine 10 MG (NORVASC) TAB PO SCH (09:14)
--- NOTE | 2020-07-09 09:14 | ST Cognitive Linguistic Eval ---
Speech Evaluation-General Medical Diagnosis CVA Onset Date: Jul 02, 2020 Therapy Diagnosis Therapy Diagnosis: Cognitive-communication Referral Referring Physician: Dr. Singh Medical History Pertinent Medical History: HTN Reviewed History: Yes Social History Home: Multilevel Current Living Status: Spouse Speech PLF-Current Status Prior Level of Function Patient lived at home with her of 50 years. 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 Subjective Patient presented with a flat affect, however she warmed up during the session and was cooperative with the cognitive assessment. Language Eval: Auditory Comprehends Simple Yes/No Ques: Functional Indent/Objects Multiple Carr: Functional Ident/Pics in Multiple Carr: Functional Follows 1-Step Commands: Functional Follows Complex Directions: Functional Follows General Conversations: Mild Language Eval: Verbal Language Completes Spontaneous Greeting: Functional Produces Auto, Serial Info: Functional Imitates Simple Words/Phrases: Functional Word Finding: Functional Requests Basic Needs: Functional States Basic Personal Info: Functional Expresses Complex Ideas: Functional Objective Cognitive Domain Attention: WNL Memory: Mild Problem Solving: Functional Executive Functions: WNL Visuospatial Skills: WNL Composite Severity Rating: WNL Clock Drawing Severity Rating: WNL Objective Formal/Standardized Tests [facility] Mental Status ([facility] [email or web address] Results 26/30, Mild Neurocognitive Disorder range of function Oral Motor/Speech Production Within Normal Limits Impression Patient is an 85 y/o woman who was admitted to the ARU s/p CVA during surgery. Patient was given the SLUMS at bedside with a score of 26/30 obtained. Patient's schedule falls in the MNCD range of function. Patient will receive skilled ST with focus on safety awareness and memory so that she may return home safely. Speech Patient Assess Expression of Ideas/Wants: Exhibits (3) Understanding Verbal Content: Usually Understands (3) Brief Interview-Mental Status: Yes Repetition of Three Words: Three (3) Temporal Orientation: Year: Correct (3) Temporal Orientation: Month: Accurate within 5 days(2) Temporal Orientation: Day: Correct (1) Recall : Wear to say "Sock": Yes,after cueing (1) Recall : Color: Yes, after cueing (1) Recall : Bed: Yes,after cueing (1) Memory/Recall Ability: Current season, That he or she is in a hsp/hsp unit Speech Short Term Goals Short Term Goals Short Term Goals 1) Patient will complete memory tasks related to her daily needs at 90% or greater. 2) Patient will complete problem solving tasks related to her daily needs at 90% or greater. 3) Patient will complete safety awareness tasks related to her daily needs at 90% or greater. Speech Residential Goals Residential Goals Patient will improve cognitive-communication necessary for safety and daily living tasks with minimal assist. Speech-Plan Patient/Family Goals Patient/Family Goals: Patient plans on returning to her home and resuming her prior level of function. Treatment Plan Speech Therapy Treatment Plan: Continue Plan of Care Treatment Duration: Jul 21, 2020 Frequency: 4 times per week (Patient will receive 4-5 ST treatments per week) Estimated Hrs Per Day: .5 hour per day Rehab Potential: Good Barriers to Learning: Patient's recent CVA Pt/Family Agrees to Plan: Yes Safety Risks/Education Teaching Recipient: Patient Teaching Methods: Discussion Response to Teaching: Verbalize Understanding Education Topics Provided: Safety within her room and utilization of the call light as needed Time Speech Therapy Time In: 08:30 Speech Therapy Time Out: 09:00 Total Billed Time: 30 Billed Treatment Time 1, DIRK STEVEN BETH[address] ST Jul 09, 2020 09:14
[2020-07-09] MEDS: SENNA W/DOCUSATE (SENOKOT S) TABLET PO SCH ×2 (09:15→21:02)
[2020-07-09] MEDS: POT PHOS/NA PHOS (K-PHOS NEUTRAL) PO SCH (09:15)
[2020-07-09] MEDS: DOCUSATE SODIUM 100 MG (COLACE) CAP PO SCH ×2 (09:15→21:02)
[2020-07-09] MEDS: ASPIRIN 81 MG CHEW (CHILDREN'S ASA) PO SCH (09:15)
[2020-07-09] MEDS: polyethylene glycoL POWDER 17 GM (MIRALAX) PACK PO SCH ×2 (09:16→21:02)
--- NOTE | 2020-07-09 09:54 | PM&R Progress Note ---
Subjective HPI/CC On Admission Date Seen by Provider: Jul 09, 2020 Time Seen by Provider: 10:00 Subjective/Events-last exam Pt doing pretty well Worried about Lipitor and her liver Lymphedema of the left arm will require therapy Bowels are moving well Cardiology consulted Checked meds and labs Reviewed therapy notes Conferred with surgical pathologist of Systems General: Fatigue, Malaise Neurological: Weakness Objective Exam Vital Signs Vital Signs Date Time Temp Pulse Resp B/P (MAP) Pulse Ox O2 Delivery O2 Flow Rate FiO2 07/09/20 21:21 Room Air 07/09/20 17:30 70 182/79 (113) 07/09/20 16:15 37.2 14 97 Capillary Refill : Less Than 3 Seconds General Appearance: No Apparent Distress, WD/WN, Chronically ill HEENT: PERRL/EOMI, Normal ENT Inspection, Pharynx Normal Neck: Full Range of Motion, Normal Inspection, Non Tender, Supple, Carotid Bruit Respiratory: Chest Non Tender, Lungs Clear, Normal Breath Sounds, No Accessory Muscle Use, No Respiratory Distress Cardiovascular: No Edema, No Gallop, No JVD, No Murmur, Normal Peripheral Pulses, Irregularly Irregular Gastrointestinal: Normal Bowel Sounds, No Organomegaly, No Pulsatile Mass, Non Tender, Soft Back: Normal Inspection, No CVA Tenderness, No Vertebral Tenderness Extremity: Normal Capillary Refill, Normal Inspection, Normal Range of Motion (except left upper extremity upper arm 3/5 left hand 0/5), Non Tender, No Calf Tenderness, No Pedal Edema Neurologic/Psychiatric: Alert, Oriented x3, No Motor/Sensory Deficits, Normal Mood/Affect, Abnormal Gait, Motor Weakness (left arm) Skin: Normal Color, Warm/Dry Lymphatic: No Adenopathy Results/Procedures Lab Laboratory Tests 07/09/20 04:55 Patient resulted labs reviewed. [facility] Transfers Therapy Code Descriptions/Definitions Functional [place] Measure: 0=Not Assessed/NA 4=Minimal Assistance 1=Total Assistance 5=Supervision or Setup 2=Maximal Assistance 6=Modified [place] 3=Moderate Assistance 7=Complete IndependenceSCALE: Activities may be completed with or without assistive devices. 9-Kempgsgeta-dfjjpnn completes the activity by him/herself with no assistance from a helper. 5-Set-up or Clean-up Assistance-helper sets up or cleans up; patient completes activity. [place] assists only prior to or following the activity. 4-Supervision or Touching Assistance-helper provides verbal cues and/or touching/steadying and/or contact guard assistance as patient completes activity. Assistance may be provided throughout the activity or intermittently. 3-Partial/Moderate Assistance-helper does LESS THAN HALF the effort. [place] lifts, holds or supports trunk or limbs, but provides less than half the effort. 2-Substantial/Maximal Assistance-helper does MORE THAN HALF the effort. [place] lifts or holds trunk or limbs and provides more than half the effort. 9-Ungggcfcy-mijpiu does ALL the effort. Patient does none of the effort to comp lete the activity. Or, the assistance of 2 or more helpers is required for the patient to complete the activity. If activity was not attempted, code reason: 7-Patient Refused. 9-Not Applicable-not attempted and the patient did not perform the activity before the current illness, exacerbation or injury. 10-Not Attempted due to Environmental Limitations-(lack of equipment, weather restraints, etc.). 88-Not Attempted due to Medical Conditions or Safety Concerns. Assessment/Plan Assessment and Plan Assess & Plan/Chief Complaint Assessment: CVA embolic type following right CEA Left arm weakness and left hand flaccidity Chronic AF OAC HTN Plan: Cardiology consulting Home meds Pain meds IRF protocol 07/09/20: Therapy for left arm flaccidity Monitor bowels Cardiology consultation Patient dislikes Lipitor (1) CVA (cerebral vascular accident) (2) Atrial fibrillation Status: Acute (3) Carotid stenosis, bilateral (4) S/P carotid endarterectomy (5) Confusion ESSENCE HAWK DO Jul 09, 2020 09:54
[2020-07-09] MEDS: CYCLOBENZAPRINE 10 MG (FLEXERIL) TAB PO PRN (10:50)
--- NOTE | 2020-07-09 12:41 | Physical Therapy Evaluation ---
PT Evaluation-General Medical Diagnosis Admission Date Jul 08, 2020 at 18:20 Medical Diagnosis: CVA Onset Date: Jul 02, 2020 Therapy Diagnosis Therapy Diagnosis: impaired mobility, strength, endurance, balance Height/Weight Height (Feet): 5 Height (Inches): 0.00 Weight (Pounds): 142 Weight (Ounces): 0.0 Precautions Precautions/Isolations: Fall Prevention, Standard Precautions Referral Physician: Sylvia Singh DO Reason for Referral: Evaluation/Treatment Medical History Pertinent Medical History: HTN Reviewed History: Yes Social History Home: [facility] Current Living Status: Spouse Entry Into Home: Stairs With Railing PT Steps Inside Home: 12 Prior Prior Level of Function SCALE: Activities may be completed with or without assistive devices. 5-Qvcqvjxwrp-lhvxtby completes the activity by him/herself with no assistance from a helper. 5-Set-up or Clean-up Assistance-helper sets up or cleans up; patient completes activity. [place] assists only prior to or following the activity. 4-Supervision or Touching Assistance-helper provides verbal cues and/or touching/steadying and/or contact guard assistance as patient completes activity. Assistance may be provided throughout the activity or intermittently. 3-Partial/Moderate Assistance-helper does LESS THAN HALF the effort. [place] lifts, holds or supports trunk or limbs, but provides less than half the effort. 2-Substantial/Maximal Assistance-helper does MORE THAN HALF the effort. [place] lifts or holds trunk or limbs and provides more than half the effort. 6-Ovvtfrizx-lcsyjk does ALL the effort. Patient does none of the effort to complete the activity. Or, the assistance of 2 or more helpers is required for the patient to complete the activity. If activity was not attempted, code reason: 7-Patient Refused. 9-Not Applicable-not attempted and the patient did not perform the activity before the current illness, exacerbation or injury. 10-Not Attempted due to Environmental Limitations-(lack of equipment, weather restraints, etc.). 88-Not Attempted due to Medical Conditions or Safety Concerns. Bed Mobility: 6 Transfers (B,C,W/C): 6 Gait: 6 Stairs: 6 Indoor Mobility (Ambulation): Independent Stairs: Independent PT Evaluation-Current Subjective Patient in bed pre tx, agrees to PT, has no complaints of pain. Pt/Family Goals to be independent at home Objective Patient Orientation: Person, Place, Situation ROM/Strength ROM Lower Extremities WNL Strength Lower Extremities 4+/5 gross RLE, 4/5 gross LLE Neuromuscular (Tone, Coordination, Reflexes) Patient seems to have intact peripheral vision bilaterally but impaired tracking on the left side. Sensory Hearing: Functional Sensation Right Lower Extremit: Intact Sensation Left Lower Extremity: Intact Sensation Lower Extremities Patient has intact light touch sensation in both lower extremities but she states it is diminished bilaterally from mid calf down Transfers Roll Left to Right (QC): 6 Sit to Lying (QC): 6 Lying to Sitting/Side of Bed(Q: 6 Sit to Stand (QC): 4 Chair/Lzm-du-Tbiuz Xfer(QC): 4 Toilet Transfer (QC): 4 Car Transfer (QC): 4 Patient performs bed mobility and supine <-> sit with independence, sit <-> stand CGA, transfers CGA, car transfers CGA. Occasional cues for direction due to left neglect. Gait Does the Patient Walk?: Yes Mode of Locomotion: Walk Anticipated Mode of Locomotion: Walk Walk 10 feet (QC): 4 Walk 50 ft with 2 Turns(QC): 4 Walk 150 ft (QC): 4 Walking 10ft/uneven surface-QC: 4 Distance: 500', 150' Gait Assistive Device: Cane Single Point Comments/Gait Description Patient can ambulate 500' with a single point cane with CGA (including 50' with at least 2 turns of 90 degrees and 10' over an uneven surface). Occasional cues for direction due to left neglect. Wheelchair Training Wheel 50 ft with 2 turns (QC): 9 Wheel 150 ft (QC): 9 Stairs #of Steps: 4 1 Step (curb) (QC): 4 4 Steps (QC): 4 12 Steps (QC): 88 Patient can go up and down 4 steps using 2 handrails with CGA, cues for safety and foot placement. Balance Sitting Static: Normal Sitting Dynamic: Normal Standing Static: Good Standing Dynamic: Fair Picking up an Object (QC): 4 Treatment NuStep level 4 for 15 min, attachment used for flaccid left arm Assessment/Needs Patient has impaired mobility, strength, endurance, balance. She has unsteady moments during ambulation mostly due to her left neglect, which she seems strangely irritated to learn about. Rehab Potential: Fair PT Short Term Goals Short Term Goals Time Frame: Jul 16, 2020 Roll Left & Right: 6 Sit to lyin Lying to sitting on side of be: 6 Sit to stand: 5 Chair/ciz-qe-xfzba transfer: 5 Walk 10 feet: 4 Walk 50 feet with two turns: 4 Walk 150 feet: 4 PT Halfway Goals Re Etcher Goals PT Re Etcher Goals Time Frame: Jul 30, 2020 Roll Left & Right (QC): 6 Sit to Lying (QC): 6 Lying-Sitting on Side/Bed(QC): 6 Sit to Stand (QC): 6 Chair/Aqz-id-Rtqbq Xfer(QC): 6 Toilet Transfer (QC): 6 Car Transfer (QC): 6 Does the Patient Walk: Yes Walk 10 feet (QC): 6 Walk 50ft with 2 Turns (QC): 6 Walk 150 ft (QC): 6 Walking 10ft on Uneven Surface: 6 1 Step (curb) (QC): 5 4 Steps (QC): 5 12 Steps (QC): 5 Picking up an Object (QC): 5 Wheel 50 feet with 2 turns (QC: 9 Wheel 150 feet: 9 PT Plan Problem List Problem List: Activity Tolerance, Functional Strength, Safety, Balance, Gait, Transfer Treatment/Plan Treatment Plan: Continue Plan of Care Treatment Plan: Education, Functional Activity Solomon, Functional Strength, Group Therapy, Gait, Safety, Therapeutic Exercise, Transfers Treatment Duration: Jul 30, 2020 Frequency: At least 5 of 7 days/Wk (IRF) Estimated Hrs Per Day: 1.5 hours per day Patient and/or Family Agrees t: Yes Safety Risks/Education Patient Education: Gait Training, Transfer Techniques, Steps, Correct Positioning, Safety Issues Teaching Recipient: Patient Teaching Methods: Demonstration, Discussion Response to Teaching: Reinforcement Needed Discharge Recommendations Plan Patient will perform bed mobility and transfer training, balance and endurance training, functional strengthening, stair training, gait training, and education, to improve functional mobility and independence at home. Therapy Discharge Recommendati: Home & Family Time/GCodes Time In: 1000 Time Out: 1100 Total Billed Treatment Time: 60 Total Billed Treatment 1 visit EVM 30' EX 15' FA 15' ROSSY GUTIERREZ PT Jul 09, 2020 12:41
--- NOTE | 2020-07-09 14:20 | NUR ---
RD ASSESSMENT PMHx: CVA; HTN; afib; GERD; obstructive bowel PT INTERACTION: Pt was awake and pleasant during nutrition assessment. Pt states current appetite is "not great" and has been this way for about 1week. Note abg PO intake 50-75% x2meal, per chart review. Pt states following a regular diet at home, and sometimes has issues with swallowing food. Pt states recent issues with constipation, and that her last BM was 07/09. Note pt currently on bowel regimen of colace BID; senna BID; and miralax BID, per chart review. Pt states no recent wt changes. Note unable to determine recent wt hx, per chart review. ABNORMAL NUTRITION-RELATED LAB VALUES LOW: K 3.2; Pro 6.0 HIGH: glu 109 Est. kcal needs: 1375 kcal | 20 kcal/kg Est. Pro needs: 55 g Pro | 0.8 g Pro/kg PES STATEMENT: Inadequate oral intake (NI-2.1) related to loss of appetite | constipation as evidenced by pt interview | avg PO intake 50-75% x2meal INTERVENTION: Continue with current diet order of Regular diet. Pt may benefit from nutrition supplementation if PO intake declines. Will continue to follow and reassess as pt needs, intake, and status change. MONITOR/EVALUATE: PO Intake; Plan of Care; Hydration Status; Weight Status; Lab Values My Sosa, MS, RD, LD
--- NOTE | 2020-07-09 15:33 | Occupational Therapy Eval ---
OT Evaluation-General/PLF Medical Diagnosis Admission Date Jul 08, 2020 at 18:20 Medical Diagnosis: CVA Onset Date: Jul 02, 2020 Therapy Diagnosis Therapy Diagnosis: decr self care, decr L UE functional use, L neglect, decr funct mobility Height/Weight Height (Feet): 5 Height (Inches): 0.00 Weight (Pounds): 142 Weight (Ounces): 0.0 Precautions Precautions/Isolations: Fall Prevention, Standard Precautions Referral Physician: Sylvia Singh DO Referral Reason: Evaluation/Treatment Medical History Pertinent Medical History: Atrial Fib, Arthritis, CAD, GERD, HTN, PVD Additional Medical History Pneumonia. Obstructive bowel. Cataract surgery Current History R Carotid endarterectomy 07-02-2020, followed by CVA with L sided weakness Reviewed History: Yes Social History Home: [facility] Current Living Status: Spouse Entry Into Home: Stairs With Railing Steps Inside Home: 12 ADL-Prior Level of Function SCALE: Activities may be completed with or without assistive devices. 7-Lqjhmcismv-lsrzyqw completes the activity by him/herself with no assistance from a helper. 5-Set-up or Clean-up Assistance-helper sets up or cleans up; patient completes activity. [place] assists only prior to or following the activity. 4-Supervision or Touching Assistance-helper provides verbal cues and/or touching/steadying and/or contact guard assistance as patient completes activity. Assistance may be provided throughout the activity or intermittently. 3-Partial/Moderate Assistance-helper does LESS THAN HALF the effort. [place] lifts, holds or supports trunk or limbs, but provides less than half the effort. 2-Substantial/Maximal Assistance-helper does MORE THAN HALF the effort. [place] lifts or holds trunk or limbs and provides more than half the effort. 1-Fwxljokgn-qhkere does ALL the effort. Patient does none of the effort to complete the activity. Or, the assistance of 2 or more helpers is required for the patient to complete the activity. If activity was not attempted, code reason: 7-Patient Refused. 9-Not Applicable-not attempted and the patient did not perform the activity before the current illness, exacerbation or injury. 10-Not Attempted due to Environmental Limitations-(lack of equipment, weather restraints, etc.). 88-Not Attempted due to Medical Conditions or Safety Concerns. 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 She lives with her who is 97. She is a retired [employer] and still drives. Self Care: Independent Functional Cognition: Independent OT Current Status Subjective Pt seen in room, up in bed, agreeable to OT. No pain mentioned. Appearance Alert, cooperative. Flat affect Mental Status/Objective Patient Orientation: Person, Place, Time, Situation Current Hand Dominance: Right Upper Extremity ROM R UE grossly WFL. L UE active shoulder flex to approx 90 degrees, active elbow flex and ext against gravity but limited range. Pron/sup in mid range. No active wrist or finger movement observed Upper Extremity Sensation Pt reports that she can feel when someone touches her L UE. Appears aware of position of L UE most of the time Upper Extremity Strength R UE grossly 4/5. L shoulder 2+/5. L elbow flex and ext 2+/5. L pron/sup 2/5. Wrist and fingers 0/5 Pt has L sided neglect and reluctance to look toward the left visual field ADL-Treatment ADL-Current Pt sat up to EOB with SBA, some cues for L hand placement. Sit to stand CGA and walked to bathroom with SPC and CGA. Cues to look at L side. Toilet transfer CGA, tall toilet. Clothing management and hygiene CGA. Mod assist to undress upper body and min assist to undress lower body, including slippers Shower transfer CGA, cues to sit to bathe. Needed help to wash hair and cues to wash L side of head. Pt washed and dried all parts except R arm and bottom, using shower chair and hand held shower. CGA to stand to help dry. Mod assist and pt educ to don shirt and mod assist lower body dressing, help to pull pants up over L hip. Pt able to don slippers with setup. Stood at sink to brush teeth with CGA, setup help for toothpaste. Pt educ on using L hand as assist and placing it where it can help, which she followed through with consistently. Not able to grasp with L hand but she could weight bear for balance. Pt returned to recliner and combed her hair. Able to feed herself with setup. Pt left up in recliner, all needs met. Eating (QC): 5 (setup) Oral Hygiene (QC): 4 (CGA) Shower/Bathe Self (QC): 3 (Help with R arm and bottom) Upper Body Dressing (QC): 3 (mod A) Lower Body Dressing (QC): 3 (mod A) On/Off Footwear (QC): 4 (min A) Toileting Hygiene (QC): 4 (CGA) Education OT Patient Education: Modified ADL techniques, Purpose of tx/functional activities, Rehab process, Safety issues, Transfer techniques Teaching Recipient: Patient Teaching Methods: Demonstration, Discussion Response to Teaching: Verbalize Understanding, Return Demonstration, Reinforcement Needed OT Short Term Goals Short Term Goals Time Frame: Jul 16, 2020 Oral hygiene: 5 Toileting hygiene: 5 Lower body dressin OT Detention Goals Hop Trainer Goals Time Frame: Jul 30, 2020 Eating (QC): 6 Oral Hygiene (QC): 6 Toileting Hygiene (QC): 6 Shower/Bathe Self (QC): 5 Upper Body Dressing (QC): 6 Lower Body Dressing (QC): 6 On/Off Footwear (QC): 6 Additional Goals: 1-Demonstrate ADL Tasks, 2-Verbalize Understanding, 3- ImproveStrength/Solomon 1=Demonstrate adherence to instructed precautions during ADL tasks. 2=Patient will verbalize/demonstrate understanding of assistive devices/modifications for ADL. 3=Patient will improve strength/tolerance for activity to enable patient to perform ADL's. OT Education/Plan Problem List/Assessment Assessment: Decreased Safety Aware, Decreased UE Strength, Dependent Transfers, Impaired Self-Care Skills, Restricted Funct UE ROM Pt would benefit from skilled OT to increase her independence with basic self care to allow her to safely return home. Discharge Recommendations Plan/Recommendations: Continue POC Therapy Discharge Recommendati: Post Acute OT Treatment Plan/Plan of Care Treatment,Training & Education: Yes Patient would benefit from OT for education, treatment and training to promote independence in ADL's, mobility, safety and/or upper extremity function for ADL's. Plan of Care: ADL Retraining, Functional Mobility, Group Exercise/Act as Ind, UE Funct Exercise/Act, UE Neuromus Re-Ed/Coord, Visual/Perceptual Retrain, OTHER (energy conservation education) Treatment Duration: Jul 30, 2020 Frequency: Modified Program (IRF) Estimated Hrs Per Day: 1.5 hours per day (1.25 to 1.5) Agreement: Yes Rehab Potential: Fair Time/GCodes Start Time: 11:00 Stop Time: 12:05 Total Time Billed (hr/min): 65 Billed Treatment Time visit, 15 minutes evaluation moderate intensity, 50 minutes ADL MINNIE ABEL OT Jul 09, 2020 15:33
--- NOTE | 2020-07-09 15:55 | Therapy Group Daily Note ---
Therapy Daily Group Note Patient Education Topic Home Safety, Exercises, Other List Below (orientation to rehab) Exercises LE Seated Exercise, UE Exercise Session Ratio (pt:therapist): 3:1 Goal of Session: Education on ARU Expectations, Home Safety Strategies, UE/LE Strengthing Goal Met for this Session: Yes Pt Benefit of Group: Contributions to Others, F/U Use of Strategies @Home, Increased Functional Safety, Increased Functional Strength, Socialization Other/Notes Pt. participated in group PT OT session this date. Pt. ambulated to and from with SPC CGA. Pt. was social, introducing self and shared briefly her hometown and what she might like to eat when she is out of the hospital. Pt. demonstrated seated U&L extremity exercises to others in group reading and following directions from written illustrated exercises which were distributed to all participants just prior to group. Pt. participated well performing all exercises with a few verbal and tactile cues, and assistance with PROM of LUE with exercises. Home safety was topic of education with patients sharing their knowledge and experiences. Tripping hazards, adequate lighting sources, efficient ways of communication in case of emergency, as well as bathroom rails etc were covered. Explanation of ARU expectations and goals was outlined . Pt. donned mask for entire group session. After group pt. was assisted to room , in to bed and call tuttle at hand with all needs met. Start Time: 13:00 Stop Time: 14:15 Total Billed Treatment Time: 75 Total Billed Treatment 1, GRP HANNA YAN OT Jul 09, 2020 15:55
[2020-07-09 16:15] VITALS: BP 186/72
--- NOTE | 2020-07-09 16:21 | Physical Therapy Daily Note ---
PT Daily Note-Current Subjective Patient in bed sleeping pre tx, agrees to PT, has no pain at rest. Appearance Patient BTB post tx with nurse call, phone, tray, all needs met. Mental Status Patient Orientation: Person, Place, Situation Transfers SCALE: Activities may be completed with or without assistive devices. 2-Ntvityrxmh-hwdhckx completes the activity by him/herself with no assistance from a helper. 5-Set-up or Clean-up Assistance-helper sets up or cleans up; patient completes activity. [place] assists only prior to or following the activity. 4-Supervision or Touching Assistance-helper provides verbal cues and/or touching/steadying and/or contact guard assistance as patient completes activity. Assistance may be provided throughout the activity or intermittently. 3-Partial/Moderate Assistance-helper does LESS THAN HALF the effort. [place] lifts, holds or supports trunk or limbs, but provides less than half the effort. 2-Substantial/Maximal Assistance-helper does MORE THAN HALF the effort. [place] lifts or holds trunk or limbs and provides more than half the effort. 4-Jgveeykjv-tlvtww does ALL the effort. Patient does none of the effort to complete the activity. Or, the assistance of 2 or more helpers is required for the patient to complete the activity. If activity was not attempted, code reason: 7-Patient Refused. 9-Not Applicable-not attempted and the patient did not perform the activity before the current illness, exacerbation or injury. 10-Not Attempted due to Environmental Limitations-(lack of equipment, weather restraints, etc.). 88-Not Attempted due to Medical Conditions or Safety Concerns. Roll Left & Right (QC): 6 Sit to Lying (QC): 6 Lying to Sitting/Side of Bed(Q: 6 Sit to Stand (QC): 4 Chair/Qkw-zc-Mcpnt Xfer(QC): 4 Patient on toilet post tx, instructed to use nurse call when done. Gait Training Distance: 500', 150' Walk 10 feet (QC): 4 Walk 50 ft with 2 Turns(QC): 4 Walk 150 ft (QC): 4 Gait Persons Needed: 1 Gait Assistive Device: Cane Single Point close SBA, some unsteadiness but no LOB Exercises Standing: Heel/toe raises, Mini squats LAQ alternating for 5 min with 2# ankle weights Neuromuscular standing on airex 30 sec, tandem stance [address] Treatments bed mobility and transfers, ambulation, functional strengthening, balance training Assessment Current Status: Fair Progress improving endurance PT Short Term Goals Short Term Goals Time Frame: Jul 16, 2020 Roll Left & Right: 6 Sit to lyin Lying to sitting on side of be: 6 Sit to stand: 5 Chair/mcd-cy-sjglk transfer: 5 Walk 10 feet: 4 Walk 50 feet with two turns: 4 Walk 150 feet: 4 PT Intermediate Goals Intermediate Goals PT Intermediate Goals Time Frame: Jul 30, 2020 Roll Left & Right (QC): 6 Sit to Lying (QC): 6 Lying-Sitting on Side/Bed(QC): 6 Sit to Stand (QC): 6 Chair/Qac-fe-Nulvj Xfer(QC): 6 Toilet Transfer (QC): 6 Car Transfer (QC): 6 Does the Patient Walk: Yes Walk 10 feet (QC): 6 Walk 50ft with 2 Turns (QC): 6 Walk 150 ft (QC): 6 Walking 10ft on Uneven Surface: 6 1 Step (curb) (QC): 5 4 Steps (QC): 5 12 Steps (QC): 5 Picking up an Object (QC): 5 Wheel 50 feet with 2 turns (QC: 9 Wheel 150 feet: 9 PT Plan Problem List Problem List: Activity Tolerance, Functional Strength, Safety, Balance, Gait, Transfer Treatment/Plan Treatment Plan: Continue Plan of Care Treatment Plan: Education, Functional Activity Solomon, Functional Strength, Group Therapy, Gait, Safety, Therapeutic Exercise, Transfers Treatment Duration: Jul 30, 2020 Frequency: At least 5 of 7 days/Wk (IRF) Estimated Hrs Per Day: 1.5 hours per day Patient and/or Family Agrees t: Yes Safety Risks/Education Patient Education: Gait Training, Transfer Techniques, Correct Positioning, Safety Issues Teaching Recipient: Patient Teaching Methods: Demonstration, Discussion Response to Teaching: Reinforcement Needed Time/GCodes Time In: 1525 Time Out: 1555 Total Billed Treatment Time: 30 Total Billed Treatment 1 visit GT 10' EX 20' ROSSY GUTIERREZ PT Jul 09, 2020 16:21
[2020-07-09] MEDS ORDERED: PATIENT MAY USE OWN MED,SINGLE MED PO SCH (16:30)
--- NOTE | 2020-07-09 16:33 | NUR ---
CM/SS ADMISSION Patient was admitted to ARU 07/08/[address] [facility] for CVA, embolic type following right CEA. Other diagnoses are, in part, atrial fibrillation, carotid stenosis, bilateral, confusion. Visited with patient and her daughter, Kezia Stern. Patient resides at home with her spouse, Jerry Vieyra, and plans to return there as soon as able. She was very active and independent prior to this acute event. 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 Her goal is to be able to work the Poll. PCP: Domenic Garza DO, [place] PH[facility]ACY: [facility] INSURANCE: [employer] and Medicaid [facility] DME: No history of need. At present, may need a cane and understands this is a private pay item. BARRIERS TO DISCHARGE PLANNING: None noted at present. Patient has support system of spouse and two daughters, although the daughters do not reside locally and are traveling to participate in her care at this time. Patient was fiercely independent and active prior to stroke, difficult adjustment if limits persist. CONTACTS: Jerry Vieyra, Spouse [phone] Kezia Stern, Daughter [address], [place] [id number] Rosemary Sethnat, Daughter [place], [place] [phone] Patient and Kezia understand the purpose and process of the weekly patient care conference and that patient's first review will be Sunday, July 14, 2020.
--- NOTE | 2020-07-09 16:51 | Consultation-Cardiology ---
HPI-Cardiology Cardiology Consultation: Date of Consultation 07/09/20 Date of Admission Attending Physician Sylvia Singh DO Admitting Physician Domenic Garza DO Consulting Physician Jaime HUTCHINSON MD HPI: Time Seen by a Provider: 14:00 Chief Complaint: Post stroke rehabilitation This is a 85-year-old lady who recently had carotid endarterectomy at [facility]; the hospital course was complicated by CVA. The patient has history of paroxysmal atrial fibrillation and is on oral anticoagulation therapy with Eliquis. 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 Patient has an implantable loop recorder which was done by Dr. Sofia in August 2016. Device interrogation it showed brief episodes of paroxysmal atrial fibrillation. The loop recorder was explanted in 2017 on patient's request. Patient denies currently any cardiac complaints including chest pain, shortness of breath. She denies active smoking. No significant pertinent family history. Review of Systems-Cardiology Review of Systems Constitutional: As described under HPI; No As described under HPI, No no symptoms reported, No chills, No fever, No lightheadedness Eyes: No As described under HPI, No no symptoms reported, No blindness, No blurred vision, No contact lenses, No drainage, No decreased acuity, No foreign body sensation, No pain, No vision change Ears/Nose/Throat: No As described under HPI, No no symptoms reported, No chronic hearing loss, No ear discharge, No ear pain, No nasal drainage, No ulcerations Respiratory: No no symptoms reported; As described under HPI; No As described under HPI, No cough, No orthopnea, No shortness of breath, No SOB with excertion Cardiovascular: No no symptoms reported; As described under HPI; No As described under HPI, No chest pain, No edema, No irregular heart rate, No lightheadedness, No palpitations Gastrointestinal: No no symptoms reported, No As described under HPI, No abdomen distended, No abdominal pain, No blood streaked bowels, No constipation, No diarrhea, No nausea, No vomiting, No stool coloration changes Genitourinary: No As described under HPI, No burning, No dysuria, No discharge, No frequency, No flank pain, No hematuria, No urgency : Yes : No Skin: No rash, No skin related problems, No ulcerations Psychiatric/Neurological: No anxiety, No depression, No seizure, No focal weakness, No syncope Hematologic: No bleeding abnormalities All Other Systems Reviewed Negative Unless Noted: Yes OEV-Kpmsye-Orvxwv Hx Patient Social History Marrital Status: 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 Allergies and Home Medications Allergies Coded Allergies: Penicillins (Verified Allergy, Unknown, 12/16/18) codeine (Unverified Allergy, Unknown, 12/16/18) glycopyrrolate (Verified Allergy, Unknown, VOMITING, 12/16/18) Home Medications Amino Acids 1 Each Capsule, 1 EACH PO DAILY, (Reported) Amiodarone HCl 200 Mg Tablet, 200 MG PO DAILY PRN for IRREGULAR HEART RYTHYM, (Reported) Amlodipine Besylate 10 Mg Tablet, 10 MG PO DAILY, (Reported) Apixaban 5 Mg Tablet, 5 MG PO BID, (Reported) Aspirin 81 Mg Tab.chew, 81 MG PO DAILY, (Reported) Atorvastatin Calcium 40 Mg Tablet, 40 MG PO HS, (Reported) Cyclobenzaprine HCl 10 Mg Tablet, 10 MG PO TID PRN for MUSCLE SPASMS, (Reported) Levothyroxine Sodium 25 Mcg Tablet, 25 MCG PO DAILY, (Reported) Lisinopril 10 Mg Tablet, 10 MG PO DAILY, (Reported) Multivitamin 1 Each Tablet, 1 EACH PO DAILY, (Reported) Niacin 250 Mg Tablet, 250 MG PO DAILY, (Reported) Phosphate 1 Ea Tablet, 1 EA PO DAILY, (Reported) Selenium 200 Mcg Capsule, 200 MCG PO DAILY, (Reported) Turmeric Root Extract 538 Mg Capsule, 538 MG PO DAILY, (Reported) Ubidecarenone 30 Mg Capsule, 30 MG PO DAILY, (Reported) Vit C/E/Zn/Coppr/Lutein/Zeaxan 1 Each Capsule, 1 EACH PO DAILY, (Reported) [Cardio [place]] , 1 PO DAILY, (Reported) Patient Home Medication List Home Medication List Reviewed: Yes Physical Exam-Cardiology Physical Exam Vital Signs/I&O 07/10/20 06:00 Temp 36.2 Pulse 60 Resp 20 B/P (MAP) 169/74 (105) Pulse Ox 95 O2 Delivery Room Air 07/09/20 23:59 Intake Total 1220 ml Balance 1220 ml Capillary Refill : Less Than 3 Seconds Constitutional: appears stated age, AAO x 3; No apparent distress; well- developed, well-nourished HEENT: PERRL; No discharge; hearing is well preserved, oral hygience is good; No ulceration, No xanthelasmas are seen Neck: No carotid bruit; carotid pulses are 2 + bilaterally Respiratory: chest is bilaterally symmetric, lungs clear to auscultation Cardiovascular: regular rate-rhythm, S1 and S2 Gastrointestinal: soft, audible bowel sounds; No spleenomegaly Rectal: deferred Extremities: normal range of motion, non-tender, normal inspection; No clubbing, No cyanosis; no lower extremity edema bilateral; No significant edema Neurologic/Psychiatric: alert, normal mood/affect, oriented x 3, power is 5/5 both on sides Skin: normal color; No rash, No ulcerations Data Review Labs A/P-Cardiology Assessment/Admission Diagnosis Recent right carotid endarterectomy. Left-sided CVA, Hypertension, Hyperlipidemia, Paroxysmal atrial fibrillation, History of typical atrial flutter, History of AVNRT Plan Recent right carotid endarterectomy. Continue antiplatelet therapy. Left-sided CVA, continue antiplatelet therapy and inpatient rehabilitation. Defer to Dr. Singh. Hypertension, continue lisinopril. Hyperlipidemia, on atorvastatin. Paroxysmal atrial fibrillation, continue Eliquis. History of typical atrial flutter, no further palpitations. 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 Previous history: This is a patient of Dr. Harmon. The patient has history of paroxysmal atrial fibrillation and had an implantable loop recorder done by Dr. Sofia in August 2016. Device interrogations showed brief paroxysmal atrial fibrillation with good ventricular control. Loop recorder was removed per patient request . She also had a possible TIA in August 2016. She had a nuclear stress test on 05/08/2017 which showed no evidence of myocardial ischemia or infarction. LVEF is 80 percent. An echocardiogram done on 09/13/2017 showed LVEF of 60 percent with mild LVH, mild mitral regurgitation, mild tricuspid regurgitation with PA pressure of 25 mmHg. The patient had a prolonged episode of palpitation and presented to the ER in [facility] and was found to have typical atrial flutter with 2-1 AV block on 11/06/2018. EKG dated 11/06/2018 shows typical atrial flutter at 147 BPM. QTc interval 470 ms. EKG dated 11/13/2018 shows sinus rhythm with PAC. Heart rate 52 BPM. QTc interval 429 ms. EKG dated 01/08/2019 shows sinus rhythm at 75bpm. MO 163ms, QTc 465 ms. Typical atrial flutter: Typical atrial flutter and AVNRT ablation was done 12/16/2018. No further palpitations. Paroxysmal atrial fibrillation: The patient will continue on Eliquis. Continue when necessary amiodarone and only use it as pill in the pocket approach, patient understands that she will take amio 200mg if she has palpitations. if the palpitations do not go away in an hour, take another pill of 200mg. if still does not go away, seek medical attention. AVNRT: s/p ablation on 12/16/18. Thank you for your consultation. Please call me if you have any questions. Yusuf Hutchinson MD, FACP, FACC, FSCAI, FHRS, CCDS Interventional Cardiology Cardiac Electrophysiology Vascular Medicine and Endovascular Interventions Clinical Quality Measures DVT/VTE Risk/Contraindication: Risk Factor Score Per Nursin RFS Level Per Nursing on Admit: 4+=Very High Jaime HUTCHINSON MD Jul 09, 2020 16:51
[2020-07-09] MEDS: PRESERVISION AREDS PO SCH (17:05)
[2020-07-09 17:30] VITALS: BP 182/79
[2020-07-09] MEDS: lisINopril 10 MG (PRINIVIL) TABLET PO SCH (20:58)
[2020-07-10] MEDS: MULTIVIT W/MINERALS TAB (THERAGRAN M) PO SCH (05:38)
[2020-07-10] MEDS: LEVOTHYROXINE 25 MCG (LEVOTHROID) TAB PO SCH (05:38)
[2020-07-10 06:00] VITALS: BP 169/74
--- NOTE | 2020-07-10 06:49 | Individualized Plan of Care ---
Individualized Plan of Care Rehab Nursing IPOC Order Admission Date Jul 08, 2020 at 18:20 Current Orders Orders Admission Order(Inpt,Obs,Sdc) (07/08/20 07:21) Vital Signs: Per Unit Policy ( 08,16,00 (07/08/20 07:21) Grayson Evangelista , (07/08/20 07:21) Sequential Compression Device Q4H (07/08/20 07:21) Industrial Safety And Health Manager-Inpt Rehab Con (07/08/20 07:21) Rehab Nursing Orders-Ipoc (07/08/20 07:21) Physical Therapy Rehab Orders (07/08/20 07:21) Occupational Therapy Rehab Ord (07/08/20 07:21) Speech Therapy Rehab Orders (07/08/20 07:21) Cbc With Automated Diff (07/09/20 06:00) Comprehensive Metabolic Panel (07/09/20 06:00) General/Regular (07/08/20 Breakfast) Intake & Output 06,14,22 (07/08/20 07:21) Precautions (Aru) (07/08/20 07:21) Rehab-Intensity Of Therapy (07/08/20 07:21) Initiate Admission Nursing Pro .admission (07/08/20 07:21) Acetaminophen Tablet (Tylenol Tablet) (07/08/20 07:30) Alprazolam Tablet (Xanax Tablet) (07/08/20 07:30) Calcium Carbonate Chew Tablet (Antacid C (07/08/20 07:30) Diphenhydramine Tablet (Benadryl Tablet) (07/08/20 07:30) Docusate Sodium Capsule (Colace Capsule) (07/08/20 09:00) Docusate Sodium Capsule (Colace Capsule) (07/08/20 07:30) Bisacodyl Suppository (Dulcolax Supposit (07/08/20 07:30) Lactulose Oral Solution (Enulose Oral So (07/08/20 07:30) Na Phos/Na Biphos Enema (Fleet Enema Chris (07/08/20 07:30) Guaifenesin/Codeine Syrup (Robitussin Ac (07/08/20 07:30) Loperamide Tablet (Imodium Tablet) (07/08/20 07:30) Melatonin Tablet (Melatonin Tablet) (07/08/20 07:30) Polyethylene Glycol Powder Pkt (Miralax (07/08/20 09:00) Ondansetron Oral Dissolve Tab (Zofran (07/08/20 07:30) Senna S Tablet (Senokot S Tablet) (07/08/20 09:00) Initiate Admission Nursing Pro .admission (07/08/20 07:21) Admission Arrival Bed Request (07/08/20 18:03) Amiodarone Tablet (Cordarone Tablet) (07/08/20 18:30) Amlodipine Tablet (Norvasc Tablet) (07/09/20 09:00) Apixaban Tablet (Eliquis Tablet) (07/08/20 21:00) Aspirin Chewable Tablet (Baby Aspirin Ch (07/09/20 09:00) Atorvastatin Tablet (Lipitor) (07/08/20 21:00) Cyclobenzaprine Tablet (Flexeril Tablet) (07/08/20 18:30) Levothyroxine Tablet (Synthroid Tablet) (07/09/20 06:30) Lisinopril Tablet (Zestril Tablet) (07/09/20 09:00) Pot Phos/Na Phos Tablets (Phospha 250 Ne (07/09/20 09:00) (Nf) Multivitamin (07/09/20 09:00) (Nf) Ubidecarenone (Coq-10) (07/09/20 09:00) (Nf) Vit C/E/Zn/Coppr/Lutein/Zeaxan (Pre (07/09/20 09:00) Acetaminophen Tablet/Caplet (Tylenol T (07/08/20 18:45) Docusate Sodium Capsule (Colace Capsule) (07/08/20 21:00) Therapeutic Multivitamin Tab (Vitamins, (07/09/20 07:00) Ibuprofen Tablet (Motrin Tablet) (07/08/20 20:00) Ibuprofen Tablet (Motrin Tablet) (07/08/20 19:46) Consult Cardiology (07/09/20 06:04) Patient Visit (07/09/20 ) Speech Sound Lang Comp (07/09/20 ) Treat. Speech/Lang/Voice (07/09/20 ) Patient Visit (07/09/20 ) Pt Eval Moderate Complexity (07/09/20 ) Exercise Therap, Ea 15 Min (07/09/20 ) Functional Activities, Ea 15 (07/09/20 ) Patient Visit (07/09/20 ) Patient May Use Own Med,Single (Patient (07/09/20 16:30) Patient Visit (07/09/20 ) Exercise Therap, Ea 15 Min (07/09/20 ) Gait Training, Ea 15 Min (07/09/20 ) (Nf) Vit C/E/Zn/Coppr/Lutein/Zeaxan (Pre (07/09/20 17:00) Lisinopril Tablet (Zestril Tablet) (07/09/20 21:00) Potassium Chloride (Tablet) (Klor Con Ta (07/10/20 07:00) Patient Visit (07/10/20 ) Gait Training, Ea 15 Min (07/10/20 ) Ex Neuromuscular, Ea 15 Min (07/10/20 ) Potassium Chloride (Tablet) (Klor Con Ta (07/10/20 06:52) Patient Visit (07/10/20 ) Gait Training, Ea 15 Min (07/10/20 ) Saline Nasal [place] (Hill Nasal [place]) (07/10/20 12:45) Rehab Nursing Orders: Ongoing Assess. of Cognitive Status, Ongoing Assess. of Function Status, Bladder Management, Bladder Scan, Bladder Training, Bowel Management, Bowel Training, Disease Management & Educaiton, DVT Prophylaxis, Fall Prevention, Fluid/Electrolyte/Nutrition Mgmt, Infection Prevention, Medication Management & Education, Management of Risks & Complications, Management of Skin Intergrity, Nutrition Management, Pain Management, Patient/Family Support, Safety Management Intensity of Therapy to be met Patient to be seen: Min.3h per day/5 of 7d PT IPOC Problem List: Activity Tolerance, Functional Strength, Safety, Balance, Gait, Transfer Treatment Plan: Continue Plan of Care Education, Functional Activity Solomon, Functional Strength, Group Therapy, Gait, Safety, Therapeutic Exercise, Transfers Treatment Duration: Jul 30, 2020 Frequency: At least 5 of 7 days/Wk (IRF) Estimated Hrs Per Day: 1.5 hours per day OT IPOC Problems: Decreased Safety Aware, Decreased UE Strength, Dependent Transfers, Impaired Self-Care Skills, Restricted Funct UE ROM OT Treatment, Training and Edu: Yes OT Problems Pt would benefit from skilled OT to increase her independence with basic self care to allow her to safely return home. Plan of Care: ADL Retraining, Functional Mobility, Group Exercise/Act as Ind, UE Funct Exercise/Act, UE Neuromus Re-Ed/Coord, Visual/Perceptual Retrain, OTHER (energy conservation education) Treatment Duration: Jul 30, 2020 Frequency: Modified Program (IRF) Estimated Hrs Per Day: 1.5 hours per day (1.25 to 1.5) ST IPOC Speech Therapy Treatment Plan: Continue Plan of Care Treatment Duration: Jul 21, 2020 Frequency: 4 times per week (Patient will receive 4-5 ST treatments per week) Estimated Hrs Per Day: .5 hour per day Industrial Safety And Health Manager/Case Mgmt Industrial Safety And Health Manager/Case Managemen: Discharge Planning Dietitian/Sausage Grinder Dietitian/Sausage Grinder to monitor nutritional status and make changes and/or recommendations as needed and work with speech pathology on dietary upgrades as the occur. Physician IPOC Medical Issues being managed closely and that require the 24 hour availability of a physician: Recent CVA w/left arm weakness with slurred speech due to severe PVD will need close monitoring for decompensation for another vascular event Medical Issues: Bowel/Bladder Function, DVT Prophylaxis, Falls Precautions, Fluid/Electrolyte/Nutrition Balance, Infection Protection, Pain Management Brief Synthesis of Preadmission Screen, Post-Admission Evaluation, and Therapy Evaluations: PT OT will focus on regaining function of left arm and hand and utilize assistive devices to help regain ADL independence Medical Prognosis: Good Anticipated Length of Stay: 7 days ESSENCE HAWK DO Jul 10, 2020 06:49
--- NOTE | 2020-07-10 06:50 | PM&R Progress Note ---
Subjective HPI/CC On Admission Date Seen by Provider: Jul 10, 2020 Time Seen by Provider: 12:30 Subjective/Events-last exam 07/10/20: Doing well Blew mucous plug out of nose and not she feels like she is breathing better Saline nasal spray will be ordered BM yesterday No issues 07/09/20: Pt doing pretty well Worried about Lipitor and her liver Lymphedema of the left arm will require therapy Bowels are moving well Cardiology consulted Checked meds and labs Reviewed therapy notes Conferred with communications intern of Systems General: Fatigue, Malaise Neurological: Weakness, Incoordination, Change in speech Objective Exam Vital Signs Vital Signs Date Time Temp Pulse Resp B/P (MAP) Pulse Ox O2 Delivery O2 Flow Rate FiO2 07/10/20 16:00 36.8 65 16 142/65 (90) 96 Room Air Capillary Refill : Less Than 3 Seconds General Appearance: No Apparent Distress, WD/WN, Chronically ill HEENT: PERRL/EOMI, Normal ENT Inspection, Pharynx Normal Neck: Full Range of Motion, Normal Inspection, Non Tender, Supple, Carotid Bruit Respiratory: Chest Non Tender, Lungs Clear, Normal Breath Sounds, No Accessory Muscle Use, No Respiratory Distress Cardiovascular: No Edema, No Gallop, No JVD, No Murmur, Normal Peripheral Pulses, Irregularly Irregular Gastrointestinal: Normal Bowel Sounds, No Organomegaly, No Pulsatile Mass, Non Tender, Soft Back: Normal Inspection, No CVA Tenderness, No Vertebral Tenderness Extremity: Normal Capillary Refill, Normal Inspection, Normal Range of Motion (except left upper extremity upper arm 3/5 left hand 0/5), Non Tender, No Calf Tenderness, No Pedal Edema Neurologic/Psychiatric: Alert, Oriented x3, No Motor/Sensory Deficits, Normal Mood/Affect, Abnormal Gait, Motor Weakness (left arm) Skin: Normal Color, Warm/Dry Lymphatic: No Adenopathy Results/Procedures Lab Patient resulted labs reviewed. FIM Transfers Therapy Code Descriptions/Definitions Functional [place] Measure: 0=Not Assessed/NA 4=Minimal Assistance 1=Total Assistance 5=Supervision or Setup 2=Maximal Assistance 6=Modified [place] 3=Moderate Assistance 7=Complete IndependenceSCALE: Activities may be completed with or without assistive devices. 0-Nhrdtafxor-rjhgzkg completes the activity by him/herself with no assistance from a helper. 5-Set-up or Clean-up Assistance-helper sets up or cleans up; patient completes activity. [place] assists only prior to or following the activity. 4-Supervision or Touching Assistance-helper provides verbal cues and/or touching/steadying and/or contact guard assistance as patient completes activity. Assistance may be provided throughout the activity or intermittently. 3-Partial/Moderate Assistance-helper does LESS THAN HALF the effort. [place] lifts, holds or supports trunk or limbs, but provides less than half the effort. 2-Substantial/Maximal Assistance-helper does MORE THAN HALF the effort. [place] lifts or holds trunk or limbs and provides more than half the effort. 5-Gvzonymsc-yknudz does ALL the effort. Patient does none of the effort to complete the activity. Or, the assistance of 2 or more helpers is required for the patient to complete the activity. If activity was not attempted, code reason: 7-Patient Refused. 9-Not Applicable-not attempted and the patient did not perform the activity before the current illness, exacerbation or injury. 10-Not Attempted due to Environmental Limitations-(lack of equipment, weather restraints, etc.). 88-Not Attempted due to Medical Conditions or Safety Concerns. Roll Left to Right (QC): 6 Sit to Lying (QC): 6 Sit to Stand (QC): 4 Chair/Wmd-eo-Ttjxk Xfer(QC): 4 Car Transfer (QC): 4 Gait Training Does the Patient Walk?: Yes Distance: 500', 150' Walk 10 feet (QC): 4 Walk 50 ft with 2 Turns(QC): 4 Walk 150 ft (QC): 4 Walking 10ft/uneven surface-QC: 4 Gait Persons Needed: 1 Gait Assistive Device: Cane Single Point Wheelchair Training Wheel 50 ft with 2 turns (QC): 9 Wheel 150 ft (QC): 9 Stair Training #of Steps: 4 1 Step (curb) (QC): 4 4 Steps (QC): 4 12 Steps (QC): 88 Balance Picking up an Object (QC): 4 ADL-Treatment Eating (QC): 5 (setup) Oral Hygiene (QC): 4 (CGA) Shower/Bathe Self (QC): 3 (Help with R arm and bottom) Upper Body Dressing (QC): 3 (mod A) Lower Body Dressing (QC): 3 (mod A) On/Off Footwear (QC): 4 (min A) Toileting Hygiene (QC): 4 (CGA) Assessment/Plan Assessment and Plan Assess & Plan/Chief Complaint Assessment: CVA embolic type following right CEA Left arm weakness and left hand flaccidity Chronic AF OAC HTN Plan: Cardiology consulting Home meds Pain meds IRF protocol 07/09/20: Therapy for left arm flaccidity Monitor bowels Cardiology consultation Patient dislikes Lipitor 07/10/20: Saline nasal spray Monitor BP closely Fall risk (1) CVA (cerebral vascular accident) (2) Atrial fibrillation Status: Acute (3) Carotid stenosis, bilateral (4) S/P carotid endarterectomy (5) Confusion ESSENCE HAWK DO Jul 10, 2020 06:50
[2020-07-10] MEDS ORDERED: KCL 10 MEQ TAB (MICRO K) PO ONE (06:52)
[2020-07-10] MEDS: KCL 10 MEQ TAB (MICRO K) PO SCH (06:58)
[2020-07-10] MEDS: IBUPROFEN TABLET 200 MG TAB PO PRN ×2 (07:58→16:44)
--- NOTE | 2020-07-10 08:24 | Physical Therapy Daily Note ---
PT Daily Note-Current Subjective Agrees. Reports slight headache and requests ibuprofen. Transfers SCALE: Activities may be completed with or without assistive devices. 3-Nmcuzjdoaa-sluuydl completes the activity by him/herself with no assistance from a helper. 5-Set-up or Clean-up Assistance-helper sets up or cleans up; patient completes activity. [place] assists only prior to or following the activity. 4-Supervision or Touching Assistance-helper provides verbal cues and/or touching/steadying and/or contact guard assistance as patient completes activity. Assistance may be provided throughout the activity or intermittently. 3-Partial/Moderate Assistance-helper does LESS THAN HALF the effort. [place] lifts, holds or supports trunk or limbs, but provides less than half the effort. 2-Substantial/Maximal Assistance-helper does MORE THAN HALF the effort. [place] lifts or holds trunk or limbs and provides more than half the effort. 2-Arrvxmqld-nzwlci does ALL the effort. Patient does none of the effort to complete the activity. Or, the assistance of 2 or more helpers is required for the patient to complete the activity. If activity was not attempted, code reason: 7-Patient Refused. 9-Not Applicable-not attempted and the patient did not perform the activity before the current illness, exacerbation or injury. 10-Not Attempted due to Environmental Limitations-(lack of equipment, weather restraints, etc.). 88-Not Attempted due to Medical Conditions or Safety Concerns. Sit to Lying (QC): 4 Sit to Stand (QC): 4 Chair/Qga-fj-Agsli Xfer(QC): 4 Gait Training Walk 50 ft with 2 Turns(QC): 3 Walk 150 ft (QC): 3 (CGA at times due to unsteady gait with fatigue.) Walking 10ft/uneven surface-QC: 3 (CGA for safety) Gait Assistive Device: Cane Single Point Functional gait training with turns, distance and obstacles. CGA with gait for safety. Work on step clearance and step through. Decreased steadiness with fatigue. Pt walked several bouts of 200 ft each Stair Training 4 Steps (QC): 3 (up/down x 2 with handrail with CGA. ) Decreased steadiness going down Treatments Functional gait and upright balance training during course of treatment. Assessment Current Status: Good Progress Tires quickly and with fatigue balance diminishes. PT Short Term Goals Short Term Goals Time Frame: Jul 16, 2020 Roll Left & Right: 6 Sit to lyin Lying to sitting on side of be: 6 Sit to stand: 5 Chair/kem-vt-gkqfk transfer: 5 Walk 10 feet: 4 Walk 50 feet with two turns: 4 Walk 150 feet: 4 PT Correction Goals Correction Goals PT Correction Goals Time Frame: Jul 30, 2020 Roll Left & Right (QC): 6 Sit to Lying (QC): 6 Lying-Sitting on Side/Bed(QC): 6 Sit to Stand (QC): 6 Chair/Hex-qt-Bvxvf Xfer(QC): 6 Toilet Transfer (QC): 6 Car Transfer (QC): 6 Does the Patient Walk: Yes Walk 10 feet (QC): 6 Walk 50ft with 2 Turns (QC): 6 Walk 150 ft (QC): 6 Walking 10ft on Uneven Surface: 6 1 Step (curb) (QC): 5 4 Steps (QC): 5 12 Steps (QC): 5 Picking up an Object (QC): 5 Wheel 50 feet with 2 turns (QC: 9 Wheel 150 feet: 9 PT Plan Problem List Problem List: Activity Tolerance, Functional Strength, Safety, Balance, Gait Treatment/Plan Treatment Plan: Continue Plan of Care Treatment Plan: Education, Functional Activity Solomon, Functional Strength, Group Therapy, Gait, Safety, Therapeutic Exercise, Transfers Treatment Duration: Jul 30, 2020 Frequency: At least 5 of 7 days/Wk (IRF) Estimated Hrs Per Day: 1.5 hours per day Patient and/or Family Agrees t: Yes Safety Risks/Education Patient Education: Safety Issues Teaching Recipient: Patient Teaching Methods: Discussion Response to Teaching: Reinforcement Needed Time/GCodes Time In: 730 Time Out: 820 Total Billed Treatment Time: 50 Total Billed Treatment visit NM 20 GT 30 ZENIA DURON PT Jul 10, 2020 08:24
[2020-07-10] MEDS: ASPIRIN 81 MG CHEW (CHILDREN'S ASA) PO SCH (08:39)
[2020-07-10] MEDS: POT PHOS/NA PHOS (K-PHOS NEUTRAL) PO SCH (08:39)
[2020-07-10] MEDS: SENNA W/DOCUSATE (SENOKOT S) TABLET PO SCH ×2 (08:39→20:40)
[2020-07-10] MEDS: APIXABAN 5 MG (ELIQUIS) TABLET PO SCH ×2 (08:39→20:39)
[2020-07-10] MEDS: amLODIPine 10 MG (NORVASC) TAB PO SCH (08:39)
[2020-07-10] MEDS: lisINopril 10 MG (PRINIVIL) TABLET PO SCH ×2 (08:39→20:39)
[2020-07-10] MEDS: DOCUSATE SODIUM 100 MG (COLACE) CAP PO SCH ×2 (08:39→20:40)
[2020-07-10] MEDS: PRESERVISION AREDS PO SCH (08:41)
[2020-07-10] MEDS: polyethylene glycoL POWDER 17 GM (MIRALAX) PACK PO SCH ×2 (08:41→19:40)
--- NOTE | 2020-07-10 10:10 | Occupational Ther Daily Note ---
OT Current Status-Daily Note Subjective Pt seen in room, up in bed, agreeable to OT. Reported recent pain meds for headache. Appearance Alert, cooperative ADL-Treatment Pt moved supine to sit EOB without assistance, but cue for L hand positioning. Undressed upper body with a little difficulty but without physical assistance, SBA. Stood SBA to undress lower body. Donned shirt with skilled cues, struggling and requiring restart but not physical assistance. Donned underwear and pants without physical assistance and stood close SBA to pull them up, getting pants up over hips without help. No LOB observed. Recalled modified techniques from previous day. Donned and doffed slippers with setup. Walked to bathroom with CGA, SPC and brushed teeth with close SBA and combed hair. Pt educ to use L UE as support at sink for functional use. Therapy Code Descriptions/Definitions Functional [place] Measure: 0=Not Assessed/NA 4=Minimal Assistance 1=Total Assistance 5=Supervision or Setup 2=Maximal Assistance 6=Modified [place] 3=Moderate Assistance 7=Complete IndependenceSCALE: Activities may be completed with or without assistive devices. 0-Jsfjcdqzov-zlyrdtd completes the activity by him/herself with no assistance from a helper. 5-Set-up or Clean-up Assistance-helper sets up or cleans up; patient completes activity. [place] assists only prior to or following the activity. 4-Supervision or Touching Assistance-helper provides verbal cues and/or touching/steadying and/or contact guard assistance as patient completes activity. Assistance may be provided throughout the activity or intermittently. 3-Partial/Moderate Assistance-helper does LESS THAN HALF the effort. [place] lifts, holds or supports trunk or limbs, but provides less than half the effort. 2-Substantial/Maximal Assistance-helper does MORE THAN HALF the effort. [place] lifts or holds trunk or limbs and provides more than half the effort. 4-Moabrzecy-kdungl does ALL the effort. Patient does none of the effort to complete the activity. Or, the assistance of 2 or more helpers is required for the patient to complete the activity. If activity was not attempted, code reason: 7-Patient Refused. 9-Not Applicable-not attempted and the patient did not perform the activity before the current illness, exacerbation or injury. 10-Not Attempted due to Environmental Limitations-(lack of equipment, weather restraints, etc.). 88-Not Attempted due to Medical Conditions or Safety Concerns. Oral Hygiene (QC): 4 (SBA) Upper Body Dressing (QC): 4 (SBA, cues) Lower Body Dressing (QC): 4 (SBA, cues) On/Off Footwear: 5 (setup) Other Treatment Pt walked with CGA, SPC to gym. Pt educ to position L arm on armrest to help with transfers and functional use. Retrograde massage to L hand and wrist to h elp mobilize edema, with pt educ that she can do this on her own in her room. Pt educ on elevating L UE on pillow in bed and when up in chair, with verbal understanding. Bilat shoulder elevation and retraction, with increased L sided movement with mirror for visual cues, tactile cues and gentle mobilization. Pt educ these shoulder exercises that she can do to help decrease muscle tightness. Worked on active shoulder flex/ext on table top, moving in different planes. Also worked on assisted elbow flex and ext and she was able to get full L elbow flex against gravity x 3 reps. Pt practiced active supination but had more difficulty initiation pronation. With facilitation, demonstrated wrist ext to just past midpoint x 5 reps. Also demonstrated gross finger flexion in mid range with facilitation. Isotoner glove applied to L hand, with pt educ that she can take it off when in bed and to do retrograde massage. Pt encouraged with progress. Pt walked back to room and got into bed without help. L UE elevated on pillow. 3 rails up, all needs met. Education OT Patient Education: Correct positioning, Disease process, Modified ADL techniques, Progress toward Goal/Update tx plan, Purpose of tx/functional activities, Safety issues, Other (facilitation technoques) Teaching Recipient: Patient, Family (daughter) Teaching Methods: Demonstration, Discussion Response to Teaching: Verbalize Understanding, Return Demonstration, Reinfor cement Needed OT Short Term Goals Short Term Goals Time Frame: Jul 16, 2020 Oral hygiene: 5 Toileting hygiene: 5 Lower body dressin OT Alf Goals Strap Cutter Goals Time Frame: Jul 30, 2020 Eating (QC): 6 Oral Hygiene (QC): 6 Toileting Hygiene (QC): 6 Shower/Bathe Self (QC): 5 Upper Body Dressing (QC): 6 Lower Body Dressing (QC): 6 On/Off Footwear (QC): 6 Additional Goals: 1-Demonstrate ADL Tasks, 2-Verbalize Understanding, 3- ImproveStrength/Solomon 1=Demonstrate adherence to instructed precautions during ADL tasks. 2=Patient will verbalize/demonstrate understanding of assistive devices/modifications for ADL. 3=Patient will improve strength/tolerance for activity to enable patient to perform ADL's. OT Education/Plan Problem List/Assessment Pt would benefit from skilled OT to increase her independence with basic self care to allow her to safely return home. Discharge Recommendations Plan/Recommendations: Continue POC Treatment Plan/Plan of Care Patient would benefit from OT for education, treatment and training to promote independence in ADL's, mobility, safety and/or upper extremity function for ADL's. Plan of Care: ADL Retraining, Functional Mobility, Group Exercise/Act as Ind, UE Funct Exercise/Act, UE Neuromus Re-Ed/Coord, Visual/Perceptual Retrain, OTHER (energy conservation education) Treatment Duration: Jul 30, 2020 Frequency: Modified Program (IRF) Estimated Hrs Per Day: 1.5 hours per day (1.25 to 1.5) Agreement: Yes Rehab Potential: Fair Time/GCodes Start Time: 08:40 Stop Time: 09:50 Total Time Billed (hr/min): 70 Billed Treatment Time visit, 15 minutes ADL, 55 minutes neuromotor MINNIE ABEL OT Jul 10, 2020 10:10
--- NOTE | 2020-07-10 12:10 | Physical Therapy Daily Note ---
PT Daily Note-Current Subjective Agreeable to walk with PT Transfers SCALE: Activities may be completed with or without assistive devices. 9-Jztszojril-pighfrk completes the activity by him/herself with no assistance from a helper. 5-Set-up or Clean-up Assistance-helper sets up or cleans up; patient completes activity. [place] assists only prior to or following the activity. 4-Supervision or Touching Assistance-helper provides verbal cues and/or touching/steadying and/or contact guard assistance as patient completes activity. Assistance may be provided throughout the activity or intermittently. 3-Partial/Moderate Assistance-helper does LESS THAN HALF the effort. [place] lifts, holds or supports trunk or limbs, but provides less than half the effort. 2-Substantial/Maximal Assistance-helper does MORE THAN HALF the effort. [place] lifts or holds trunk or limbs and provides more than half the effort. 3-Bqusmnyly-sahajw does ALL the effort. Patient does none of the effort to complete the activity. Or, the assistance of 2 or more helpers is required for the patient to complete the activity. If activity was not attempted, code reason: 7-Patient Refused. 9-Not Applicable-not attempted and the patient did not perform the activity before the current illness, exacerbation or injury. 10-Not Attempted due to Environmental Limitations-(lack of equipment, weather restraints, etc.). 88-Not Attempted due to Medical Conditions or Safety Concerns. Treatments Functional gait training with use of FWW to facilitate use and associate professor of anthropology of left UE. Gait 300 ft x 2 and 150 ft x 1 with FWW with focus on associate professor of anthropology and use of left UE on the walker. Toileted with SBA for all needs in the bathroom. Pt sitting EOB post treatment with daughter present to eat lunch. Assessment Current Status: Good Progress Pt able to hold associate professor of anthropology left UE with min assist intermittently. PT Short Term Goals Short Term Goals Time Frame: Jul 16, 2020 Roll Left & Right: 6 Sit to lyin Lying to sitting on side of be: 6 Sit to stand: 5 Chair/ngx-cy-sfktr transfer: 5 Walk 10 feet: 4 Walk 50 feet with two turns: 4 Walk 150 feet: 4 PT Artificial Plastic Eye Maker Goals Artificial Plastic Eye Maker Goals PT Artificial Plastic Eye Maker Goals Time Frame: Jul 30, 2020 Roll Left & Right (QC): 6 Sit to Lying (QC): 6 Lying-Sitting on Side/Bed(QC): 6 Sit to Stand (QC): 6 Chair/Tbs-nx-Jkqrr Xfer(QC): 6 Toilet Transfer (QC): 6 Car Transfer (QC): 6 Does the Patient Walk: Yes Walk 10 feet (QC): 6 Walk 50ft with 2 Turns (QC): 6 Walk 150 ft (QC): 6 Walking 10ft on Uneven Surface: 6 1 Step (curb) (QC): 5 4 Steps (QC): 5 12 Steps (QC): 5 Picking up an Object (QC): 5 Wheel 50 feet with 2 turns (QC: 9 Wheel 150 feet: 9 PT Plan Problem List Problem List: Activity Tolerance, Functional Strength, Safety Treatment/Plan Treatment Plan: Continue Plan of Care Treatment Plan: Education, Functional Activity Solomon, Functional Strength, Group Therapy, Gait, Safety, Therapeutic Exercise, Transfers Treatment Duration: Jul 30, 2020 Frequency: At least 5 of 7 days/Wk (IRF) Estimated Hrs Per Day: 1.5 hours per day Patient and/or Family Agrees t: Yes Time/GCodes Time In: 1140 Time Out: 1203 Total Billed Treatment Time: 23 Total Billed Treatment vsiit GT 23 ZENIA DURON PT Jul 10, 2020 12:10
[2020-07-10] MEDS ORDERED: SALINE NASAL SPRAY (OCEAN) 45 ML BTL PRN (12:45)
--- NOTE | 2020-07-10 13:58 | Cardiology Progress Note ---
Cardiology SOAP Progress Note Subjective: No cardiac complaints. Objective: I&O/Vital Signs 07/10/20 06:00 Temp 36.2 Pulse 60 Resp 20 B/P (MAP) 169/74 (105) Pulse Ox 95 O2 Delivery Room Air 07/09/20 23:59 Intake Total 1220 ml Balance 1220 ml Weight (Pounds): 142 Weight (Ounces): 0.0 Weight (Calculated Kilograms): 64.834256 Constitutional: appears stated age, AAO x 3; No apparent distress; well- developed, well-nourished Respiratory: chest is bilaterally symmetric, lungs clear to auscultation Cardiovascular: regular rate-rhythm, S1 and S2 Gastrointestional: soft, audible bowel sounds; No spleenomegaly Extremities: normal range of motion, non-tender, normal inspection; No clubbing, No cyanosis; no lower extremity edema bilateral; No significant edema Neurologic/Psychiatric: alert, normal mood/affect, oriented x 3, power is 5/5 both on sides Skin: normal color; No rash, No ulcerations A/P: Assessment/Dx: Recent right carotid endarterectomy. Left-sided CVA, Hypertension, Hyperlipidemia, Paroxysmal atrial fibrillation, History of typical atrial flutter, History of AVNRT Plan: Recent right carotid endarterectomy. Continue antiplatelet therapy. Left-sided CVA, continue antiplatelet therapy and inpatient rehabilitation. Defer to Dr. Singh. Hypertension, continue lisinopril. Hyperlipidemia, on atorvastatin. Paroxysmal atrial fibrillation, continue Eliquis. History of typical atrial flutter, no further palpitations. 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 Thank you for your consultation. Please call me if you have any questions. Yusuf Hutchinson MD, FACP, FACC, FSCAI, FHRS, CCDS Interventional Cardiology Cardiac Electrophysiology Vascular Medicine and Endovascular Interventions Jaime HUTCHINSON MD Jul 10, 2020 13:58
[2020-07-10 16:00] VITALS: BP 142/65
[2020-07-11] MEDS: MULTIVIT W/MINERALS TAB (THERAGRAN M) PO SCH (06:13)
[2020-07-11] MEDS: LEVOTHYROXINE 25 MCG (LEVOTHROID) TAB PO SCH (06:13)
[2020-07-11] MEDS: KCL 10 MEQ TAB (MICRO K) PO SCH (06:13)
[2020-07-11 06:25] VITALS: BP 175/74
[2020-07-11] MEDS: IBUPROFEN TABLET 200 MG TAB PO PRN ×2 (06:38→16:32)
[2020-07-11 08:00] VITALS: BP 157/72
[2020-07-11] MEDS: lisINopril 10 MG (PRINIVIL) TABLET PO SCH ×2 (08:10→19:47)
[2020-07-11] MEDS: POT PHOS/NA PHOS (K-PHOS NEUTRAL) PO SCH (08:10)
[2020-07-11] MEDS: ASPIRIN 81 MG CHEW (CHILDREN'S ASA) PO SCH (08:10)
[2020-07-11] MEDS: PRESERVISION AREDS PO SCH (08:10)
[2020-07-11] MEDS: APIXABAN 5 MG (ELIQUIS) TABLET PO SCH ×2 (08:10→19:47)
[2020-07-11] MEDS: amLODIPine 10 MG (NORVASC) TAB PO SCH (08:10)
[2020-07-11] MEDS: DOCUSATE SODIUM 100 MG (COLACE) CAP PO SCH ×2 (08:11→19:44)
[2020-07-11] MEDS: polyethylene glycoL POWDER 17 GM (MIRALAX) PACK PO SCH ×2 (08:11→19:44)
[2020-07-11] MEDS: SENNA W/DOCUSATE (SENOKOT S) TABLET PO SCH ×2 (08:12→19:44)
--- NOTE | 2020-07-11 11:22 | PM&R Progress Note ---
Subjective HPI/CC On Admission Date Seen by Provider: Jul 11, 2020 Time Seen by Provider: 12:15 Subjective/Events-last exam 07/11/20: No pain reported No bleeding issues noted Fatigue is an issue Wants to get her left arm working better before she goes home Appreciate Dr Hutchinson consult 07/10/20: Doing well Blew mucous plug out of nose and not she feels like she is breathing better Saline nasal spray will be ordered BM yesterday No issues 07/09/20: Pt doing pretty well Worried about Lipitor and her liver Lymphedema of the left arm will require therapy Bowels are moving well Cardiology consulted Checked meds and labs Reviewed therapy notes Conferred with getterer of Systems General: Fatigue, Malaise Neurological: Weakness, Incoordination Objective Exam Vital Signs Vital Signs Date Time Temp Pulse Resp B/P (MAP) Pulse Ox O2 Delivery O2 Flow Rate FiO2 07/11/20 17:47 36.3 55 20 140/62 (88) 96 Room Air Capillary Refill : Less Than 3 Seconds General Appearance: No Apparent Distress, WD/WN, Chronically ill HEENT: PERRL/EOMI, Normal ENT Inspection, Pharynx Normal Neck: Full Range of Motion, Normal Inspection, Non Tender, Supple, Carotid Bruit Respiratory: Chest Non Tender, Lungs Clear, Normal Breath Sounds, No Accessory Muscle Use, No Respiratory Distress Cardiovascular: No Edema, No Gallop, No JVD, No Murmur, Normal Peripheral Pulses, Irregularly Irregular Gastrointestinal: Normal Bowel Sounds, No Organomegaly, No Pulsatile Mass, Non Tender, Soft Back: Normal Inspection, No CVA Tenderness, No Vertebral Tenderness Extremity: Normal Capillary Refill, Normal Inspection, Normal Range of Motion (except left upper extremity upper arm 3/5 left hand 0/5), Non Tender, No Calf Tenderness, No Pedal Edema Neurologic/Psychiatric: Alert, Oriented x3, No Motor/Sensory Deficits, Normal Mood/Affect, Abnormal Gait, Motor Weakness (left arm) Skin: Normal Color, Warm/Dry Lymphatic: No Adenopathy Results/Procedures Lab Patient resulted labs reviewed. FIM Transfers Therapy Code Descriptions/Definitions Functional [place] Measure: 0=Not Assessed/NA 4=Minimal Assistance 1=Total Assistance 5=Supervision or Setup 2=Maximal Assistance 6=Modified [place] 3=Moderate Assistance 7=Complete IndependenceSCALE: Activities may be completed with or without assistive devices. 5-Evzvuacpaa-krkexvz completes the activity by him/herself with no assistance from a helper. 5-Set-up or Clean-up Assistance-helper sets up or cleans up; patient completes activity. [place] assists only prior to or following the activity. 4-Supervision or Touching Assistance-helper provides verbal cues and/or touching/steadying and/or contact guard assistance as patient completes activity. Assistance may be provided throughout the activity or intermittently. 3-Partial/Moderate Assistance-helper does LESS THAN HALF the effort. [place] li fts, holds or supports trunk or limbs, but provides less than half the effort. 2-Substantial/Maximal Assistance-helper does MORE THAN HALF the effort. [place] lifts or holds trunk or limbs and provides more than half the effort. 7-Hupdnlwem-dmsiap does ALL the effort. Patient does none of the effort to complete the activity. Or, the assistance of 2 or more helpers is required for the patient to complete the activity. If activity was not attempted, code reason: 7-Patient Refused. 9-Not Applicable-not attempted and the patient did not perform the activity before the current illness, exacerbation or injury. 10-Not Attempted due to Environmental Limitations-(lack of equipment, weather restraints, etc.). 88-Not Attempted due to Medical Conditions or Safety Concerns. Roll Left to Right (QC): 6 Sit to Lying (QC): 4 Sit to Stand (QC): 4 Chair/Vzp-zq-Uzurq Xfer(QC): 4 Car Transfer (QC): 4 Gait Training Does the Patient Walk?: Yes Distance: 500', 150' Walk 10 feet (QC): 4 Walk 50 ft with 2 Turns(QC): 3 Walk 150 ft (QC): 3 (CGA at times due to unsteady gait with fatigue.) Walking 10ft/uneven surface-QC: 3 (CGA for safety) Gait Persons Needed: 1 Gait Assistive Device: Cane Single Point Wheelchair Training Wheel 50 ft with 2 turns (QC): 9 Wheel 150 ft (QC): 9 Stair Training #of Steps: 4 1 Step (curb) (QC): 4 4 Steps (QC): 3 (up/down x 2 with handrail with CGA. ) 12 Steps (QC): 88 Balance Picking up an Object (QC): 4 ADL-Treatment Eating (QC): 5 (setup) Oral Hygiene (QC): 4 (SBA) Shower/Bathe Self (QC): 3 (Help with R arm and bottom) Upper Body Dressing (QC): 4 (SBA, cues) Lower Body Dressing (QC): 4 (SBA, cues) On/Off Footwear (QC): 5 (setup) Toileting Hygiene (QC): 4 (CGA) Assessment/Plan Assessment and Plan Assess & Plan/Chief Complaint Assessment: CVA embolic type following right CEA Left arm weakness and left hand flaccidity Chronic AF OAC HTN Plan: Cardiology consulting Home meds Pain meds IRF protocol 07/09/20: Therapy for left arm flaccidity Monitor bowels Cardiology consultation Patient dislikes Lipitor 07/10/20: Saline nasal spray Monitor BP closely Fall risk 07/11/20: Maintain OAC IRF protocol BM regimen Lipitor concerns patient regarding liver issues (1) CVA (cerebral vascular accident) (2) Atrial fibrillation Status: Acute (3) Carotid stenosis, bilateral (4) S/P carotid endarterectomy (5) Confusion ESSENCE HAWK DO Jul 11, 2020 11:22
--- NOTE | 2020-07-11 14:48 | Cardiology Progress Note ---
Cardiology SOAP Progress Note Subjective: No cardiac complaints. Feeling much better. Objective: I&O/Vital Signs 07/11/20 07/11/20 07/11/20 06:25 08:00 09:00 Temp 36.6 Pulse 59 54 Resp 18 B/P (MAP) 175/74 (107) 157/72 (100) Pulse Ox 95 O2 Delivery Room Air Room Air 07/11/20 00:00 Intake Total 1280 ml Balance 1280 ml Weight (Pounds): 142 Weight (Ounces): 0.0 Weight (Calculated Kilograms): 64.695668 Constitutional: appears stated age, AAO x 3; No apparent distress; well- developed, well-nourished Respiratory: chest is bilaterally symmetric, lungs clear to auscultation Cardiovascular: regular rate-rhythm, S1 and S2 Gastrointestional: soft, audible bowel sounds; No spleenomegaly Extremities: normal range of motion, non-tender, normal inspection; No clubbing, No cyanosis; no lower extremity edema bilateral; No significant edema Neurologic/Psychiatric: alert, normal mood/affect, oriented x 3, power is 5/5 both on sides Skin: normal color; No rash, No ulcerations A/P: Assessment/Dx: Recent right carotid endarterectomy. Left-sided CVA, Hypertension, Hyperlipidemia, Paroxysmal atrial fibrillation, History of typical atrial flutter, History of AVNRT Plan: Recent right carotid endarterectomy. Continue antiplatelet therapy. Left-sided CVA, continue antiplatelet therapy and inpatient rehabilitation. Defer to Dr. Singh. Hypertension, continue lisinopril. Hyperlipidemia, on atorvastatin. Paroxysmal atrial fibrillation, continue Eliquis. Amiodarone when necessary. History of typical atrial flutter, no further palpitations. 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 Thank you for your consultation. Please call me if you have any questions. Yusuf Hutchinson MD, FACP, FACC, FSCAI, FHRS, CCDS Interventional Cardiology Cardiac Electrophysiology Vascular Medicine and Endovascular Interventions Jaime HUTCHINSON MD Jul 11, 2020 14:48
[2020-07-11 17:47] VITALS: BP 140/62
[2020-07-11] MEDS: CYCLOBENZAPRINE 10 MG (FLEXERIL) TAB PO PRN (21:31)
[2020-07-12 05:08] VITALS: BP 167/67
[2020-07-12 06:04] LABS: BASOPHILS % (AUTO) 0 % (0-10); EOSINOPHILS # (AUTO) 0.2 10^3/uL (0.0-0.3); EOSINOPHILS % (AUTO) 2 % (0-10); HEMATOCRIT 40 % (35-52); HEMOGLOBIN 13.5 G/DL (11.5-16.0); LYMPHOCYTES # (AUTO) 1.8 X 10^3 (1.0-4.0); LYMPHOCYTES % (AUTO) 23 % (12-44); MEAN CORPUSCULAR HEMOGLOBIN 29 PG (25-34); MEAN CORPUSCULAR HGB CONC 34 G/DL (32-36); MEAN CORPUSCULAR VOLUME 87 FL (80-99); MONOCYTES # (AUTO) 0.8 X 10^3 (0.0-1.0); MONOCYTES % (AUTO) 10 % (0-12); NEUTROPHILS # (AUTO) 5.2 X 10^3 (1.8-7.8); NEUTROPHILS % (AUTO) 65 % (42-75); PLATELET COUNT 335 10^3/uL (130-400); RED CELL DISTRIBUTION WIDTH 13.6 % (10.0-14.5)
[2020-07-12] MEDS: MULTIVIT W/MINERALS TAB (THERAGRAN M) PO SCH (06:07)
[2020-07-12] MEDS: KCL 10 MEQ TAB (MICRO K) PO SCH (06:07)
[2020-07-12] MEDS: LEVOTHYROXINE 25 MCG (LEVOTHROID) TAB PO SCH (06:07)
[2020-07-12 06:24] LABS: ALANINE AMINOTRANSFERASE 29 U/L (0-55); ALBUMIN 3.5 GM/DL (3.2-4.5); ALKALINE PHOSPHATASE 79 U/L (40-136); BILIRUBIN,TOTAL 0.3 MG/DL (0.1-1.0); BUN/CREATININE RATIO 15; CALCIUM 9.3 MG/DL (8.5-10.1); CARBON DIOXIDE 26 MMOL/L (21-32); CHLORIDE 107 MMOL/L (98-107); CREATININE SERUM 0.73 MG/DL (0.60-1.30); GFR ESTIMATED > 60; GLUCOSE 97 MG/DL (70-105); POTASSIUM 3.6 MMOL/L (3.6-5.0); SODIUM 142 MMOL/L (135-145); TOTAL PROTEIN 6.2 GM/DL (6.4-8.2)
[2020-07-12] MEDS: IBUPROFEN TABLET 200 MG TAB PO PRN ×2 (08:38→15:26)
[2020-07-12] MEDS: POT PHOS/NA PHOS (K-PHOS NEUTRAL) PO SCH (08:40)
[2020-07-12] MEDS: ASPIRIN 81 MG CHEW (CHILDREN'S ASA) PO SCH (08:40)
[2020-07-12] MEDS: APIXABAN 5 MG (ELIQUIS) TABLET PO SCH ×2 (08:41→19:59)
[2020-07-12] MEDS: lisINopril 10 MG (PRINIVIL) TABLET PO SCH ×2 (08:41→19:59)
[2020-07-12] MEDS: amLODIPine 10 MG (NORVASC) TAB PO SCH (08:41)
[2020-07-12] MEDS: polyethylene glycoL POWDER 17 GM (MIRALAX) PACK PO SCH ×2 (08:52→20:00)
[2020-07-12] MEDS: DOCUSATE SODIUM 100 MG (COLACE) CAP PO SCH ×2 (08:52→20:00)
[2020-07-12] MEDS: SENNA W/DOCUSATE (SENOKOT S) TABLET PO SCH ×2 (08:53→20:00)
[2020-07-12] MEDS: PRESERVISION AREDS PO SCH (08:54)
--- NOTE | 2020-07-12 09:35 | Physical Therapy Daily Note ---
PT Daily Note-Current Subjective Pt. and daughter present . Pain Location: No Pain Reported Mental Status Patient Orientation: Normal For Age Transfers SCALE: Activities may be completed with or without assistive devices. 3-Rbmzlrwiop-ehyvpqg completes the activity by him/herself with no assistance from a helper. 5-Set-up or Clean-up Assistance-helper sets up or cleans up; patient completes activity. [place] assists only prior to or following the activity. 4-Supervision or Touching Assistance-helper provides verbal cues and/or touching/steadying and/or contact guard assistance as patient completes activity. Assistance may be provided throughout the activity or intermittently. 3-Partial/Moderate Assistance-helper does LESS THAN HALF the effort. [place] lifts, holds or supports trunk or limbs, but provides less than half the effort. 2-Substantial/Maximal Assistance-helper does MORE THAN HALF the effort. [place] lifts or holds trunk or limbs and provides more than half the effort. 8-Zxykqgjng-onmlpn does ALL the effort. Patient does none of the effort to complete the activity. Or, the assistance of 2 or more helpers is required for the patient to complete the activity. If activity was not attempted, code reason: 7-Patient Refused. 9-Not Applicable-not attempted and the patient did not perform the activity before the current illness, exacerbation or injury. 10-Not Attempted due to Environmental Limitations-(lack of equipment, weather restraints, etc.). 88-Not Attempted due to Medical Conditions or Safety Concerns. Roll Left & Right (QC): 6 Sit to Lying (QC): 6 Lying to Sitting/Side of Bed(Q: 6 Sit to Stand (QC): 5 Chair/Mld-zc-Hwunw Xfer(QC): 5 Toilet Transfer (QC): 5 Gait Training Does the Patient Walk?: Yes Walk 10 feet (QC): 4 Walk 50 ft with 2 Turns(QC): 4 Walk 150 ft (QC): 4 Gait Persons Needed: 1 Gait Assistive Device: FWW it was suggested that pt. use FWW to facilitate left hand icu registered nurse. It was noted that pt. over compensates holding left hand on house principal by leaning upper body to the right to maintain left hand on top of walker. Pts. daughter noticed this and expressed this concerned her as she was afraid her mother would then assume a back problem. This PHYSICAL AERODYNAMICIST agrees and will use SPC this afternoon, otherwise gait steps were equal and good heels strike noted Exercises Supine Ex: Bridging, Ankle pumps, Quad Set, Rolling, Glut sets, Heel Slides, Short Arc Quads, Scooting, Straight leg raise, Hip abd/add Supine Reps: 15 Standing: Hip Abduction, Heel/toe raises, Marching, Mini squats Standing Reps: 10 NuStep Minutes: 8 NuStep Workload: 4 Treatments pt. attempted to keep hand on icu registered nurse of [place] but this was very difficult and was assisted by this PHYSICAL AERODYNAMICIST, pt. toileted with assist min for pants up and for drying hands Assessment Current Status: Good Progress PT Short Term Goals Short Term Goals Time Frame: Jul 16, 2020 Roll Left & Right: 6 Sit to lyin Lying to sitting on side of be: 6 Sit to stand: 5 Chair/zoz-vn-fdewi transfer: 5 Walk 10 feet: 4 Walk 50 feet with two turns: 4 Walk 150 feet: 4 PT Aquarium Tank Attendant Goals [place] Goals PT Aquarium Tank Attendant Goals Time Frame: Jul 30, 2020 Roll Left & Right (QC): 6 Sit to Lying (QC): 6 Lying-Sitting on Side/Bed(QC): 6 Sit to Stand (QC): 6 Chair/Vxx-ft-Uhhzx Xfer(QC): 6 Toilet Transfer (QC): 6 Car Transfer (QC): 6 Does the Patient Walk: Yes Walk 10 feet (QC): 6 Walk 50ft with 2 Turns (QC): 6 Walk 150 ft (QC): 6 Walking 10ft on Uneven Surface: 6 1 Step (curb) (QC): 5 4 Steps (QC): 5 12 Steps (QC): 5 Picking up an Object (QC): 5 Wheel 50 feet with 2 turns (QC: 9 Wheel 150 feet: 9 PT Plan Treatment/Plan Treatment Plan: Continue Plan of Care Treatment Plan: Education, Functional Activity Solomon, Functional Strength, Group Therapy, Gait, Safety, Therapeutic Exercise, Transfers Treatment Duration: Jul 30, 2020 Frequency: At least 5 of 7 days/Wk (IRF) Estimated Hrs Per Day: 1.5 hours per day Patient and/or Family Agrees t: Yes Safety Risks/Education Patient Education: Gait Training, Transfer Techniques, Correct Positioning, Disease Process, Safety Issues Teaching Recipient: Patient Teaching Methods: Demonstration, Discussion Response to Teaching: Verbalize Understanding, Return Demonstration, Reinforcement Needed Time/GCodes Time In: 845 Time Out: 930 Total Billed Treatment Time: 45 Total Billed Treatment 1,GT15m,FA10m,EX20m JAMAR ANGEL PHYSICAL AERODYNAMICIST Jul 12, 2020 09:35
--- NOTE | 2020-07-12 10:07 | ST Dysphagia Evaluation ---
Speech Evaluation-General Medical Diagnosis CVA Onset Date: Jul 02, 2020 Therapy Diagnosis Therapy Diagnosis: Oropharyngeal Dysphagia Precautions Precautions: Aspiration Referral Referring Physician: Dr. Singh Reason for Referral: Evaluation/Treatment Medical History Pertinent Medical History: Atrial Fib, Arthritis, CAD, GERD, HTN, PVD Reviewed History: Yes Social History Home: Multilevel Current Living Status: Spouse Speech PLF/Current-Dysphagia Prior Level of Function Patient lived at home with her of 50 years. Patient states she had to watch what she eats due to her hiatal hernia. Subjective Patient was pleasant and cooperative with the Bedside Dysphagia Evaluation. Cognitive Status Patient Orientation: Person, Place, Time, Situation Oral Motor Skills Dentition: Natural, Tumbled Current Food Consistancy: Regular, Thin Liquids Ability to Follow Directions: Good Oral Expression Ability: No Impairment Voice Voice Phonatory-Based Quality: Normal Voice Pitch: Normal Voice Loudness: Normal Face Facial Symmetry: Symmetrical Oral-Facial Assessment Oral-Facial Dentition: Normal Labial Seal Description: Normal Smile: Normal Puff Cheeks: Normal Lingual Protrusion: Normal Lingual ROM: Normal Lingual Strength: Normal Pharynx Velopharyngeal Move.: Normal Volitional Dry Swallow: Yes Voluntary Cough: Yes Can Clear Throat Volitionally: Yes Productive Cough: No Dysphagia Evaluation Consistencies Presented: Regular, Thin Liquid, Mechanical Soft, Pureed Oral Phase: Oral Residue Oral phase is within normal range of function with mild residue noted on the left side. Pharyngeal phase is within normal range of function for all presented consistencies. Patient states she has had an esophageal dilation in the past. (approx. 2 yrs. ago) Patient c/o pain with oral intake currently with canker sores in her mouth as well as from her hiatal hernia. Patient will be scheduled for a follow up EGD and dilation as needed. Dietary Recommendations: Regular Liquid Recommendations: Thin Swallowing Precautions: Alternate Liquids/Solids, Decreased Bolus 1/2 Tsp, Liquids from Straw, Small Bites and Sips, Sitting Upright 90 Degrees, Sitting 90 Degrees 30 Post Intake, Left Tongue Sweep Dysphagia Evaluation Summary Patient is an 85 y/o female who has been having some difficulty with oral intake post CVA. Patient states she has had an esophageal dilation in the past. (approx. 2 yrs. ago) Patient c/o pain with oral intake currently with canker sores in her mouth as well as from her hiatal hernia. Patient will be scheduled for a follow up EGD and dilation as needed. Patient was given small sips of thin via straw without difficulty. Patient does states she feels a "tickle" all the time for which she has to take small frequent drinks for relief. Patient was also given small bites of puree, mechanical soft and regular with mild oral residue noted to the left side. Patient is recommended to continue with her current regular diet level with thin liquids. Patient is avoiding acidic foods at this time due to the canker sores. Patient will be receiving a topical treatment ordered by Dr. Singh. Barriers to Learning Patient's recent CVA Speech Short Term Goals Short Term Goals Short Term Goals 1) Patient will complete memory tasks related to her daily needs at 90% or greater. 2) Patient will complete problem solving tasks related to her daily needs at 90% or greater. 3) Patient will complete safety awareness tasks related to her daily needs at 90% or greater. 4) Patient will tolerate least restrictive diet level without s/s of aspiration at 90% or greater. 5) Patient will utilize compensatory strategies as trained for safe oral intake at 90% or greater. Speech Endoscopy Tech Goals Snf Goals Patient will improve cognitive-communication necessary for safety and daily living tasks with minimal assist. Patient will maintain adequate nutrition/hydration via safe effective swallow function. Speech-Plan Patient/Family Goals Patient/Family Goals: Patient plans on returning home post rehab. Treatment Plan Speech Therapy Treatment Plan: Continue Plan of Care Treatment Duration: Jul 21, 2020 Frequency: 4 times per week (Patient will receive 4-5 ST treatments per week) Estimated Hrs Per Day: .5 hour per day Rehab Potential: Fair Barriers to Learning: Patient's CVA Pt/Family Agrees to Plan: Yes Safety Risks/Education Teaching Recipient: Patient, Family Teaching Methods: Demonstration, Discussion Response to Teaching: Verbalize Understanding, Return Demonstration Education Topics Provided: Safety of oral intake Time Speech Therapy Time In: 09:30 Speech Therapy Time Out: 10:00 Total Billed Time: 30 Billed Treatment Time 1, ELZA LEYVA BETHANIA ST Jul 12, 2020 10:07
--- NOTE | 2020-07-12 10:21 | Speech Therapy Daily Note ---
Speech Daily Progress Note Subjective Date Seen by Provider: Jul 12, 2020 Time Seen by Provider: 00:30 Patient was resting in bed with her daughter at her bedside. Patient states she had a pretty good weekend. Objective Patient completed a series of dysphagia questions related to her history and esophageal dilation with 90% given cues/clarification. Assessment Assessment Current Status: Good Progress Treatment Plan Continue Plan of Care Speech Short Term Goals Short Term Goals Short Term Goals 1) Patient will complete memory tasks related to her daily needs at 90% or grea ter. 2) Patient will complete problem solving tasks related to her daily needs at 90% or greater. 3) Patient will complete safety awareness tasks related to her daily needs at 90% or greater. 4) Patient will tolerate least restrictive diet level without s/s of aspiration at 90% or greater. 5) Patient will utilize compensatory strategies as trained for safe oral intake at 90% or greater. Speech Drum Tender Goals Drum Tender Goals Patient will improve cognitive-communication necessary for safety and daily living tasks with minimal assist. Patient will maintain adequate nutrition/hydration via safe effective swallow function. Speech-Plan Patient/Family Goals Patient/Family Goals: Patient plans on returning to her home where she lives with her . Treatment Plan Speech Therapy Treatment Plan: Continue Plan of Care Treatment Duration: Jul 21, 2020 Frequency: 4 times per week (Patient will receive 4-5 ST treatments per week) Estimated Hrs Per Day: .5 hour per day Rehab Potential: Fair Barriers to Learning: Patient's recent CVA Pt/Family Agrees to Plan: Yes Safety Risks/Education Teaching Recipient: Patient, Family Teaching Methods: Demonstration, Discussion Response to Teaching: Verbalize Understanding, Return Demonstration Education Topics Provided: Continued safety within her room Time Speech Therapy Time In: 09:30 Speech Therapy Time Out: 10:00 Total Billed Time: 30 Billed Treatment Time 1. SEGUN Dyson Jul 12, 2020 10:21
--- NOTE | 2020-07-12 11:14 | Occupational Ther Daily Note ---
OT Current Status-Daily Note Subjective Pt was alert in bed visiting with family member. Pt agreed to taking shower. Pain Location: No Pain Reported Mental Status/Objective Patient Orientation: Person, Place, Time ADL-Treatment Pt moved from supine to EOB w/ SBA. Pt. used FWW to transfer from EOB to bathroom. Used R arm to place L arm on handle and to outboard motor mechanic the walker. Gross motor skills of L arm used to maintain outboard motor mechanic of walker as pt walked to bathroom w/ SBA for showering, dressing, and oral hygiene. Therapy Code Descriptions/Definitions Functional [place] Measure: 0=Not Assessed/NA 4=Minimal Assistance 1=Total Assistance 5=Supervision or Setup 2=Maximal Assistance 6=Modified [place] 3=Moderate Assistance 7=Complete IndependenceSCALE: Activities may be completed with or without assistive devices. 8-Gwjvwekvrx-tmxmzdk completes the activity by him/herself with no assistance from a helper. 5-Set-up or Clean-up Assistance-helper sets up or cleans up; patient completes activity. [place] assists only prior to or following the activity. 4-Supervision or Touching Assistance-helper provides verbal cues and/or touching/steadying and/or contact guard assistance as patient completes activity. Assistance may be provided throughout the activity or intermittently. 3-Partial/Moderate Assistance-helper does LESS THAN HALF the effort. [place] lifts, holds or supports trunk or limbs, but provides less than half the effort. 2-Substantial/Maximal Assistance-helper does MORE THAN HALF the effort. [place] lifts or holds trunk or limbs and provides more than half the effort. 6-Uwdwzhnyd-eznand does ALL the effort. Patient does none of the effort to complete the activity. Or, the assistance of 2 or more helpers is required for the patient to complete the activity. If activity was not attempted, code reason: 7-Patient Refused. 9-Not Applicable-not attempted and the patient did not perform the activity bef ore the current illness, exacerbation or injury. 10-Not Attempted due to Environmental Limitations-(lack of equipment, weather r estraints, etc.). 88-Not Attempted due to Medical Conditions or Safety Concerns. Oral Hygiene (QC): 4 (Pt was able to set up and complete oral hygiene standing at sink, SBA.) Bathing Location: L Arm, R Arm ( min. assist to lift arm so pt could rinse under arm using hand held shower head. ), L Upper Leg, R Upper Leg, L Lower Leg (including foot), R Lower Leg (including foot), Chest, Abdomen, Buttocks (SBA for safety while standing), Perineal Area (SBA for safety while standing) Shower/Bathe Self (QC): 3 (min. assist to lift R arm so pt could rinse arm pit using hand held shower head) Upper Body Dressing (QC): 3 (Min assist to pull shirt over head. Provided one handed technique) Lower Body Dressing (QC): 4 (Pt was able to put on briefs and pants and hike them over hip with SBA) On/Off Footwear: 4 (pt was able to put on slippers at EOB needed SBA for safety) Other Treatment Pt transferred back to bed using FWW w/ SBA. Pt had isotoner glove put on to decrease edema. Pt laid in bed in a supine position and worked on neuromuscular tx. Pt was introduced 5 self ROM techniques and needed verbal cues to complete. Worked on L wrist flexion/ extension with min assist. Pt was lying in bed with call light in reach. All needs met. Education OT Patient Education: Instructions to caregiver, Modified ADL techniques, Reviewed precautions, Safety issues Teaching Recipient: Patient, Family Teaching Methods: Demonstration, Discussion Response to Teaching: Verbalize Understanding, Return Demonstration OT Short Term Goals Short Term Goals Time Frame: Jul 16, 2020 Oral hygiene: 5 Toileting hygiene: 5 Lower body dressin OT Engineering Model Maker Goals Engineering Model Maker Goals Time Frame: Jul 30, 2020 Eating (QC): 6 Oral Hygiene (QC): 6 Toileting Hygiene (QC): 6 Shower/Bathe Self (QC): 5 Upper Body Dressing (QC): 6 Lower Body Dressing (QC): 6 On/Off Footwear (QC): 6 Additional Goals: 1-Demonstrate ADL Tasks, 2-Verbalize Understanding, 3- ImproveStrength/Solomon 1=Demonstrate adherence to instructed precautions during ADL tasks. 2=Patient will verbalize/demonstrate understanding of assistive devices/modifications for ADL. 3=Patient will improve strength/tolerance for activity to enable patient to perform ADL's. OT Education/Plan Problem List/Assessment Assessment: Decreased UE Strength, Impaired Funct Balance, Impaired I ADL's, Impaired Self-Care Skills, Restricted Funct UE ROM Pt would benefit from skilled OT to increase her independence with basic self care to allow her to safely return home. Discharge Recommendations Plan/Recommendations: Continue POC Treatment Plan/Plan of Care Patient would benefit from OT for education, treatment and training to promote independence in ADL's, mobility, safety and/or upper extremity function for ADL's. Plan of Care: ADL Retraining, Functional Mobility, Group Exercise/Act as Ind, UE Funct Exercise/Act, UE Neuromus Re-Ed/Coord, Visual/Perceptual Retrain, OTHER (energy conservation education) Treatment Duration: Jul 30, 2020 Frequency: Modified Program (IRF) Estimated Hrs Per Day: 1.5 hours per day (1.25 to 1.5) Agreement: Yes Rehab Potential: Fair Time/GCodes Start Time: 10:00 Stop Time: 11:00 Total Time Billed (hr/min): 60 Billed Treatment Time 1 visit ADL 3(50 min) NM 1(10) ZENIA MORRIS Jul 12, 2020 11:14
--- NOTE | 2020-07-12 11:21 | Progress Note ---
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 The patient has experienced the following changes (in the opinion of Chalino Thornton, medical student): -improved LLE function. Walks with FWW. does not feel unsteady -improved LUE function. able to move arm at shoulder. Some difficulty with left hand motor still -apthous ulcer reported in the right lower mouth affecting food intake. Dr. Hawk ordered anesthetic. -Some difficulty swallowing. Hx esophageal dilation several years ago. Dr. Hale consulted for EGD -potassium up 3.6 from 3.2 on 07/09. Labs WNL Chalino Thornton, medical student SYLVIA HAWK DO 07/12/202036: Supervisory-Addendum Brief Verification & Attestation Participated in pt care: history, MDM, physical Personally performed: exam, history, MDM, supervision of care Care discussed with: Medical Student Procedures: n/a Results interpretation: Verified all documentation Verification and Attestation of Medical Student E/M Service A medical student performed and documented this service in my presence. I reviewed and verified all information documented by the medical student and made modifications to such information, when appropriate. I personally performed the physical exam and medical decision making. Sylvia Hawk, Jul 12, 2020,20:37 CHALINO THORNTON MED STUDENT Jul 12, 2020 11:21 SYLVIA HAWK DO Jul 12, 2020 20:37
--- NOTE | 2020-07-12 11:24 | PM&R Progress Note ---
Subjective HPI/CC On Admission Date Seen by Provider: Jul 12, 2020 Time Seen by Provider: 10:00 Subjective/Events-last exam 07/12/20: Dysphagia is chronic but worse since the stroke so she is willing to have EGD by Dr. Hale. Michelle pedroza will have local anesthetic placed Bowels moved three days ago so will give laxatives Has a vision multivitamin Eye Drops are over the counter that she will use Takes Motrin for facial pain Left arm she lifted pretty well today 07/11/20: No pain reported No bleeding issues noted Fatigue is an issue Wants to get her left arm working better before she goes home Appreciate Dr Hutchinson consult 07/10/20: Doing well Blew mucous plug out of nose and not she feels like she is breathing better Saline nasal spray will be ordered BM yesterday No issues 07/09/20: Pt doing pretty well Worried about Lipitor and her liver Lymphedema of the left arm will require therapy Bowels are moving well Cardiology consulted Checked meds and labs Reviewed therapy notes Conferred with insurance professional of Systems General: Fatigue, Malaise Neurological: Weakness Objective Exam Vital Signs Vital Signs Date Time Temp Pulse Resp B/P (MAP) Pulse Ox O2 Delivery O2 Flow Rate FiO2 07/12/20 17:55 36.5 66 20 132/68 (89) 97 Room Air Capillary Refill : Less Than 3 Seconds General Appearance: No Apparent Distress, WD/WN, Chronically ill HEENT: PERRL/EOMI, Normal ENT Inspection, Pharynx Normal Neck: Full Range of Motion, Normal Inspection, Non Tender, Supple, Carotid Bruit Respiratory: Chest Non Tender, Lungs Clear, Normal Breath Sounds, No Accessory Muscle Use, No Respiratory Distress Cardiovascular: No Edema, No Gallop, No JVD, No Murmur, Normal Peripheral Pulses, Irregularly Irregular Gastrointestinal: Normal Bowel Sounds, No Organomegaly, No Pulsatile Mass, Non Tender, Soft Back: Normal Inspection, No CVA Tenderness, No Vertebral Tenderness Extremity: Normal Capillary Refill, Normal Inspection, Normal Range of Motion (except left upper extremity upper arm 3/5 left hand 0/5), Non Tender, No Calf Tenderness, No Pedal Edema Neurologic/Psychiatric: Alert, Oriented x3, No Motor/Sensory Deficits, Normal Mood/Affect, Abnormal Gait, Motor Weakness (left arm) Skin: Normal Color, Warm/Dry Lymphatic: No Adenopathy Results/Procedures Lab Laboratory Tests 07/12/20 05:24 Patient resulted labs reviewed. FIM Transfers Therapy Code Descriptions/Definitions Functional [place] Measure: 0=Not Assessed/NA 4=Minimal Assistance 1=Total Assistance 5=Supervision or Setup 2=Maximal Assistance 6=Modified [place] 3=Moderate Assistance 7=Complete IndependenceSCALE: Activities may be completed with or without assistive devices. 6-Pudqjswhmb-ymazaej completes the activity by him/herself with no assistance from a helper. 5-Set-up or Clean-up Assistance-helper sets up or cleans up; patient completes activity. [place] assists only prior to or following the activity. 4-Supervision or Touching Assistance-helper provides verbal cues and/or touching/steadying and/or contact guard assistance as patient completes activity. Assistance may be provided throughout the activity or intermittently. 3-Partial/Moderate Assistance-helper does LESS THAN HALF the effort. [place] lifts, holds or supports trunk or limbs, but provides less than half the effort. 2-Substantial/Maximal Assistance-helper does MORE THAN HALF the effort. [place] lifts or holds trunk or limbs and provides more than half the effort. 1-Wkixzkald-ztvald does ALL the effort. Patient does none of the effort to complete the activity. Or, the assistance of 2 or more helpers is required for the patient to complete the activity. If activity was not attempted, code reason: 7-Patient Refused. 9-Not Applicable-not attempted and the patient did not perform the activity before the current illness, exacerbation or injury. 10-Not Attempted due to Environmental Limitations-(lack of equipment, weather restraints, etc.). 88-Not Attempted due to Medical Conditions or Safety Concerns. Roll Left to Right (QC): 6 Sit to Lying (QC): 6 Sit to Stand (QC): 5 Chair/Cbr-pg-Gvycq Xfer(QC): 5 Car Transfer (QC): 4 Gait Training Does the Patient Walk?: Yes Distance: 500', 150' Walk 10 feet (QC): 4 Walk 50 ft with 2 Turns(QC): 4 Walk 150 ft (QC): 4 Walking 10ft/uneven surface-QC: 3 (CGA for safety) Gait Persons Needed: 1 Gait Assistive Device: FWW Wheelchair Training Wheel 50 ft with 2 turns (QC): 9 Wheel 150 ft (QC): 9 Stair Training #of Steps: 4 1 Step (curb) (QC): 4 4 Steps (QC): 3 (up/down x 2 with handrail with CGA. ) 12 Steps (QC): 88 Balance Picking up an Object (QC): 4 ADL-Treatment Eating (QC): 5 (setup) Oral Hygiene (QC): 4 (SBA) Shower/Bathe Self (QC): 3 (Help with R arm and bottom) Upper Body Dressing (QC): 4 (SBA, cues) Lower Body Dressing (QC): 4 (SBA, cues) On/Off Footwear (QC): 5 (setup) Toileting Hygiene (QC): 4 (CGA) Assessment/Plan Assessment and Plan Assess & Plan/Chief Complaint Assessment: CVA embolic type following right CEA Left arm weakness and left hand flaccidity Chronic AF OAC HTN Plan: Cardiology consulting Home meds Pain meds IRF protocol 07/09/20: Therapy for left arm flaccidity Monitor bowels Cardiology consultation Patient dislikes Lipitor 07/10/20: Saline nasal spray Monitor BP closely Fall risk 07/11/20: Maintain OAC IRF protocol BM regimen Lipitor concerns patient regarding liver issues 07/12/20: Consult Dr. Hale for EGD for dysphagia Continue supplements from home Continue bowel regimen Topical local pain medication for canker sore (1) CVA (cerebral vascular accident) (2) Atrial fibrillation Status: Acute (3) Carotid stenosis, bilateral (4) S/P carotid endarterectomy (5) Confusion ESSENCE HAWK DO Jul 12, 2020 11:24
--- NOTE | 2020-07-12 13:46 | Occupational Ther Daily Note ---
OT Current Status-Daily Note Subjective Pt sitting at EOB eating lunch. Pt agreed to OT. Pain Location: No Pain Reported Mental Status/Objective Patient Orientation: Person, Place, Time, Situation ADL-Treatment Pt transferred from EOB to W. Used R arm to place L arm on handle and to clerical secretary the walker. Gross motor skills of L arm used to maintain clerical secretary of walker as pt walked to sink of bathroom to rinse mouth. Therapy Code Descriptions/Definitions Functional [place] Measure: 0=Not Assessed/NA 4=Minimal Assistance 1=Total Assistance 5=Supervision or Setup 2=Maximal Assistance 6=Modified [place] 3=Moderate Assistance 7=Complete IndependenceSCALE: Activities may be completed with or without assistive devices. 1-Scvbsbjgla-tmhvzcu completes the activity by him/herself with no assistance from a helper. 5-Set-up or Clean-up Assistance-helper sets up or cleans up; patient completes activity. [place] assists only prior to or following the activity. 4-Supervision or Touching Assistance-helper provides verbal cues and/or marla olivier/steadying and/or contact guard assistance as patient completes activity. Assistance may be provided throughout the activity or intermittently. 3-Partial/Moderate Assistance-helper does LESS THAN HALF the effort. [place] lifts, holds or supports trunk or limbs, but provides less than half the effort. 2-Substantial/Maximal Assistance-helper does MORE THAN HALF the effort. [place] lifts or holds trunk or limbs and provides more than half the effort. 2-Xiwuutrrs-leoasc does ALL the effort. Patient does none of the effort to complete the activity. Or, the assistance of 2 or more helpers is required for the patient to complete the activity. If activity was not attempted, code reason: 7-Patient Refused. 9-Not Applicable-not attempted and the patient did not perform the activity before the current illness, exacerbation or injury. 10-Not Attempted due to Environmental Limitations-(lack of equipment, weather restraints, etc.). 88-Not Attempted due to Medical Conditions or Safety Concerns. Other Treatment Pt transferred from EOB to W. Used R arm to place L arm on handle and to clerical secretary the walker. Gross motor skills of L arm used to maintain clerical secretary of walker as pt walked to gym. Pt sat on chair and began e-stem on L hand in pronation for ~15 min. Education OT Patient Education: Purpose of tx/functional activities Teaching Recipient: Patient, Family Teaching Methods: Demonstration Response to Teaching: Verbalize Understanding OT Short Term Goals Short Term Goals Time Frame: Jul 16, 2020 Oral hygiene: 5 Toileting hygiene: 5 Lower body dressin OT Schedule Checker Goals Nursing Home Goals Time Frame: Jul 30, 2020 Eating (QC): 6 Oral Hygiene (QC): 6 Toileting Hygiene (QC): 6 Shower/Bathe Self (QC): 5 Upper Body Dressing (QC): 6 Lower Body Dressing (QC): 6 On/Off Footwear (QC): 6 Additional Goals: 1-Demonstrate ADL Tasks, 2-Verbalize Understanding, 3- ImproveStrength/Solomon 1=Demonstrate adherence to instructed precautions during ADL tasks. 2=Patient will verbalize/demonstrate understanding of assistive devices/modifications for ADL. 3=Patient will improve strength/tolerance for activity to enable patient to perform ADL's. OT Education/Plan Problem List/Assessment Assessment: Decreased UE Strength, Edema, Impaired Funct Balance, Impaired I ADL's, Impaired Self-Care Skills, Restricted Funct UE ROM Pt would benefit from skilled OT to increase her independence with basic self care to allow her to safely return home. Discharge Recommendations Plan/Recommendations: Continue POC Treatment Plan/Plan of Care Patient would benefit from OT for education, treatment and training to promote independence in ADL's, mobility, safety and/or upper extremity function for ADL's. Plan of Care: ADL Retraining, Functional Mobility, Group Exercise/Act as Ind, UE Funct Exercise/Act, UE Neuromus Re-Ed/Coord, Visual/Perceptual Retrain, OTHER (energy conservation education) Treatment Duration: Jul 30, 2020 Frequency: Modified Program (IRF) Estimated Hrs Per Day: 1.5 hours per day (1.25 to 1.5) Agreement: Yes Rehab Potential: Fair Time/GCodes Start Time: 13:00 Stop Time: 13:30 Total Time Billed (hr/min): 30 Billed Treatment Time 1 visit FA 1 (15 min) NM 1(15 min) ZENIA MORRIS Jul 12, 2020 13:46
--- NOTE | 2020-07-12 14:02 | Physical Therapy Daily Note ---
PT Daily Note-Current Subjective Pt. states she is anxious to get out of here and back with her . "He is 89 yrs old and this is really hard for him to not see me everyday" Pain Location: No Pain Reported Mental Status Patient Orientation: Normal For Age Transfers SCALE: Activities may be completed with or without assistive devices. 0-Lfsfepltql-bjydxci completes the activity by him/herself with no assistance from a helper. 5-Set-up or Clean-up Assistance-helper sets up or cleans up; patient completes activity. [place] assists only prior to or following the activity. 4-Supervision or Touching Assistance-helper provides verbal cues and/or touching/steadying and/or contact guard assistance as patient completes activity. Assistance may be provided throughout the activity or intermittently. 3-Partial/Moderate Assistance-helper does LESS THAN HALF the effort. [place] lifts, holds or supports trunk or limbs, but provides less than half the effort. 2-Substantial/Maximal Assistance-helper does MORE THAN HALF the effort. [place] lifts or holds trunk or limbs and provides more than half the effort. 9-Ugvwjqstv-stydmp does ALL the effort. Patient does none of the effort to complete the activity. Or, the assistance of 2 or more helpers is required for the patient to complete the activity. If activity was not attempted, code reason: 7-Patient Refused. 9-Not Applicable-not attempted and the patient did not perform the activity before the current illness, exacerbation or injury. 10-Not Attempted due to Environmental Limitations-(lack of equipment, weather restraints, etc.). 88-Not Attempted due to Medical Conditions or Safety Concerns. Roll Left & Right (QC): 6 Sit to Lying (QC): 6 Lying to Sitting/Side of Bed(Q: 6 Sit to Stand (QC): 6 Chair/Kbr-zg-Xtsxg Xfer(QC): 6 Toilet Transfer (QC): 6 Gait Training Does the Patient Walk?: Yes Walk 10 feet (QC): 5 Walk 50 ft with 2 Turns(QC): 5 Walk 150 ft (QC): 5 Gait Persons Needed: 1 Gait Assistive Device: Cane Single Point gait with SPC no LOB good sequence Stair Training Stair Training: Handrails/: 1 handrail #of Steps: 16 4 Steps (QC): 5 12 Steps (QC): 5 Stairs: Pattern: Reciprocal Exercises Supine Ex: Bridging, Ankle pumps, Quad Set, Rolling, Glut sets, Heel Slides, Short Arc Quads, Scooting, Straight leg raise, Hip abd/add (sidelying) Supine Reps: 15 Assessment Current Status: Good Progress PT Short Term Goals Short Term Goals Time Frame: Jul 16, 2020 Roll Left & Right: 6 Sit to lyin Lying to sitting on side of be: 6 Sit to stand: 5 Chair/axj-tw-cnxfb transfer: 5 Walk 10 feet: 4 Walk 50 feet with two turns: 4 Walk 150 feet: 4 PT Nursing Home Goals Awning Frame Maker Goals PT Awning Frame Maker Goals Time Frame: Jul 30, 2020 Roll Left & Right (QC): 6 Sit to Lying (QC): 6 Lying-Sitting on Side/Bed(QC): 6 Sit to Stand (QC): 6 Chair/Uao-lp-Clqpp Xfer(QC): 6 Toilet Transfer (QC): 6 Car Transfer (QC): 6 Does the Patient Walk: Yes Walk 10 feet (QC): 6 Walk 50ft with 2 Turns (QC): 6 Walk 150 ft (QC): 6 Walking 10ft on Uneven Surface: 6 1 Step (curb) (QC): 5 4 Steps (QC): 5 12 Steps (QC): 5 Picking up an Object (QC): 5 Wheel 50 feet with 2 turns (QC: 9 Wheel 150 feet: 9 PT Plan Treatment/Plan Treatment Plan: Continue Plan of Care Treatment Plan: Education, Functional Activity Solomon, Functional Strength, Group Therapy, Gait, Safety, Therapeutic Exercise, Transfers Treatment Duration: Jul 30, 2020 Frequency: At least 5 of 7 days/Wk (IRF) Estimated Hrs Per Day: 1.5 hours per day Patient and/or Family Agrees t: Yes Safety Risks/Education Patient Education: Gait Training, Transfer Techniques, Steps, Correct Positioning, Disease Process, Safety Issues Teaching Recipient: Patient, Family Teaching Methods: Demonstration, Discussion Response to Teaching: Verbalize Understanding, Return Demonstration, Reinforcement Needed dtr present and supportive and wants to observe therapies brenda up down steps Time/GCodes Time In: 1330 Time Out: 1400 Total Billed Treatment Time: 30 Total Billed Treatment 1,EX20m,GT10m JAMAR ANGEL WAREHOUSE HELPER Jul 12, 2020 14:02
[2020-07-12 15:28] VITALS: BP 130/60
[2020-07-12] MEDS ORDERED: NIACIN FLUSH FREE PO (15:28)
[2020-07-12] MEDS ORDERED: MULT-1112 PO (15:28)
[2020-07-12] MEDS: BENZOCAINE 20% ORAL GEL (ORALJEL MAX ST) MM PRN (15:32)
--- NOTE | 2020-07-12 16:11 | Cardiology Progress Note ---
Cardiology SOAP Progress Note Subjective: No cardiac complaints. Objective: I&O/Vital Signs 07/12/20 07/12/20 05:08 15:28 Temp 36.2 36.7 Pulse 53 62 Resp 16 18 B/P (MAP) 167/67 (100) 130/60 (83) Pulse Ox 95 96 O2 Delivery Room Air Room Air 07/12/20 00:00 Intake Total 960 ml Balance 960 ml Weight (Pounds): 142 Weight (Ounces): 0.0 Weight (Calculated Kilograms): 64.678991 Constitutional: appears stated age, AAO x 3; No apparent distress; well- developed, well-nourished Respiratory: chest is bilaterally symmetric, lungs clear to auscultation Cardiovascular: regular rate-rhythm, S1 and S2 Gastrointestional: soft, audible bowel sounds; No spleenomegaly Extremities: normal range of motion, non-tender, normal inspection; No clubbing, No cyanosis; no lower extremity edema bilateral; No significant edema Neurologic/Psychiatric: alert, normal mood/affect, oriented x 3, power is 5/5 both on sides Skin: normal color; No rash, No ulcerations Results/Procedures: Labs Laboratory Tests 07/12/20 05:24: White Blood Count 8.0, Red Blood Count 4.62, Hemoglobin 13.5, Hematocrit 40, Mean Corpuscular Volume 87, Mean Corpuscular Hemoglobin 29, Mean Corpuscular Hemoglobin Concent 34, Red Cell Distribution Width 13.6, Platelet Count 335, Mean Platelet Volume 11.0H, Neutrophils (%) (Auto) 65, Lymphocytes (%) (Auto) 23, Monocytes (%) (Auto) 10, Eosinophils (%) (Auto) 2, Basophils (%) (Auto) 0, Neutrophils # (Auto) 5.2, Lymphocytes # (Auto) 1.8, Monocytes # (Auto) 0.8, Eosinophils # (Auto) 0.2, Basophils # (Auto) 0.0, Sodium Level 142, Potassium Level 3.6, Chloride Level 107, Carbon Dioxide Level 26, Anion Gap 9, Blood Urea Nitrogen 11, Creatinine 0.73, Estimat Glomerular Filtration Rate > 60, BUN/Creatinine Ratio 15, Glucose Level 97, Calcium Level 9.3, Corrected Calcium 9.7, Total Bilirubin 0.3, Aspartate Amino Transf (AST/SGOT) 26, Alanine Aminotransferase (ALT/SGPT) 29, Alkaline Phosphatase 79, Total Protein 6.2L, Albumin 3.5 A/P: Assessment/Dx: Recent right carotid endarterectomy. Left-sided CVA, Hypertension, Hyperlipidemia, Paroxysmal atrial fibrillation, History of typical atrial flutter, History of AVNRT Plan: Recent right carotid endarterectomy. Continue antiplatelet therapy. Left-sided CVA, continue antiplatelet therapy and inpatient rehabilitation. Defer to Dr. Singh. Hypertension, continue lisinopril. Hyperlipidemia, on atorvastatin. Paroxysmal atrial fibrillation, continue Eliquis. Amiodarone when necessary. History of typical atrial flutter, no further palpitations. 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 Thank you for your consultation. Please call me if you have any questions. Yusuf Hutchinson MD, FACP, FACC, FSCAI, FHRS, CCDS Interventional Cardiology Cardiac Electrophysiology Vascular Medicine and Endovascular Interventions Jaime HUTCHINSON MD Jul 12, 2020 16:11
[2020-07-12 17:55] VITALS: BP 132/68
[2020-07-12] MEDS: CYCLOBENZAPRINE 10 MG (FLEXERIL) TAB PO PRN (21:14)
[2020-07-13 05:14] VITALS: BP 178/78
[2020-07-13] MEDS: amLODIPine 10 MG (NORVASC) TAB PO SCH (06:16)
[2020-07-13] MEDS: LEVOTHYROXINE 25 MCG (LEVOTHROID) TAB PO SCH (06:17)
[2020-07-13] MEDS: KCL 10 MEQ TAB (MICRO K) PO SCH (06:17)
[2020-07-13] MEDS: MULTIVIT W/MINERALS TAB (THERAGRAN M) PO SCH (06:17)
[2020-07-13] MEDS: CYCLOBENZAPRINE 10 MG (FLEXERIL) TAB PO PRN (06:47)
--- NOTE | 2020-07-13 07:21 | Consultation - Surgery ---
SANYA RIVERA MED STUDENT 07/13/20 0720: History of Present Illness History of Present Illness Patient Consulted On(jose/time) 07/13/20 07:15 Date Seen by Provider: Jul 13, 2020 Time Seen by Provider: 07:00 History of Present Illness Consult for Dr. Singh for dysphagia Pt reports dysphagia when eating meat that has been getting worse. States she is unsure when it began, but it has been going on for a few years. Swallowing is not painful for her, but she feels that the food gets stuck which can cause some discomfort. Denies dysphagia to liquids or other foods. Her discomfort and pain after swallowing is in the epigastric region. Denies n/v, fever, chills, sob, chest pain. Allergies and Home Medications Allergies Coded Allergies: Penicillins (Verified Allergy, Unknown, 12/16/18) codeine (Unverified Allergy, Unknown, 12/16/18) glycopyrrolate (Verified Allergy, Unknown, VOMITING, 12/16/18) Home Medications Amino Acids 1 Each Capsule, 1 EACH PO DAILY, (Reported) Amiodarone HCl 200 Mg Tablet, 200 MG PO DAILY PRN for IRREGULAR HEART RYTHYM, (Reported) Apixaban 5 Mg Tablet, 5 MG PO BID, (Reported) Aspirin 81 Mg Tab.chew, 81 MG PO HS, (Reported) Cyclobenzaprine HCl 10 Mg Tablet, 10 MG PO TID PRN for MUSCLE SPASMS, (Reported) Levothyroxine Sodium 25 Mcg Tablet, 25 MCG PO DAILY, (Reported) Multivit-Min/Iron/Folic/Vit K1 1 Each Tab.chew, 1 EACH PO DAILY, (Reported) Phosphate 1 Ea Tablet, 1 EA PO DAILY, (Reported) Selenium 200 Mcg Capsule, 200 MCG PO DAILY, (Reported) Turmeric Root Extract 538 Mg Capsule, 538 MG PO DAILY, (Reported) Ubidecarenone 30 Mg Capsule, 30 MG PO DAILY, (Reported) Vit C/E/Zn/Coppr/Lutein/Zeaxan 1 Each Capsule, 1 EACH PO DAILY, (Reported) [Cardio Java] , 1 PO DAILY, (Reported) [Niacin Flush Free] , 250 MG PO DAILY, (Reported) Past Feghtph-Kdadap-Ffjyaq Hx Patient Social History Alcohol Use: Denies Use Recreational Drug Use: No Smoking Status: Never a Smoker 2nd Hand Smoke Exposure: No Recent Foreign Travel: No Contact w/Someone Who Travel: No Recent Infectious Disease Expo: No Recent Hopitalizations: No Physical Abuse Screen: No Sexual Abuse: No Immunizations Up To Date Tetanus Booster (TDap): Unknown PED Vaccines UTD: No Date of Pneumonia Vaccine: Aug 26, 2013 Seasonal Allergies Seasonal Allergies: No Surgeries History of Surgeries: Yes ( cataracts, colon sx, hemorrhoids x3, labia abscess) Surgeries: Appendectomy, Cardiac, Gallbladder, Hysterectomy, Vascular Surgery Respiratory History of Respiratory Disorde: No Cardiovascular History of Cardiac Disorders: Yes (typical atrial flutter) Cardiac Disorders: Atrial Fibrillation, Hypertension, Peripheral Vascular Neurological History of Neurological Disord: No Reproductive System Hx Reproductive Disorders: No Sexually Transmitted Disease: No CARDIOVASCULAR RN History: Menopausal Genitourinary History of Genitourinary Disor: No Gastrointestinal History of Gastrointestinal Di: Yes (ulceritive colitis, ) Gastrointestinal Disorders: Gastroesophageal Reflux, Obstructive Bowel Musculoskeletal History of Musculoskeletal Dis: Yes (BRUSITIS) Musculoskeletal Disorders: Arthritis Endocrine History of Endocrine Disorders: No HEENT History of HEENT Disorders: Yes HEENT Disorders: Cataract Cancer History of Cancer: No Psychosocial History of Psychiatric Problem: No Integumentary History of Skin or Integumenta: Yes (bacterial folliculitis) Blood Transfusions History of Blood Disorders: No Adverse Reaction to a Blood Tr: No Family Medical History Significant Family History: No Pertinent Family Hx Review of Systems-General Constitutional: No chills, No diaphoresis EENTM: No blurred vision, No double vision Respiratory: No cough, No dyspnea on exertion Cardiovascular: No chest pain, No palpitations Gastrointestinal: No abdominal pain; dysphagia; No hematemesis Genitourinary: No decreased output, No discharge, No dysuria Musculoskeletal: No back pain, No joint swelling, No muscle pain Skin: No change in color, No change in hair/nails, No dryness Psychiatric/Neurological: Denies Anxiety, Denies Depressed, Denies Emotional Problems Physical Exam-General Problems Physical Exam Vital Signs Vital Signs - First Documented 07/08/20 18:28 Temp 36.2 Pulse 63 Resp 18 B/P (MAP) 137/68 Pulse Ox 93 O2 Delivery Room Air Capillary Refill : Less Than 3 Seconds General Appearance: WD/WN, no apparent distress Eyes: Bilateral Eye Normal Inspection HEENT: PERRL/EOMI, normal ENT inspection Neck: non-tender, full range of motion, supple, normal inspection Respiratory: chest non-tender, no respiratory distress, no accessory muscle use Cardiovascular: regular rate, rhythm, no JVD, no murmur Gastrointestinal: non tender, soft, no pulsatile mass Back: normal inspection, no CVA tenderness, no vertebral tenderness Extremities: normal range of motion, non-tender, normal inspection, no calf tenderness Neurologic/Psychiatric: no motor/sensory deficits, alert, normal mood/affect, oriented x 3, motor weakness (L wrist/hand weakness post CVA) Skin: normal color, warm/dry Lymphatic: no adenopathy Assessment/Plan Assessment/Plan Assessment/Plan dysphagia barium swallow today EGD once anticoagulants are withdrawn Clinical Quality Measures DVT/VTE Risk/Contraindication: Risk Factor Score Per Nursin RFS Level Per Nursing on Admit: 4+=Very High EMILMALLORY Sally DO 07/13/20 7866: History of Present Illness History of Present Illness History of Present Illness Patient with recent right CEA had CVA embolic event following causing left arm weakness. Patient having difficulty with swallowing meat, and sometimes liquids and other solid foods. Patient states this has been going on for several years. Has had to be dilated previously many years ago. She is tolerating her diet. Has some epigastric pain when things feel to get stuck. Will usually go down after a bit. Nothing seems to make better or worse. She is on anticoagulation, currently on hold. Allergies and Home Medications Allergies Coded Allergies: Penicillins (Verified Allergy, Unknown, 12/16/18) codeine (Unverified Allergy, Unknown, 12/16/18) glycopyrrolate (Verified Allergy, Unknown, VOMITING, 12/16/18) Home Medications Amino Acids 1 Each Capsule, 1 EACH PO DAILY, (Reported) Amiodarone HCl 200 Mg Tablet, 200 MG PO DAILY PRN for IRREGULAR HEART RYTHYM, (Reported) Apixaban 5 Mg Tablet, 5 MG PO BID, (Reported) Aspirin 81 Mg Tab.chew, 81 MG PO HS, (Reported) Cyclobenzaprine HCl 10 Mg Tablet, 10 MG PO TID PRN for MUSCLE SPASMS, (Reported) Levothyroxine Sodium 25 Mcg Tablet, 25 MCG PO DAILY, (Reported) Multivit-Min/Iron/Folic/Vit K1 1 Each Tab.chew, 1 EACH PO DAILY, (Reported) Phosphate 1 Ea Tablet, 1 EA PO DAILY, (Reported) Selenium 200 Mcg Capsule, 200 MCG PO DAILY, (Reported) Turmeric Root Extract 538 Mg Capsule, 538 MG PO DAILY, (Reported) Ubidecarenone 30 Mg Capsule, 30 MG PO DAILY, (Reported) Vit C/E/Zn/Coppr/Lutein/Zeaxan 1 Each Capsule, 1 EACH PO DAILY, (Reported) [Cardio Java] , 1 PO DAILY, (Reported) [Niacin Flush Free] , 250 MG PO DAILY, (Reported) Patient Home Medication List Home Medication List Reviewed: Yes Past Eaftclb-Scqtvs-Dgpzda Hx Reviewed Nursing Assessment Reviewed/Agree w Nursing PMH: Yes Family Medical History Significant Family History: No Pertinent Family Hx Review of Systems-General Constitutional: No chills, No diaphoresis EENTM: No blurred vision, No double vision Respiratory: No cough, No dyspnea on exertion Cardiovascular: No palpitations Gastrointestinal: abdominal pain (epigastric), dysphagia; No hematemesis Genitourinary: No decreased output, No discharge Musculoskeletal: No back pain, No joint swelling, No muscle pain; muscle weakness (left arm) Skin: No change in color, No change in hair/nails, No dryness Psychiatric/Neurological: Denies Anxiety, Denies Depressed, Denies Emotional Problems Physical Exam-General Problems Physical Exam General Appearance: WD/WN, no apparent distress HEENT: PERRL/EOMI, normal ENT inspection Neck: non-tender, full range of motion, normal inspection Respiratory: chest non-tender, no respiratory distress, no accessory muscle use Cardiovascular: regular rate, rhythm Gastrointestinal: non tender, soft, no pulsatile mass Back: no CVA tenderness Extremities: non-tender, other (left arm weakness) Neurologic/Psychiatric: alert, normal mood/affect, motor weakness (L wrist/hand weakness post CVA) Skin: normal color, warm/dry Lymphatic: no adenopathy Assessment/Plan Assessment/Plan Assessment/Plan cva embolic following right CEA dysphagia [facility] anticoagulation will get barium swallow to evaluate function eliquis on hold will plan on EGD on so NPO after midnight sunday patient understands risks and benefits along with her daughter at bedside. Supervisory-Addendum Brief Verification & Attestation Participated in pt care: history, MDM, physical Personally performed: exam, history, MDM, supervision of care Care discussed with: Medical Student Procedures: n/a Results interpretation: Verified all documentation Verification and Attestation of Medical Student E/M Service A medical student performed and documented this service in my presence. I reviewed and verified all information documented by the medical student and made modifications to such information, when appropriate. I personally performed the physical exam and medical decision making. Mallory Hale, Jul 13, 2020,21:50 SANYA RIVERA MED STUDENT Jul 13, 2020 07:20 MALLORY HALE DO Jul 13, 2020 21:46
[2020-07-13] MEDS: POT PHOS/NA PHOS (K-PHOS NEUTRAL) PO SCH (08:28)
[2020-07-13] MEDS: APIXABAN 5 MG (ELIQUIS) TABLET PO SCH ×2 (08:28→09:00)
[2020-07-13] MEDS: SENNA W/DOCUSATE (SENOKOT S) TABLET PO SCH ×2 (08:28→21:50)
[2020-07-13] MEDS: lisINopril 10 MG (PRINIVIL) TABLET PO SCH ×2 (08:29→21:51)
[2020-07-13] MEDS: ASPIRIN 81 MG CHEW (CHILDREN'S ASA) PO SCH ×2 (08:29→09:00)
[2020-07-13] MEDS: DOCUSATE SODIUM 100 MG (COLACE) CAP PO SCH ×2 (08:38→21:51)
[2020-07-13] MEDS ORDERED: TRIAMCINOLONE 0.1% CR (KENALOG) 15 GM TUBE TOP PRN (08:45)
[2020-07-13] MEDS: polyethylene glycoL POWDER 17 GM (MIRALAX) PACK PO SCH ×2 (09:00→21:52)
--- NOTE | 2020-07-13 09:00 | NUR ---
Patient refuses Eliquis and Aspirin this morning stating that she is apprehensive to take it until hearing from Dr. Hale. Consulted with Dr. Hale and Dr. Singh. Orders received to hold Eliquis and Aspirin, anticipating procedure to be performed on or Sunday. Dr. Singh requesting a Lovenox bridge, with Pharmacy to dose.
--- NOTE | 2020-07-13 09:36 | Physical Therapy Daily Note ---
PT Daily Note-Current Subjective Pt laying Supine in bed upon arrival. Pt's daughter arrives just a head of VICE PRESIDENT OF NEWS. COMPUTER NETWORK SPECIALIST also present for vitals. Pt agrees ot PT. Pain Location: No Pain Reported Mental Status Patient Orientation: Person, Place, Situation Transfers SCALE: Activities may be completed with or without assistive devices. 1-Eismqgzsmb-lybncuz completes the activity by him/herself with no assistance from a helper. 5-Set-up or Clean-up Assistance-helper sets up or cleans up; patient completes activity. [place] assists only prior to or following the activity. 4-Supervision or Touching Assistance-helper provides verbal cues and/or touching/steadying and/or contact guard assistance as patient completes activity. Assistance may be provided throughout the activity or intermittently. 3-Partial/Moderate Assistance-helper does LESS THAN HALF the effort. [place] lifts, holds or supports trunk or limbs, but provides less than half the effort. 2-Substantial/Maximal Assistance-helper does MORE THAN HALF the effort. [place] lifts or holds trunk or limbs and provides more than half the effort. 6-Akfbfmfwf-yxieue does ALL the effort. Patient does none of the effort to complete the activity. Or, the assistance of 2 or more helpers is required for the patient to complete the activity. If activity was not attempted, code reason: 7-Patient Refused. 9-Not Applicable-not attempted and the patient did not perform the activity before the current illness, exacerbation or injury. 10-Not Attempted due to Environmental Limitations-(lack of equipment, weather restraints, etc.). 88-Not Attempted due to Medical Conditions or Safety Concerns. Lying to Sitting/Side of Bed(Q: 5 Sit to Stand (QC): 5 Toilet Transfer (QC): 5 Weight Bearing Full Weight Bearing Full Weight Bearing Gait Training Does the Patient Walk?: Yes Distance: 150' x2 Walk 10 feet (QC): 5 Walk 50 ft with 2 Turns(QC): 5 Walk 150 ft (QC): 5 Gait Persons Needed: 1 Gait Assistive Device: Cane Single Point Wheelchair Training Does the Pt Use a Wheelchair?: No Exercises NuStep Minutes: 5 NuStep Workload: 5 Treatments Pt transfers from Supine to EOB then to standing. Pt amb. in hallway before using NuStep. Pt takes short RB before amb. back to room to use restroom. Pt returns to EOB at end of tx for morning meds from Nurse. Pt has all needs met, call light next to pt. Assessment Current Status: Good Progress Pt leilani. tx well. Pt is gaining strength and improving on mobility. PT Short Term Goals Short Term Goals Time Frame: Jul 16, 2020 Roll Left & Right: 6 Sit to lyin Lying to sitting on side of be: 6 Sit to stand: 5 Chair/qug-zg-jzncm transfer: 5 Walk 10 feet: 4 Walk 50 feet with two turns: 4 Walk 150 feet: 4 PT Hospitality Coordinator Goals Hospitality Coordinator Goals PT Hospitality Coordinator Goals Time Frame: Jul 30, 2020 Roll Left & Right (QC): 6 Sit to Lying (QC): 6 Lying-Sitting on Side/Bed(QC): 6 Sit to Stand (QC): 6 Chair/Keq-yk-Gakoz Xfer(QC): 6 Toilet Transfer (QC): 6 Car Transfer (QC): 6 Does the Patient Walk: Yes Walk 10 feet (QC): 6 Walk 50ft with 2 Turns (QC): 6 Walk 150 ft (QC): 6 Walking 10ft on Uneven Surface: 6 1 Step (curb) (QC): 5 4 Steps (QC): 5 12 Steps (QC): 5 Picking up an Object (QC): 5 Wheel 50 feet with 2 turns (QC: 9 Wheel 150 feet: 9 PT Plan Problem List Problem List: Activity Tolerance Treatment/Plan Treatment Plan: Continue Plan of Care Treatment Plan: Education, Functional Activity Solomon, Functional Strength, Group Therapy, Gait, Safety, Therapeutic Exercise, Transfers Treatment Duration: Jul 30, 2020 Frequency: At least 5 of 7 days/Wk (IRF) Estimated Hrs Per Day: 1.5 hours per day Patient and/or Family Agrees t: Yes Safety Risks/Education Patient Education: Gait Training, Transfer Techniques, Correct Positioning, Safety Issues Teaching Recipient: Patient, Family Teaching Methods: Discussion Response to Teaching: Verbalize Understanding Time/GCodes Time In: 800 Time Out: 845 Total Billed Treatment Time: 45 Total Billed Treatment 1, GT (20m), FA (15m) & EX (10m) TONY ROMAN VICE PRESIDENT OF NEWS Jul 13, 2020 09:36
--- NOTE | 2020-07-13 10:09 | Occupational Ther Daily Note ---
OT Current Status-Daily Note Subjective Pt alert, sitting EOB. Pt agrees to therapy. Daughter in room. Pain Location: No Pain Reported Mental Status/Objective Patient Orientation: Person, Place, Time, Situation ADL-Treatment Pt declined shower or sponge bath. Agrees to changing clothing and oral care. Pt transferred from EOB to single point cane with using SBA. Pt ambulated to bathroom for dressing and oral hygiene, SBA. Therapy Code Descriptions/Definitions Functional [place] Measure: 0=Not Assessed/NA 4=Minimal Assistance 1=Total Assistance 5=Supervision or Setup 2=Maximal Assistance 6=Modified [place] 3=Moderate Assistance 7=Complete IndependenceSCALE: Activities may be completed with or without assistive devices. 3-Tddipqarad-kpxryld completes the activity by him/herself with no assistance from a helper. 5-Set-up or Clean-up Assistance-helper sets up or cleans up; patient completes activity. [place] assists only prior to or following the activity. 4-Supervision or Touching Assistance-helper provides verbal cues and/or touching/steadying and/or contact guard assistance as patient completes activity. Assistance may be provided throughout the activity or intermittently. 3-Partial/Moderate Assistance-helper does LESS THAN HALF the effort. [place] lifts, holds or supports trunk or limbs, but provides less than half the effort. 2-Substantial/Maximal Assistance-helper does MORE THAN HALF the effort. [place] lifts or holds trunk or limbs and provides more than half the effort. 5-Bwbrvbtsk-tqhrkt does ALL the effort. Patient does none of the effort to complete the activity. Or, the assistance of 2 or more helpers is required for the patient to complete the activity. If activity was not attempted, code reason: 7-Patient Refused. 9-Not Applicable-not attempted and the patient did not perform the activity before the current illness, exacerbation or injury. 10-Not Attempted due to Environmental Limitations-(lack of equipment, weather restraints, etc.). 88-Not Attempted due to Medical Conditions or Safety Concerns. Oral Hygiene (QC): 4 (Pt standing at sink to complete oral care, SBA. Pt using one handed technique to apply toothpaste to toothbrush.) Upper Body Dressing (QC): 3 (After set up, pt required verbal cues to position shirt, pull shirt up L arm then cues to manipulate clothing over head and onto R arm.) Lower Body Dressing (QC): 4 (After set up, pt is able to thread feet into pants legs then SBA to stand while hiking pants over hips.) On/Off Footwear: 3 (After set up, pt able to don/doff socks by self. Pt given elastic shoe laces and long handle shoehorn to don shoes. Pt demonstrates ability to don/doff shoes using AE.) Other Treatment Pt used single point cane to ambulate to therapy gym, SBA. Pt working on decreasing compensatory patterns in L UE, increasing AROM and strength throughout L UE. Using no resistance pt was able to move L UE in horizontal planes for shldr abd/add and protraction/retraction of scapula. When increased control was required manipulating ball with B hands assistance given. Pt using compensatory patterns with L UE movements, assist and instructions given to move L UE with correct movements. After therapy, pt lying in bed with call light/phone in reach. All needs met in room. Education OT Patient Education: Modified ADL techniques (givin elastic shoelaces ), Use of adapted equipment (shoe horn ) Teaching Recipient: Patient, Family Teaching Methods: Demonstration, Discussion Response to Teaching: Verbalize Understanding, Return Demonstration OT Short Term Goals Short Term Goals Time Frame: Jul 16, 2020 Oral hygiene: 5 Toileting hygiene: 5 Lower body dressin OT Project Controller Goals Project Controller Goals Time Frame: Jul 30, 2020 Eating (QC): 6 Oral Hygiene (QC): 6 Toileting Hygiene (QC): 6 Shower/Bathe Self (QC): 5 Upper Body Dressing (QC): 6 Lower Body Dressing (QC): 6 On/Off Footwear (QC): 6 Additional Goals: 1-Demonstrate ADL Tasks, 2-Verbalize Understanding, 3- ImproveStrength/Solomon 1=Demonstrate adherence to instructed precautions during ADL tasks. 2=Patient will verbalize/demonstrate understanding of assistive devices/modifications for ADL. 3=Patient will improve strength/tolerance for activity to enable patient to perform ADL's. OT Education/Plan Problem List/Assessment Assessment: Edema, Impaired Funct Balance, Impaired I ADL's, Impaired Self-Care Skills, Restricted Funct UE ROM Pt would benefit from skilled OT to increase her independence with basic self care to allow her to safely return home. Discharge Recommendations Plan/Recommendations: Continue POC Equpiment Recommendations-D/C: Long Shoe Horn, Elastic Shoe Laces Treatment Plan/Plan of Care Patient would benefit from OT for education, treatment and training to promote independence in ADL's, mobility, safety and/or upper extremity function for ADL's. Plan of Care: ADL Retraining, Functional Mobility, Group Exercise/Act as Ind, UE Funct Exercise/Act, UE Neuromus Re-Ed/Coord, Visual/Perceptual Retrain, OTHER (energy conservation education) Treatment Duration: Jul 30, 2020 Frequency: Modified Program (IRF) Estimated Hrs Per Day: 1.5 hours per day (1.25 to 1.5) Agreement: Yes Rehab Potential: Fair Time/GCodes Start Time: 09:00 Stop Time: 10:00 Total Time Billed (hr/min): 60 Billed Treatment Time 1 visit- ADL 2 (30 mins) FA 2 (30 mins) ZENIA MORRIS Jul 13, 2020 10:09
--- NOTE | 2020-07-13 10:31 | PM&R Progress Note ---
Subjective HPI/CC On Admission Date Seen by Provider: Jul 13, 2020 Time Seen by Provider: 09:00 Subjective/Events-last exam 07/13/20: Monitor elevated BP Bowels are moving well Coughing at night at times EGD is discussed with Dr. Hale, barium-swallow to be performed 07/12/20: Dysphagia is chronic but worse since the stroke so she is willing to have EGD by Dr. Hale. Michelle pedroza will have local anesthetic placed Bowels moved three days ago so will give laxatives Has a vision multivitamin Eye Drops are over the counter that she will use Takes Motrin for facial pain Left arm she lifted pretty well today 07/11/20: No pain reported No bleeding issues noted Fatigue is an issue Wants to get her left arm working better before she goes home Appreciate Dr Hutchinson consult 07/10/20: Doing well Blew mucous plug out of nose and not she feels like she is breathing better Saline nasal spray will be ordered BM yesterday No issues 07/09/20: Pt doing pretty well Worried about Lipitor and her liver Lymphedema of the left arm will require therapy Bowels are moving well Cardiology consulted Checked meds and labs Reviewed therapy notes Conferred with leather stripping 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 of Systems General: Fatigue, Malaise Neurological: Weakness Objective Exam Vital Signs Vital Signs Date Time Temp Pulse Resp B/P (MAP) Pulse Ox O2 Delivery O2 Flow Rate FiO2 07/13/20 16:27 36.3 63 16 140/63 (88) 94 Room Air Capillary Refill : Less Than 3 Seconds General Appearance: No Apparent Distress, WD/WN, Chronically ill HEENT: PERRL/EOMI, Normal ENT Inspection, Pharynx Normal Neck: Full Range of Motion, Normal Inspection, Non Tender, Supple, Carotid Bruit Respiratory: Chest Non Tender, Lungs Clear, Normal Breath Sounds, No Accessory Muscle Use, No Respiratory Distress Cardiovascular: No Edema, No Gallop, No JVD, No Murmur, Normal Peripheral Pulses, Irregularly Irregular Gastrointestinal: Normal Bowel Sounds, No Organomegaly, No Pulsatile Mass, Non Tender, Soft Back: Normal Inspection, No CVA Tenderness, No Vertebral Tenderness Extremity: Normal Capillary Refill, Normal Inspection, Normal Range of Motion (except left upper extremity upper arm 3/5 left hand 0/5), Non Tender, No Calf Tenderness, No Pedal Edema Neurologic/Psychiatric: Alert, Oriented x3, No Motor/Sensory Deficits, Normal Mood/Affect, Abnormal Gait, Motor Weakness (left arm) Skin: Normal Color, Warm/Dry Lymphatic: No Adenopathy Results/Procedures Lab Patient resulted labs reviewed. FIM Transfers Therapy Code Descriptions/Definitions Functional [place] Measure: 0=Not Assessed/NA 4=Minimal Assistance 1=Total Assistance 5=Supervision or Setup 2=Maximal Assistance 6=Modified [place] 3=Moderate Assistance 7=Complete IndependenceSCALE: Activities may be completed with or without assistive devices. 1-Ndrivebouh-lwqmhrw completes the activity by him/herself with no assistance from a helper. 5-Set-up or Clean-up Assistance-helper sets up or cleans up; patient completes activity. [place] assists only prior to or following the activity. 4-Supervision or Touching Assistance-helper provides verbal cues and/or touching/steadying and/or contact guard assistance as patient completes activity. Assistance may be provided throughout the activity or intermittently. 3-Partial/Moderate Assistance-helper does LESS THAN HALF the effort. [place] lifts, holds or supports trunk or limbs, but provides less than half the effort. 2-Substantial/Maximal Assistance-helper does MORE THAN HALF the effort. [place] l ifts or holds trunk or limbs and provides more than half the effort. 1-Kkqnwmlre-xrpjqs does ALL the effort. Patient does none of the effort to complete the activity. Or, the assistance of 2 or more helpers is required for the patient to complete the activity. If activity was not attempted, code reason: 7-Patient Refused. 9-Not Applicable-not attempted and the patient did not perform the activity before the current illness, exacerbation or injury. 10-Not Attempted due to Environmental Limitations-(lack of equipment, weather restraints, etc.). 88-Not Attempted due to Medical Conditions or Safety Concerns. Roll Left to Right (QC): 6 Sit to Lying (QC): 6 Sit to Stand (QC): 5 Chair/Yfw-oj-Cqvac Xfer(QC): 6 Car Transfer (QC): 4 Gait Training Does the Patient Walk?: Yes Distance: 150' x2 Walk 10 feet (QC): 5 Walk 50 ft with 2 Turns(QC): 5 Walk 150 ft (QC): 5 Walking 10ft/uneven surface-QC: 3 (CGA for safety) Gait Persons Needed: 1 Gait Assistive Device: Cane Single Point Wheelchair Training Does the Pt Use a Wheelchair?: No Wheel 50 ft with 2 turns (QC): 9 Wheel 150 ft (QC): 9 Stair Training Stair Training: Handrails/: 1 handrail #of Steps: 16 1 Step (curb) (QC): 4 4 Steps (QC): 5 12 Steps (QC): 5 Stairs: Pattern: Reciprocal Balance Picking up an Object (QC): 4 ADL-Treatment Eating (QC): 5 (setup) Oral Hygiene (QC): 4 (pt standing at sink, SBA) Bathing Location: L Arm, R Arm ( min. assist to lift arm so pt could rinse under arm using hand held shower head. ), L Upper Leg, R Upper Leg, L Lower Leg (including foot), R Lower Leg (including foot), Chest, Abdomen, Buttocks (SBA for safety while standing), Perineal Area (SBA for safety while standing) Shower/Bathe Self (QC): 3 (min. assist to lift R arm so pt could rinse arm pit using hand held shower head) Upper Body Dressing (QC): 3 (min assist for verbal cues to thread shirt over arms then head. ) Lower Body Dressing (QC): 4 (SBA when hiking pants.) On/Off Footwear (QC): 3 Toileting Hygiene (QC): 4 (CGA) Assessment/Plan Assessment and Plan Assess & Plan/Chief Complaint Assessment: CVA embolic type following right CEA Left arm weakness and left hand flaccidity Chronic AF OAC HTN Plan: Cardiology consulting Home meds Pain meds IRF protocol 07/09/20: Therapy for left arm flaccidity Monitor bowels Cardiology consultation Patient dislikes Lipitor 07/10/20: Saline nasal spray Monitor BP closely Fall risk 07/11/20: Maintain OAC IRF protocol BM regimen Lipitor concerns patient regarding liver issues 07/12/20: Consult Dr. Hale for EGD for dysphagia Continue supplements from home Continue bowel regimen Topical local pain medication for canker sore 07/13/20: Continue close blood pressure monitoring since it was high Bowels are moving EGD after barium swallow likely, per Dr. Hale (1) CVA (cerebral vascular accident) (2) Atrial fibrillation Status: Acute (3) Carotid stenosis, bilateral (4) S/P carotid endarterectomy (5) Confusion ESSENCE HAWK DO Jul 13, 2020 10:31
[2020-07-13] MEDS ORDERED: ENOXAPARIN 300 MG/3 ML (LOVENOX) MULTI-DOSE VIAL SQ SCH (12:00)
[2020-07-13] MEDS: IBUPROFEN TABLET 200 MG TAB PO PRN (12:03)
[2020-07-13] MEDS: ENOXAPARIN 80 MG/0.8 ML (LOVENOX) SYR SC SCH (14:06)
--- NOTE | 2020-07-13 14:13 | Occupational Ther Daily Note ---
OT Current Status-Daily Note Subjective Pt alert laying in bed. Agreed to OT. Daughter in room. Pain reported in left forearm. Massage was given to help relax. ADL-Treatment Pt transferred from lying down to EOB, with supervision. Pt transferred from EOB to SPC ambulated to bathroom with CGA for toileting and changing of shoes. Therapy Code Descriptions/Definitions Functional [place] Measure: 0=Not Assessed/NA 4=Minimal Assistance 1=Total Assistance 5=Supervision or Setup 2=Maximal Assistance 6=Modified [place] 3=Moderate Assistance 7=Complete IndependenceSCALE: Activities may be completed with or without assistive devices. 5-Dycblwvgvp-uwgdovr completes the activity by him/herself with no assistance from a helper. 5-Set-up or Clean-up Assistance-helper sets up or cleans up; patient completes activity. [place] assists only prior to or following the activity. 4-Supervision or Touching Assistance-helper provides verbal cues and/or touching/steadying and/or contact guard assistance as patient completes activity. Assistance may be provided throughout the activity or intermittently. 3-Partial/Moderate Assistance-helper does LESS THAN HALF the effort. [place] lifts, holds or supports trunk or limbs, but provides less than half the effort. 2-Substantial/Maximal Assistance-helper does MORE THAN HALF the effort. [place] lifts or holds trunk or limbs and provides more than half the effort. 3-Hfuxclxcx-huawzy does ALL the effort. Patient does none of the effort to complete the activity. Or, the assistance of 2 or more helpers is required for the patient to complete the activity. If activity was not attempted, code reason: 7-Patient Refused. 9-Not Applicable-not attempted and the patient did not perform the activity before the current illness, exacerbation or injury. 10-Not Attempted due to Environmental Limitations-(lack of equipment, weather restraints, etc.). 88-Not Attempted due to Medical Conditions or Safety Concerns. On/Off Footwear: 5 (required set up of tennis shoes. pt able to don/doff shoes with elastic shoelaces. ) Toileting Hygiene (QC): 4 (Supervision, pt sitting to cleanse annie after toileting and CGA in standing to hike pants over hips.) Toilet Transfer (QC): 4 (Supervision as pt transferred from sit to stand on toilet. ) Other Treatment Pt ambulated from bathroom to gym using SPC with CGA. Pt sat on chair and began e-stim on L hand to increase AROM for wrist/hand extension/flexion for ~15 min using 8 mcpherson to active muscle movement for functional ADLs. Pt ambulated back to room using SPC with CGA. Pt sat at EOB. Call light/phone in reach. All needs met. OT Short Term Goals Short Term Goals Time Frame: Jul 16, 2020 Oral hygiene: 5 Toileting hygiene: 5 Lower body dressin OT Retirement Goals Horticulture Professor Goals Time Frame: Jul 30, 2020 Eating (QC): 6 Oral Hygiene (QC): 6 Toileting Hygiene (QC): 6 Shower/Bathe Self (QC): 5 Upper Body Dressing (QC): 6 Lower Body Dressing (QC): 6 On/Off Footwear (QC): 6 Additional Goals: 1-Demonstrate ADL Tasks, 2-Verbalize Understanding, 3- ImproveStrength/Solomon 1=Demonstrate adherence to instructed precautions during ADL tasks. 2=Patient will verbalize/demonstrate understanding of assistive devices/modifications for ADL. 3=Patient will improve strength/tolerance for activity to enable patient to perform ADL's. OT Education/Plan Problem List/Assessment Assessment: Impaired Funct Balance, Impaired I ADL's, Impaired Self-Care Skills, Restricted Funct UE ROM, Visual-Perceptual Deficit (slight L side neglect) Pt would benefit from skilled OT to increase her independence with basic self care to allow her to safely return home. Discharge Recommendations Plan/Recommendations: Continue POC Treatment Plan/Plan of Care Patient would benefit from OT for education, treatment and training to promote independence in ADL's, mobility, safety and/or upper extremity function for ADL's. Plan of Care: ADL Retraining, Functional Mobility, Group Exercise/Act as Ind, UE Funct Exercise/Act, UE Neuromus Re-Ed/Coord, Visual/Perceptual Retrain, OTHER (energy conservation education) Treatment Duration: Jul 30, 2020 Frequency: Modified Program (IRF) Estimated Hrs Per Day: 1.5 hours per day (1.25 to 1.5) Agreement: Yes Rehab Potential: Fair Time/GCodes Start Time: 13:00 Stop Time: 13:30 Total Time Billed (hr/min): 30 Billed Treatment Time 1 visit- ADL 1 (15 min) NM 1 (15 min) ZENIA MORRIS ENGRAVER RUBBER Jul 13, 2020 14:13
--- NOTE | 2020-07-13 14:53 | Cardiology Progress Note ---
Cardiology SOAP Progress Note Subjective: No cardiac complaints. Objective: I&O/Vital Signs 07/13/20 07/13/20 05:14 09:00 Temp 36.4 Pulse 56 Resp 18 B/P (MAP) 178/78 (111) Pulse Ox 96 O2 Delivery Room Air Room Air 07/13/20 00:00 Intake Total 1075 ml Balance 1075 ml Weight (Pounds): 142 Weight (Ounces): 0.0 Weight (Calculated Kilograms): 64.141234 Constitutional: appears stated age, AAO x 3; No apparent distress; well- developed, well-nourished Respiratory: chest is bilaterally symmetric, lungs clear to auscultation Cardiovascular: regular rate-rhythm, S1 and S2 Gastrointestional: soft, audible bowel sounds; No spleenomegaly Extremities: normal range of motion, non-tender, normal inspection; No clubbing, No cyanosis; no lower extremity edema bilateral; No significant edema Neurologic/Psychiatric: alert, normal mood/affect, oriented x 3, power is 5/5 both on sides Skin: normal color; No rash, No ulcerations A/P: Assessment/Dx: Recent right carotid endarterectomy. Left-sided CVA, Hypertension, Hyperlipidemia, Paroxysmal atrial fibrillation, History of typical atrial flutter, History of AVNRT Plan: Recent right carotid endarterectomy. Continue antiplatelet therapy. Left-sided CVA, continue antiplatelet therapy and inpatient rehabilitation. Defer to Dr. Singh. Hypertension, continue lisinopril. Hyperlipidemia, on atorvastatin. Paroxysmal atrial fibrillation, continue Eliquis. Amiodarone when necessary. History of typical atrial flutter, no further palpitations. 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 Thank you for your consultation. Please call me if you have any questions. Yusuf Hutchinson MD, FACP, FACC, FSCAI, FHRS, CCDS Interventional Cardiology Cardiac Electrophysiology Vascular Medicine and Endovascular Interventions Jaime HUTCHINSON MD Jul 13, 2020 14:53
--- NOTE | 2020-07-13 15:08 | Physical Therapy Daily Note ---
PT Daily Note-Current Subjective Pt laying in bed upon arrival. Daughter is present. Pt agrees to PT. Pain Location: No Pain Reported Mental Status Patient Orientation: Person, Place, Situation Transfers SCALE: Activities may be completed with or without assistive devices. 4-Xdltgybzhd-rfhonlq completes the activity by him/herself with no assistance from a helper. 5-Set-up or Clean-up Assistance-helper sets up or cleans up; patient completes activity. [place] assists only prior to or following the activity. 4-Supervision or Touching Assistance-helper provides verbal cues and/or touching/steadying and/or contact guard assistance as patient completes activity. Assistance may be provided throughout the activity or intermittently. 3-Partial/Moderate Assistance-helper does LESS THAN HALF the effort. [place] lifts, holds or supports trunk or limbs, but provides less than half the effort. 2-Substantial/Maximal Assistance-helper does MORE THAN HALF the effort. [place] lifts or holds trunk or limbs and provides more than half the effort. 8-Cbpjgvzvp-ejwqgz does ALL the effort. Patient does none of the effort to complete the activity. Or, the assistance of 2 or more helpers is required for the patient to complete the activity. If activity was not attempted, code reason: 7-Patient Refused. 9-Not Applicable-not attempted and the patient did not perform the activity before the current illness, exacerbation or injury. 10-Not Attempted due to Environmental Limitations-(lack of equipment, weather restraints, etc.). 88-Not Attempted due to Medical Conditions or Safety Concerns. Sit to Lying (QC): 5 Lying to Sitting/Side of Bed(Q: 5 Sit to Stand (QC): 5 Chair/Qvj-rm-Mutew Xfer(QC): 5 Toilet Transfer (QC): 5 Weight Bearing Full Weight Bearing Full Weight Bearing Gait Training Does the Patient Walk?: Yes Distance: 450' Walk 10 feet (QC): 5 Walk 50 ft with 2 Turns(QC): 5 Walk 150 ft (QC): 5 Gait Persons Needed: 1 Gait Assistive Device: Cane Single Point Pt doesn't have one at home and would like one upon DC. Wheelchair Training Does the Pt Use a Wheelchair?: No Stair Training Stair Training: Handrails/: 2 handrails #of Steps: 12 1 Step (curb) (QC): 5 4 Steps (QC): 5 12 Steps (QC): 5 Stairs: Pattern: Step to Treatments Pt transfers to standing and amb. in hallway. Pt completes 12 steps before taking a short RB. Pt, daughter and PMP PROJECT MANAGER discuss need for any equipment for home and pt's progress ahead of Weekly ARU mtg for tomorrow. Pt amb. in hallway before returning to room to rest in bed. Pt has all needs met, call light in hand. Assessment Current Status: Good Progress Pt needs occasional reminders to slow down and let body catch up when amb. PT Short Term Goals Short Term Goals Time Frame: Jul 16, 2020 Roll Left & Right: 6 Sit to lyin Lying to sitting on side of be: 6 Sit to stand: 5 Chair/rfg-ia-ammog transfer: 5 Walk 10 feet: 4 Walk 50 feet with two turns: 4 Walk 150 feet: 4 PT Detention Goals Detention Goals PT Railway Shunter Goals Time Frame: Jul 30, 2020 Roll Left & Right (QC): 6 Sit to Lying (QC): 6 Lying-Sitting on Side/Bed(QC): 6 Sit to Stand (QC): 6 Chair/Ftt-sq-Cjzin Xfer(QC): 6 Toilet Transfer (QC): 6 Car Transfer (QC): 6 Does the Patient Walk: Yes Walk 10 feet (QC): 6 Walk 50ft with 2 Turns (QC): 6 Walk 150 ft (QC): 6 Walking 10ft on Uneven Surface: 6 1 Step (curb) (QC): 5 4 Steps (QC): 5 12 Steps (QC): 5 Picking up an Object (QC): 5 Wheel 50 feet with 2 turns (QC: 9 Wheel 150 feet: 9 PT Plan Problem List Problem List: Activity Tolerance, Safety Treatment/Plan Treatment Plan: Continue Plan of Care Treatment Plan: Education, Functional Activity Solomon, Functional Strength, Group Therapy, Gait, Safety, Therapeutic Exercise, Transfers Treatment Duration: Jul 30, 2020 Frequency: At least 5 of 7 days/Wk (IRF) Estimated Hrs Per Day: 1.5 hours per day Patient and/or Family Agrees t: Yes Safety Risks/Education Patient Education: Gait Training, Correct Positioning, Safety Issues Teaching Recipient: Patient, Family Teaching Methods: Discussion Response to Teaching: Verbalize Understanding, Reinforcement Needed Time/GCodes Time In: 1415 Time Out: 1500 Total Billed Treatment Time: 45 Total Billed Treatment , GT (20m) & FA x2 (25m) TONY ROMAN PMP PROJECT MANAGER Jul 13, 2020 15:08
[2020-07-13 16:27] VITALS: BP 140/63
[2020-07-13] MEDS ORDERED: PRESERVISION AREDS SOFTGEL (BAUSH & LOMB) PO SCH (18:00)
[2020-07-13] MEDS: PRESERVISION AREDS SOFTGEL (BAUSH & LOMB) PO SCH (21:51)
--- NOTE | 2020-07-15 07:09 | Progress Note - Surgery ---
NICOLESANYA MED STUDENT 07/15/20 0709: Subjective Date Seen by a Provider: Jul 15, 2020 Time Seen by a Provider: 06:55 Subjective/Events-last exam Pt comfortable and in NAD. Has been NPO since 23:30 last night. Ready for EGD today. No other concerns at this time. Denies n/v, fever, chest pain, sob. Review of Systems General: No Chills, No Night Sweats HEENT: No Head Aches, No Visual Changes Pulmonary: No Dyspnea, No Cough Cardiovascular: No: Chest Pain, Palpitations Gastrointestinal: No: Nausea, Vomiting, Abdominal Pain Genitourinary: No Dysuria, No Frequency Musculoskeletal: No: neck pain, shoulder pain Neurological: Weakness (L wrist), Numbness (L wrist); No: Change in speech, Confusion Objective Exam Capillary Refill : Less Than 3 Seconds General Appearance: No Apparent Distress, WD/WN, Chronically ill HEENT: PERRL/EOMI, Normal ENT Inspection, Pharynx Normal Neck: Full Range of Motion, Normal Inspection, Non Tender, Supple, Carotid Bruit Respiratory: Chest Non Tender, Lungs Clear, Normal Breath Sounds, No Accessory Muscle Use, No Respiratory Distress Cardiovascular: No Edema, No Gallop, No JVD, No Murmur, Normal Peripheral Pulses, Irregularly Irregular Gastrointestinal: non tender, soft, no pulsatile mass Extremity: Normal Capillary Refill, Normal Inspection, Normal Range of Motion (except left upper extremity upper arm 3/5 left hand 0/5), Non Tender, No Calf Tenderness, No Pedal Edema Neurologic/Psychiatric: Alert, Oriented x3, No Motor/Sensory Deficits, Normal Mood/Affect, Abnormal Gait, Motor Weakness (left arm) Skin: Normal Color, Warm/Dry Lymphatic: No Adenopathy Assessment/Plan Assessment/Plan Assessment/Plan cva embolic following right CEA dysphagia jail anticoagulation npo EGD today Clinical Quality Measures DVT/VTE Risk/Contraindication: Risk Factor Score Per Nursin RFS Level Per Nursing on Admit: 4+=Very High MALLORY HALE DO 07/15/20 1305: Subjective Subjective/Events-last exam NPO Cough and dysphagia. No new complaints. Denies n/v fever sweats chills shortness of breath or chest pain. Objective Exam General Appearance: No Apparent Distress, WD/WN HEENT: PERRL/EOMI, Other (right incision c/d/i minimal swelling.) Neck: Other (as above) Respiratory: Chest Non Tender, No Accessory Muscle Use, No Respiratory Distress Cardiovascular: Irregularly Irregular Gastrointestinal: non tender, soft, no pulsatile mass Extremity: Non Tender, Other (left side weakness) Neurologic/Psychiatric: Alert, Oriented x3, Motor Weakness (left arm) Skin: Normal Color, Warm/Dry Lymphatic: No Adenopathy Assessment/Plan Assessment/Plan Assessment/Plan cva embolic following right CEA dysphagia jail anticoagulation for egd today barium swallow tertiary contractions understands risks and benefits of egd Supervisory-Addendum Brief Verification & Attestation Participated in pt care: history, MDM, physical Personally performed: exam, history, MDM, supervision of care Care discussed with: Medical Student Procedures: n/a Results interpretation: Verified all documentation Verification and Attestation of Medical Student E/M Service A medical student performed and documented this service in my presence. I reviewed and verified all information documented by the medical student and made modifications to such information, when appropriate. I personally performed the physical exam and medical decision making. Mallory Hale, Jul 15, 2020,13:05 SANYA RIVERA MED STUDENT Jul 15, 2020 07:09 MALLORY HALE DO Jul 15, 2020 13:05
--- NOTE | 2020-07-15 08:20 | PM&R Progress Note ---
Subjective HPI/CC On Admission Date Seen by Provider: Jul 15, 2020 Time Seen by Provider: 08:45 Subjective/Events-last exam 07/15/20: EGD today by Dr. Alexia dominguez when holding Eliquis Not much movement of the left hand but arm is much improved Dysphasia still continues Barium-swallow was normal Always refers to her daughter for any additional questions She appears to be in significant fright status since the loss of function in her left arm 07/14/20: Barium swallow this morning which results came back to no significant stenosis EGD will be performed by Dr. Hale N.p.o. after midnight on [place] bridge since Eliquis was held No bowel problems No bleeding problems Walking with therapy 07/13/20: Monitor elevated BP Bowels are moving well Coughing at night at times EGD is discussed with Dr. Hale, barium-swallow to be performed 07/12/20: Dysphagia is chronic but worse since the stroke so she is willing to have EGD by Dr. Hale. Michelle pedroza will have local anesthetic placed Bowels moved three days ago so will give laxatives Has a vision multivitamin Eye Drops are over the counter that she will use Takes Motrin for facial pain Left arm she lifted pretty well today 07/11/20: No pain reported No bleeding issues noted Fatigue is an issue Wants to get her left arm working better before she goes home Appreciate Dr Hutchinson consult 07/10/20: Doing well Blew mucous plug out of nose and not she feels like she is breathing better Saline nasal spray will be ordered BM yesterday No issues 07/09/20: Pt doing pretty well Worried about Lipitor and her liver Lymphedema of the left arm will require therapy Bowels are moving well Cardiology consulted Checked meds and labs Reviewed therapy notes Conferred with flipping 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 of Systems General: Fatigue, Malaise Neurological: Weakness Objective Exam Vital Signs Vital Signs Date Time Temp Pulse Resp B/P (MAP) Pulse Ox O2 Delivery O2 Flow Rate FiO2 07/15/20 20:14 Room Air 07/15/20 16:15 36.8 61 16 151/61 (91) 92 Capillary Refill : Less Than 3 Seconds General Appearance: No Apparent Distress, WD/WN, Chronically ill HEENT: PERRL/EOMI, Normal ENT Inspection, Pharynx Normal Neck: Full Range of Motion, Normal Inspection, Non Tender, Supple, Carotid Bruit Respiratory: Chest Non Tender, Lungs Clear, Normal Breath Sounds, No Accessory Muscle Use, No Respiratory Distress Cardiovascular: No Edema, No Gallop, No JVD, No Murmur, Normal Peripheral Pulses, Irregularly Irregular Gastrointestinal: Normal Bowel Sounds, No Organomegaly, No Pulsatile Mass, Non Tender, Soft Back: Normal Inspection, No CVA Tenderness, No Vertebral Tenderness Extremity: Normal Capillary Refill, Normal Inspection, Normal Range of Motion (except left upper extremity upper arm 3/5 left hand 0/5), Non Tender, No Calf Tenderness, No Pedal Edema Neurologic/Psychiatric: Alert, Oriented x3, No Motor/Sensory Deficits, Normal Mood/Affect, Abnormal Gait, Motor Weakness (left arm) Skin: Normal Color, Warm/Dry Lymphatic: No Adenopathy Results/Procedures Lab Patient resulted labs reviewed. FIM Transfers Therapy Code Descriptions/Definitions Functional [place] Measure: 0=Not Assessed/NA 4=Minimal Assistance 1=Total Assistance 5=Supervision or Setup 2=Maximal Assistance 6=Modified [place] 3=Moderate Assistance 7=Complete IndependenceSCALE: Activities may be completed with or without assistive devices. 5-Bxetbkhawg-nxoefzb completes the activity by him/herself with no assistance from a helper. 5-Set-up or Clean-up Assistance-helper sets up or cleans up; patient completes activity. [place] assists only prior to or following the activity. 4-Supervision or Touching Assistance-helper provides verbal cues and/or touching/steadying and/or contact guard assistance as patient completes activity. Assistance may be provided throughout the activity or intermittently. 3-Partial/Moderate Assistance-helper does LESS THAN HALF the effort. [place] lifts, holds or supports trunk or limbs, but provides less than half the effort. 2-Substantial/Maximal Assistance-helper does MORE THAN HALF the effort. [place] lifts or holds trunk or limbs and provides more than half the effort. 9-Yslhntsjw-rtgvqs does ALL the effort. Patient does none of the effort to complete the activity. Or, the assistance of 2 or more helpers is required for the patient to complete the activity. If activity was not attempted, code reason: 7-Patient Refused. 9-Not Applicable-not attempted and the patient did not perform the activity before the current illness, exacerbation or injury. 10-Not Attempted due to Environmental Limitations-(lack of equipment, weather restraints, etc.). 88-Not Attempted due to Medical Conditions or Safety Concerns. Roll Left to Right (QC): 6 Sit to Lying (QC): 5 Sit to Stand (QC): 5 Chair/Yur-su-Rwwhr Xfer(QC): 5 Car Transfer (QC): 4 Gait Training Does the Patient Walk?: Yes Distance: 450' Walk 10 feet (QC): 5 Walk 50 ft with 2 Turns(QC): 5 Walk 150 ft (QC): 5 Walking 10ft/uneven surface-QC: 3 (CGA for safety) Gait Persons Needed: 1 Gait Assistive Device: Cane Single Point Wheelchair Training Does the Pt Use a Wheelchair?: No Wheel 50 ft with 2 turns (QC): 9 Wheel 150 ft (QC): 9 Stair Training Stair Training: Handrails/: 2 handrails #of Steps: 12 1 Step (curb) (QC): 5 4 Steps (QC): 5 12 Steps (QC): 5 Stairs: Pattern: Step to Balance Picking up an Object (QC): 4 ADL-Treatment Eating (QC): 5 (setup) Oral Hygiene (QC): 4 (Pt standing at sink to complete oral care, SBA. Pt using one handed technique to apply toothpaste to toothbrush.) Bathing Location: L Arm, R Arm ( min. assist to lift arm so pt could rinse under arm using hand held shower head. ), L Upper Leg, R Upper Leg, L Lower Leg (including foot), R Lower Leg (including foot), Chest, Abdomen, Buttocks (SBA for safety while standing), Perineal Area (SBA for safety while standing) Shower/Bathe Self (QC): 3 (min. assist to lift R arm so pt could rinse arm pit using hand held shower head) Upper Body Dressing (QC): 3 (After set up, pt required verbal cues to position shirt, pull shirt up L arm then cues to manipulate clothing over head and onto R arm.) Lower Body Dressing (QC): 4 (After set up, pt is able to thread feet into pants legs then SBA to stand while hiking pants over hips.) On/Off Footwear (QC): 5 (required set up of tennis shoes. pt able to don/doff shoes with elastic shoelaces. ) Toileting Hygiene (QC): 4 (Supervision, pt sitting to cleanse annie after toileting and CGA in standing to hike pants over hips.) Toilet Transfer (QC): 4 (Supervision as pt transferred from sit to stand on toilet. ) Assessment/Plan Assessment and Plan Assess & Plan/Chief Complaint Assessment: CVA embolic type following right CEA Left arm weakness and left hand flaccidity Chronic AF OAC HTN Plan: Cardiology consulting Home meds Pain meds IRF protocol 07/09/20: Therapy for left arm flaccidity Monitor bowels Cardiology consultation Patient dislikes Lipitor 07/10/20: Saline nasal spray Monitor BP closely Fall risk 07/11/20: Maintain OAC IRF protocol BM regimen Lipitor concerns patient regarding liver issues 07/12/20: Consult Dr. Hale for EGD for dysphagia Continue supplements from home Continue bowel regimen Topical local pain medication for canker sore 07/13/20: Continue close blood pressure monitoring since it was high Bowels are moving EGD after barium swallow likely, per Dr. Hale 07/14/20: Barium swallow EGD 07/15 Monitor for pain Eliquis bridge with Lovenox 07/15/20: EGD today Lovenox bridge Eliquis to restart (1) CVA (cerebral vascular accident) (2) Atrial fibrillation Status: Acute (3) Carotid stenosis, bilateral (4) S/P carotid endarterectomy (5) Confusion ESSENCE HAWK DO Jul 15, 2020 08:20
--- NOTE | 2020-07-15 08:20 | PM&R Progress Note ---
Subjective HPI/CC On Admission Date Seen by Provider: Jul 14, 2020 Time Seen by Provider: 08:45 Subjective/Events-last exam 07/14/20: Barium swallow this morning which results came back to no significant stenosis EGD will be performed by Dr. Hale N.p.o. after midnight on Lovenox bridge since Eliquis was held No bowel problems No bleeding problems Walking with therapy 07/13/20: Monitor elevated BP Bowels are moving well Coughing at night at times EGD is discussed with Dr. Hale, barium-swallow to be performed 07/12/20: Dysphagia is chronic but worse since the stroke so she is willing to have EGD by Dr. Hale. Michelle pedroza will have local anesthetic placed Bowels moved three days ago so will give laxatives Has a vision multivitamin Eye Drops are over the counter that she will use Takes Motrin for facial pain Left arm she lifted pretty well today 07/11/20: No pain reported No bleeding issues noted Fatigue is an issue Wants to get her left arm working better before she goes home Appreciate Dr Hutchinson consult 07/10/20: Doing well Blew mucous plug out of nose and not she feels like she is breathing better Saline nasal spray will be ordered BM yesterday No issues 07/09/20: Pt doing pretty well Worried about Lipitor and her liver Lymphedema of the left arm will require therapy Bowels are moving well Cardiology consulted Checked meds and labs Reviewed therapy notes Conferred with head start coordinator of Systems General: Fatigue, Malaise HEENT: Dysphasia Neurological: Weakness, Incoordination Objective Exam Vital Signs Vital Signs Date Time Temp Pulse Resp B/P (MAP) Pulse Ox O2 Delivery O2 Flow Rate FiO2 07/13/20 21:31 Room Air 07/13/20 16:27 36.3 63 16 140/63 (88) 94 Capillary Refill : Less Than 3 Seconds General Appearance: No Apparent Distress, WD/WN, Chronically ill HEENT: PERRL/EOMI, Normal ENT Inspection, Pharynx Normal Neck: Full Range of Motion, Normal Inspection, Non Tender, Supple, Carotid Bruit Respiratory: Chest Non Tender, Lungs Clear, Normal Breath Sounds, No Accessory Muscle Use, No Respiratory Distress Cardiovascular: No Edema, No Gallop, No JVD, No Murmur, Normal Peripheral Pulses, Irregularly Irregular Gastrointestinal: Normal Bowel Sounds, No Organomegaly, No Pulsatile Mass, Non Tender, Soft Back: Normal Inspection, No CVA Tenderness, No Vertebral Tenderness Extremity: Normal Capillary Refill, Normal Inspection, Normal Range of Motion (except left upper extremity upper arm 3/5 left hand 0/5), Non Tender, No Calf Tenderness, No Pedal Edema Neurologic/Psychiatric: Alert, Oriented x3, No Motor/Sensory Deficits, Normal Mood/Affect, Abnormal Gait, Motor Weakness (left arm) Skin: Normal Color, Warm/Dry Lymphatic: No Adenopathy Results/Procedures Lab Patient resulted labs reviewed. FIM Transfers Therapy Code Descriptions/Definitions Functional [place] Measure: 0=Not Assessed/NA 4=Minimal Assistance 1=Total Assistance 5=Supervision or Setup 2=Maximal Assistance 6=Modified [place] 3=Moderate Assistance 7=Complete IndependenceSCALE: Activities may be completed with or without assistive devices. 0-Qmgwmthaup-azqrbcp completes the activity by him/herself with no assistance from a helper. 5-Set-up or Clean-up Assistance-helper sets up or cleans up; patient completes activity. [place] assists only prior to or following the activity. 4-Supervision or Touching Assistance-helper provides verbal cues and/or touching/steadying and/or contact guard assistance as patient completes activity. Assistance may be provided throughout the activity or intermittently. 3-Partial/Moderate Assistance-helper does LESS THAN HALF the effort. [place] lifts, holds or supports trunk or limbs, but provides less than half the effort. 2-Substantial/Maximal Assistance-helper does MORE THAN HALF the effort. [place] lifts or holds trunk or limbs and provides more than half the effort. 3-Fzfnmqpsl-ldetpm does ALL the effort. Patient does none of the effort to complete the activity. Or, the assistance of 2 or more helpers is required for the patient to complete the activity. If activity was not attempted, code reason: 7-Patient Refused. 9-Not Applicable-not attempted and the patient did not perform the activity before the current illness, exacerbation or injury. 10-Not Attempted due to Environmental Limitations-(lack of equipment, weather restraints, etc.). 88-Not Attempted due to Medical Conditions or Safety Concerns. Roll Left to Right (QC): 6 Sit to Lying (QC): 5 Sit to Stand (QC): 5 Chair/Qur-ey-Rwsib Xfer(QC): 5 Car Transfer (QC): 4 Gait Training Does the Patient Walk?: Yes Distance: 450' Walk 10 feet (QC): 5 Walk 50 ft with 2 Turns(QC): 5 Walk 150 ft (QC): 5 Walking 10ft/uneven surface-QC: 3 (CGA for safety) Gait Persons Needed: 1 Gait Assistive Device: Cane Single Point Wheelchair Training Does the Pt Use a Wheelchair?: No Wheel 50 ft with 2 turns (QC): 9 Wheel 150 ft (QC): 9 Stair Training Stair Training: Handrails/: 2 handrails #of Steps: 12 1 Step (curb) (QC): 5 4 Steps (QC): 5 12 Steps (QC): 5 Stairs: Pattern: Step to Balance Picking up an Object (QC): 4 ADL-Treatment Eating (QC): 5 (setup) Oral Hygiene (QC): 4 (Pt standing at sink to complete oral care, SBA. Pt using one handed technique to apply toothpaste to toothbrush.) Bathing Location: L Arm, R Arm ( min. assist to lift arm so pt could rinse under arm using hand held shower head. ), L Upper Leg, R Upper Leg, L Lower Leg (including foot), R Lower Leg (including foot), Chest, Abdomen, Buttocks (SBA for safety while standing), Perineal Area (SBA for safety while standing) Shower/Bathe Self (QC): 3 (min. assist to lift R arm so pt could rinse arm pit using hand held shower head) Upper Body Dressing (QC): 3 (After set up, pt required verbal cues to position shirt, pull shirt up L arm then cues to manipulate clothing over head and onto R arm.) Lower Body Dressing (QC): 4 (After set up, pt is able to thread feet into pants legs then SBA to stand while hiking pants over hips.) On/Off Footwear (QC): 5 (required set up of tennis shoes. pt able to don/doff shoes with elastic shoelaces. ) Toileting Hygiene (QC): 4 (Supervision, pt sitting to cleanse annie after toileting and CGA in standing to hike pants over hips.) Toilet Transfer (QC): 4 (Supervision as pt transferred from sit to stand on toilet. ) Assessment/Plan Assessment and Plan Assess & Plan/Chief Complaint Assessment: CVA embolic type following right CEA Left arm weakness and left hand flaccidity Chronic AF OAC HTN Plan: Cardiology consulting Home meds Pain meds IRF protocol 07/09/20: Therapy for left arm flaccidity Monitor bowels Cardiology consultation Patient dislikes Lipitor 07/10/20: Saline nasal spray Monitor BP closely Fall risk 07/11/20: Maintain OAC IRF protocol BM regimen Lipitor concerns patient regarding liver issues 07/12/20: Consult Dr. Hale for EGD for dysphagia Continue supplements from home Continue bowel regimen Topical local pain medication for canker sore 07/13/20: Continue close blood pressure monitoring since it was high Bowels are moving EGD after barium swallow likely, per Dr. Hale 07/14/20: Barium swallow EGD 07/15 Monitor for pain Eliquis bridge with Lovenox (1) CVA (cerebral vascular accident) (2) Atrial fibrillation Status: Acute (3) Carotid stenosis, bilateral (4) S/P carotid endarterectomy (5) Confusion ESSENCE HAWK DO Jul 15, 2020 08:20
--- NOTE | 2020-07-15 09:58 | Occupational Ther Daily Note ---
OT Current Status-Daily Note Subjective Pt alert in bed. Daughter in room. Pt agreed to OT. Mental Status/Objective Patient Orientation: Person, Place, Time, Situation ADL-Treatment Pt declined shower or changing clothing. Therapy Code Descriptions/Definitions Functional [place] Measure: 0=Not Assessed/NA 4=Minimal Assistance 1=Total Assistance 5=Supervision or Setup 2=Maximal Assistance 6=Modified [place] 3=Moderate Assistance 7=Complete IndependenceSCALE: Activities may be completed with or without assistive devices. 1-Jucssrajzm-aowmfbz completes the activity by him/herself with no assistance from a helper. 5-Set-up or Clean-up Assistance-helper sets up or cleans up; patient completes activity. [place] assists only prior to or following the activity. 4-Supervision or Touching Assistance-helper provides verbal cues and/or touching/steadying and/or contact guard assistance as patient completes activity. Assistance may be provided throughout the activity or intermittently. 3-Partial/Moderate Assistance-helper does LESS THAN HALF the effort. [place] lifts, holds or supports trunk or limbs, but provides less than half the effort. 2-Substantial/Maximal Assistance-helper does MORE THAN HALF the effort. [place] lifts or holds trunk or limbs and provides more than half the effort. 0-Iqapvothl-fzkcei does ALL the effort. Patient does none of the effort to complete the activity. Or, the assistance of 2 or more helpers is required for the patient to complete the activity. If activity was not attempted, code reason: 7-Patient Refused. 9-Not Applicable-not attempted and the patient did not perform the activity before the current illness, exacerbation or injury. 10-Not Attempted due to Environmental Limitations-(lack of equipment, weather restraints, etc.). 88-Not Attempted due to Medical Conditions or Safety Concerns. On/Off Footwear: 6 (Pt donned/doffed shoes by self.) Other Treatment Pt ambulated to gym using SPC, with SBA. Pt completed 12 mins of arm bike for increasing AROM and strength throughout L UE. 4 mins forward rotation with 20 mcpherson resistance, 4 mins of backward rotation with minimal resistance, and 4 mins only L arm with forward rotation no resistance. Pt required multiple recovery breaks, c/o pain with L shldr, decreased pain with body positioning and amount of resistance. Pt completed 5 L elbow extension/flexion against gravity, incoordination noted. Using washcloth as resistance pt was able to move L UE in horizontal planes for abd/add and protraction/retraction of scapula. Washcloth was replaced with sponge, to create more of resistance. Pt able to complete 3 more. Pt began e-stim on L hand to increase AROM for wrist/hand extens ion/flexion for ~10 min using 8 mcpherson to active muscle movement for functional ADLs. For weight bearing of the L wrist pt stood at mat and applied pressure. While pt stood at mat, pt grabbed 8 cones from OT with R hand and placed them on mat for balancing coordination. Pt completed 2 sets of 10 reps of sit to stand. Education on placing L hand on chair for weight bearing and control. Pt completed ~15 sit to stand safely and correctly. Pt laid on mat for AROM, gravity eliminated to increase strength in L shldr. Pt demonstrated ability to complete active motor movement from forearm to shldr though decreased coordination. Trace movement noted in wrist/fingers. Completed shldr flexion, internal/external rotation, and elbow extension/flexion. Pt ambulated back to room using SPC, with SBA. Pt transferred to bed, call light/phone in reach. All needs met. Education OT Patient Education: Correct positioning (of L hand when sitting. ) Teaching Recipient: Patient Teaching Methods: Discussion Response to Teaching: Verbalize Understanding, Return Demonstration, Reinforcement Needed OT Short Term Goals Short Term Goals Time Frame: Jul 16, 2020 Oral hygiene: 5 Toileting hygiene: 5 Lower body dressin OT Hose Cementer Goals [facility] Goals Time Frame: Jul 30, 2020 Eating (QC): 6 Oral Hygiene (QC): 6 Toileting Hygiene (QC): 6 Shower/Bathe Self (QC): 5 Upper Body Dressing (QC): 6 Lower Body Dressing (QC): 6 On/Off Footwear (QC): 6 Additional Goals: 1-Demonstrate ADL Tasks, 2-Verbalize Understanding, 3- ImproveStrength/Solomon 1=Demonstrate adherence to instructed precautions during ADL tasks. 2=Patient will verbalize/demonstrate understanding of assistive devices/modifications for ADL. 3=Patient will improve strength/tolerance for activity to enable patient to perform ADL's. OT Education/Plan Problem List/Assessment Assessment: Decreased Safety Aware, Decreased UE Strength, Impaired I ADL's, Impaired Self-Care Skills, Restricted Funct UE ROM, Visual-Perceptual Deficit Pt would benefit from skilled OT to increase her independence with basic self care to allow her to safely return home. Discharge Recommendations Plan/Recommendations: Continue POC Treatment Plan/Plan of Care Patient would benefit from OT for education, treatment and training to promote independence in ADL's, mobility, safety and/or upper extremity function for ADL's. Plan of Care: ADL Retraining, Functional Mobility, Group Exercise/Act as Ind, UE Funct Exercise/Act, UE Neuromus Re-Ed/Coord, Visual/Perceptual Retrain, OTHER (energy conservation education) Treatment Duration: Jul 30, 2020 Frequency: Modified Program (IRF) Estimated Hrs Per Day: 1.5 hours per day (1.25 to 1.5) Agreement: Yes Rehab Potential: Fair Time/GCodes Start Time: 08:30 Stop Time: 09:45 Total Time Billed (hr/min): 75 Billed Treatment Time 1 visit - ADL ( 15 mins) NM 4 ( 60 mins) ZENIA MORRIS Jul 15, 2020 09:58
--- NOTE | 2020-07-15 10:59 | Speech Therapy Daily Note ---
Speech Daily Progress Note Subjective Date Seen by Provider: Jul 15, 2020 Time Seen by Provider: 00:30 Patient is having an EGD mid day and stated she couldn't wait to get something to eat. Objective Patient is NPO until EGD is completed. She will have an esophageal dilation. Patient completed OME x10 with minimal cues. Assessment Assessment Current Status: Good Progress Treatment Plan Continue Plan of Care Speech Short Term Goals Short Term Goals Short Term Goals 1) Patient will complete memory tasks related to her daily needs at 90% or greater. 2) Patient will complete problem solving tasks related to her daily needs at 90% or greater. 3) Patient will complete safety awareness tasks related to her daily needs at 90% or greater. 4) Patient will tolerate least restrictive diet level without s/s of aspiration at 90% or greater. 5) Patient will utilize compensatory strategies as trained for safe oral intake at 90% or greater. Speech Custodial Goals Hair Designer Goals Patient will improve cognitive-communication necessary for safety and daily panda ing tasks with minimal assist. Patient will maintain adequate nutrition/hydration via safe effective swallow function. Speech-Plan Patient/Family Goals Patient/Family Goals: Patient plans on returning to her home where she lives with her . Treatment Plan Speech Therapy Treatment Plan: Continue Plan of Care Treatment Duration: Jul 21, 2020 Frequency: 4 times per week (Patient will receive 4-5 ST treatments per week) Estimated Hrs Per Day: .5 hour per day Rehab Potential: Fair Barriers to Learning: Patient's mild deficits, age, medical status Pt/Family Agrees to Plan: Yes Safety Risks/Education Teaching Recipient: Patient, Family Teaching Methods: Demonstration, Discussion Response to Teaching: Verbalize Understanding, Return Demonstration Education Topics Provided: Continued safety within her room and with oral intake Time Speech Therapy Time In: 10:00 Speech Therapy Time Out: 10:30 Total Billed Time: 30 Billed Treatment Time 1, ELZA, SEGUN Dyson Jul 15, 2020 10:59
--- NOTE | 2020-07-15 11:21 | Diagnostic Imaging Report ---
PATIENT: Sarah Vieyra : 1935 COMPARISON: Food getting stuck. Patient ingested effervescent crystals as well as thin and thick barium and imaging of the esophagus was performed in multiple obliquities. A total of 58 seconds of fluoroscopic time was utilized. EXAMINATION: Barium esophogram, 07/14/2020. FINDINGS: The esophagus is widely patent. No esophageal mass or stricture is identified. Occasional tertiary contractions are present. No hiatal hernia or gastroesophageal reflux was demonstrated. IMPRESSION: Occasional tertiary contractions. This study is otherwise unremarkable. Dictated by: Dictated on workstation # [id number]
--- NOTE | 2020-07-15 11:48 | Physical Therapy Daily Note ---
PT Daily Note-Current Subjective Agrees to PT. Reports she is having her esophagus stretched today. Hopes to rest after that. Mental Status Patient Orientation: Person, Place, Time, Situation Transfers SCALE: Activities may be completed with or without assistive devices. 5-Efuwldgwnv-yqnzjqg completes the activity by him/herself with no assistance from a helper. 5-Set-up or Clean-up Assistance-helper sets up or cleans up; patient completes activity. [place] assists only prior to or following the activity. 4-Supervision or Touching Assistance-helper provides verbal cues and/or touching/steadying and/or contact guard assistance as patient completes activ ity. Assistance may be provided throughout the activity or intermittently. 3-Partial/Moderate Assistance-helper does LESS THAN HALF the effort. [place] lifts, holds or supports trunk or limbs, but provides less than half the effort. 2-Substantial/Maximal Assistance-helper does MORE THAN HALF the effort. [place] lifts or holds trunk or limbs and provides more than half the effort. 6-Jbdlpbgzi-tfaije does ALL the effort. Patient does none of the effort to complete the activity. Or, the assistance of 2 or more helpers is required for the patient to complete the activity. If activity was not attempted, code reason: 7-Patient Refused. 9-Not Applicable-not attempted and the patient did not perform the activity before the current illness, exacerbation or injury. 10-Not Attempted due to Environmental Limitations-(lack of equipment, weather restraints, etc.). 88-Not Attempted due to Medical Conditions or Safety Concerns. Sit to Lying (QC): 6 Lying to Sitting/Side of Bed(Q: 6 Sit to Stand (QC): 5 Weight Bearing Full Weight Bearing Full Weight Bearing Gait Training Does the Patient Walk?: Yes Gait Assistive Device: Cane Single Point Pt ambulated 300 ft x 4 reps with SBA with cane with focus on attention left and on keeping her shoulders level. Tends to elevate the left shoulder, likely compensatory due to decreased muscle tone left lower arm. Neuromuscular Functional balance training with use of an obstacle course that incorporated varied surfaces, stepping up/down, stepping over, bending to last picker and weaving. Worked on balance for 30 minutes with SBA for all. Treatments Outdoor ambulation that included sidewalk, boardwalk, slope, outdoor steps all with cane with SBA; also worked on transfers from varied surfaces such as outdoor rocker chair and park bench. Able to complete with SBA. Pt toilteded with SBA for transfers. Able to manage pericare and clothing without assist. Stood at the sink with supervision. Pt in bed post treatment with needs met. Assessment Current Status: Good Progress PT Short Term Goals Short Term Goals Time Frame: Jul 16, 2020 Roll Left & Right: 6 (met) Sit to lyin (met) Lying to sitting on side of be: 6 Sit to stand: 5 (met) Chair/gdx-gq-pjdvz transfer: 5 (met) Walk 10 feet: 4 (met) Walk 50 feet with two turns: 4 (met) Walk 150 feet: 4 (met) PT Cage Operator Goals Cage Operator Goals PT Retirement Goals Time Frame: Jul 30, 2020 Roll Left & Right (QC): 6 Sit to Lying (QC): 6 Lying-Sitting on Side/Bed(QC): 6 Sit to Stand (QC): 6 Chair/Wiy-fg-Jxvuj Xfer(QC): 6 Toilet Transfer (QC): 6 Car Transfer (QC): 6 Does the Patient Walk: Yes Walk 10 feet (QC): 6 Walk 50ft with 2 Turns (QC): 6 Walk 150 ft (QC): 6 Walking 10ft on Uneven Surface: 6 1 Step (curb) (QC): 5 4 Steps (QC): 5 12 Steps (QC): 5 Picking up an Object (QC): 5 Wheel 50 feet with 2 turns (QC: 9 Wheel 150 feet: 9 PT Plan Problem List Problem List: Activity Tolerance, Functional Strength, Safety, Balance, Gait Treatment/Plan Treatment Plan: Continue Plan of Care Treatment Plan: Education, Functional Activity [place], Functional Strength, Group Therapy, Gait, Safety, Therapeutic Exercise, Transfers Treatment Duration: Jul 30, 2020 Frequency: At least 5 of 7 days/Wk (IRF) Estimated Hrs Per Day: 1.5 hours per day Patient and/or Family Agrees t: Yes Safety Risks/Education Patient Education: Safety Issues Teaching Recipient: Patient, Family Teaching Methods: Discussion Response to Teaching: Verbalize Understanding Discharge Recommendations Therapy Discharge Recommendati: Post Acute PT (HHC ) Time/GCodes Time In: 1030 Time Out: 1145 Total Billed Treatment Time: 75 Total Billed Treatment visit GT 30 NM 30 FA 15 ZENIA DURON PT Jul 15, 2020 11:48
--- NOTE | 2020-07-15 12:14 | NUR ---
Patient taken for EGD at 1210. Consent sent with Surgical nurse.
--- NOTE | 2020-07-15 13:30 | NUR ---
ASSUMED CARE OF PATIENT. PATIENT BACK FROM EGD. ALERT AND ORIENTED. C/O HEADACHE. Addendum: 07/15/20 at 1826 by WERO MITCHELL RN AGREE WITH AM ASSESSMENT.
--- NOTE | 2020-07-15 13:32 | Progress Note-Post Operative ---
Post-Operative Progess Note Surgeon (s)/Ticket Taker Ferryboat (s) Surgeon MALLORY STEIN DO Ticket Taker Ferryboat: na Pre-Operative Diagnosis dysphagia Post-Operative Diagnosis gastritis, small hiatal hernia Procedure & Operative Findings Date of Procedure 07/15/20 Procedure Performed/Findings egd c biopsies Anesthesia Type per tugboat dispatcher Estimated Blood Loss Estimated blood loss (mL): scant Specimens/Packing Specimens Removed antrum, body, ge MALLORY STEIN DO Jul 15, 2020 13:32
[2020-07-15 14:10] VITALS: BP 150/70
[2020-07-15] MEDS: lisINopril 10 MG (PRINIVIL) TABLET PO SCH ×2 (14:10→20:18)
[2020-07-15] MEDS: amLODIPine 10 MG (NORVASC) TAB PO SCH (14:10)
--- NOTE | 2020-07-15 14:10 | NUR ---
AM MEDICATIONS GIVEN PER PATIENT'S REQUEST. BP 150/70, HR 69.
[2020-07-15] MEDS: KCL 10 MEQ TAB (MICRO K) PO SCH (14:11)
[2020-07-15] MEDS: SENNA W/DOCUSATE (SENOKOT S) TABLET PO SCH ×2 (14:11→20:20)
[2020-07-15] MEDS: DOCUSATE SODIUM 100 MG (COLACE) CAP PO SCH ×2 (14:11→20:20)
[2020-07-15] MEDS: POT PHOS/NA PHOS (K-PHOS NEUTRAL) PO SCH (14:12)
[2020-07-15] MEDS: LEVOTHYROXINE 25 MCG (LEVOTHROID) TAB PO SCH (14:17)
[2020-07-15] MEDS: ENOXAPARIN 80 MG/0.8 ML (LOVENOX) SYR SC SCH ×3 (14:19→14:21)
[2020-07-15] MEDS: polyethylene glycoL POWDER 17 GM (MIRALAX) PACK PO SCH ×4 (14:19→19:15)
[2020-07-15] MEDS: IBUPROFEN TABLET 200 MG TAB PO PRN (14:19)
--- NOTE | 2020-07-15 14:19 | NUR ---
DR. STEIN TO THE FLOOR. RESUME REGULAR DIET. RESUME ASA AND ELIQUIS TOMORROW (07/16) AM. DC LOVENOX. MOTRIN GIVEN FOR C/O HEADACHE.
[2020-07-15] MEDS: MULTIVIT W/MINERALS TAB (THERAGRAN M) PO SCH ×2 (14:20→14:21)
--- NOTE | 2020-07-15 15:39 | NUR ---
CM/SS PATIENT CARE CONFERENCE Reviewed Summary with patient and her daughter, Rosemary Mendez who is here from [place]. Provided a copy at their request. Both understand that patient's target discharge is 07/20/20, back home as before. Discussed post discharge therapy options, outpatient vs HHC. Patient will make a final decision but seemed to favor HHC, team recommended PT and OT. Patient's spouse is 97, they will determine whether he can consistently drive patient to her appointments or whether HHC may serve them better. Answered patient's questions about outpatient options, she stated her preference would be [facility] over [place]. DME: Therapy team recommends a cane, this is a private pay item. Continue review of patient progress as it pertains to discharge planning.
[2020-07-15 16:15] VITALS: BP 151/61
--- NOTE | 2020-07-15 18:09 | Cardiology Progress Note ---
Cardiology SOAP Progress Note Subjective: No cardiac complaints. Objective: I&O/Vital Signs 07/15/20 07/15/20 07/15/20 09:00 14:10 16:15 Temp 36.8 Pulse 69 61 Resp 16 B/P (MAP) 150/70 (96) 151/61 (91) Pulse Ox 92 O2 Delivery Room Air Room Air Weight (Pounds): 142 Weight (Ounces): 0.0 Weight (Calculated Kilograms): 64.081108 Constitutional: appears stated age, AAO x 3; No apparent distress; well- developed, well-nourished Respiratory: chest is bilaterally symmetric, lungs clear to auscultation Cardiovascular: regular rate-rhythm, S1 and S2 Gastrointestional: soft, audible bowel sounds; No spleenomegaly Extremities: normal range of motion, non-tender, normal inspection; No clubbing, No cyanosis; no lower extremity edema bilateral; No significant edema Neurologic/Psychiatric: alert, normal mood/affect, oriented x 3, power is 5/5 both on sides Skin: normal color; No rash, No ulcerations Results/Procedures: Labs Microbiology 07/14/20 MRSA Screen - Final, Complete MRSA not isolated A/P: Assessment/Dx: Recent right carotid endarterectomy. Left-sided CVA, Hypertension, Hyperlipidemia, Paroxysmal atrial fibrillation, History of typical atrial flutter, History of AVNRT Plan: Recent right carotid endarterectomy. Continue antiplatelet therapy. Left-sided CVA, continue antiplatelet therapy and inpatient rehabilitation. Defer to Dr. Singh. Hypertension, continue lisinopril. Hyperlipidemia, on atorvastatin. Paroxysmal atrial fibrillation, continue Eliquis. Amiodarone when necessary. History of typical atrial flutter, no further palpitations. 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 Thank you for your consultation. Please call me if you have any questions. Yusuf Hutchinson MD, FACP, FACC, FSCAI, FHRS, CCDS Interventional Cardiology Cardiac Electrophysiology Vascular Medicine and Endovascular Interventions Jaime HUTCHINSON MD Jul 15, 2020 18:09
[2020-07-15] MEDS: PRESERVISION AREDS SOFTGEL (BAUSH & LOMB) PO SCH (18:50)
[2020-07-16] MEDS: LEVOTHYROXINE 25 MCG (LEVOTHROID) TAB PO SCH (05:45)
[2020-07-16] MEDS: KCL 10 MEQ TAB (MICRO K) PO SCH (05:45)
[2020-07-16] MEDS: IBUPROFEN TABLET 200 MG TAB PO PRN (06:18)
[2020-07-16 06:43] VITALS: BP 172/73
[2020-07-16] MEDS ORDERED: MULTIVIT W/MINERALS TAB (THERAGRAN M) PO SCH (07:00)
[2020-07-16 08:00] VITALS: BP 156/70
[2020-07-16] MEDS: lisINopril 10 MG (PRINIVIL) TABLET PO SCH ×2 (09:00→20:51)
[2020-07-16] MEDS: polyethylene glycoL POWDER 17 GM (MIRALAX) PACK PO SCH ×2 (09:00→20:51)
[2020-07-16] MEDS: DOCUSATE SODIUM 100 MG (COLACE) CAP PO SCH ×2 (09:00→20:51)
[2020-07-16] MEDS: PANTOPRAZOLE 40 MG (PROTONIX) TAB PO SCH (09:00)
[2020-07-16] MEDS: POT PHOS/NA PHOS (K-PHOS NEUTRAL) PO SCH (09:00)
[2020-07-16] MEDS: APIXABAN 5 MG (ELIQUIS) TABLET PO SCH ×2 (09:00→20:51)
[2020-07-16] MEDS: amLODIPine 10 MG (NORVASC) TAB PO SCH (09:00)
[2020-07-16] MEDS: SENNA W/DOCUSATE (SENOKOT S) TABLET PO SCH ×2 (09:00→20:51)
[2020-07-16] MEDS: ASPIRIN 81 MG CHEW (CHILDREN'S ASA) PO SCH (09:00)
[2020-07-16] MEDS: PRESERVISION AREDS SOFTGEL (BAUSH & LOMB) PO SCH ×2 (09:02→20:53)
--- NOTE | 2020-07-16 09:24 | Occupational Ther Daily Note ---
OT Current Status-Daily Note Subjective Pt seen in room, up in bed, agreeable to OT. No pain mentioned. Appearance Alert, cooperative Mental Status/Objective Patient Orientation: Person, Place, Time, Situation ADL-Treatment Pt moved from supine to sit EOB without help. Put on slippers with setup. Sit to stand and walk to bathroom with SBA for safety, SPC. Pt transferred into shower with SBA, shower bench, grab bars. Undressed with SBA, struggling a little with her top. She washed and dried all parts except R arm and back, standing with SBA and placing L hand on grab bar to facilitate functional use (hand was able to stay on bar for several minutes). She also practices washing R arm with L UE and was able to reach all areas of R arm. She walked SBA, SPC to sit EOB to dress. S he was able to don shirt but needed help hooking her bra in back. later visited with pt and her daughter regarding bras and adapted techniques, with their verbal understanding. She donned pants with SBA and also shoes with setup. She walked back to bathroom to comb her hair, balancing L UE on countertop for support. Also brushed her teeth with SBA, using L UE to squeeze toothpaste on counter. Pt walked from her room to new room (227 to 226) with SBA and was left up at EOB, daughter present, all needs met, nursing in room, Therapy Code Descriptions/Definitions Functional [place] Measure: 0=Not Assessed/NA 4=Minimal Assistance 1=Total Assistance 5=Supervision or Setup 2=Maximal Assistance 6=Modified [place] 3=Moderate Assistance 7=Complete IndependenceSCALE: Activities may be completed with or without assistive devices. 9-Mxpxgtucoq-qbyqsht completes the activity by him/herself with no assistance from a helper. 5-Set-up or Clean-up Assistance-helper sets up or cleans up; patient completes activity. [place] assists only prior to or following the activity. 4-Supervision or Touching Assistance-helper provides verbal cues and/or touching/steadying and/or contact guard assistance as patient completes activity. Assistance may be provided throughout the activity or intermittently. 3-Partial/Moderate Assistance-helper does LESS THAN HALF the effort. [place] lifts, holds or supports trunk or limbs, but provides less than half the effort. 2-Substantial/Maximal Assistance-helper does MORE THAN HALF the effort. [place] lifts or holds trunk or limbs and provides more than half the effort. 9-Cfgaghgfi-kaiasx does ALL the effort. Patient does none of the effort to complete the activity. Or, the assistance of 2 or more helpers is required for the patient to complete the activity. If activity was not attempted, code reason: 7-Patient Refused. 9-Not Applicable-not attempted and the patient did not perform the activity before the current illness, exacerbation or injury. 10-Not Attempted due to Environmental Limitations-(lack of equipment, weather restraints, etc.). 88-Not Attempted due to Medical Conditions or Safety Concerns. Oral Hygiene (QC): 4 (SBA) Shower/Bathe Self (QC): 3 (Min assist R arm and back) Upper Body Dressing (QC): 3 (min A to hook bra) Lower Body Dressing (QC): 4 (SBA) On/Off Footwear: 5 (setup) Education OT Patient Education: Modified ADL techniques, Progress toward Goal/Update tx plan, Purpose of tx/functional activities Teaching Recipient: Patient, Family Teaching Methods: Discussion Response to Teaching: Verbalize Understanding, Return Demonstration OT Short Term Goals Short Term Goals Time Frame: Jul 16, 2020 Oral hygiene: 5 Toileting hygiene: 5 Lower body dressin OT Senior Care Goals Plate Put In Worker Goals Time Frame: Jul 30, 2020 Eating (QC): 6 Oral Hygiene (QC): 6 Toileting Hygiene (QC): 6 Shower/Bathe Self (QC): 5 Upper Body Dressing (QC): 6 Lower Body Dressing (QC): 6 On/Off Footwear (QC): 6 Additional Goals: 1-Demonstrate ADL Tasks, 2-Verbalize Understanding, 3- ImproveStrength/Solomon 1=Demonstrate adherence to instructed precautions during ADL tasks. 2=Patient will verbalize/demonstrate understanding of assistive devices/modifications for ADL. 3=Patient will improve strength/tolerance for activity to enable patient to perform ADL's. OT Education/Plan Problem List/Assessment Pt would benefit from skilled OT to increase her independence with basic self care to allow her to safely return home. Discharge Recommendations Plan/Recommendations: Continue POC Treatment Plan/Plan of Care Patient would benefit from OT for education, treatment and training to promote independence in ADL's, mobility, safety and/or upper extremity function for ADL's. Plan of Care: ADL Retraining, Functional Mobility, Group Exercise/Act as Ind, UE Funct Exercise/Act, UE Neuromus Re-Ed/Coord, Visual/Perceptual Retrain, OTHER (energy conservation education) Treatment Duration: Jul 30, 2020 Frequency: Modified Program (IRF) Estimated Hrs Per Day: 1.5 hours per day (1.25 to 1.5) Agreement: Yes Rehab Potential: Fair Time/GCodes Start Time: 08:15 Stop Time: 09:05 Total Time Billed (hr/min): 50 Billed Treatment Time visit, 50 minutes ADL MINNIE ABEL OT Jul 16, 2020 09:24
--- NOTE | 2020-07-16 10:14 | Progress Note - Cardiology ---
Cardiology SOAP Progress Note Subjective: Daughter at the bedside. She reports improving weakness in her left arm/hand. She reports no difficulty with ambulation. She does not report CP, dyspnea or palpitations. Objective: I&O/Vital Signs 07/20/20 05:34 Temp 36.0 Pulse 91 Resp 20 B/P (MAP) 114/63 (80) Pulse Ox 96 O2 Delivery Room Air 07/20/20 00:00 Intake Total 1080 ml Balance 1080 ml Weight (Pounds): 142 Weight (Ounces): 0.0 Weight (Calculated Kilograms): 64.441943 Constitutional: appears stated age, AAO x 3; No apparent distress; well- developed, well-nourished Respiratory: chest is bilaterally symmetric, lungs clear to auscultation Cardiovascular: regular rate-rhythm, S1 and S2 Gastrointestional: soft, audible bowel sounds; No spleenomegaly Extremities: normal range of motion, non-tender, normal inspection; No cl ubbing, No cyanosis; no lower extremity edema bilateral; No significant edema Neurologic/Psychiatric: alert, normal mood/affect, oriented x 3, other (5/5 RUE, RLE; 5/5 Left leg, 4/5 Left arm, 0/5 left hand) Skin: normal color; No rash on exposed areas, No ulcerations on exposed areas Results/Procedures: Labs Laboratory Tests 07/20/20 04:40: Sodium Level 140, Potassium Level 4.3, Chloride Level 105, Carbon Dioxide Level 25, Anion Gap 10, Blood Urea Nitrogen 12, Creatinine 0.76, Estimat Glomerular Filtration Rate > 60, BUN/Creatinine Ratio 16, Glucose Level 93, Calcium Level 8.8 Microbiology 07/14/20 MRSA Screen - Final, Complete MRSA not isolated Laboratory Tests 07/19/20 05:28 07/20/20 04:40 A/P: Assessment: S/P right CEA by Dr. 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 Carotid u/s of 05/03/20: greater than 80% R ICA and less than 40% L ICA stenoses. (underwent RCEA) Sinus node dysfunction with intermittent sinus bradycardia and a-fib. ILR (implanted by Dr Sofia in August 2016) interrogations have shown brief PAF with good vent rate control - device removed per pt request on 2-27-18. 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 No evidence of significant obstructive PAD of the legs on seg pressures of 02/17/18 Plan: S/P R CVA following R CEA resulting in left sided weakness - improving - management per medical/rehab services Continue OAC with Eliquis Monitor lab from time to time Continue current regimen GREG CUMMINS Jul 16, 2020 10:14
--- NOTE | 2020-07-16 10:30 | PM&R Progress Note ---
Subjective HPI/CC On Admission Date Seen by Provider: Jul 16, 2020 Time Seen by Provider: 10:30 Subjective/Events-last exam 07/16/20: Moved from 227 to 226 EGD revealed HH and gastritis PPI started Eliquis and ASA restarted 07/15/20: EGD today by Dr. Alexia dominguez when holding Eliquis Not much movement of the left hand but arm is much improved Dysphasia still continues Barium-swallow was normal Always refers to her daughter for any additional questions She appears to be in significant fright status since the loss of function in her left arm 07/14/20: Barium swallow this morning which results came back to no significant stenosis EGD will be performed by Dr. Hale N.p.o. after midnight on Lovenox bridge since Eliquis was held No bowel problems No bleeding problems Walking with therapy 07/13/20: Monitor elevated BP Bowels are moving well Coughing at night at times EGD is discussed with Dr. Hale, barium-swallow to be performed 07/12/20: Dysphagia is chronic but worse since the stroke so she is willing to have EGD by Dr. Hale. Michelle pedroza will have local anesthetic placed Bowels moved three days ago so will give laxatives Has a vision multivitamin Eye Drops are over the counter that she will use Takes Motrin for facial pain Left arm she lifted pretty well today 07/11/20: No pain reported No bleeding issues noted Fatigue is an issue Wants to get her left arm working better before she goes home Appreciate Dr Hutchinson consult 07/10/20: Doing well Blew mucous plug out of nose and not she feels like she is breathing better Saline nasal spray will be ordered BM yesterday No issues 07/09/20: Pt doing pretty well Worried about Lipitor and her liver Lymphedema of the left arm will require therapy Bowels are moving well Cardiology consulted Checked meds and labs Reviewed therapy notes Conferred with digital campaign manager of Systems General: Fatigue, Malaise Neurological: Weakness Objective Exam Vital Signs Vital Signs Date Time Temp Pulse Resp B/P (MAP) Pulse Ox O2 Delivery O2 Flow Rate FiO2 07/16/20 20:54 64 145/58 (87) 07/16/20 18:07 36.8 16 95 Room Air Capillary Refill : Less Than 3 Seconds General Appearance: No Apparent Distress, WD/WN, Chronically ill HEENT: PERRL/EOMI, Normal ENT Inspection, Pharynx Normal Neck: Full Range of Motion, Normal Inspection, Non Tender, Supple, Carotid Bruit Respiratory: Chest Non Tender, Lungs Clear, Normal Breath Sounds, No Accessory Muscle Use, No Respiratory Distress Cardiovascular: No Edema, No Gallop, No JVD, No Murmur, Normal Peripheral Pulses, Irregularly Irregular Gastrointestinal: Normal Bowel Sounds, No Organomegaly, No Pulsatile Mass, Non Tender, Soft Back: Normal Inspection, No CVA Tenderness, No Vertebral Tenderness Extremity: Normal Capillary Refill, Normal Inspection, Normal Range of Motion (except left upper extremity upper arm 3/5 left hand 0/5), Non Tender, No Calf Tenderness, No Pedal Edema Neurologic/Psychiatric: Alert, Oriented x3, No Motor/Sensory Deficits, Normal Mood/Affect, Abnormal Gait, Motor Weakness (left arm) Skin: Normal Color, Warm/Dry Lymphatic: No Adenopathy Results/Procedures Lab Patient resulted labs reviewed. FIM Transfers Therapy Code Descriptions/Definitions Functional [place] Measure: 0=Not Assessed/NA 4=Minimal Assistance 1=Total Assistance 5=Supervision or Setup 2=Maximal Assistance 6=Modified [place] 3=Moderate Assistance 7=Complete IndependenceSCALE: Activities may be completed with or without assistive devices. 8-Disogqvbmi-pzzzixp completes the activity by him/herself with no assistance from a helper. 5-Set-up or Clean-up Assistance-helper sets up or cleans up; patient completes activity. [place] assists only prior to or following the activity. 4-Supervision or Touching Assistance-helper provides verbal cues and/or touching/steadying and/or contact guard assistance as patient completes activity. Assistance may be provided throughout the activity or intermittently. 3-Partial/Moderate Assistance-helper does LESS THAN HALF the effort. [place] lifts, holds or supports trunk or limbs, but provides less than half the effort. 2-Substantial/Maximal Assistance-helper does MORE THAN HALF the effort. [place] lifts or holds trunk or limbs and provides more than half the effort. 8-Fxswllnfa-tmfyyq does ALL the effort. Patient does none of the effort to complete the activity. Or, the assistance of 2 or more helpers is required for the patient to complete the activity. If activity was not attempted, code reason: 7-Patient Refused. 9-Not Applicable-not attempted and the patient did not perform the activity before the current illness, exacerbation or injury. 10-Not Attempted due to Environmental Limitations-(lack of equipment, weather restraints, etc.). 88-Not Attempted due to Medical Conditions or Safety Concerns. Roll Left to Right (QC): 6 Sit to Lying (QC): 6 Sit to Stand (QC): 5 Chair/Axq-gh-Rukvi Xfer(QC): 5 Car Transfer (QC): 4 Gait Training Does the Patient Walk?: Yes Distance: 450' Walk 10 feet (QC): 5 Walk 50 ft with 2 Turns(QC): 5 Walk 150 ft (QC): 5 Walking 10ft/uneven surface-QC: 3 (CGA for safety) Gait Persons Needed: 1 Gait Assistive Device: Cane Single Point Wheelchair Training Does the Pt Use a Wheelchair?: No Wheel 50 ft with 2 turns (QC): 9 Wheel 150 ft (QC): 9 Stair Training Stair Training: Handrails/: 2 handrails #of Steps: 12 1 Step (curb) (QC): 5 4 Steps (QC): 5 12 Steps (QC): 5 Stairs: Pattern: Step to Balance Picking up an Object (QC): 4 ADL-Treatment Eating (QC): 5 (setup) Oral Hygiene (QC): 4 (SBA) Bathing Location: L Arm, R Arm ( min. assist to lift arm so pt could rinse under arm using hand held shower head. ), L Upper Leg, R Upper Leg, L Lower Leg (including foot), R Lower Leg (including foot), Chest, Abdomen, Buttocks (SBA for safety while standing), Perineal Area (SBA for safety while standing) Shower/Bathe Self (QC): 3 (Min assist R arm and back) Upper Body Dressing (QC): 3 (min A to hook bra) Lower Body Dressing (QC): 4 (SBA) On/Off Footwear (QC): 5 (setup) Toileting Hygiene (QC): 4 (Supervision, pt sitting to cleanse annie after toileting and CGA in standing to hike pants over hips.) Toilet Transfer (QC): 4 (Supervision as pt transferred from sit to stand on toilet. ) Assessment/Plan Assessment and Plan Assess & Plan/Chief Complaint Assessment: CVA embolic type following right CEA Left arm weakness and left hand flaccidity Chronic AF OAC HTN Plan: Cardiology consulting Home meds Pain meds IRF protocol 07/09/20: Therapy for left arm flaccidity Monitor bowels Cardiology consultation Patient dislikes Lipitor 07/10/20: Saline nasal spray Monitor BP closely Fall risk 07/11/20: Maintain OAC IRF protocol BM regimen Lipitor concerns patient regarding liver issues 07/12/20: Consult Dr. Hale for EGD for dysphagia Continue supplements from home Continue bowel regimen Topical local pain medication for canker sore 07/13/20: Continue close blood pressure monitoring since it was high Bowels are moving EGD after barium swallow likely, per Dr. Hale 07/14/20: Barium swallow EGD 07/15 Monitor for pain Eliquis bridge with Lovenox 07/15/20: EGD today Lovenox bridge Eliquis to restart 07/16/20: Gastritis treated with PPI Restart Eliquis and ASA Monitor left arm and hand (1) CVA (cerebral vascular accident) (2) Atrial fibrillation Status: Acute (3) Carotid stenosis, bilateral (4) S/P carotid endarterectomy (5) Confusion ESSENCE HAWK DO Jul 16, 2020 10:30
--- NOTE | 2020-07-16 11:17 | Speech Therapy Daily Note ---
Speech Daily Progress Note Subjective Date Seen by Provider: Jul 16, 2020 Time Seen by Provider: 00:30 Patient was alert and pleasant this morning. She states she did not have to be dilated and polyps were taken during her EGD. Objective Patient has returned to utilizing compensatory strategies as trained prior to the EGD with 90% accuracy given 5% cues. Patient's voice is noted to be less raspy this date. Assessment Assessment Current Status: Good Progress Treatment Plan Continue Plan of Care Speech Short Term Goals Short Term Goals Short Term Goals 1) Patient will complete memory tasks related to her daily needs at 90% or greater. 2) Patient will complete problem solving tasks related to her daily needs at 90% or greater. 3) Patient will complete safety awareness tasks related to her daily needs at 90% or greater. 4) Patient will tolerate least restrictive diet level without s/s of aspiration at 90% or greater. 5) Patient will utilize compensatory strategies as trained for safe oral intake at 90% or greater. Speech Senior Living Goals Senior Living Goals Patient will improve cognitive-communication necessary for safety and daily living tasks with minimal assist. Patient will maintain adequate nutrition/hydration via safe effective swallow function. Speech-Plan Patient/Family Goals Patient/Family Goals: Patient plans on returning to her home where she lives with her . Treatment Plan Speech Therapy Treatment Plan: Continue Plan of Care Patient's diet to be changed to ground moistened meats this date. Treatment Duration: Jul 21, 2020 Frequency: 4 times per week (Patient will receive 4-5 ST treatments per week) Estimated Hrs Per Day: .5 hour per day Rehab Potential: Fair Barriers to Learning: Patient's recent CVA, age Pt/Family Agrees to Plan: Yes Safety Risks/Education Teaching Recipient: Patient, Family Teaching Methods: Demonstration, Discussion Response to Teaching: Verbalize Understanding, Return Demonstration Education Topics Provided: Safety of oral intake, diet modifications for safer/easier intake Time Speech Therapy Time In: 10:00 Speech Therapy Time Out: 10:30 Total Billed Time: 30 Billed Treatment Time 1, DIRK, SEGUN Salazar Jul 16, 2020 11:17
--- NOTE | 2020-07-16 12:05 | Physical Therapy Daily Note ---
PT Daily Note-Current Subjective Pt. in bed and agrees to therapy. She has no complaints. Transfers SCALE: Activities may be completed with or without assistive devices. 3-Lslemjuncy-zosiddz completes the activity by him/herself with no assistance from a helper. 5-Set-up or Clean-up Assistance-helper sets up or cleans up; patient completes activity. [place] assists only prior to or following the activity. 4-Supervision or Touching Assistance-helper provides verbal cues and/or touching/steadying and/or contact guard assistance as patient completes activity. Assistance may be provided throughout the activity or intermittently. 3-Partial/Moderate Assistance-helper does LESS THAN HALF the effort. [place] lifts, holds or supports trunk or limbs, but provides less than half the effort. 2-Substantial/Maximal Assistance-helper does MORE THAN HALF the effort. [place] lifts or holds trunk or limbs and provides more than half the effort. 3-Mgbjsgvxa-qvtilf does ALL the effort. Patient does none of the effort to complete the activity. Or, the assistance of 2 or more helpers is required for the patient to complete the activity. If activity was not attempted, code reason: 7-Patient Refused. 9-Not Applicable-not attempted and the patient did not perform the activity before the current illness, exacerbation or injury. 10-Not Attempted due to Environmental Limitations-(lack of equipment, weather restraints, etc.). 88-Not Attempted due to Medical Conditions or Safety Concerns. Sit to Lying (QC): 6 Lying to Sitting/Side of Bed(Q: 6 Sit to Stand (QC): 6 Weight Bearing Full Weight Bearing Full Weight Bearing Gait Training Does the Patient Walk?: Yes Distance: >1000 Walk 10 feet (QC): 4 Walk 50 ft with 2 Turns(QC): 4 Walk 150 ft (QC): 4 Walking 10ft/uneven surface-QC: 4 Gait Persons Needed: 1 Gait Assistive Device: None Pt. requires SBA with ambulation, occasionally impulsive and needs cues to slow speed. Stair Training Stair Training: Handrails/: 1 handrail #of Steps: 12 12 Steps (QC): 4 Stairs: Pattern: Reciprocal Exercises Standing: Braiding, Mini squats, Step-ups, Stepping over objects, Unilateral stance Standing Reps: 20 Worked on dynamic balance in // bars, also using AirEx pad with EC, head turns with SBA. Treatments Worked on balance activities and ambulating throughout hospital on uneven surfaces, outdoors. Assessment Current Status: Excellent Progress, Good Progress Pt. did well with ambulation on uneven surface, ramps, stairs; also transferring on/across outdoor surfaces. Pt. is SBA with all ambulation without use of AD. She is occasionally impulsive and needs cues to slow speed for safety. Pt. returned to room post session with call light and all needs met. PT Short Term Goals Short Term Goals Time Frame: Jul 16, 2020 Roll Left & Right: 6 (met) Sit to lyin (met) Lying to sitting on side of be: 6 Sit to stand: 5 (met) Chair/bvq-te-ibiny transfer: 5 (met) Walk 10 feet: 4 (met) Walk 50 feet with two turns: 4 (met) Walk 150 feet: 4 (met) PT Residential Goals Residential Goals PT Head Bone Grinder Goals Time Frame: Jul 30, 2020 Roll Left & Right (QC): 6 Sit to Lying (QC): 6 Lying-Sitting on Side/Bed(QC): 6 Sit to Stand (QC): 6 Chair/Btt-jb-Vrryf Xfer(QC): 6 Toilet Transfer (QC): 6 Car Transfer (QC): 6 Does the Patient Walk: Yes Walk 10 feet (QC): 6 Walk 50ft with 2 Turns (QC): 6 Walk 150 ft (QC): 6 Walking 10ft on Uneven Surface: 6 1 Step (curb) (QC): 5 4 Steps (QC): 5 12 Steps (QC): 5 Picking up an Object (QC): 5 Wheel 50 feet with 2 turns (QC: 9 Wheel 150 feet: 9 PT Plan Treatment/Plan Treatment Plan: Continue Plan of Care Treatment Plan: Education, Functional Activity [place], Functional Strength, Group Therapy, Gait, Safety, Therapeutic Exercise, Transfers Treatment Duration: Jul 30, 2020 Frequency: At least 5 of 7 days/Wk (IRF) Estimated Hrs Per Day: 1.5 hours per day Patient and/or Family Agrees t: Yes Time/GCodes Time In: 1030 Time Out: 1130 Total Billed Treatment Time: 60 Total Billed Treatment 1, NM 30', GT 30' FREDIS FOX PT Jul 16, 2020 12:05
--- NOTE | 2020-07-16 14:55 | Progress Note - Cardiology ---
Cardiology SOAP Progress Note Subjective: No cp or palp or syncope Gen weakness Focal weakness most in the L hand No n/v/d Objective: I&O/Vital Signs 07/16/20 07/16/20 07/16/20 06:43 08:00 09:00 Temp 36.2 Pulse 54 66 Resp 14 B/P (MAP) 172/73 (106) 156/70 (98) Pulse Ox 92 O2 Delivery Room Air Room Air 07/16/20 00:00 Intake Total 420 ml Balance 420 ml Weight (Pounds): 142 Weight (Ounces): 0.0 Weight (Calculated Kilograms): 64.699133 Constitutional: appears stated age, AAO x 3; No apparent distress; well- developed, well-nourished Respiratory: chest is bilaterally symmetric, lungs clear to auscultation Cardiovascular: regular rate-rhythm, S1 and S2 Gastrointestional: soft, audible bowel sounds; No spleenomegaly Extremities: normal range of motion, non-tender, normal inspection; No clubbing, No cyanosis; no lower extremity edema bilateral; No significant edema Neurologic/Psychiatric: alert, normal mood/affect, oriented x 3, other (5/5 RUE, RLE; 5/5 Left leg, 4/5 Left arm, 0/5 left hand) Skin: normal color; No rash on exposed areas, No ulcerations on exposed areas Results/Procedures: Labs Microbiology 07/14/20 MRSA Screen - Final, Complete MRSA not isolated A/P: Assessment: S/P right CEA by Dr. 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 Carotid u/s of 05/03/20: greater than 80% R ICA and less than 40% L ICA stenoses. (underwent RCEA) Sinus node dysfunction with intermittent sinus bradycardia and a-fib. ILR (implanted by Dr Sofia in August 2016) interrogations have shown brief PAF with good vent rate control - device removed per pt request on 01-22-18. 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 No evidence of significant obstructive PAD of the legs on seg pressures of 02/17/18 Plan: Continue rehab Continue OAC with Eliquis Monitor lab from time to time I spoke with her and her daughter and answered CVA-related questions EUGENE CÁRDENAS MD FACP FAC CCDS Jul 16, 2020 14:55
--- NOTE | 2020-07-16 15:00 | NUR ---
"RD ASSESSMENT PMHx: CVA; HTN; afib; GERD; obstructive bowel PT INTERACTION: Pt was awake and pleasant during nutrition follow-up. Pt states she has been eating a little better since last assessment. Note avg PO intake >90% x4d, per chart review. Pt states no issues with nausea, vomiting, constipation, or diarrhea since last assessment. Note last BM was 07/15, and pt currently on bowel regimen of colace BID; senna BID; and miralax BID, per chart review. ABNORMAL NUTRITION-RELATED LAB VALUES LOW: Pro 6.2 HIGH: Est. kcal needs: 1375 kcal | 20 kcal/kg Est. Pro needs: 55 g Pro | 0.8 g Pro/kg PES STATEMENT: Given current PO intake, no nutrition diagnosis at this time (NO-1.1) INTERVENTION: Continue with current diet order of Regular diet. Will continue to follow and reassess as pt needs, intake, and status change. MONITOR/EVALUATE: PO Intake; Plan of Care; Hydration Status; Weight Status; Lab Values My Sosa, MS, RD, LD"
--- NOTE | 2020-07-16 16:15 | NUR ---
CM/SS Correction, patient target discharge is 07/21/20.
[2020-07-16 18:07] VITALS: BP 147/65
[2020-07-16 20:54] VITALS: BP 145/58
[2020-07-16] MEDS: BENZOCAINE 20% ORAL GEL (ORALJEL MAX ST) MM PRN (20:58)
[2020-07-16] MEDS: CYCLOBENZAPRINE 10 MG (FLEXERIL) TAB PO PRN (21:04)
[2020-07-17] MEDS: IBUPROFEN TABLET 200 MG TAB PO PRN ×2 (01:59→16:17)
--- NOTE | 2020-07-17 02:04 | NUR ---
DIET CHANGED TO GROUND MOISTENED MEATS PER SPEECH THERAPY RECOMMENDATION.
[2020-07-17] MEDS: KCL 10 MEQ TAB (MICRO K) PO SCH (06:16)
[2020-07-17] MEDS: LEVOTHYROXINE 25 MCG (LEVOTHROID) TAB PO SCH (06:16)
[2020-07-17 06:21] VITALS: BP 151/66
[2020-07-17] MEDS: APIXABAN 5 MG (ELIQUIS) TABLET PO SCH ×2 (09:19→20:49)
[2020-07-17] MEDS: amLODIPine 10 MG (NORVASC) TAB PO SCH (09:19)
[2020-07-17] MEDS: SENNA W/DOCUSATE (SENOKOT S) TABLET PO SCH ×2 (09:19→20:49)
[2020-07-17] MEDS: PANTOPRAZOLE 40 MG (PROTONIX) TAB PO SCH (09:19)
[2020-07-17] MEDS: lisINopril 10 MG (PRINIVIL) TABLET PO SCH ×2 (09:20→20:48)
[2020-07-17] MEDS: BENZOCAINE 20% ORAL GEL (ORALJEL MAX ST) MM PRN (09:20)
[2020-07-17] MEDS: ASPIRIN 81 MG CHEW (CHILDREN'S ASA) PO SCH (09:20)
[2020-07-17] MEDS: DOCUSATE SODIUM 100 MG (COLACE) CAP PO SCH ×2 (09:20→20:49)
[2020-07-17] MEDS: PRESERVISION AREDS SOFTGEL (BAUSH & LOMB) PO SCH ×2 (09:20→20:50)
[2020-07-17] MEDS: POT PHOS/NA PHOS (K-PHOS NEUTRAL) PO SCH (09:22)
[2020-07-17] MEDS: polyethylene glycoL POWDER 17 GM (MIRALAX) PACK PO SCH ×2 (09:22→20:49)
--- NOTE | 2020-07-17 11:51 | PM&R Progress Note ---
Subjective HPI/CC On Admission Date Seen by Provider: Jul 17, 2020 Time Seen by Provider: 12:00 Subjective/Events-last exam 07/17/20: Walking with walker Left hand flaccidity continues Swallowing is improved with canker sores healing so will change diet back to regular 07/16/20: Moved from 227 to 226 EGD revealed HH and gastritis PPI started Eliquis and ASA restarted 07/15/20: EGD today by Dr. Alexia dominguez when holding Eliquis Not much movement of the left hand but arm is much improved Dysphasia still continues Barium-swallow was normal Always refers to her daughter for any additional questions She appears to be in significant fright status since the loss of function in her left arm 07/14/20: Barium swallow this morning which results came back to no significant stenosis EGD will be performed by Dr. Hale N.p.o. after midnight on Lovenox bridge since Eliquis was held No bowel problems No bleeding problems Walking with therapy 07/13/20: Monitor elevated BP Bowels are moving well Coughing at night at times EGD is discussed with Dr. Hale, barium-swallow to be performed 07/12/20: Dysphagia is chronic but worse since the stroke so she is willing to have EGD by Dr. Hale. Canker sore will have local anesthetic placed Bowels moved three days ago so will give laxatives Has a vision multivitamin Eye Drops are over the counter that she will use Takes Motrin for facial pain Left arm she lifted pretty well today 07/11/20: No pain reported No bleeding issues noted Fatigue is an issue Wants to get her left arm working better before she goes home Appreciate Dr Hutchinson consult 07/10/20: Doing well Blew mucous plug out of nose and not she feels like she is breathing better Saline nasal spray will be ordered BM yesterday No issues 07/09/20: Pt doing pretty well Worried about Lipitor and her liver Lymphedema of the left arm will require therapy Bowels are moving well Cardiology consulted Checked meds and labs Reviewed therapy notes 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 with 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 sewing 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 of Systems General: Fatigue, Malaise Neurological: Weakness, Incoordination Objective Exam Vital Signs Vital Signs Date Time Temp Pulse Resp B/P (MAP) Pulse Ox O2 Delivery O2 Flow Rate FiO2 07/17/20 08:14 Room Air 07/17/20 06:21 36.4 57 16 151/66 (94 94 Capillary Refill : Less Than 3 Seconds General Appearance: No Apparent Distress, WD/WN, Chronically ill HEENT: PERRL/EOMI, Normal ENT Inspection, Pharynx Normal Neck: Full Range of Motion, Normal Inspection, Non Tender, Supple, Carotid Bruit Respiratory: Chest Non Tender, Lungs Clear, Normal Breath Sounds, No Accessory Muscle Use, No Respiratory Distress Cardiovascular: No Edema, No Gallop, No JVD, No Murmur, Normal Peripheral Pulses, Irregularly Irregular Gastrointestinal: Normal Bowel Sounds, No Organomegaly, No Pulsatile Mass, Non Tender, Soft Back: Normal Inspection, No CVA Tenderness, No Vertebral Tenderness Extremity: Normal Capillary Refill, Normal Inspection, Normal Range of Motion (except left upper extremity upper arm 3/5 left hand 0/5), Non Tender, No Calf Tenderness, No Pedal Edema Neurologic/Psychiatric: Alert, Oriented x3, No Motor/Sensory Deficits, Normal Mood/Affect, Abnormal Gait, Motor Weakness (left arm) Skin: Normal Color, Warm/Dry Lymphatic: No Adenopathy Results/Procedures Lab Patient resulted labs reviewed. FIM Transfers Therapy Code Descriptions/Definitions Functional [place] Measure: 0=Not Assessed/NA 4=Minimal Assistance 1=Total Assistance 5=Supervision or Setup 2=Maximal Assistance 6=Modified [place] 3=Moderate Assistance 7=Complete IndependenceSCALE: Activities may be completed with or without assistive devices. 3-Iikntkezxw-vziwyqi completes the activity by him/herself with no assistance from a helper. 5-Set-up or Clean-up Assistance-helper sets up or cleans up; patient completes activity. [place] assists only prior to or following the activity. 4-Supervision or Touching Assistance-helper provides verbal cues and/or touching/steadying and/or contact guard assistance as patient completes activity. Assistance may be provided throughout the activity or intermittently. 3-Partial/Moderate Assistance-helper does LESS THAN HALF the effort. [place] lifts, holds or supports trunk or limbs, but provides less than half the effort. 2-Substantial/Maximal Assistance-helper does MORE THAN HALF the effort. [place] lifts or holds trunk or limbs and provides more than half the effort. 4-[place] does ALL the effort. Patient does none of the effort to compl ete the activity. Or, the assistance of 2 or more helpers is required for the patient to complete the activity. If activity was not attempted, code reason: 7-Patient Refused. 9-Not Applicable-not attempted and the patient did not perform the activity before the current illness, exacerbation or injury. 10-Not Attempted due to Environmental Limitations-(lack of equipment, weather restraints, etc.). 88-Not Attempted due to Medical Conditions or Safety Concerns. Roll Left to Right (QC): 6 Sit to Lying (QC): 6 Sit to Stand (QC): 6 Chair/Rma-yi-Hlrgl Xfer(QC): 5 Car Transfer (QC): 4 Gait Training Does the Patient Walk?: Yes Distance: >1000 Walk 10 feet (QC): 4 Walk 50 ft with 2 Turns(QC): 4 Walk 150 ft (QC): 4 Walking 10ft/uneven surface-QC: 4 Gait Persons Needed: 1 Gait Assistive Device: None Wheelchair Training Does the Pt Use a Wheelchair?: No Wheel 50 ft with 2 turns (QC): 9 Wheel 150 ft (QC): 9 Stair Training Stair Training: Handrails/: 1 handrail #of Steps: 12 1 Step (curb) (QC): 5 4 Steps (QC): 5 12 Steps (QC): 4 Stairs: Pattern: Reciprocal Balance Picking up an Object (QC): 4 ADL-Treatment Eating (QC): 5 (setup) Oral Hygiene (QC): 4 (SBA) Bathing Location: L Arm, R Arm ( min. assist to lift arm so pt could rinse under arm using hand held shower head. ), L Upper Leg, R Upper Leg, L Lower Leg (including foot), R Lower Leg (including foot), Chest, Abdomen, Buttocks (SBA for safety while standing), Perineal Area (SBA for safety while standing) Shower/Bathe Self (QC): 3 (Min assist R arm and back) Upper Body Dressing (QC): 3 (min A to hook bra) Lower Body Dressing (QC): 4 (SBA) On/Off Footwear (QC): 5 (setup) Toileting Hygiene (QC): 4 (Supervision, pt sitting to cleanse annie after toileting and CGA in standing to hike pants over hips.) Toilet Transfer (QC): 4 (Supervision as pt transferred from sit to stand on toilet. ) Assessment/Plan Assessment and Plan Assess & Plan/Chief Complaint Assessment: CVA embolic type following right CEA Left arm weakness and left hand flaccidity Chronic AF OAC HTN Plan: Cardiology consulting Home meds Pain meds IRF protocol 07/09/20: Therapy for left arm flaccidity Monitor bowels Cardiology consultation Patient dislikes Lipitor 07/10/20: Saline nasal spray Monitor BP closely Fall risk 07/11/20: Maintain OAC IRF protocol BM regimen Lipitor concerns patient regarding liver issues 07/12/20: Consult Dr. Hale for EGD for dysphagia Continue supplements from home Continue bowel regimen Topical local pain medication for canker sore 07/13/20: Continue close blood pressure monitoring since it was high Bowels are moving EGD after barium swallow likely, per Dr. Hale 07/14/20: Barium swallow EGD 07/15 Monitor for pain Eliquis bridge with Lovenox 07/15/20: EGD today Lovenox bridge Eliquis to restart 07/16/20: Gastritis treated with PPI Restart Eliquis and ASA Monitor left arm and hand 07/17/20: Regular diet Canker sores improved Continue treatment as is (1) CVA (cerebral vascular accident) (2) Atrial fibrillation Status: Acute (3) Carotid stenosis, bilateral (4) S/P carotid endarterectomy (5) Confusion ESSENCE HAWK DO Jul 17, 2020 11:51
--- NOTE | 2020-07-17 12:58 | Progress Note - Cardiology ---
Cardiology SOAP Progress Note Subjective: No cp or palp or syncope or shortness of breath at rest Gen weakness and focal weakness improving No n/v/d Objective: I&O/Vital Signs 07/17/20 07/17/20 06:21 08:14 Temp 36.4 Pulse 57 Resp 16 B/P (MAP) 151/66 (94) Pulse Ox 94 O2 Delivery Room Air Room Air 07/17/20 00:00 Intake Total 800 ml Balance 800 ml Weight (Pounds): 142 Weight (Ounces): 0.0 Weight (Calculated Kilograms): 64.185757 Constitutional: appears stated age, AAO x 3; No apparent distress; well- developed, well-nourished Respiratory: chest is bilaterally symmetric, lungs clear to auscultation Cardiovascular: regular rate-rhythm, S1 and S2 Gastrointestional: soft, audible bowel sounds; No spleenomegaly Extremities: normal range of motion, non-tender, normal inspection; No clubbing, No cyanosis; no lower extremity edema bilateral; No significant edema Neurologic/Psychiatric: alert, normal mood/affect, oriented x 3, other (5/5 RUE, RLE; 5/5 Left leg, 4/5 Left arm, 0/5 left hand) Skin: normal color; No rash on exposed areas, No ulcerations on exposed areas Results/Procedures: Labs Microbiology 07/14/20 MRSA Screen - Final, Complete MRSA not isolated A/P: Assessment: S/P right CEA by Dr. 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 Carotid u/s of 05/03/20: greater than 80% R ICA and less than 40% L ICA stenoses. (underwent RCEA) Sinus node dysfunction with intermittent sinus bradycardia and a-fib. ILR (implanted by Dr Sofia in August 2016) interrogations have shown brief PAF with good vent rate control - device removed per pt request on 01-22-18. 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 No evidence of significant obstructive PAD of the legs on seg pressures of 02/17/18 Plan: Continue rehab Continue OAC with Eliquis Monitor lab from time to time EUGENE CÁRDENAS MD FACP FAC CCDS Jul 17, 2020 12:58
--- NOTE | 2020-07-17 13:04 | Physical Therapy Daily Note ---
PT Daily Note-Current Subjective Pt agreeable. No complaint of pain. Mental Status Patient Orientation: Person, Place, Situation Transfers SCALE: Activities may be completed with or without assistive devices. 2-Qqmwrlvcqy-cuwbqqv completes the activity by him/herself with no assistance from a helper. 5-Set-up or Clean-up Assistance-helper sets up or cleans up; patient completes activity. [place] assists only prior to or following the activity. 4-Supervision or Touching Assistance-helper provides verbal cues and/or touching/steadying and/or contact guard assistance as patient completes activity. Assistance may be provided throughout the activity or intermittently. 3-Partial/Moderate Assistance-helper does LESS THAN HALF the effort. [place] lifts, holds or supports trunk or limbs, but provides less than half the effort. 2-Substantial/Maximal Assistance-helper does MORE THAN HALF the effort. [place] lifts or holds trunk or limbs and provides more than half the effort. 9-Enjezslng-xnqexu does ALL the effort. Patient does none of the effort to complete the activity. Or, the assistance of 2 or more helpers is required for the patient to complete the activity. If activity was not attempted, code reason: 7-Patient Refused. 9-Not Applicable-not attempted and the patient did not perform the activity before the current illness, exacerbation or injury. 10-Not Attempted due to Environmental Limitations-(lack of equipment, weather restraints, etc.). 88-Not Attempted due to Medical Conditions or Safety Concerns. Weight Bearing Full Weight Bearing Full Weight Bearing Treatments Pt amb with SBA x 500ft. Practiced weight bearing (R) UE activities and AAROM (R) UE. Pt sitting EOB post therapy session with call light and waiting for lunch. Assessment Current Status: Good Progress Zelda well. Pt progressing nicely. Balance good throughout. PT Short Term Goals Short Term Goals Time Frame: Jul 16, 2020 Roll Left & Right: 6 (met) Sit to lyin (met) Lying to sitting on side of be: 6 Sit to stand: 5 (met) Chair/vit-kq-jrqak transfer: 5 (met) Walk 10 feet: 4 (met) Walk 50 feet with two turns: 4 (met) Walk 150 feet: 4 (met) PT Jewel Hole Finish Opener Goals Jewel Hole Finish Opener Goals PT [facility] Goals Time Frame: Jul 30, 2020 Roll Left & Right (QC): 6 Sit to Lying (QC): 6 Lying-Sitting on Side/Bed(QC): 6 Sit to Stand (QC): 6 Chair/Cha-ds-Fynho Xfer(QC): 6 Toilet Transfer (QC): 6 Car Transfer (QC): 6 Does the Patient Walk: Yes Walk 10 feet (QC): 6 Walk 50ft with 2 Turns (QC): 6 Walk 150 ft (QC): 6 Walking 10ft on Uneven Surface: 6 1 Step (curb) (QC): 5 4 Steps (QC): 5 12 Steps (QC): 5 Picking up an Object (QC): 5 Wheel 50 feet with 2 turns (QC: 9 Wheel 150 feet: 9 PT Plan Treatment/Plan Treatment Plan: Continue Plan of Care Treatment Plan: Education, Functional Activity Solomon, Functional Strength, Group Therapy, Gait, Safety, Therapeutic Exercise, Transfers Treatment Duration: Jul 30, 2020 Frequency: At least 5 of 7 days/Wk (IRF) Estimated Hrs Per Day: 1.5 hours per day Patient and/or Family Agrees t: Yes Time/GCodes Time In: 1200 Time Out: 1220 Total Billed Treatment Time: 20 Total Billed Treatment gait 15', ther ex 5' TRE LEE CPTA Jul 17, 2020 13:04
[2020-07-17 18:00] VITALS: BP 163/74
[2020-07-17] MEDS: CYCLOBENZAPRINE 10 MG (FLEXERIL) TAB PO PRN (20:49)
--- NOTE | 2020-07-18 01:29 | NUR ---
REPORT RECEIVED FROM BRENDA GRAHAM RN. ASSUMED CARE OF PT AT THIS TIME. AGREED WITH PREVIOUS ASSESSMENT.
[2020-07-18] MEDS: LEVOTHYROXINE 25 MCG (LEVOTHROID) TAB PO SCH (05:37)
[2020-07-18] MEDS: KCL 10 MEQ TAB (MICRO K) PO SCH (05:38)
[2020-07-18 05:43] VITALS: BP 160/70
[2020-07-18] MEDS: IBUPROFEN TABLET 200 MG TAB PO PRN ×2 (08:28→19:23)
[2020-07-18] MEDS: amLODIPine 10 MG (NORVASC) TAB PO SCH (08:29)
[2020-07-18] MEDS: POT PHOS/NA PHOS (K-PHOS NEUTRAL) PO SCH (08:29)
[2020-07-18] MEDS: PANTOPRAZOLE 40 MG (PROTONIX) TAB PO SCH (08:29)
[2020-07-18] MEDS: ASPIRIN 81 MG CHEW (CHILDREN'S ASA) PO SCH (08:29)
[2020-07-18] MEDS: APIXABAN 5 MG (ELIQUIS) TABLET PO SCH ×2 (08:29→19:59)
[2020-07-18] MEDS: lisINopril 10 MG (PRINIVIL) TABLET PO SCH ×2 (08:29→19:58)
[2020-07-18] MEDS: DOCUSATE SODIUM 100 MG (COLACE) CAP PO SCH ×2 (08:30→19:58)
[2020-07-18] MEDS: SENNA W/DOCUSATE (SENOKOT S) TABLET PO SCH ×2 (08:30→19:59)
[2020-07-18] MEDS: PRESERVISION AREDS SOFTGEL (BAUSH & LOMB) PO SCH ×2 (08:35→19:59)
[2020-07-18] MEDS: polyethylene glycoL POWDER 17 GM (MIRALAX) PACK PO SCH ×2 (08:36→19:18)
--- NOTE | 2020-07-18 10:46 | PM&R Progress Note ---
Subjective HPI/CC On Admission Date Seen by Provider: Jul 18, 2020 Time Seen by Provider: 10:45 Subjective/Events-last exam 07/18/20: Patient in good mood Monitoring BP OAC will need refilled at DC Left arm moving better 07/17/20: Walking with walker Left hand flaccidity continues Swallowing is improved with canker sores healing so will change diet back to regular 07/16/20: Moved from 227 to 226 EGD revealed HH and gastritis PPI started Eliquis and ASA restarted 07/15/20: EGD today by Dr. Alexia dominguez when holding Eliquis Not much movement of the left hand but arm is much improved Dysphasia still continues Barium-swallow was normal Always refers to her daughter for any additional questions She appears to be in significant fright status since the loss of function in her left arm 07/14/20: Barium swallow this morning which results came back to no significant stenosis EGD will be performed by Dr. Hale N.p.o. after midnight on Lovenox bridge since Eliquis was held No bowel problems No bleeding problems Walking with therapy 07/13/20: Monitor elevated BP Bowels are moving well Coughing at night at times EGD is discussed with Dr. Hale, barium-swallow to be performed 07/12/20: Dysphagia is chronic but worse since the stroke so she is willing to have EGD by Dr. Hale. Canker sore will have local anesthetic placed Bowels moved three days ago so will give laxatives Has a vision multivitamin Eye Drops are over the counter that she will use Takes Motrin for facial pain Left arm she lifted pretty well today 07/11/20: No pain reported No bleeding issues noted Fatigue is an issue Wants to get her left arm working better before she goes home Appreciate Dr Hutchinson consult 07/10/20: Doing well Blew mucous plug out of nose and not she feels like she is breathing better Saline nasal spray will be ordered BM yesterday No issues 07/09/20: Pt doing pretty well Worried about Lipitor and her liver Lymphedema of the left arm will require therapy Bowels are moving well Cardiology consulted Checked meds and labs Reviewed therapy notes Conferred with airplane refueler of Systems General: Fatigue, Malaise Neurological: Weakness, Incoordination Objective Exam Vital Signs Vital Signs Date Time Temp Pulse Resp B/P (MAP) Pulse Ox O2 Delivery O2 Flow Rate FiO2 07/18/20 08:41 Room Air 07/18/20 05:43 36.2 60 18 160/70 (100) 96 Capillary Refill : Less Than 3 Seconds General Appearance: No Apparent Distress, WD/WN, Chronically ill HEENT: PERRL/EOMI, Normal ENT Inspection, Pharynx Normal Neck: Full Range of Motion, Normal Inspection, Non Tender, Supple, Carotid Bruit Respiratory: Chest Non Tender, Lungs Clear, Normal Breath Sounds, No Accessory Muscle Use, No Respiratory Distress Cardiovascular: No Edema, No Gallop, No JVD, No Murmur, Normal Peripheral Pulses, Irregularly Irregular Gastrointestinal: Normal Bowel Sounds, No Organomegaly, No Pulsatile Mass, Non Tender, Soft Back: Normal Inspection, No CVA Tenderness, No Vertebral Tenderness Extremity: Normal Capillary Refill, Normal Inspection, Normal Range of Motion (except left upper extremity upper arm 3/5 left hand 0/5), Non Tender, No Calf Tenderness, No Pedal Edema Neurologic/Psychiatric: Alert, Oriented x3, No Motor/Sensory Deficits, Normal Mood/Affect, Abnormal Gait, Motor Weakness (left arm) Skin: Normal Color, Warm/Dry Lymphatic: No Adenopathy Results/Procedures Lab Patient resulted labs reviewed. FIM Transfers Therapy Code Descriptions/Definitions Functional [place] Measure: 0=Not Assessed/NA 4=Minimal Assistance 1=Total Assistance 5=Supervision or Setup 2=Maximal Assistance 6=Modified [place] 3=Moderate Assistance 7=Complete IndependenceSCALE: Activities may be completed with or without assistive devices. 5-Tqgjbyftms-cxvtlnf completes the activity by him/herself with no assistance from a helper. 5-Set-up or Clean-up Assistance-helper sets up or cleans up; patient completes activity. [place] assists only prior to or following the activity. 4-Supervision or Touching Assistance-helper provides verbal cues and/or touching/steadying and/or contact guard assistance as patient completes activity. Assistance may be provided throughout the activity or intermittently. 3-Partial/Moderate Assistance-helper does LESS THAN HALF the effort. [place] lifts, holds or supports trunk or limbs, but provides less than half the effort. 2-Substantial/Maximal Assistance-helper does MORE THAN HALF the effort. [place] lifts or holds trunk or limbs and provides more than half the effort. 5-Ybuakzdun-iodmwc does ALL the effort. Patient does none of the effort to complete the activity. Or, the assistance of 2 or more helpers is required for the patient to complete the activity. If activity was not attempted, code reason: 7-Patient Refused. 9-Not Applicable-not attempted and the patient did not perform the activity before the current illness, exacerbation or injury. 10-Not Attempted due to Environmental Limitations-(lack of equipment, weather restraints, etc.). 88-Not Attempted due to Medical Conditions or Safety Concerns. Roll Left to Right (QC): 6 Sit to Lying (QC): 6 Sit to Stand (QC): 6 Chair/Rfw-tl-Neatr Xfer(QC): 5 Car Transfer (QC): 4 Gait Training Does the Patient Walk?: Yes Distance: >1000 Walk 10 feet (QC): 4 Walk 50 ft with 2 Turns(QC): 4 Walk 150 ft (QC): 4 Walking 10ft/uneven surface-QC: 4 Gait Persons Needed: 1 Gait Assistive Device: None Wheelchair Training Does the Pt Use a Wheelchair?: No Wheel 50 ft with 2 turns (QC): 9 Wheel 150 ft (QC): 9 Stair Training Stair Training: Handrails/: 1 handrail #of Steps: 12 1 Step (curb) (QC): 5 4 Steps (QC): 5 12 Steps (QC): 4 Stairs: Pattern: Reciprocal Balance Picking up an Object (QC): 4 ADL-Treatment Eating (QC): 5 (setup) Oral Hygiene (QC): 4 (SBA) Bathing Location: L Arm, R Arm ( min. assist to lift arm so pt could rinse under arm using hand held shower head. ), L Upper Leg, R Upper Leg, L Lower Leg (including foot), R Lower Leg (including foot), Chest, Abdomen, Buttocks (SBA for safety while standing), Perineal Area (SBA for safety while standing) Shower/Bathe Self (QC): 3 (Min assist R arm and back) Upper Body Dressing (QC): 3 (min A to hook bra) Lower Body Dressing (QC): 4 (SBA) On/Off Footwear (QC): 5 (setup) Toileting Hygiene (QC): 4 (Supervision, pt sitting to cleanse annie after toil eting and CGA in standing to hike pants over hips.) Toilet Transfer (QC): 4 (Supervision as pt transferred from sit to stand on toilet. ) Assessment/Plan Assessment and Plan Assess & Plan/Chief Complaint Assessment: CVA embolic type following right CEA Left arm weakness and left hand flaccidity Chronic AF OAC HTN Plan: Cardiology consulting Home meds Pain meds IRF protocol 07/09/20: Therapy for left arm flaccidity Monitor bowels Cardiology consultation Patient dislikes Lipitor 07/10/20: Saline nasal spray Monitor BP closely Fall risk 07/11/20: Maintain OAC IRF protocol BM regimen Lipitor concerns patient regarding liver issues 07/12/20: Consult Dr. Hale for EGD for dysphagia Continue supplements from home Continue bowel regimen Topical local pain medication for canker sore 07/13/20: Continue close blood pressure monitoring since it was high Bowels are moving EGD after barium swallow likely, per Dr. Hale 07/14/20: Barium swallow EGD 07/15 Monitor for pain Eliquis bridge with Lovenox 07/15/20: EGD today Lovenox bridge Eliquis to restart 07/16/20: Gastritis treated with PPI Restart Eliquis and ASA Monitor left arm and hand 07/17/20: Regular diet Canker sores improved Continue treatment as is 07/18/20: Monitor pain Increase therapy for left arm weakness (1) CVA (cerebral vascular accident) (2) Atrial fibrillation Status: Acute (3) Carotid stenosis, bilateral (4) S/P carotid endarterectomy (5) Confusion ESSENCE HAWK DO Jul 18, 2020 10:46
--- NOTE | 2020-07-18 14:49 | Progress Note - Cardiology ---
Cardiology SOAP Progress Note Subjective: No new symptoms Gen weakness improving L hand weakness persistent No cp or palp or syncope No n/v/d Objective: I&O/Vital Signs 07/18/20 07/18/20 05:43 08:41 Temp 36.2 Pulse 60 Resp 18 B/P (MAP) 160/70 (100) Pulse Ox 96 O2 Delivery Room Air Room Air 07/18/20 00:00 Intake Total 1000 ml Balance 1000 ml Weight (Pounds): 142 Weight (Ounces): 0.0 Weight (Calculated Kilograms): 64.554155 Constitutional: appears stated age, AAO x 3; No apparent distress; well- developed, well-nourished Respiratory: chest is bilaterally symmetric, lungs clear to auscultation Cardiovascular: regular rate-rhythm, S1 and S2 Gastrointestional: soft, audible bowel sounds; No spleenomegaly Extremities: normal range of motion, non-tender, normal inspection; No clubbing, No cyanosis; no lower extremity edema bilateral; No significant edema Neurologic/Psychiatric: alert, normal mood/affect, oriented x 3, other (5/5 RUE, RLE; 5/5 Left leg, 4/5 Left arm, 0/5 left hand) Skin: normal color; No rash on exposed areas, No ulcerations on exposed areas Results/Procedures: Labs Microbiology 07/14/20 MRSA Screen - Final, Complete MRSA not isolated A/P: Assessment: S/P right CEA by Dr. 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 Carotid u/s of 05/03/20: greater than 80% R ICA and less than 40% L ICA stenoses. (underwent RCEA) Sinus node dysfunction with intermittent sinus bradycardia and a-fib. ILR (implanted by Dr Sofia in August 2016) interrogations have shown brief PAF with good vent rate control - device removed per pt request on 01-22-18. 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 No evidence of significant obstructive PAD of the legs on seg pressures of 02/17/18 Plan: Continue rehab Continue OAC with Eliquis Repeat labs EUGENE CÁRDENAS MD FACP FACC CCDS Jul 18, 2020 14:49
[2020-07-18 17:33] VITALS: BP 124/61
[2020-07-18 20:00] VITALS: BP 153/66
[2020-07-19] MEDS: amLODIPine 10 MG (NORVASC) TAB PO SCH (05:20)
[2020-07-19] MEDS: lisINopril 10 MG (PRINIVIL) TABLET PO SCH (05:20)
[2020-07-19] MEDS: LEVOTHYROXINE 25 MCG (LEVOTHROID) TAB PO SCH (05:20)
[2020-07-19] MEDS: KCL 10 MEQ TAB (MICRO K) PO SCH (05:20)
[2020-07-19 05:24] VITALS: BP 195/85
--- NOTE | 2020-07-19 05:27 | NUR ---
This am's blood pressure 195/85. Scheduled am blood pressure meds given at this time. Dr. Singh notified.
--- NOTE | 2020-07-19 05:33 | PM&R Progress Note ---
Subjective HPI/CC On Admission Date Seen by Provider: Jul 19, 2020 Time Seen by Provider: 08:00 Subjective/Events-last exam 07/19/20: Elevated BP this morning but gave her BP medications early Labs look good Overall feels like she is moving around pretty well No pain is reported 07/18/20: Patient in good mood Monitoring BP OAC will need refilled at DC Left arm moving better 07/17/20: Walking with walker Left hand flaccidity continues Swallowing is improved with canker sores healing so will change diet back to regular 07/16/20: Moved from 227 to 226 EGD revealed HH and gastritis PPI started Eliquis and ASA restarted 07/15/20: EGD today by Dr. Alexia dominguez when holding Eliquis Not much movement of the left hand but arm is much improved Dysphasia still continues Barium-swallow was normal Always refers to her daughter for any additional questions She appears to be in significant fright status since the loss of function in her left arm 07/14/20: Barium swallow this morning which results came back to no significant stenosis EGD will be performed by Dr. Hale N.p.o. after midnight on Lovenox bridge since Eliquis was held No bowel problems No bleeding problems Walking with therapy 07/13/20: Monitor elevated BP Bowels are moving well Coughing at night at times EGD is discussed with Dr. Hale, barium-swallow to be performed 07/12/20: Dysphagia is chronic but worse since the stroke so she is willing to have EGD by Dr. Hale. Canker sore will have local anesthetic placed Bowels moved three days ago so will give laxatives Has a vision multivitamin Eye Drops are over the counter that she will use Takes Motrin for facial pain Left arm she lifted pretty well today 07/11/20: No pain reported No bleeding issues noted Fatigue is an issue Wants to get her left arm working better before she goes home Appreciate Dr Hutchinson consult 07/10/20: Doing well Blew mucous plug out of nose and not she feels like she is breathing better Saline nasal spray will be ordered BM yesterday No issues 07/09/20: Pt doing pretty well Worried about Lipitor and her liver Lymphedema of the left arm will require therapy Bowels are moving well Cardiology consulted Checked meds and labs Reviewed therapy notes Conferred with apprentice stylist of Systems General: Fatigue, Malaise Neurological: Weakness Objective Exam Vital Signs Vital Signs Date Time Temp Pulse Resp B/P (MAP) Pulse Ox O2 Delivery O2 Flow Rate FiO2 07/19/20 16:51 36.9 64 16 141/66 (91) 95 Room Air Capillary Refill : Less Than 3 Seconds General Appearance: No Apparent Distress, WD/WN, Chronically ill HEENT: PERRL/EOMI, Normal ENT Inspection, Pharynx Normal Neck: Full Range of Motion, Normal Inspection, Non Tender, Supple, Carotid Bruit Respiratory: Chest Non Tender, Lungs Clear, Normal Breath Sounds, No Accessory Muscle Use, No Respiratory Distress Cardiovascular: No Edema, No Gallop, No JVD, No Murmur, Normal Peripheral Pulses, Irregularly Irregular Gastrointestinal: Normal Bowel Sounds, No Organomegaly, No Pulsatile Mass, Non Tender, Soft Back: Normal Inspection, No CVA Tenderness, No Vertebral Tenderness Extremity: Normal Capillary Refill, Normal Inspection, Normal Range of Motion (except left upper extremity upper arm 3/5 left hand 0/5), Non Tender, No Calf Tenderness, No Pedal Edema Neurologic/Psychiatric: Alert, Oriented x3, No Motor/Sensory Deficits, Normal Mood/Affect, Abnormal Gait, Motor Weakness (left arm) Skin: Normal Color, Warm/Dry Lymphatic: No Adenopathy Results/Procedures Lab Laboratory Tests 07/19/20 05:28 Patient resulted labs reviewed. FIM Transfers Therapy Code Descriptions/Definitions Functional [place] Measure: 0=Not Assessed/NA 4=Minimal Assistance 1=Total Assistance 5=Supervision or Setup 2=Maximal Assistance 6=Modified [place] 3=Moderate Assistance 7=Complete IndependenceSCALE: Activities may be completed with or without assistive devices. 6-Rjxlmbtdie-kbslopz completes the activity by him/herself with no assistance from a helper. 5-Set-up or Clean-up Assistance-helper sets up or cleans up; patient completes activity. [place] assists only prior to or following the activity. 4-Supervision or Touching Assistance-helper provides verbal cues and/or touching/steadying and/or contact guard assistance as patient completes ac tivity. Assistance may be provided throughout the activity or intermittently. 3-Partial/Moderate Assistance-helper does LESS THAN HALF the effort. [place] lifts, holds or supports trunk or limbs, but provides less than half the effort. 2-Substantial/Maximal Assistance-helper does MORE THAN HALF the effort. [place] lifts or holds trunk or limbs and provides more than half the effort. 7-Ygvwbfjse-sbkrlo does ALL the effort. Patient does none of the effort to complete the activity. Or, the assistance of 2 or more helpers is required for the patient to complete the activity. If activity was not attempted, code reason: 7-Patient Refused. 9-Not Applicable-not attempted and the patient did not perform the activity before the current illness, exacerbation or injury. 10-Not Attempted due to Environmental Limitations-(lack of equipment, weather restraints, etc.). 88-Not Attempted due to Medical Conditions or Safety Concerns. Roll Left to Right (QC): 6 Sit to Lying (QC): 6 Sit to Stand (QC): 6 Chair/Wnw-mf-Uowvz Xfer(QC): 5 Car Transfer (QC): 4 Gait Training Does the Patient Walk?: Yes Distance: >1000 Walk 10 feet (QC): 4 Walk 50 ft with 2 Turns(QC): 4 Walk 150 ft (QC): 4 Walking 10ft/uneven surface-QC: 4 Gait Persons Needed: 1 Gait Assistive Device: None Wheelchair Training Does the Pt Use a Wheelchair?: No Wheel 50 ft with 2 turns (QC): 9 Wheel 150 ft (QC): 9 Stair Training Stair Training: Handrails/: 1 handrail #of Steps: 12 1 Step (curb) (QC): 5 4 Steps (QC): 5 12 Steps (QC): 4 Stairs: Pattern: Reciprocal Balance Picking up an Object (QC): 4 ADL-Treatment Eating (QC): 5 (setup) Oral Hygiene (QC): 4 (SBA) Bathing Location: L Arm, R Arm ( min. assist to lift arm so pt could rinse under arm using hand held shower head. ), L Upper Leg, R Upper Leg, L Lower Leg (including foot), R Lower Leg (including foot), Chest, Abdomen, Buttocks (SBA for safety while standing), Perineal Area (SBA for safety while standing) Shower/Bathe Self (QC): 3 (Min assist R arm and back) Upper Body Dressing (QC): 3 (min A to hook bra) Lower Body Dressing (QC): 4 (SBA) On/Off Footwear (QC): 5 (setup) Toileting Hygiene (QC): 4 (Supervision, pt sitting to cleanse annie after toileting and CGA in standing to hike pants over hips.) Toilet Transfer (QC): 4 (Supervision as pt transferred from sit to stand on toilet. ) Assessment/Plan Assessment and Plan Assess & Plan/Chief Complaint Assessment: CVA embolic type following right CEA Left arm weakness and left hand flaccidity Chronic AF OAC HTN Plan: Cardiology consulting Home meds Pain meds IRF protocol 07/09/20: Therapy for left arm flaccidity Monitor bowels Cardiology consultation Patient dislikes Lipitor 07/10/20: Saline nasal spray Monitor BP closely Fall risk 07/11/20: Maintain OAC IRF protocol BM regimen Lipitor concerns patient regarding liver issues 07/12/20: Consult Dr. Hale for EGD for dysphagia Continue supplements from home Continue bowel regimen Topical local pain medication for canker sore 07/13/20: Continue close blood pressure monitoring since it was high Bowels are moving EGD after barium swallow likely, per Dr. Hale 07/14/20: Barium swallow EGD 07/15 Monitor for pain Eliquis bridge with Lovenox 07/15/20: EGD today Lovenox bridge Eliquis to restart 07/16/20: Gastritis treated with PPI Restart Eliquis and ASA Monitor left arm and hand 07/17/20: Regular diet Canker sores improved Continue treatment as is 07/18/20: Monitor pain Increase therapy for left arm weakness 07/19/20: Cardiology to address elevated blood pressure Labs stable Discharge planned for Sunday (1) CVA (cerebral vascular accident) (2) Atrial fibrillation Status: Acute (3) Carotid stenosis, bilateral (4) S/P carotid endarterectomy (5) Confusion ESSENCE HAWK DO Jul 19, 2020 05:33
[2020-07-19 05:45] LABS: BASOPHILS % (AUTO) 1 % (0-10); EOSINOPHILS # (AUTO) 0.2 10^3/uL (0.0-0.3); EOSINOPHILS % (AUTO) 3 % (0-10); HEMATOCRIT 44 % (35-52); HEMOGLOBIN 14.4 G/DL (11.5-16.0); LYMPHOCYTES # (AUTO) 1.7 X 10^3 (1.0-4.0); LYMPHOCYTES % (AUTO) 27 % (12-44); MEAN CORPUSCULAR HEMOGLOBIN 29 PG (25-34); MEAN CORPUSCULAR HGB CONC 33 G/DL (32-36); MEAN CORPUSCULAR VOLUME 87 FL (80-99); MEAN PLATELET VOLUME 10.7 FL (7.4-10.4); MONOCYTES # (AUTO) 0.7 X 10^3 (0.0-1.0); MONOCYTES % (AUTO) 10 % (0-12); NEUTROPHILS # (AUTO) 3.8 X 10^3 (1.8-7.8); NEUTROPHILS % (AUTO) 59 % (42-75); PLATELET COUNT 330 10^3/uL (130-400); RED CELL DISTRIBUTION WIDTH 13.5 % (10.0-14.5); WHITE BLOOD COUNT 6.4 10^3/uL (4.3-11.0)
[2020-07-19 06:11] LABS: BUN/CREATININE RATIO 18; CALCIUM 9.4 MG/DL (8.5-10.1); CARBON DIOXIDE 23 MMOL/L (21-32); CHLORIDE 105 MMOL/L (98-107); CREATININE SERUM 0.72 MG/DL (0.60-1.30); GFR ESTIMATED > 60; GLUCOSE 95 MG/DL (70-105); MAGNESIUM 1.8 MG/DL (1.6-2.4); SODIUM 140 MMOL/L (135-145)
[2020-07-19 07:14] VITALS: BP 182/74
--- NOTE | 2020-07-19 08:53 | Physical Therapy Daily Note ---
PT Daily Note-Current Subjective Pt. agrees to Rx. States her BP was high earlier this morning . Taken by this SQUARING MACHINE OPERATOR at138/68. Pain Location: No Pain Reported Mental Status Patient Orientation: Normal For Age Transfers SCALE: Activities may be completed with or without assistive devices. 1-Wzeycvtifx-zawiheg completes the activity by him/herself with no assistance from a helper. 5-Set-up or Clean-up Assistance-helper sets up or cleans up; patient completes activity. [place] assists only prior to or following the activity. 4-Supervision or Touching Assistance-helper provides verbal cues and/or touching/steadying and/or contact guard assistance as patient completes activity. Assistance may be provided throughout the activity or intermittently. 3-Partial/Moderate Assistance-helper does LESS THAN HALF the effort. [place] lifts, holds or supports trunk or limbs, but provides less than half the effort. 2-Substantial/Maximal Assistance-helper does MORE THAN HALF the effort. [place] lifts or holds trunk or limbs and provides more than half the effort. 6-Wrtalfrfb-bxcbdp does ALL the effort. Patient does none of the effort to complete the activity. Or, the assistance of 2 or more helpers is required for the patient to complete the activity. If activity was not attempted, code reason: 7-Patient Refused. 9-Not Applicable-not attempted and the patient did not perform the activity before the current illness, exacerbation or injury. 10-Not Attempted due to Environmental Limitations-(lack of equipment, weather restraints, etc.). 88-Not Attempted due to Medical Conditions or Safety Concerns. Roll Left & Right (QC): 6 Sit to Lying (QC): 6 Lying to Sitting/Side of Bed(Q: 6 Sit to Stand (QC): 6 Chair/Odx-go-Orcfg Xfer(QC): 6 Toilet Transfer (QC): 6 Car Transfer (QC): 6 floor TRF with demonstration and education CGA to SBA. Weight Bearing Full Weight Bearing Full Weight Bearing Gait Training Does the Patient Walk?: Yes Walk 10 feet (QC): 6 Walk 50 ft with 2 Turns(QC): 6 Walk 150 ft (QC): 6 Walking 10ft/uneven surface-QC: 6 Gait Persons Needed: 0 Gait Assistive Device: None even step length, no ross LOB, no antalgia Stair Training Stair Training: Handrails/: 2 handrails #of Steps: 12 4 Steps (QC): 5 12 Steps (QC): 5 Stairs: Pattern: Reciprocal Exercises Supine Ex: Bridging, Ankle pumps, Quad Set, Rolling, Glut sets, Heel Slides, Scooting, Straight leg raise, Hip abd/add Supine Reps: 15 Treatments prone, ham curls, prone hip ext, Quadruped assumed indep, managing left hand well. crawling and up on knees for tall on knees , balance challenged with perturbations , no LOB, balance challenges derived from AMEZCUA all managed well Assessment Current Status: Good Progress meeting goals PT Short Term Goals Short Term Goals Time Frame: Jul 16, 2020 Roll Left & Right: 6 (met) Sit to lyin (met) Lying to sitting on side of be: 6 Sit to stand: 5 (met) Chair/igg-rc-rwgcz transfer: 5 (met) Walk 10 feet: 4 (met) Walk 50 feet with two turns: 4 (met) Walk 150 feet: 4 (met) PT Field Representatives Director Goals Retirement Goals PT Retirement Goals Time Frame: Jul 30, 2020 Roll Left & Right (QC): 6 Sit to Lying (QC): 6 Lying-Sitting on Side/Bed(QC): 6 Sit to Stand (QC): 6 Chair/Wko-av-Jjhmx Xfer(QC): 6 Toilet Transfer (QC): 6 Car Transfer (QC): 6 Does the Patient Walk: Yes Walk 10 feet (QC): 6 Walk 50ft with 2 Turns (QC): 6 Walk 150 ft (QC): 6 Walking 10ft on Uneven Surface: 6 1 Step (curb) (QC): 5 4 Steps (QC): 5 12 Steps (QC): 5 Picking up an Object (QC): 5 Wheel 50 feet with 2 turns (QC: 9 Wheel 150 feet: 9 PT Plan Treatment/Plan Treatment Plan: Continue Plan of Care Treatment Plan: Education, Functional Activity Solomon, Functional Strength, Group Therapy, Gait, Safety, Therapeutic Exercise, Transfers Treatment Duration: Jul 30, 2020 Frequency: At least 5 of 7 days/Wk (IRF) Estimated Hrs Per Day: 1.5 hours per day Patient and/or Family Agrees t: Yes Safety Risks/Education Patient Education: Gait Training, Transfer Techniques, Steps, Correct Positioning, Disease Process, Safety Issues Teaching Recipient: Patient, Family Teaching Methods: Demonstration, Discussion Response to Teaching: Verbalize Understanding, Return Demonstration, Reinforcement Needed Time/GCodes Time In: 800 Time Out: 845 Total Billed Treatment Time: 45 Total Billed Treatment 1,NM15m,EX20m,FA10m JAMAR ANGEL SQUARING MACHINE OPERATOR Jul 19, 2020 08:53
[2020-07-19] MEDS: PANTOPRAZOLE 40 MG (PROTONIX) TAB PO SCH (09:31)
[2020-07-19] MEDS: IBUPROFEN TABLET 200 MG TAB PO PRN ×2 (09:31→18:25)
[2020-07-19] MEDS: APIXABAN 5 MG (ELIQUIS) TABLET PO SCH ×2 (09:32→20:13)
[2020-07-19] MEDS: DOCUSATE SODIUM 100 MG (COLACE) CAP PO SCH ×2 (09:32→20:13)
[2020-07-19] MEDS: ASPIRIN 81 MG CHEW (CHILDREN'S ASA) PO SCH (09:32)
[2020-07-19] MEDS: SENNA W/DOCUSATE (SENOKOT S) TABLET PO SCH ×2 (09:32→21:00)
[2020-07-19] MEDS: PRESERVISION AREDS SOFTGEL (BAUSH & LOMB) PO SCH ×2 (09:32→20:12)
[2020-07-19] MEDS: POT PHOS/NA PHOS (K-PHOS NEUTRAL) PO SCH (09:32)
--- NOTE | 2020-07-19 09:34 | Speech Therapy Daily Note ---
Speech Daily Progress Note Subjective Date Seen by Provider: Jul 19, 2020 Time Seen by Provider: 00:30 Patient was resting in her bed following her PT session. She stated she was supposed to return home on Sunday. Objective Patient completed safe oral intake with decreased verbal cues at 90%. Patient demo following directions with 2 or more steps with 90% given minimal cuing. Assessment Assessment Current Status: Good Progress Treatment Plan Continue Plan of Care Speech Short Term Goals Short Term Goals Short Term Goals 1) Patient will complete memory tasks related to her daily needs at 90% or greater. 2) Patient will complete problem solving tasks related to her daily needs at 90% or greater. 3) Patient will complete safety awareness tasks related to her daily needs at 90% or greater. 4) Patient will tolerate least restrictive diet level without s/s of aspiration at 90% or greater. 5) Patient will utilize compensatory strategies as trained for safe oral intake at 90% or greater. Speech Supervisor Irrigation Goals [facility] Goals Patient will improve cognitive-communication necessary for safety and daily living tasks with minimal assist. Patient will maintain adequate nutrition/hydration via safe effective swallow function. Speech-Plan Patient/Family Goals Patient/Family Goals: Patient is scheduled to discharge to her home with family support on Sunday. Treatment Plan Speech Therapy Treatment Plan: Continue Plan of Care Patient was upgraded to regular diet level over the weekend. Treatment Duration: Jul 21, 2020 Frequency: 4 times per week (Patient will receive 4-5 ST treatments per week) Estimated Hrs Per Day: .5 hour per day Rehab Potential: Fair Barriers to Learning: Patient's recent CVA, age Pt/Family Agrees to Plan: Yes Safety Risks/Education Teaching Recipient: Patient, Family Teaching Methods: Demonstration, Discussion Response to Teaching: Verbalize Understanding, Return Demonstration Education Topics Provided: Continued safety with intake and within her room Time Speech Therapy Time In: 08:45 Speech Therapy Time Out: 09:15 Total Billed Time: 30 Billed Treatment Time 1, DIRK, SEGUN Salazar Jul 19, 2020 09:34
[2020-07-19] MEDS: polyethylene glycoL POWDER 17 GM (MIRALAX) PACK PO SCH ×2 (09:36→21:00)
[2020-07-19 09:41] VITALS: BP 119/56
[2020-07-19] MEDS ORDERED: lisINopril 10 MG (PRINIVIL) TABLET PO NR (09:45)
--- NOTE | 2020-07-19 10:46 | Occupational Ther Daily Note ---
OT Current Status-Daily Note Subjective Pt alert, laying in bed. Agreed to therapy. Daughter and nurses in room. No c/o of pain. Mental Status/Objective Patient Orientation: Person, Place, Time, Situation ADL-Treatment Pt transferred from supine to EOB, independent. Pt ambulated independently w ithout AD to bathroom from EOB for showering. Pt used shower bench, grab bars, and hand held shower to complete bathing. Educated pt on new ADL techniques for pt to able to complete independently when going home. Pt was able to retrieve clothing without AD. Therapy Code Descriptions/Definitions Functional [place] Measure: 0=Not Assessed/NA 4=Minimal Assistance 1=Total Assistance 5=Supervision or Setup 2=Maximal Assistance 6=Modified [place] 3=Moderate Assistance 7=Complete IndependenceSCALE: Activities may be completed with or without assistive devices. 8-Uoinaivtjk-cmrdhye completes the activity by him/herself with no assistance from a helper. 5-Set-up or Clean-up Assistance-helper sets up or cleans up; patient completes activity. [place] assists only prior to or following the activity. 4-Supervision or Touching Assistance-helper provides verbal cues and/or touching/steadying and/or contact guard assistance as patient completes activity. Assistance may be provided throughout the activity or intermittently. 3-Partial/Moderate Assistance-helper does LESS THAN HALF the effort. [place] lifts, holds or supports trunk or limbs, but provides less than half the effort. 2-Substantial/Maximal Assistance-helper does MORE THAN HALF the effort. [place] lifts or holds trunk or limbs and provides more than half the effort. 4-Abhjjrfeh-mlihdo does ALL the effort. Patient does none of the effort to complete the activity. Or, the assistance of 2 or more helpers is required for the patient to complete the activity. If activity was not attempted, code reason: 7-Patient Refused. 9-Not Applicable-not attempted and the patient did not perform the activity bef ore the current illness, exacerbation or injury. 10-Not Attempted due to Environmental Limitations-(lack of equipment, weather r estraints, etc.). 88-Not Attempted due to Medical Conditions or Safety Concerns. Oral Hygiene (QC): 6 (Standing at sink, pt able to complete by self.) Bathing Location: L Arm, R Arm (Pt able to lift arm. OT for washing and drying.), L Upper Leg, R Upper Leg, L Lower Leg (including foot), R Lower Leg (including foot), Chest, Abdomen, Buttocks, Perineal Area Shower/Bathe Self (QC): 3 (Pt able to lift R arm, OT washes and dries.) Upper Body Dressing (QC): 3 (Pt able to thread L and R arm through shirt. Assist to snout puller head. ) Lower Body Dressing (QC): 4 (Pt able to thread L lower leg and R lower leg through briefs and pants. SBA when hiking over hips due to uncoordination.) On/Off Footwear: 4 (After set up, pt able to don slippers with SBA.) Other Treatment After completing showering and oral hygiene, pt ambulated to EOB, independently without AD. Pt transferred from EOB to supine. Began AAROM on pt's L arm to increase AROM for functional daily task. Pt able to initiate and complete motion due to weakness OT for assisted. Incoordination noted. Muscle facilitation for wrist flexion/extension. Minimal movement noted. After therapy, pt lying in bed with call light/phone in reach. All needs met in room. Daughter present in room. Education OT Patient Education: Modified ADL techniques (Talya hawkins) Teaching Recipient: Patient, Family Teaching Methods: Discussion Response to Teaching: Verbalize Understanding OT Short Term Goals Short Term Goals Time Frame: Jul 16, 2020 Oral hygiene: 5 Toileting hygiene: 5 Lower body dressin OT Senior Care Goals Senior Care Goals Time Frame: Jul 30, 2020 Eating (QC): 6 Oral Hygiene (QC): 6 Toileting Hygiene (QC): 6 Shower/Bathe Self (QC): 5 Upper Body Dressing (QC): 6 Lower Body Dressing (QC): 6 On/Off Footwear (QC): 6 Additional Goals: 1-Demonstrate ADL Tasks, 2-Verbalize Understanding, 3- ImproveStrength/Solomon 1=Demonstrate adherence to instructed precautions during ADL tasks. 2=Patient will verbalize/demonstrate understanding of assistive devices/modifications for ADL. 3=Patient will improve strength/tolerance for activity to enable patient to perform ADL's. OT Education/Plan Problem List/Assessment Assessment: Decreased UE Strength, Impaired Coordination, Impaired Funct Balance, Impaired I ADL's, Impaired Self-Care Skills, Restricted Funct UE ROM, Visual-Perceptual Deficit Pt would benefit from skilled OT to increase her independence with basic self care to allow her to safely return home. Discharge Recommendations Plan/Recommendations: Continue POC Treatment Plan/Plan of Care Patient would benefit from OT for education, treatment and training to promote independence in ADL's, mobility, safety and/or upper extremity function for ADL's. Plan of Care: ADL Retraining, Functional Mobility, Group Exercise/Act as Ind, UE Funct Exercise/Act, UE Neuromus Re-Ed/Coord, Visual/Perceptual Retrain, OTHER (energy conservation education) Treatment Duration: Jul 30, 2020 Frequency: Modified Program (IRF) Estimated Hrs Per Day: 1.5 hours per day (1.25 to 1.5) Agreement: Yes Rehab Potential: Fair Time/GCodes Start Time: 09:30 Stop Time: 10:45 Total Time Billed (hr/min): 75 Billed Treatment Time 1 vist - ADL 4 (60 mins) NM 1 (15 mins) ZENIA MORRIS Jul 19, 2020 10:46
--- NOTE | 2020-07-19 14:29 | Physical Therapy Daily Note ---
PT Daily Note-Current Subjective Pt. and daughter in room . Daughter supportive and attends session Pain Location: No Pain Reported Mental Status Patient Orientation: Person, Place, Time, Situation Transfers SCALE: Activities may be completed with or without assistive devices. 0-Txhxbzzwhm-tvtlqxz completes the activity by him/herself with no assistance from a helper. 5-Set-up or Clean-up Assistance-helper sets up or cleans up; patient completes activity. [place] assists only prior to or following the activity. 4-Supervision or Touching Assistance-helper provides verbal cues and/or touching/steadying and/or contact guard assistance as patient completes activity. Assistance may be provided throughout the activity or intermittently. 3-Partial/Moderate Assistance-helper does LESS THAN HALF the effort. [place] lifts, holds or supports trunk or limbs, but provides less than half the effort. 2-Substantial/Maximal Assistance-helper does MORE THAN HALF the effort. [place] lifts or holds trunk or limbs and provides more than half the effort. 7-Eiugnlfdr-mutpml does ALL the effort. Patient does none of the effort to complete the activity. Or, the assistance of 2 or more helpers is required for the patient to complete the activity. If activity was not attempted, code reason: 7-Patient Refused. 9-Not Applicable-not attempted and the patient did not perform the activity before the current illness, exacerbation or injury. 10-Not Attempted due to Environmental Limitations-(lack of equipment, weather restraints, etc.). 88-Not Attempted due to Medical Conditions or Safety Concerns. practiced multiple sit to stands from arm chairs in smaller waiting room with carpet. Pt. had street shoes on and managed many turns as well as retro gait and side step left and right 12 ft x 2 all with good balance etc Weight Bearing Full Weight Bearing Full Weight Bearing Gait Training Does the Patient Walk?: Yes Gait Assistive Device: None side, retro and forward all with good control, increased arm swing encouraged on right . no AD, 200ft, 100ft no LOB, up ad rubén in room Exercises Seated Therapy Exercises: Ankle pumps, Sit to stand, Long arc quads, Hip flexion, Hip abd/add Seated Reps: 15 NuStep Minutes: 8 NuStep Workload: 5 Neuromuscular pt. was assisted in holding on to hand bar and is improving with fish packer Assessment Current Status: Good Progress PT Short Term Goals Short Term Goals Time Frame: Jul 16, 2020 Roll Left & Right: 6 (met) Sit to lyin (met) Lying to sitting on side of be: 6 Sit to stand: 5 (met) Chair/ivs-zc-voerx transfer: 5 (met) Walk 10 feet: 4 (met) Walk 50 feet with two turns: 4 (met) Walk 150 feet: 4 (met) PT Shelter Goals Finishing Tunnel Operator Goals PT Finishing Tunnel Operator Goals Time Frame: Jul 30, 2020 Roll Left & Right (QC): 6 Sit to Lying (QC): 6 Lying-Sitting on Side/Bed(QC): 6 Sit to Stand (QC): 6 Chair/Rvu-km-Evmby Xfer(QC): 6 Toilet Transfer (QC): 6 Car Transfer (QC): 6 Does the Patient Walk: Yes Walk 10 feet (QC): 6 Walk 50ft with 2 Turns (QC): 6 Walk 150 ft (QC): 6 Walking 10ft on Uneven Surface: 6 1 Step (curb) (QC): 5 4 Steps (QC): 5 12 Steps (QC): 5 Picking up an Object (QC): 5 Wheel 50 feet with 2 turns (QC: 9 Wheel 150 feet: 9 PT Plan Treatment/Plan Treatment Plan: Continue Plan of Care Treatment Plan: Education, Functional Activity Solomon, Functional Strength, Group Therapy, Gait, Safety, Therapeutic Exercise, Transfers Treatment Duration: Jul 30, 2020 Frequency: At least 5 of 7 days/Wk (IRF) Estimated Hrs Per Day: 1.5 hours per day Patient and/or Family Agrees t: Yes Safety Risks/Education Patient Education: Gait Training, Transfer Techniques, Correct Positioning, Disease Process, Safety Issues Teaching Recipient: Patient Teaching Methods: Demonstration, Discussion Response to Teaching: Verbalize Understanding, Return Demonstration, Reinfo rcement Needed Time/GCodes Time In: 1345 Time Out: 1415 Total Billed Treatment Time: 30 Total Billed Treatment 1,GT15,EX15 JAMAR ANGEL UI UX DEVELOPER Jul 19, 2020 14:29
[2020-07-19 16:51] VITALS: BP 141/66
[2020-07-19] MEDS: CYCLOBENZAPRINE 10 MG (FLEXERIL) TAB PO PRN (20:12)
[2020-07-19] MEDS: lisINopril 20 MG (PRINIVIL) TABLET PO SCH (20:13)
[2020-07-20] MEDS: LEVOTHYROXINE 25 MCG (LEVOTHROID) TAB PO SCH (04:40)
[2020-07-20] MEDS: KCL 10 MEQ TAB (MICRO K) PO SCH (04:40)
[2020-07-20 05:29] LABS: BUN/CREATININE RATIO 16; CALCIUM 8.8 MG/DL (8.5-10.1); CARBON DIOXIDE 25 MMOL/L (21-32); CHLORIDE 105 MMOL/L (98-107); CREATININE SERUM 0.76 MG/DL (0.60-1.30); GFR ESTIMATED > 60; GLUCOSE 93 MG/DL (70-105); POTASSIUM 4.3 MMOL/L (3.6-5.0); SODIUM 140 MMOL/L (135-145)
[2020-07-20 05:34] VITALS: BP 114/63
--- NOTE | 2020-07-20 08:42 | PM&R Progress Note ---
Subjective HPI/CC On Admission Date Seen by Provider: Jul 20, 2020 Time Seen by Provider: 08:00 Subjective/Events-last exam 07/20/20: Pt took a Flexeril last night which helped her Ibuprofen for headache noted Wants to know about vitamins Overall feels like she is doing much better No bleeding problems from the Eliquis Discharge planned for tomorrow 07/19/20: Elevated BP this morning but gave her BP medications early Labs look good Overall feels like she is moving around pretty well No pain is reported 07/18/20: Patient in good mood Monitoring BP OAC will need refilled at DC Left arm moving better 07/17/20: Walking with walker Left hand flaccidity continues Swallowing is improved with canker sores healing so will change diet back to regular 07/16/20: Moved from 227 to 226 EGD revealed HH and gastritis PPI started Eliquis and ASA restarted 07/15/20: EGD today by Dr. Alexia dominguez when holding Eliquis Not much movement of the left hand but arm is much improved Dysphasia still continues Barium-swallow was normal Always refers to her daughter for any additional questions She appears to be in significant fright status since the loss of function in her left arm 07/14/20: Barium swallow this morning which results came back to no significant stenosis EGD will be performed by Dr. Hale N.p.o. after midnight on Lovenox bridge since Eliquis was held No bowel problems No bleeding problems Walking with therapy 07/13/20: Monitor elevated BP Bowels are moving well Coughing at night at times EGD is discussed with Dr. Hale, barium-swallow to be performed 07/12/20: Dysphagia is chronic but worse since the stroke so she is willing to have EGD by Dr. Hale. Canker sore will have local anesthetic placed Bowels moved three days ago so will give laxatives Has a vision multivitamin Eye Drops are over the counter that she will use Takes Motrin for facial pain Left arm she lifted pretty well today 07/11/20: No pain reported No bleeding issues noted Fatigue is an issue Wants to get her left arm working better before she goes home Appreciate Dr Hutchinson consult 07/10/20: Doing well Blew mucous plug out of nose and not she feels like she is breathing better Saline nasal spray will be ordered BM yesterday No issues 07/09/20: Pt doing pretty well Worried about Lipitor and her liver Lymphedema of the left arm will require therapy Bowels are moving well Cardiology consulted Checked meds and labs Reviewed therapy notes Conferred with porcelain enamel repairer of Systems General: Fatigue, Malaise Neurological: Weakness Objective Exam Vital Signs Vital Signs Date Time Temp Pulse Resp B/P (MAP) Pulse Ox O2 Delivery O2 Flow Rate FiO2 07/20/20 19:15 36.4 70 16 148/67 (94) 92 Room Air Capillary Refill : Less Than 3 SecondsLess Than 3 Seconds General Appearance: No Apparent Distress, WD/WN, Chronically ill HEENT: PERRL/EOMI, Normal ENT Inspection, Pharynx Normal Neck: Full Range of Motion, Normal Inspection, Non Tender, Supple, Carotid Bruit Respiratory: Chest Non Tender, Lungs Clear, Normal Breath Sounds, No Accessory Muscle Use, No Respiratory Distress Cardiovascular: No Edema, No Gallop, No JVD, No Murmur, Normal Peripheral Pu lses, Irregularly Irregular Gastrointestinal: Normal Bowel Sounds, No Organomegaly, No Pulsatile Mass, Non Tender, Soft Back: Normal Inspection, No CVA Tenderness, No Vertebral Tenderness Extremity: Normal Capillary Refill, Normal Inspection, Normal Range of Motion (except left upper extremity upper arm 3/5 left hand 0/5), Non Tender, No Calf Tenderness, No Pedal Edema Neurologic/Psychiatric: Alert, Oriented x3, No Motor/Sensory Deficits, Normal Mood/Affect, Abnormal Gait, Motor Weakness (left arm) Skin: Normal Color, Warm/Dry Lymphatic: No Adenopathy Results/Procedures Lab Laboratory Tests 07/20/20 04:40 Patient resulted labs reviewed. FIM Transfers Therapy Code Descriptions/Definitions Functional [place] Measure: 0=Not Assessed/NA 4=Minimal Assistance 1=Total Assistance 5=Supervision or Setup 2=Maximal Assistance 6=Modified [place] 3=Moderate Assistance 7=Complete IndependenceSCALE: Activities may be completed with or without assistive devices. 7-Yzovptugqw-qhiegub completes the activity by him/herself with no assistance from a helper. 5-Set-up or Clean-up Assistance-helper sets up or cleans up; patient completes activity. [place] assists only prior to or following the activity. 4-Supervision or Touching Assistance-helper provides verbal cues and/or touching/steadying and/or contact guard assistance as patient completes activity. Assistance may be provided throughout the activity or intermittently. 3-Partial/Moderate Assistance-helper does LESS THAN HALF the effort. [place] lifts, holds or supports trunk or limbs, but provides less than half the effort. 2-Substantial/Maximal Assistance-helper does MORE THAN HALF the effort. [place] lifts or holds trunk or limbs and provides more than half the effort. 0-Tpcmxqhxz-dmlxar does ALL the effort. Patient does none of the effort to complete the activity. Or, the assistance of 2 or more helpers is required for the patient to complete the activity. If activity was not attempted, code reason: 7-Patient Refused. 9-Not Applicable-not attempted and the patient did not perform the activity before the current illness, exacerbation or injury. 10-Not Attempted due to Environmental Limitations-(lack of equipment, weather restraints, etc.). 88-Not Attempted due to Medical Conditions or Safety Concerns. Roll Left to Right (QC): 6 Sit to Lying (QC): 6 Sit to Stand (QC): 6 Chair/Kot-qm-Nfzyd Xfer(QC): 6 Car Transfer (QC): 6 Gait Training Does the Patient Walk?: Yes Distance: >1000 Walk 10 feet (QC): 6 Walk 50 ft with 2 Turns(QC): 6 Walk 150 ft (QC): 6 Walking 10ft/uneven surface-QC: 6 Gait Persons Needed: 0 Gait Assistive Device: None Wheelchair Training Does the Pt Use a Wheelchair?: No Wheel 50 ft with 2 turns (QC): 9 Wheel 150 ft (QC): 9 Stair Training Stair Training: Handrails/: 2 handrails #of Steps: 12 1 Step (curb) (QC): 5 4 Steps (QC): 5 12 Steps (QC): 5 Stairs: Pattern: Reciprocal Balance Picking up an Object (QC): 4 ADL-Treatment Eating (QC): 5 (setup) Oral Hygiene (QC): 6 (Standing at sink, pt able to complete by self.) Bathing Location: L Arm, R Arm (Pt able to lift arm. OT for washing and drying.), L Upper Leg, R Upper Leg, L Lower Leg (including foot), R Lower Leg (including foot), Chest, Abdomen, Buttocks, Perineal Area Shower/Bathe Self (QC): 3 (Pt able to lift R arm, OT washes and dries.) Upper Body Dressing (QC): 3 (Pt able to thread L and R arm through shirt. Assist to gum puller head. ) Lower Body Dressing (QC): 4 (Pt able to thread L lower leg and R lower leg through briefs and pants. SBA when hiking over hips due to uncoordination.) On/Off Footwear (QC): 4 (After set up, pt able to don slippers with SBA.) Toileting Hygiene (QC): 4 (Supervision, pt sitting to cleanse annie after toileting and CGA in standing to hike pants over hips.) Toilet Transfer (QC): 4 (Supervision as pt transferred from sit to stand on toilet. ) Assessment/Plan Assessment and Plan Assess & Plan/Chief Complaint Assessment: CVA embolic type following right CEA Left arm weakness and left hand flaccidity Chronic AF OAC HTN Plan: Cardiology consulting Home meds Pain meds IRF protocol 07/09/20: Therapy for left arm flaccidity Monitor bowels Cardiology consultation Patient dislikes Lipitor 07/10/20: Saline nasal spray Monitor BP closely Fall risk 07/11/20: Maintain OAC IRF protocol BM regimen Lipitor concerns patient regarding liver issues 07/12/20: Consult Dr. Hale for EGD for dysphagia Continue supplements from home Continue bowel regimen Topical local pain medication for canker sore 07/13/20: Continue close blood pressure monitoring since it was high Bowels are moving EGD after barium swallow likely, per Dr. Hale 07/14/20: Barium swallow EGD 07/15 Monitor for pain Eliquis bridge with Lovenox 07/15/20: EGD today Lovenox bridge Eliquis to restart 07/16/20: Gastritis treated with PPI Restart Eliquis and ASA Monitor left arm and hand 07/17/20: Regular diet Canker sores improved Continue treatment as is 07/18/20: Monitor pain Increase therapy for left arm weakness 07/19/20: Cardiology to address elevated blood pressure Labs stable Discharge planned for Sunday07/20/20: Use Flexeril in addition to Ibuprofen for pain Monitor blood pressure Discharge tomorrow (1) CVA (cerebral vascular accident) (2) Atrial fibrillation Status: Acute (3) Carotid stenosis, bilateral (4) S/P carotid endarterectomy (5) Confusion ESSENCE HAWK DO Jul 20, 2020 08:42
[2020-07-20] MEDS: POT PHOS/NA PHOS (K-PHOS NEUTRAL) PO SCH (08:55)
[2020-07-20] MEDS: PANTOPRAZOLE 40 MG (PROTONIX) TAB PO SCH (08:56)
[2020-07-20] MEDS: ASPIRIN 81 MG CHEW (CHILDREN'S ASA) PO SCH (08:56)
[2020-07-20] MEDS: amLODIPine 10 MG (NORVASC) TAB PO SCH (08:56)
[2020-07-20] MEDS: lisINopril 20 MG (PRINIVIL) TABLET PO SCH ×2 (08:56→20:58)
[2020-07-20] MEDS: APIXABAN 5 MG (ELIQUIS) TABLET PO SCH ×2 (08:56→20:58)
[2020-07-20] MEDS: PRESERVISION AREDS SOFTGEL (BAUSH & LOMB) PO SCH ×2 (08:57→20:58)
[2020-07-20] MEDS: DOCUSATE SODIUM 100 MG (COLACE) CAP PO SCH ×2 (09:03→20:58)
[2020-07-20] MEDS: SENNA W/DOCUSATE (SENOKOT S) TABLET PO SCH ×2 (09:03→20:58)
--- NOTE | 2020-07-20 09:58 | Speech Therapy Daily Note ---
Speech Daily Progress Note Subjective Date Seen by Provider: Jul 20, 2020 Time Seen by Provider: 00:30 Patient was up ad rubén in her room. She stated she was tired of laying in that bed. Objective Patient completed a series of questions related to her daily needs upon her return home at 90% without cues. Assessment Assessment Current Status: Good Progress Treatment Plan Continue Plan of Care Speech Short Term Goals Short Term Goals Short Term Goals 1) Patient will complete memory tasks related to her daily needs at 90% or greater. 2) Patient will complete problem solving tasks related to her daily needs at 90% or greater. 3) Patient will complete safety awareness tasks related to her daily needs at 90% or greater. 4) Patient will tolerate least restrictive diet level without s/s of aspiration at 90% or greater. 5) Patient will utilize compensatory strategies as trained for safe oral intake at 90% or greater. Speech Field Marketing Specialist Goals [facility] Goals Patient will improve cognitive-communication necessary for safety and daily living tasks with minimal assist. Patient will maintain adequate nutrition/hydration via safe effective swallow function. Speech-Plan Patient/Family Goals Patient/Family Goals: Patient is scheduled to return to her home with family tomorrow. Treatment Plan Speech Therapy Treatment Plan: Continue Plan of Care Treatment Duration: Jul 21, 2020 Frequency: 4 times per week (Patient will receive 4-5 ST treatments per week) Estimated Hrs Per Day: .5 hour per day Rehab Potential: Fair Barriers to Learning: Patient's recent CVA, age Pt/Family Agrees to Plan: Yes Safety Risks/Education Teaching Recipient: Patient, Family Teaching Methods: Demonstration, Discussion Response to Teaching: Verbalize Understanding, Return Demonstration Education Topics Provided: Continued safety upon her return home Time Speech Therapy Time In: 09:00 Speech Therapy Time Out: 09:30 Total Billed Time: 30 Billed Treatment Time 1, DYST, SLTS No QUALITY CODES: EXPRESSION OF IDEAS/WANTS: 4 UNDERSTANDING VERBAL CONTENT: 4 BRIEF INTERVIEW MENTAL STATUS: YES REPETITION OF THREE WORDS: 3 TEMPORAL ORIENTATION: YEAR: CORRECT, MONTH: CORRECT, DAY: CORRECT RECALL: SOCK: YES, COLOR: YES, BED: YES MEMORY/RECALL ABILITY: SEASON, LOCATION OF ROOM, STAFF NAMES, THAT SHE IS IN THE HOSPITAL SEGUN BRUNO Jul 20, 2020 09:58
--- NOTE | 2020-07-20 10:59 | Occupational Ther Daily Note ---
OT Current Status-Daily Note Subjective Pt alert in recliner, agreed to OT. Daughter in room. No c/o of pain. Mental Status/Objective Patient Orientation: Person, Place, Time, Situation ADL-Treatment Pt sit to stand from recliner, independently. Ambulated independently with no AD, to the shower. Pt sat on shower bench in bath. Pt doffed shirt independently, by threading head out first, then R arm and L arm. Pt doffed lo wer body dressing independently. Pt used shower bench, grab bars, and hand held shower head to be able to functionally and safely complete showering. Therapy Code Descriptions/Definitions Functional [place] Measure: 0=Not Assessed/NA 4=Minimal Assistance 1=Total Assistance 5=Supervision or Setup 2=Maximal Assistance 6=Modified [place] 3=Moderate Assistance 7=Complete IndependenceSCALE: Activities may be completed with or without assistive devices. 6-Akxzelbvzq-wikrlfr completes the activity by him/herself with no assistance from a helper. 5-Set-up or Clean-up Assistance-helper sets up or cleans up; patient completes activity. [place] assists only prior to or following the activity. 4-Supervision or Touching Assistance-helper provides verbal cues and/or touching/steadying and/or contact guard assistance as patient completes activity. Assistance may be provided throughout the activity or intermittently. 3-Partial/Moderate Assistance-helper does LESS THAN HALF the effort. [place] lifts, holds or supports trunk or limbs, but provides less than half the effort. 2-Substantial/Maximal Assistance-helper does MORE THAN HALF the effort. [place] lifts or holds trunk or limbs and provides more than half the effort. 0-Ojbzdpqzr-exadpa does ALL the effort. Patient does none of the effort to complete the activity. Or, the assistance of 2 or more helpers is required for the patient to complete the activity. If activity was not attempted, code reason: 7-Patient Refused. 9-Not Applicable-not attempted and the patient did not perform the activity before the current illness, exacerbation or injury. 10-Not Attempted due to Environmental Limitations-(lack of equipment, weather restraints, etc.). 88-Not Attempted due to Medical Conditions or Safety Concerns. Eating (QC): 6 (Per clincal judgement, pt able to complete independently.) Oral Hygiene (QC): 6 (Per clinical judgement, pt able to complete independently.) Bathing Location: L Arm, R Arm, L Upper Leg, R Upper Leg, L Lower Leg (including foot), R Lower Leg (including foot), Chest, Abdomen, Buttocks, Perineal Area Shower/Bathe Self (QC): 6 (Pt able to wash all body parts, by self/) Upper Body Dressing (QC): 5 (After set up, pt able to don shirt by self. Verbal cues and demonstration for one handed technique to don and doff bra.) Lower Body Dressing (QC): 5 (After set up, pt able to complete lower body dressing by self.) On/Off Footwear: 5 (After set up, pt able to don slippers by self.) Toileting Hygiene (QC): 6 (Per clincal judgment, pt able to complete independently.) Toilet Transfer (QC): 6 (Per clinical judgement, pt able to complete indep endently.) Other Treatment Pt ambulated independently with no AD to EOB. Pt transferred from EOB to supine. Began AAROM on pt's L arm to increase AROM for functional daily task. Pt able to initiate and complete motion due to weakness OT for assistance. Incoordination noted. Muscle facilitation for wrist flexion/extension. Minimal movement noted. Pt is using L UE more frequently in ADLs. After therapy, pt lying in bed with call light/phone in reach. All needs met in room. Daughter present in room. Education OT Patient Education: Modified ADL techniques (donning/doffing bra) Teaching Recipient: Patient, Family Teaching Methods: Demonstration Response to Teaching: Verbalize Understanding, Return Demonstration, Reinforcement Needed OT Short Term Goals Short Term Goals Time Frame: Jul 16, 2020 Oral hygiene: 5 Toileting hygiene: 5 Lower body dressin OT Retirement Goals Retirement Goals Time Frame: Jul 30, 2020 Eating (QC): 6 (met) Oral Hygiene (QC): 6 (met) Toileting Hygiene (QC): 6 (met) Shower/Bathe Self (QC): 5 (met) Upper Body Dressing (QC): 6 (not met. Pt requires verbal cues for one handed dressing technique while donning/doffing bra. Pt able to complete all other tasks independently.) Lower Body Dressing (QC): 6 (Met) On/Off Footwear (QC): 6 (Met) Additional Goals: 1-Demonstrate ADL Tasks, 2-Verbalize Understanding, 3- ImproveStrength/Solomon 1=Demonstrate adherence to instructed precautions during ADL tasks. 2=Patient will verbalize/demonstrate understanding of assistive devices/modifications for ADL. 3=Patient will improve strength/tolerance for activity to enable patient to perform ADL's. OT Education/Plan Problem List/Assessment Assessment: Decreased UE Strength, Impaired Coordination, Impaired Funct Balance, Impaired I ADL's, Impaired Self-Care Skills Pt would benefit from skilled OT to increase her independence with basic self care to allow her to safely return home. Discharge Recommendations Plan/Recommendations: Continue POC Therapy Discharge Recommendati: Post Acute OT (Home health/outpatient) Treatment Plan/Plan of Care Patient would benefit from OT for education, treatment and training to promote independence in ADL's, mobility, safety and/or upper extremity function for ADL's. Plan of Care: ADL Retraining, Functional Mobility, Group Exercise/Act as Ind, UE Funct Exercise/Act, UE Neuromus Re-Ed/Coord, Visual/Perceptual Retrain, OTHER (energy conservation education) Treatment Duration: Jul 30, 2020 Frequency: Modified Program (IRF) Estimated Hrs Per Day: 1.5 hours per day (1.25 to 1.5) Agreement: Yes Rehab Potential: Fair Time/GCodes Start Time: 09:45 Stop Time: 11:00 Total Time Billed (hr/min): 75 Billed Treatment Time 1 visit-ADL 4 (60 mins) NM 1(15 mins) ZENIA MORRIS Jul 20, 2020 10:59
--- NOTE | 2020-07-20 11:15 | Progress Note - Cardiology ---
Cardiology SOAP Progress Note Subjective: Lying in bed working with PT. Daughter at the bedside. Reports strength in left hand is improving, still unable to spice cleaner. No c/o CP or dyspnea. Objective: I&O/Vital Signs Weight (Pounds): 142 Weight (Ounces): 0.0 Weight (Calculated Kilograms): [id number] Constitutional: appears stated age, AAO x 3; No apparent distress; well- developed, well-nourished Respiratory: chest is bilaterally symmetric, lungs clear to auscultation Cardiovascular: regular rate-rhythm, S1 and S2 Gastrointestional: soft, audible bowel sounds Extremities: No clubbing; no lower extremity edema bilateral Neurologic/Psychiatric: other (5/5 RUE, RLE; 5/5 Left leg, 4/5 Left arm, 0/5 left hand) Skin: normal color; No rash on exposed areas, No ulcerations on exposed areas Results/Procedures: Labs Microbiology 07/14/20 MRSA Screen - Final, Complete MRSA not isolated A/P: Assessment: S/P right CEA by Dr. 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 Carotid u/s of 05/03/20: greater than 80% R ICA and less than 40% L ICA stenoses. (underwent RCEA) Sinus node dysfunction with intermittent sinus bradycardia and a-fib. ILR (implanted by Dr Sofia in August 2016) interrogations have shown brief PAF with good vent rate control - device removed per pt request on 01-22-18. 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 No evidence of significant obstructive PAD of the legs on seg pressures of 02/17/18 Plan: Continue rehab Continue OAC with Eliquis Follow labs from time to time GREG CUMIMNS Jul 20, 2020 11:15
--- NOTE | 2020-07-20 11:47 | Physical Therapy Daily Note ---
PT Daily Note-Current Subjective Pt laying Supine in bed upon arrival. Daughter is present. Pt agrees to PT stating "Let's go then". Pain Location: No Pain Reported Mental Status Patient Orientation: Person, Place, Situation Transfers SCALE: Activities may be completed with or without assistive devices. 7-Zyxzkwljol-rbfvlha completes the activity by him/herself with no assistance from a helper. 5-Set-up or Clean-up Assistance-helper sets up or cleans up; patient completes activity. [place] assists only prior to or following the activity. 4-Supervision or Touching Assistance-helper provides verbal cues and/or touching/steadying and/or contact guard assistance as patient completes activity. Assistance may be provided throughout the activity or intermittently. 3-Partial/Moderate Assistance-helper does LESS THAN HALF the effort. [place] lifts, holds or supports trunk or limbs, but provides less than half the effort. 2-Substantial/Maximal Assistance-helper does MORE THAN HALF the effort. [place] lifts or holds trunk or limbs and provides more than half the effort. 2-Jqqjyrwoe-yqyill does ALL the effort. Patient does none of the effort to complete the activity. Or, the assistance of 2 or more helpers is required for the patient to complete the activity. If activity was not attempted, code reason: 7-Patient Refused. 9-Not Applicable-not attempted and the patient did not perform the activity before the current illness, exacerbation or injury. 10-Not Attempted due to Environmental Limitations-(lack of equipment, weather restraints, etc.). 88-Not Attempted due to Medical Conditions or Safety Concerns. Roll Left & Right (QC): 6 Sit to Lying (QC): 6 Lying to Sitting/Side of Bed(Q: 6 Sit to Stand (QC): 6 Chair/Axh-jw-Pcapv Xfer(QC): 6 Toilet Transfer (QC): 6 Car Transfer (QC): 6 Weight Bearing Full Weight Bearing Full Weight Bearing Gait Training Does the Patient Walk?: Yes Distance: 450' Walk 10 feet (QC): 6 Walk 50 ft with 2 Turns(QC): 6 Walk 150 ft (QC): 6 Walking 10ft/uneven surface-QC: 6 Gait Persons Needed: 1 Gait Assistive Device: None Pt walks quickly and safely. Wheelchair Training Does the Pt Use a Wheelchair?: No Stair Training Stair Training: Handrails/: 2 handrails #of Steps: 12 1 Step (curb) (QC): 6 4 Steps (QC): 6 12 Steps (QC): 6 Stairs: Pattern: Reciprocal Balance Picking up an Object (QC): 6 Treatments Pt completes QC scoring see above for scores. Pt ambulates w/o AD and returns to room at end of tx to rest at EOB. OIL MIXER gives written HEP and reviews. Pt has all needs met, call light in hand. Assessment Current Status: Good Progress Pt leilani. tx well. PT Short Term Goals Short Term Goals Time Frame: Jul 16, 2020 Roll Left & Right: 6 (met) Sit to lyin (met) Lying to sitting on side of be: 6 Sit to stand: 5 (met) Chair/fwz-rf-cbcxs transfer: 5 (met) Walk 10 feet: 4 (met) Walk 50 feet with two turns: 4 (met) Walk 150 feet: 4 (met) PT Custodial Goals Exchange Mechanic Goals PT Custodial Goals Time Frame: Jul 30, 2020 Roll Left & Right (QC): 6 Sit to Lying (QC): 6 Lying-Sitting on Side/Bed(QC): 6 Sit to Stand (QC): 6 Chair/Rxb-tu-Bmjiy Xfer(QC): 6 Toilet Transfer (QC): 6 Car Transfer (QC): 6 Does the Patient Walk: Yes Walk 10 feet (QC): 6 Walk 50ft with 2 Turns (QC): 6 Walk 150 ft (QC): 6 Walking 10ft on Uneven Surface: 6 1 Step (curb) (QC): 5 4 Steps (QC): 5 12 Steps (QC): 5 Picking up an Object (QC): 5 Wheel 50 feet with 2 turns (QC: 9 Wheel 150 feet: 9 PT Plan Problem List Problem List: Activity Tolerance Treatment/Plan Treatment Plan: Continue Plan of Care Treatment Plan: Education, Functional Activity [place], Functional Strength, Group Therapy, Gait, Safety, Therapeutic Exercise, Transfers Treatment Duration: Jul 30, 2020 Frequency: At least 5 of 7 days/Wk (IRF) Estimated Hrs Per Day: 1.5 hours per day Patient and/or Family Agrees t: Yes Safety Risks/Education Patient Education: Gait Training, Issued Written HEP, Correct Positioning, Safety Issues Teaching Recipient: Patient Teaching Methods: Discussion Response to Teaching: Verbalize Understanding Time/GCodes Time In: 1100 Time Out: 1145 Total Billed Treatment Time: 45 Total Billed Treatment 1, FA x3 (45m) TONY ROMAN OIL MIXER Jul 20, 2020 11:47
[2020-07-20] MEDS: polyethylene glycoL POWDER 17 GM (MIRALAX) PACK PO SCH ×2 (12:26→19:47)
--- NOTE | 2020-07-20 13:31 | Occupational Ther Daily Note ---
OT Current Status-Daily Note Subjective Pt alert at EOB, talking on phone. Agreed to OT. No c/o of pain. Daughter present in room. Mental Status/Objective Patient Orientation: Person, Place, Time, Situation ADL-Treatment Therapy Code Descriptions/Definitions Functional [place] Measure: 0=Not Assessed/NA 4=Minimal Assistance 1=Total Assistance 5=Supervision or Setup 2=Maximal Assistance 6=Modified [place] 3=Moderate Assistance 7=Complete IndependenceSCALE: Activities may be completed with or without assistive devices. 6-Swgbvwiqaz-fiqvrrm completes the activity by him/herself with no assistance from a helper. 5-Set-up or Clean-up Assistance-helper sets up or cleans up; patient completes activity. [place] assists only prior to or following the activity. 4-Supervision or Touching Assistance-helper provides verbal cues and/or touching/steadying and/or contact guard assistance as patient completes activity. Assistance may be provided throughout the activity or intermittently. 3-Partial/Moderate Assistance-helper does LESS THAN HALF the effort. [place] lifts, holds or supports trunk or limbs, but provides less than half the effort. 2-Substantial/Maximal Assistance-helper does MORE THAN HALF the effort. [place] lifts or holds trunk or limbs and provides more than half the effort. 9-Arylwcpvd-cciume does ALL the effort. Patient does none of the effort to complete the activity. Or, the assistance of 2 or more helpers is required for the patient to complete the activity. If activity was not attempted, code reason: 7-Patient Refused. 9-Not Applicable-not attempted and the patient did not perform the activity before the current illness, exacerbation or injury. 10-Not Attempted due to Environmental Limitations-(lack of equipment, weather restraints, etc.). 88-Not Attempted due to Medical Conditions or Safety Concerns. Other Treatment Pt transferred EOB to quad cane. Took more time than normal due to pt. talking on phone. Pt ambulated independently to gym without AD. Pt sat on chair and began e-stim on L hand to increase AROM for wrist/hand extension/flexion for ~15 min using 8 mcpherson to active muscle movement for functional ADLs. Pt completed 2 sets of arch activity with 1 pound weight around R wrist to promote weight bearing throughout the L hand for strengthening and engaging the muscles of the L arm. Pt ambulated independently back to EOB, with call/light phone in reach. All needs met and daughter still present. OT Short Term Goals Short Term Goals Time Frame: Jul 16, 2020 Oral hygiene: 5 Toileting hygiene: 5 Lower body dressin OT Shelter Goals [place] Extension Agent Goals Time Frame: Jul 30, 2020 Eating (QC): 6 (met) Oral Hygiene (QC): 6 (met) Toileting Hygiene (QC): 6 (met) Shower/Bathe Self (QC): 5 (met) Upper Body Dressing (QC): 6 (not met. Pt requires verbal cues for one handed dressing technique while donning/doffing bra. Pt able to complete all other tasks independently.) Lower Body Dressing (QC): 6 (Met) On/Off Footwear (QC): 6 (Met) Additional Goals: 1-Demonstrate ADL Tasks, 2-Verbalize Understanding, 3- ImproveStrength/Solomon 1=Demonstrate adherence to instructed precautions during ADL tasks. 2=Patient will verbalize/demonstrate understanding of assistive devices/modifications for ADL. 3=Patient will improve strength/tolerance for activity to enable patient to perform ADL's. OT Education/Plan Problem List/Assessment Assessment: Decreased UE Strength, Impaired Coordination, Impaired Funct Balance, Impaired I ADL's, Impaired Self-Care Skills, Visual-Perceptual Deficit Pt would benefit from skilled OT to increase her independence with basic self care to allow her to safely return home. Discharge Recommendations Plan/Recommendations: Continue POC Treatment Plan/Plan of Care Patient would benefit from OT for education, treatment and training to promote independence in ADL's, mobility, safety and/or upper extremity function for ADL's. Plan of Care: ADL Retraining, Functional Mobility, Group Exercise/Act as Ind, UE Funct Exercise/Act, UE Neuromus Re-Ed/Coord, Visual/Perceptual Retrain, OTHER (energy conservation education) Treatment Duration: Jul 30, 2020 Frequency: Modified Program (IRF) Estimated Hrs Per Day: 1.5 hours per day (1.25 to 1.5) Agreement: Yes Rehab Potential: Fair Time/GCodes Start Time: 12:50 Stop Time: 13:20 Total Time Billed (hr/min): 30 Billed Treatment Time 1 visit -NM 1 (15 mins) FA 1(15) ZENIA MORRIS Jul 20, 2020 13:31
--- NOTE | 2020-07-20 15:33 | NUR ---
CM/SS DISCHARGE PLANNING Patient and daughter Rosemary continue to plan for discharge tomorrow. Discussed C agencies in service area that will accept patient's insurance, [employer] aside from Medicare Compare review. HHC: Initiated with [facility], patient has been confirmed for services to begin . RN PT OT DME: Patient has a cane at home and therapy team has not recommended any alternate assistive devices. IMM2 presented, reviewed, signed, charted. No intention to appeal, discharge planned in partnership over approx one week. Provided information to patient/daughter about how to enroll/access [facility] Patient Portal and alerted HIM staff to assist as well.
--- NOTE | 2020-07-20 15:46 | Physical Therapy Daily Note ---
PT Daily Note-Current Subjective Pt laying in bed upon arrival. Pt agrees to PT. Pain Location: No Pain Reported Mental Status Patient Orientation: Person, Place, Situation Transfers SCALE: Activities may be completed with or without assistive devices. 8-Hoijearzpi-jypmums completes the activity by him/herself with no assistance from a helper. 5-Set-up or Clean-up Assistance-helper sets up or cleans up; patient completes activity. [place] assists only prior to or following the activity. 4-Supervision or Touching Assistance-helper provides verbal cues and/or touching/steadying and/or contact guard assistance as patient completes activity. Assistance may be provided throughout the activity or intermittently. 3-Partial/Moderate Assistance-helper does LESS THAN HALF the effort. [place] lifts, holds or supports trunk or limbs, but provides less than half the effort. 2-Substantial/Maximal Assistance-helper does MORE THAN HALF the effort. [place] lifts or holds trunk or limbs and provides more than half the effort. 6-Mbtalmugk-mhpbrc does ALL the effort. Patient does none of the effort to complete the activity. Or, the assistance of 2 or more helpers is required for the patient to complete the activity. If activity was not attempted, code reason: 7-Patient Refused. 9-Not Applicable-not attempted and the patient did not perform the activity before the current illness, exacerbation or injury. 10-Not Attempted due to Environmental Limitations-(lack of equipment, weather restraints, etc.). 88-Not Attempted due to Medical Conditions or Safety Concerns. Lying to Sitting/Side of Bed(Q: 6 Sit to Stand (QC): 6 Weight Bearing Full Weight Bearing Full Weight Bearing Gait Training Does the Patient Walk?: Yes Distance: 150' x2 Walk 10 feet (QC): 6 Walk 50 ft with 2 Turns(QC): 6 Walk 150 ft (QC): 6 Gait Persons Needed: 1 Gait Assistive Device: None Treatments Pt focuses on being able to see and reach objects in the kitchen. Pt uses drama director and is able to bend over or reach tall shelves. Pt returns to room at end of tx with all needs met, call light in hand. Assessment Current Status: Good Progress Pt leilani. tx well and is excited to DC tomorrow (07/21). PT Short Term Goals Short Term Goals Time Frame: Jul 16, 2020 Roll Left & Right: 6 (met) Sit to lyin (met) Lying to sitting on side of be: 6 Sit to stand: 5 (met) Chair/krf-on-entqp transfer: 5 (met) Walk 10 feet: 4 (met) Walk 50 feet with two turns: 4 (met) Walk 150 feet: 4 (met) PT Adjunct Trainer Goals Alf Goals PT Alf Goals Time Frame: Jul 30, 2020 Roll Left & Right (QC): 6 Sit to Lying (QC): 6 Lying-Sitting on Side/Bed(QC): 6 Sit to Stand (QC): 6 Chair/Mrn-iw-Rxwas Xfer(QC): 6 Toilet Transfer (QC): 6 Car Transfer (QC): 6 Does the Patient Walk: Yes Walk 10 feet (QC): 6 Walk 50ft with 2 Turns (QC): 6 Walk 150 ft (QC): 6 Walking 10ft on Uneven Surface: 6 1 Step (curb) (QC): 5 4 Steps (QC): 5 12 Steps (QC): 5 Picking up an Object (QC): 5 Wheel 50 feet with 2 turns (QC: 9 Wheel 150 feet: 9 PT Plan Problem List Problem List: Activity Tolerance Treatment/Plan Treatment Plan: Continue Plan of Care Treatment Plan: Education, Functional Activity Solomon, Functional Strength, Group Therapy, Gait, Safety, Therapeutic Exercise, Transfers Treatment Duration: Jul 30, 2020 Frequency: At least 5 of 7 days/Wk (IRF) Estimated Hrs Per Day: 1.5 hours per day Patient and/or Family Agrees t: Yes Safety Risks/Education Patient Education: Correct Positioning, Safety Issues Teaching Recipient: Patient Teaching Methods: Discussion Response to Teaching: Verbalize Understanding Time/GCodes Time In: 1400 Time Out: 1430 Total Billed Treatment Time: 30 Total Billed Treatment 1, GT (15m) & FA (15m) TONY ROMAN RECORD CUTTER Jul 20, 2020 15:46
--- NOTE | 2020-07-20 15:58 | Progress Note - Cardiology ---
Cardiology SOAP Progress Note Subjective: No cp or palp or syncope or shortness of breath Persistent L hand weakness No n/v/d Objective: I&O/Vital Signs 07/20/20 07/20/20 05:34 08:51 Temp 36.0 Pulse 91 Resp 20 B/P (MAP) 114/63 (80) Pulse Ox 96 O2 Delivery Room Air Room Air 07/20/20 00:00 Intake Total 1080 ml Balance 1080 ml Weight (Pounds): 142 Weight (Ounces): 0.0 Weight (Calculated Kilograms): [id number] Constitutional: appears stated age, AAO x 3; No apparent distress; well- developed, well-nourished Respiratory: chest is bilaterally symmetric, lungs clear to auscultation Cardiovascular: regular rate-rhythm, S1 and S2 Gastrointestional: soft, audible bowel sounds Extremities: No clubbing; no lower extremity edema bilateral Neurologic/Psychiatric: other (5/5 RUE, RLE; 5/5 Left leg, 4/5 Left arm, 0/5 left hand) Skin: normal color; No rash on exposed areas, No ulcerations on exposed areas Results/Procedures: Labs Laboratory Tests 07/20/20 04:40: Sodium Level 140, Potassium Level 4.3, Chloride Level 105, Carbon Dioxide Level 25, Anion Gap 10, Blood Urea Nitrogen 12, Creatinine 0.76, Estimat Glomerular Filtration Rate > 60, BUN/Creatinine Ratio 16, Glucose Level 93, Calcium Level 8.8 Microbiology 07/14/20 MRSA Screen - Final, Complete MRSA not isolated Laboratory Tests 07/19/20 05:28 07/20/20 04:40 A/P: Assessment: Hypertension S/P right CEA by Dr. 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 Carotid u/s of 05/03/20: greater than 80% R ICA and less than 40% L ICA stenoses. (underwent RCEA) Sinus node dysfunction with intermittent sinus bradycardia and a-fib. ILR (implanted by Dr Sofia in August 2016) interrogations have shown brief PAF with good vent rate control - device removed per pt request on 01-22-18. 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 No evidence of significant obstructive PAD of the legs on seg pressures of 02/17/18 Plan: Lisinopril increased on 07/20/20 for bp. BP now appears better controlled Continue rehab Continue OAC with Eliquis Follow labs from time to time EUGENE CÁRDENAS MD FACP FAC CCDS Jul 20, 2020 15:58
[2020-07-20] MEDS: IBUPROFEN TABLET 200 MG TAB PO PRN (19:11)
[2020-07-20 19:15] VITALS: BP 148/67
[2020-07-20] MEDS: CYCLOBENZAPRINE 10 MG (FLEXERIL) TAB PO PRN (20:57)
[2020-07-21] MEDS ORDERED: CYCL10TA9 PO (05:10)
[2020-07-21] MEDS ORDERED: APIX5TAB PO (05:10)
[2020-07-21] MEDS ORDERED: AMLO10TA7 PO (05:10)
[2020-07-21] MEDS ORDERED: POTA10TA6 PO (05:10)
[2020-07-21] MEDS ORDERED: LISI-552 PO (05:10)
[2020-07-21] MEDS ORDERED: PANT40TA3 PO (05:10)
[2020-07-21] MEDS ORDERED: PHOS250T5 PO (05:10)
[2020-07-21] MEDS ORDERED: ALPR0.254 PO (05:10)
[2020-07-21] MEDS ORDERED: LEVO25TA5 PO (05:10)
[2020-07-21] MEDS ORDERED: ATOR40TA PO (05:10)
--- NOTE | 2020-07-21 05:12 | D/C HH Face to Face Order ---
D/C Face to Face Orders Reconcile Patient Problems Problems Reviewed?: Yes Instructions for Patient Via [facility], Patient Instructions/FollowUp: Dr Singh as scheduled Physician to follow Patient: Samantha Discharge Diet for Home: Cardiac Diet Patient Problems: CVA Left arm weakness HTN Goals for Patient: Regain independence Patient Data-Allergies,Ht & Wt Patient Allergies: Coded Allergies: Penicillins (Verified Allergy, Unknown, 12/16/18) codeine (Unverified Allergy, Unknown, 12/16/18) glycopyrrolate (Verified Allergy, Unknown, VOMITING, 12/16/18) Height (Feet): 5 Height (Inches): 0.00 Weight (Pounds): 142 Weight (Ounces): 0.0 Home Health Need/Face to Face Date of Face to Face: Jul 21, 2020 Clinical Findings: Generalized weakness and fatigue, Instability, Muscle weakness, Unsteady gait I have seen Pt [id number]: Yes Discharged To: Home Diagnosis/Conditions: CVA Left arm weakness HTN Patient is Homebound due to: Parrish fall risk due to instabilty, Muscle weakness Homebound Status Due to the above stated illness, injury or surgical procedure (medical condition or diagnosis) and associated clinical findings, the patient is homebound because of his/her inability to leave home except with aid of a supportive device and/or person AND leaving the home requires a considerable and taxing effort or is medically contraindicated. Pt req the following assistanc: Cane Home Health Nursing Orders Home Health Services Order: Nursing Services (BP monitoring), Legal Investigator-Evaluate & Treat, Physical Therapy-Evaluate & Treat [facility] certify that this patient is under my care and that I, a nurse practitioner or a physician; a environmental emergencies assistant working with me, had a face to face encounter that - meets the physician face to face encounter requirements with this patient as dated. ESSENCE SINGH DO Jul 21, 2020 05:12
[2020-07-21] MEDS: KCL 10 MEQ TAB (MICRO K) PO SCH (05:40)
[2020-07-21] MEDS: LEVOTHYROXINE 25 MCG (LEVOTHROID) TAB PO SCH (05:40)
[2020-07-21] MEDS: lisINopril 20 MG (PRINIVIL) TABLET PO SCH (05:43)
[2020-07-21] MEDS: amLODIPine 10 MG (NORVASC) TAB PO SCH (05:43)
[2020-07-21 06:02] VITALS: BP 189/81
[2020-07-21] MEDS: APIXABAN 5 MG (ELIQUIS) TABLET PO SCH (07:57)
[2020-07-21] MEDS: PANTOPRAZOLE 40 MG (PROTONIX) TAB PO SCH (07:57)
[2020-07-21] MEDS: POT PHOS/NA PHOS (K-PHOS NEUTRAL) PO SCH (07:57)
[2020-07-21] MEDS: ASPIRIN 81 MG CHEW (CHILDREN'S ASA) PO SCH (07:57)
[2020-07-21] MEDS: PRESERVISION AREDS SOFTGEL (BAUSH & LOMB) PO SCH (07:58)
--- NOTE | 2020-07-21 07:59 | NUR ---
Initial Spiritual Care visit by PRN Associate Woven Paper Hat Menderbraulio Jhaveri.
[2020-07-21] MEDS: DOCUSATE SODIUM 100 MG (COLACE) CAP PO SCH (08:03)
[2020-07-21] MEDS: SENNA W/DOCUSATE (SENOKOT S) TABLET PO SCH (08:03)
--- NOTE | 2020-07-21 08:55 | Discharge Summary ---
Diagnosis/Chief Complaint Date of Admission Jul 08, 2020 at 18:20 Date of Discharge Discharge Date: Jul 21, 2020 Discharge Diagnosis Assessment: CVA embolic type following right CEA Left arm weakness and left hand flaccidity Chronic AF OAC HTN Plan: Cardiology consulting Home meds Pain meds IRF protocol 07/09/20: Therapy for left arm flaccidity Monitor bowels Cardiology consultation Patient dislikes Lipitor 07/10/20: Saline nasal spray Monitor BP closely Fall risk 07/11/20: Maintain OAC IRF protocol BM regimen Lipitor concerns patient regarding liver issues 07/12/20: Consult Dr. Hale for EGD for dysphagia Continue supplements from home Continue bowel regimen Topical local pain medication for canker sore 07/13/20: Continue close blood pressure monitoring since it was high Bowels are moving EGD after barium swallow likely, per Dr. Hale 07/14/20: Barium swallow EGD 07/15 Monitor for pain Eliquis bridge with Lovenox 07/15/20: EGD today Lovenox bridge Eliquis to restart 07/16/20: Gastritis treated with PPI Restart Eliquis and ASA Monitor left arm and hand 07/17/20: Regular diet Canker sores improved Continue treatment as is 07/18/20: Monitor pain Increase therapy for left arm weakness 07/19/20: Cardiology to address elevated blood pressure Labs stable Discharge planned for Sunday07/20/20: Use Flexeril in addition to Ibuprofen for pain Monitor blood pressure Discharge tomorrow (1) CVA (cerebral vascular accident) (2) Atrial fibrillation Status: Acute (3) Carotid stenosis, bilateral (4) S/P carotid endarterectomy (5) Confusion Discharge Summary Discharge Physical Examination Allergies: Coded Allergies: Penicillins (Verified Allergy, Unknown, 12/16/18) codeine (Unverified Allergy, Unknown, 12/16/18) glycopyrrolate (Verified Allergy, Unknown, VOMITING, 12/16/18) Vitals & I&Os Vital Signs Date Time Temp Pulse Resp B/P (MAP) Pulse Ox O2 Delivery O2 Flow Rate FiO2 07/21/20 12:54 36.1 57 16 189/81 97 Room Air Hospital Course Was the Problem List Reviewed?: Yes Hospital course: Patient had a lengthy but uncomplicated course for 14 days in IRF after transferring from [facility] after sustaining a CVA after CEA. OAC maintained and LAURA was managed with more meds by Dr Harmon. Patient had no falls and no pain issues except for CHANDLER during course. Participated in rehab therapy services and improved rapidly and left arm increased ROM but left hand remained flaccid. Meds were deemed correct at [facility] and HH was ordered. Labs (last 24 hrs) Laboratory Tests 07/09/20 04:55: White Blood Count 8.0, Red Blood Count 4.66, Hemoglobin 13.4, Hematocrit 40, Mean Corpuscular Volume 87, Mean Corpuscular Hemoglobin 29, Mean Corpuscular Hemoglobin Concent 33, Red Cell Distribution Width 13.8, Platelet Count 297, Mean Platelet Volume 10.6H, Neutrophils (%) (Auto) 67, Lymphocytes (%) (Auto) 20, Monocytes (%) (Auto) 11, Eosinophils (%) (Auto) 2, Basophils (%) (Auto) 0, Neutrophils # (Auto) 5.4, Lymphocytes # (Auto) 1.6, Monocytes # (Auto) 0.9, Eosinophils # (Auto) 0.2, Basophils # (Auto) 0.0, Sodium Level 141, Potassium Level 3.2L, Chloride Level 107, Carbon Dioxide Level 24, Anion Gap 10, Blood Urea Nitrogen 10, Creatinine 0.67, Estimat Glomerular Filtration Rate > 60, BUN/Creatinine Ratio 15, Glucose Level 109H, Calcium Level 9.2, Corrected Calcium 9.7, Total Bilirubin 0.3, Aspartate Amino Transf (AST/SGOT) 33, Alanine Aminotransferase (ALT/SGPT) 41, Alkaline Phosphatase 104, Total Protein 6.0L, Albumin 3.4 07/12/20 05:24: White Blood Count 8.0, Red Blood Count 4.62, Hemoglobin 13.5, Hematocrit 40, Mean Corpuscular Volume 87, Mean Corpuscular Hemoglobin 29, Mean Corpuscular Hemoglobin Concent 34, Red Cell Distribution Width 13.6, Platelet Count 335, Mean Platelet Volume 11.0H, Neutrophils (%) (Auto) 65, Lymphocytes (%) (Auto) 23, Monocytes (%) (Auto) 10, Eosinophils (%) (Auto) 2, Basophils (%) (Auto) 0, Neutrophils # (Auto) 5.2, Lymphocytes # (Auto) 1.8, Monocytes # (Auto) 0.8, Eosinophils # (Auto) 0.2, Basophils # (Auto) 0.0, Sodium Level 142, Potassium Level 3.6, Chloride Level 107, Carbon Dioxide Level 26, Anion Gap 9, Blood Urea Nitrogen 11, Creatinine 0.73, Estimat Glomerular Filtration Rate > 60, BUN/Creatinine Ratio 15, Glucose Level 97, Calcium Level 9.3, Corrected Calcium 9.7, Total Bilirubin 0.3, Aspartate Amino Transf (AST/SGOT) 26, Alanine Ami notransferase (ALT/SGPT) 29, Alkaline Phosphatase 79, Total Protein 6.2L, Albumin 3.5 07/19/20 05:28: White Blood Count 6.4, Red Blood Count 5.00, Hemoglobin 14.4, Hematocrit 44, Mean Corpuscular Volume 87, Mean Corpuscular Hemoglobin 29, Mean Corpuscular Hemoglobin Concent 33, Red Cell Distribution Width 13.5, Platelet Count 330, Mean Platelet Volume 10.7H, Neutrophils (%) (Auto) 59, Lymphocytes (%) (Auto) 27, Monocytes (%) (Auto) 10, Eosinophils (%) (Auto) 3, Basophils (%) (Auto) 1, Neutrophils # (Auto) 3.8, Lymphocytes # (Auto) 1.7, Monocytes # (Auto) 0.7, Eosinophils # (Auto) 0.2, Basophils # (Auto) 0.0, Sodium Level 140, Potassium Level 4.0, Chloride Level 105, Carbon Dioxide Level 23, Anion Gap 12, Blood Urea Nitrogen 13, Creatinine 0.72, Estimat Glomerular Filtration Rate > 60, BUN/Creatinine Ratio 18, Glucose Level 95, Calcium Level 9.4, Magnesium Level 1.8 07/20/20 04:40: Sodium Level 140, Potassium Level 4.3, Chloride Level 105, Carbon Dioxide Level 25, Anion Gap 10, Blood Urea Nitrogen 12, Creatinine 0.76, Estimat Glomerular Filtration Rate > 60, BUN/Creatinine Ratio 16, Glucose Level 93, Calcium Level 8.8 Microbiology 07/14/20 MRSA Screen - Final, Complete MRSA not isolated Pending Labs Microbiology Date/Time Source Procedure Growth Status 07/14/20 00:25 Nasal MRSA Screen - Final MRSA not isolated Complete Laboratory Tests 07/09/20 04:55: White Blood Count 8.0, Red Blood Count 4.66, Hemoglobin 13.4, Hematocrit 40, Mean Corpuscular Volume 87, Mean Corpuscular Hemoglobin 29, Mean Corpuscular Hemoglobin Concent 33, Red Cell Distribution Width 13.8, Platelet Count 297, M cata Platelet Volume 10.6, Neutrophils (%) (Auto) 67, Lymphocytes (%) (Auto) 20, Monocytes (%) (Auto) 11, Eosinophils (%) (Auto) 2, Basophils (%) (Auto) 0, Neutrophils # (Auto) 5.4, Lymphocytes # (Auto) 1.6, Monocytes # (Auto) 0.9, Eosinophils # (Auto) 0.2, Basophils # (Auto) 0.0, Sodium Level 141, Potassium Level 3.2, Chloride Level 107, Carbon Dioxide Level 24, Anion Gap 10, Blood Urea Nitrogen 10, Creatinine 0.67, Estimat Glomerular Filtration Rate > 60, BUN/Creatinine Ratio 15, Glucose Level 109, Calcium Level 9.2, Corrected Calcium 9.7, Total Bilirubin 0.3, Aspartate Amino Transf (AST/SGOT) 33, Alanine Aminotransferase (ALT/SGPT) 41, Alkaline Phosphatase 104, Total Protein 6.0, Albumin 3.4 07/12/20 05:24: White Blood Count 8.0, Red Blood Count 4.62, Hemoglobin 13.5, Hematocrit 40, Mean Corpuscular Volume 87, Mean Corpuscular Hemoglobin 29, Mean Corpuscular He moglobin Concent 34, Red Cell Distribution Width 13.6, Platelet Count 335, Mean Platelet Volume 11.0, Neutrophils (%) (Auto) 65, Lymphocytes (%) (Auto) 23, Monocytes (%) (Auto) 10, Eosinophils (%) (Auto) 2, Basophils (%) (Auto) 0, Neutrophils # (Auto) 5.2, Lymphocytes # (Auto) 1.8, Monocytes # (Auto) 0.8, Eosinophils # (Auto) 0.2, Basophils # (Auto) 0.0, Sodium Level 142, Potassium Level 3.6, Chloride Level 107, Carbon Dioxide Level 26, Anion Gap 9, Blood Urea Nitrogen 11, Creatinine 0.73, Estimat Glomerular Filtration Rate > 60, BUN/Creatinine Ratio 15, Glucose Level 97, Calcium Level 9.3, Corrected Calcium 9.7, Total Bilirubin 0.3, Aspartate Amino Transf (AST/SGOT) 26, Alanine Aminotransferase (ALT/SGPT) 29, Alkaline Phosphatase 79, Total Protein 6.2, Albu min 3.5 07/19/20 05:28: White Blood Count 6.4, Red Blood Count 5.00, Hemoglobin 14.4, Hematocrit 44, Mean Corpuscular Volume 87, Mean Corpuscular Hemoglobin 29, Mean Corpuscular Hemoglobin Concent 33, Red Cell Distribution Width 13.5, Platelet Count 330, Mean Platelet Volume 10.7, Neutrophils (%) (Auto) 59, Lymphocytes (%) (Auto) 27, Monocytes (%) (Auto) 10, Eosinophils (%) (Auto) 3, Basophils (%) (Auto) 1, Neutrophils # (Auto) 3.8, Lymphocytes # (Auto) 1.7, Monocytes # (Auto) 0.7, Eosi nophils # (Auto) 0.2, Basophils # (Auto) 0.0, Sodium Level 140, Potassium Level 4.0, Chloride Level 105, Carbon Dioxide Level 23, Anion Gap 12, Blood Urea Nitrogen 13, Creatinine 0.72, Estimat Glomerular Filtration Rate > 60, BUN/Creatinine Ratio 18, Glucose Level 95, Calcium Level 9.4, Magnesium Level 1.8 07/20/20 04:40: Sodium Level 140, Potassium Level 4.3, Chloride Level 105, Carbon Dioxide Level 25, Anion Gap 10, Blood Urea Nitrogen 12, Creatinine 0.76, Estimat Glomerular Filtration Rate > 60, BUN/Creatinine Ratio 16, Glucose Level 93, Calcium Level 8.8 Discharge Home Medications: Active Scripts Active Pantoprazole Sodium 40 Mg Tablet.dr 40 Mg PO DAILY Klor-Con 10 (Potassium Chloride) 10 Meq Tablet.er 10 Meq PO DAILY@0700 Alprazolam 0.25 Mg Tablet 0.25 Mg PO Q8H PRN Lisinopril 20 Mg Tablet 20 Mg PO BID Amlodipine Besylate 10 Mg Tablet 10 Mg PO DAILY Lipitor (Atorvastatin Calcium) 40 Mg Tablet 40 Mg PO HS Phospha 250 Neutral Tablet (Phosphate) 1 Ea Tablet 1 Ea PO DAILY Levothyroxine Sodium 25 Mcg Tablet 25 Mcg PO DAILY Eliquis (Apixaban) 5 Mg Tablet 5 Mg PO BID Cyclobenzaprine HCl 10 Mg Tablet 10 Mg PO TID PRN Reported Centrum Chewables Adults Tab (Multivit-Min/Iron/Folic/Vit K1) 1 Each Tab.chew 1 Each PO DAILY [Niacin Flush Free] 250 Mg PO DAILY [Cardio [place]] 1 PO DAILY Selenium 200 Mcg Capsule 200 Mcg PO DAILY Coq-10 (Ubidecarenone) 30 Mg Capsule 30 Mg PO DAILY Aspirin 81 Mg Tab.chew 81 Mg PO HS Amiodarone HCl 200 Mg Tablet 200 Mg PO DAILY PRN Amino Acid (Amino Acids) 1 Each Capsule 1 Each PO DAILY Preservision Areds 2 Softgel (Vit C/E/Zn/Coppr/Lutein/Zeaxan) 1 Each Capsule 1 Each PO DAILY Turmeric (Turmeric Root Extract) 538 Mg Capsule 538 Mg PO DAILY Instructions to patient/family Please see electronic discharge instructions given to patient. Diagnosis/Problems Diagnosis/Problems (1) CVA (cerebral vascular accident) (2) Atrial fibrillation Status: Acute (3) Carotid stenosis, bilateral (4) S/P carotid endarterectomy (5) Confusion Clinical Quality Measures DVT/VTE Risk/Contraindication: Risk Factor Score Per Nursin RFS Level Per Nursing on Admit: 4+=Very High ESSENCE HAWK DO Jul 21, 2020 08:55
[2020-07-21] MEDS: polyethylene glycoL POWDER 17 GM (MIRALAX) PACK PO SCH (09:00)
--- NOTE | 2020-07-21 09:35 | Therapy Team Discharge Summary ---
Therapy Discharge Summary Discharge Recommendations Date of Discharge Physical Therapy Patient came to rehab with a CVA. Upon evaluation patient perfomred bed mobility and supine <-> sit with independence, sit <-> stand CGA, transfers CGA, car transfers CGA, ambulated 500' with a single point cane with CGA (including 50' with at least 2 turns of 90 degrees and 10' over an uneven surface), went up and down 4 steps using 2 handrails with CGA, and picked up an object from the floor with CGA. Patient has been performing bed mobility and transfer training, balance and endurance training, functional strengthening, stair training, gait training, and education. Patient has made good progress and has made all of her humanities division chair goals. Now, patient performs bed mobility with independence, supine <-> sit and sit <-> stand with independence, transfers and car transfer with independence, ambulates 450' without an assistive device with independence (including 50' with at least 2 turns of 90 degrees and 10' over an uneven surface), can go up and down 12 steps using 2 handrails with independence, and can pickle solution maker an object from the floor with independence. Patient is discharging from this facility today and will be discharged from PT at this time. Occupational Therapy Decreased UE Strength, Impaired Coordination, Impaired Funct Balance, Impaired I ADL's, Impaired Self-Care Skills, Visual-Perceptual Deficit PT [employer] Laborer Goals Senior Care Goals PT Senior Care Goals Time Frame: Jul 30, 2020 Roll Left to Right (QC): 6 Sit to Lying (QC): 6 Lying-Sitting on Side/Bed(QC): 6 Sit to Stand (QC): 6 Chair/Kbs-ma-Ubmiu Xfer(QC): 6 Car Transfer (QC): 6 Does the Patient Walk: Yes Walk 10 feet (QC): 6 Walk 10ft-Uneven Surface(QC): 6 Walk 50ft with 2 Turns (QC): 6 Walk 150 ft (QC): 6 Wheel 50 feet with 2 turns (QC: 9 1 Step (curb) (QC): 5 4 Steps (QC): 5 12 Steps (QC): 5 Picking up an Object (QC): 5 OT [employer] Laborer Goals Senior Care Goals Time Frame: Jul 30, 2020 Eating (QC): 6 (met) Oral Hygiene (QC): 6 (met) Shower/Bathe Self (QC): 5 (met) Upper Body Dressing (QC): 6 (not met. Pt requires verbal cues for one handed dressing technique while donning/doffing bra. Pt able to complete all other tasks independently.) Lower Body Dressing (QC): 6 (Met) On/Off Footwear (QC): 6 (Met) Toileting Hygiene (QC): 6 (met) Toilet/Commode Transfer (QC): 6 Additional Goals: 1-Demonstrate ADL Tasks, 2-Verbalize Understanding, 3- ImproveStrength/Solomon 1=Demonstrate adherence to instructed precautions during ADL tasks. 2=Patient will verbalize/demonstrate understanding of assistive devices/modifications for ADL. 3=Patient will improve strength/tolerance for activity to enable patient to perform ADL's. Speech [employer] Laborer Goals Senior Care Goals Patient will improve cognitive-communication necessary for safety and daily living tasks with minimal assist. Patient will maintain adequate nutrition/hydration via safe effective swallow function. ROSSY GUTIERREZ PT Jul 21, 2020 09:35
--- NOTE | 2020-07-21 10:19 | Therapy Team Discharge Summary ---
Therapy Discharge Summary Discharge Recommendations Date of Discharge Occupational Therapy Decreased UE Strength, Impaired Coordination, Impaired Funct Balance, Impaired I ADL's, Impaired Self-Care Skills, Visual-Perceptual Deficit Speech-Language Pathology Patient was admitted to the ARU s/p CVA. Patient exhibited mild cognitive deficits as indicated by the SLUMS. Patient met ST goals. Patient is discharging this date to her home with family support. PT Detention Goals Detention Goals PT Detention Goals Time Frame: Jul 30, 2020 Roll Left to Right (QC): 6 Sit to Lying (QC): 6 Lying-Sitting on Side/Bed(QC): 6 Sit to Stand (QC): 6 Chair/Trz-nx-Tlbef Xfer(QC): 6 Car Transfer (QC): 6 Does the Patient Walk: Yes Walk 10 feet (QC): 6 Walk 10ft-Uneven Surface(QC): 6 Walk 50ft with 2 Turns (QC): 6 Walk 150 ft (QC): 6 Wheel 50 feet with 2 turns (QC: 9 1 Step (curb) (QC): 5 4 Steps (QC): 5 12 Steps (QC): 5 Picking up an Object (QC): 5 OT Detention Goals Instrument Checker Goals Time Frame: Jul 30, 2020 Eating (QC): 6 (met) Oral Hygiene (QC): 6 (met) Shower/Bathe Self (QC): 5 (met) Upper Body Dressing (QC): 6 (not met. Pt requires verbal cues for one handed dressing technique while donning/doffing bra. Pt able to complete all other tasks independently.) Lower Body Dressing (QC): 6 (Met) On/Off Footwear (QC): 6 (Met) Toileting Hygiene (QC): 6 (met) Toilet/Commode Transfer (QC): 6 Additional Goals: 1-Demonstrate ADL Tasks, 2-Verbalize Understanding, 3- ImproveStrength/Solomon 1=Demonstrate adherence to instructed precautions during ADL tasks. 2=Patient will verbalize/demonstrate understanding of assistive devices/modifications for ADL. 3=Patient will improve strength/tolerance for activity to enable patient to perform ADL's. Speech Detention Goals Detention Goals Patient will improve cognitive-communication necessary for safety and daily living tasks with minimal assist. Patient will maintain adequate nutrition/hydration via safe effective swallow function. SEGUN BRUNO Jul 21, 2020 10:19
[2020-07-21 12:54] VITALS: BP 189/81
--- NOTE | 2020-07-21 15:18 | Therapy Team Discharge Summary ---
Therapy Discharge Summary Discharge Recommendations Date of Discharge Jul 21, 2020 at 12:54 Occupational Therapy Pt admitted to ARU with dx of CVA. At admission, pt required set up assist with feeding, CGA oral hygiene, min A showering, Mod A upper body dressing, Mod A lower body dressing, min A footwear, and CGA toileting. OT txs focus on increasing independence and safety with ADLs, neuromuscular re-education, and increasing functional endurance and strength. At discharge, pt was independent with feeding, oral hygiene, and showering, set up with upper & lower body d ressing and footwear, and independent with toileting. Pt made good progress towards goals meeting all goals except upper body dressing. Pt discharged from facility on this date, d/c from OT at this time. Decreased UE Strength, Impaired Coordination, Impaired Funct Balance, Impaired I ADL's, Impaired Self-Care Skills, Visual-Perceptual Deficit PT Residential Goals Granite Cutter Goals PT Granite Cutter Goals Time Frame: Jul 30, 2020 Roll Left to Right (QC): 6 Sit to Lying (QC): 6 Lying-Sitting on Side/Bed(QC): 6 Sit to Stand (QC): 6 Chair/Hpn-av-Oiiju Xfer(QC): 6 Car Transfer (QC): 6 Does the Patient Walk: Yes Walk 10 feet (QC): 6 Walk 10ft-Uneven Surface(QC): 6 Walk 50ft with 2 Turns (QC): 6 Walk 150 ft (QC): 6 Wheel 50 feet with 2 turns (QC: 9 1 Step (curb) (QC): 5 4 Steps (QC): 5 12 Steps (QC): 5 Picking up an Object (QC): 5 OT Residential Goals Granite Cutter Goals Time Frame: Jul 30, 2020 Eating (QC): 6 (met) Oral Hygiene (QC): 6 (met) Shower/Bathe Self (QC): 5 (met) Upper Body Dressing (QC): 6 (not met. Pt requires verbal cues for one handed dressing technique while donning/doffing bra. Pt able to complete all other tasks independently.) Lower Body Dressing (QC): 6 (Met) On/Off Footwear (QC): 6 (Met) Toileting Hygiene (QC): 6 (met) Toilet/Commode Transfer (QC): 6 Additional Goals: 1-Demonstrate ADL Tasks, 2-Verbalize Understanding, 3- ImproveStrength/Solomon 1=Demonstrate adherence to instructed precautions during ADL tasks. 2=Patient will verbalize/demonstrate understanding of assistive devices/modifications for ADL. 3=Patient will improve strength/tolerance for activity to enable patient to perform ADL's. Speech Granite Cutter Goals Granite Cutter Goals Patient will improve cognitive-communication necessary for safety and daily living tasks with minimal assist. Patient will maintain adequate nutrition/hydration via safe effective swallow function. HANNA YAN OT Jul 21, 2020 15:18
--- NOTE | 2020-07-21 15:43 | NUR ---
CM/SS DISCHARGE Patient discharged to home as planned. HHC: Finalized with [facility] for RN PT OT. DME: None needed/recommended. IMM2 presented, signed, charted. Patient voice no intention to appeal, discharge has been planned over approximately one week. Daughter Rosemary Mendez present during all discharge activities today. Unit RN aware of discharge and arrangements.
--- NOTE | 2020-07-21 17:53 | Progress Note - Cardiology ---
Cardiology SOAP Progress Note Subjective: No cp or palp or syncope Persistent L hand weakness Dysphagia improved No n/v/d Objective: I&O/Vital Signs 07/21/20 07/21/20 07/21/20 06:02 09:00 12:54 Temp 36.1 36.1 Pulse 57 57 Resp 16 16 B/P (MAP) 189/81 (117) 189/81 Pulse Ox 97 97 O2 Delivery Room Air Room Air Room Air 07/21/20 00:00 Intake Total 1200 ml Balance 1200 ml Weight (Pounds): 142 Weight (Ounces): 0.0 Weight (Calculated Kilograms): [id number] Constitutional: appears stated age, AAO x 3; No apparent distress; well- developed, well-nourished Respiratory: chest is bilaterally symmetric, lungs clear to auscultation Cardiovascular: regular rate-rhythm, S1 and S2 Gastrointestional: soft, audible bowel sounds Extremities: No clubbing; no lower extremity edema bilateral Neurologic/Psychiatric: other (5/5 RUE, RLE; 5/5 Left leg, 4/5 Left arm, 0/5 left hand) Skin: normal color; No rash on exposed areas, No ulcerations on exposed areas Results/Procedures: Labs Microbiology 07/14/20 MRSA Screen - Final, Complete MRSA not isolated Laboratory Tests 07/20/20 04:40 A/P: Assessment: Hypertension S/P right CEA by Dr. 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 Carotid u/s of 05/03/20: greater than 80% R ICA and less than 40% L ICA stenoses. (underwent RCEA) Sinus node dysfunction with intermittent sinus bradycardia and a-fib. ILR (implanted by Dr Sofia in August 2016) interrogations have shown brief PAF with good vent rate control - device removed per pt request on 01-22-18. 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 No evidence of significant obstructive PAD of the legs on seg pressures of 02/17/18 Plan: BP labile but generally improved after med adjustment Continue current regimen Outpt f/u advised EUGENE CÁRDENAS MD FACP FAC CCDS Jul 21, 2020 17:53
== END 2020-07-21 12:54 | disposition home health service (06) | DRG 57 ==
PROVIDERS: ADMIT Internal Medicine; ATTEND Internal Medicine
DX: I69.334 Monoplegia of upper limb following cerebral infarction affecting left non-dominant side (principal); I69.392 Facial weakness following cerebral infarction; I69.318 Other symptoms and signs involving cognitive functions following cerebral infarction; R41.0 Disorientation, unspecified; R13.10 Dysphagia, unspecified; I48.0 Paroxysmal atrial fibrillation; I65.23 Occlusion and stenosis of bilateral carotid arteries; K29.70 Gastritis, unspecified, without bleeding; I89.0 Lymphedema, not elsewhere classified; K12.0 Recurrent oral aphthae; K44.9 Diaphragmatic hernia without obstruction or gangrene; I10 Essential (primary) hypertension; E78.2 Mixed hyperlipidemia; K21.9 Gastro-esophageal reflux disease without esophagitis; I08.1 Rheumatic disorders of both mitral and tricuspid valves; I49.5 Sick sinus syndrome; I73.9 Peripheral vascular disease, unspecified; M19.91 Primary osteoarthritis, unspecified site; Z79.01 Long term (current) use of anticoagulants; Z90.710 Acquired absence of both cervix and uterus; Z90.49 Acquired absence of other specified parts of digestive tract
CPT/HCPCS: 36415; 74220; 80048; 80053; 83735; 85025; 87081

== ENCOUNTER 2020-07-15 08:22 | Day surgery (SDC) | payer MEDICARE, MEDICAID ==
[~2020-07-15 08:22] MED LIST changes: -ACETAMINOPHEN 500 MG TAB (TYLENOL) PO PRN; -ALPRAZolam 0.25 MG (XANAX) TAB PO PRN; -BISACODYL 10 MG SUPP (DULCOLAX) PR PRN; -CALCIUM CARBONATE 500 MG (TUMS) TAB.CHEW PO PRN; -DOCUSATE SODIUM 100 MG (COLACE) CAP PO PRN; -DOCUSATE SODIUM 100 MG (COLACE) CAP PO SCH; -FLEET ENEMA ADULT 1 EA BTL PR PRN; -LACTULOSE SYRUP 10GM/15ML (ENULOSE) 30ML UDC PO PRN; -LOPERAMIDE 2 MG (IMODIUM) TABLET PO PRN; -MELATONIN 3 MG TABLET PO PRN; +MULT-1112 PO; +NIACIN FLUSH FREE PO; -ONDANSETRON 4 MG (ZOFRAN) ORAL DISSOLVE TAB PO PRN; -diphenhydrAMINE 25 MG TAB (BENADRYL) PO PRN; -guaiFENesin/CODEINE (ROBITUSSIN AC) 10ML UDC PO PRN
[2020-07-15] MEDS ORDERED: LACTATED RINGERS 1,000 ML IV ONE (12:16)
[2020-07-15] MEDS ORDERED: LACTATED RINGERS 1,000 ML IV STA (12:29)
[2020-07-15] MEDS ORDERED: HURRICAINE EXT TUBE (BENZOCAINE) XX PRN (12:30)
[2020-07-15 12:33] VITALS: BP 151/88
[2020-07-15] MEDS ORDERED: PROPOFOL INJECTION 50 ML IV ONE (13:08)
[2020-07-15] MEDS ORDERED: MIDAZOLAM 2 MG/2 ML (VERSED) VIAL ONE (13:08)
[2020-07-15 13:25] VITALS: BP 173/100
[2020-07-15 13:30] VITALS: BP 242/175
[2020-07-15 13:35] VITALS: BP 188/77
--- NOTE | 2020-07-15 16:07 | Anesthesia-General Post-Op ---
MAC Patient Condition Mental Status/LOC: Same as Preop Cardiovascular: Satisfactory Nausea/Vomiting: Absent Respiratory: Satisfactory Pain: Controlled Complications: Absent Post Op Complications Complications None Follow Up Care/Instructions Patient Instructions None needed. Anesthesiology Discharge Order Discharge Order Patient is doing well, no complaints, stable vital signs, no apparent adverse anesthesia problems. No complications reported per nursing. SANYA COURTNEY CRNA Jul 15, 2020 16:07
--- NOTE | 2020-07-16 05:08 | OPERATIVE REPORT ---
DATE OF SERVICE: 07/15/2020 PREOPERATIVE DIAGNOSIS: Dysphagia. POSTOPERATIVE DIAGNOSES: Gastritis, small hiatal hernia. PROCEDURE: EGD with biopsies. SURGEON: Mallory Hale DO ANESTHESIA: Per SAMPLE EXAMINER. ESTIMATED BLOOD LOSS: Scant. COMPLICATIONS: None. SPECIMENS: Antrum, body and GE junction. INDICATIONS: The patient is an 85-year-old female with dysphagia symptoms. She understands risks and benefits of procedure and wished to proceed with procedures. She had barium swallow demonstrating tertiary contractions. Consent was signed in the chart. DESCRIPTION OF PROCEDURE: The patient was taken to the endoscopy suite, placed in left lateral recumbent position. Timeout was performed. Scope was inserted in mouth, down the esophagus, stomach and into the duodenum without difficulty. There were no polyps, masses or ulcerations within the duodenum. Scope was slowly retracted back into the stomach where it was further insufflated. Slight edematous changes throughout the stomach were present consistent with gastritis. Biopsy of the antrum and body were obtained. No polyps, masses or ulcerations. Scope was retroflexed noting a small hiatal hernia, no other pathology. Scope was returned to its normal position, slowly withdrawn to the distal esophagus where in addition to the biopsy of the antrum and body. Biopsy of the GE junction was obtained. Scope was then slowly retracted back until completely removed, noting no other pathology. The patient tolerated procedure well without any complications. She was taken to recovery room in stable condition. RECOMMENDATIONS: The patient will be started on Protonix 40 mg daily. We will see how she is doing have her follow up in 2 weeks to discuss pathology results and see how her symptoms are doing at that time. Dysphagia symptoms most likely from tertiary contractions. Job ID: [id number] DocumentID: [id number] Dictated Date: 07/15/2020 16:08:56 Manager Transplant Date: 07/16/2020 02:04:38 Dictated By: MALLORY HALE DO
== END 2020-07-15 13:35 | disposition home or self-care (01) ==
LOC: ENDO 08:22
PROVIDERS: ATTEND Surgery
DX: K29.70 Gastritis, unspecified, without bleeding (principal); K44.9 Diaphragmatic hernia without obstruction or gangrene; K20.9 Esophagitis, unspecified; I69.354 Hemiplegia and hemiparesis following cerebral infarction affecting left non-dominant side; Z79.01 Long term (current) use of anticoagulants; Z79.899 Other long term (current) drug therapy; Z88.0 Allergy status to penicillin; Z88.5 Allergy status to narcotic agent; Z88.8 Allergy status to other drugs, medicaments and biological substances

== ENCOUNTER → 2020-11-16 | Outpatient (RCR) | payer MEDICARE, MEDICAID ==
[~2020-11-16] MED LIST changes: +ALPR.25T PO; -AMIO200T4 PO; +AMIO200T6 PO; +AMLO-251 PO; -AMLO10TA7 PO; +ATOR40TA PO; +LISI-552 PO; -PANT40TA3 PO; +PANT40TA52 PO; +POTA10TA6 PO
== END | disposition home or self-care (01) ==
PROVIDERS: ATTEND Internal Medicine
DX: R53.1 Weakness (principal)

== ENCOUNTER 2020-11-24 13:00 | Outpatient (RCR) | payer MEDICARE, MEDICAID | END 2020-11-30 12:32 | disposition home or self-care (01) | PROVIDERS: ATTEND Internal Medicine | DX: R53.1 Weakness (principal); R29.898 Other symptoms and signs involving the musculoskeletal system ==

== ENCOUNTER 2021-05-21 21:46 | Emergency (ER) | payer MEDICARE, MEDICAID ==
[~2021-05-21] VITALS: Ht 152.4 cm; Wt 65.9 kg
[~2021-05-21 21:46] MED LIST changes: -DRON400T2 PO; +DRON400T6 PO; -LISI-552 PO; -LISI10TA2 PO; +LISI10TA25 PO; +LISI20TA26 PO
[2021-05-21 22:00] VITALS: BP 151/87
--- NOTE | 2021-05-21 22:39 | ED Integumentary General ---
General Chief Complaint: Bite-Animal/Human/Insect Stated Complaint: R ARM BITE / SWELLING Source: patient Exam Limitations: no limitations History of Present Illness Date Seen by Provider: May 21, 2021 Time Seen by Provider: 22:30 Initial Comments Patient to the ER by private conveyance from home with chief complaint of being stung by an insect earlier today and she is had increasing itching redness and rash going up her left arm. 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 She did not see the insect. She is having no difficulty swallowing fluids talking voice changes or shortness of air. Allergies and Home Medications Allergies Coded Allergies: Penicillins (Verified Allergy, Unknown, 12/16/18) codeine (Unverified Allergy, Unknown, 12/16/18) glycopyrrolate (Verified Allergy, Unknown, VOMITING, 12/16/18) Home Medications ALPRAZolam 0.25 Mg Tablet, 0.25 MG PO Q8H PRN for ANXIETY Prescribed by: ESSENCE HAWK on 07/21/20510 Amino Acids 1 Each Capsule, 1 EACH PO DAILY, (Reported) Amiodarone HCl 200 Mg Tablet, 200 MG PO DAILY PRN for IRREGULAR HEART RYTHYM, (Reported) Amlodipine Besylate 10 Mg Tablet, 10 MG PO DAILY Prescribed by: ESSENCE HAWK on 07/21/20509 Apixaban 5 Mg Tablet, 5 MG PO BID Prescribed by: ESSENCE HAWK on 07/21/20509 Aspirin 81 Mg Tab.chew, 81 MG PO HS, (Reported) Atorvastatin Calcium 40 Mg Tablet, 40 MG PO HS Prescribed by: ESSENCE HAWK on 07/21/20509 Cyclobenzaprine HCl 10 Mg Tablet, 10 MG PO TID PRN for MUSCLE SPASMS Prescribed by: ESSENCE HAWK on 07/21/20509 Levothyroxine Sodium 25 Mcg Tablet, 25 MCG PO DAILY Prescribed by: ESSENCE HAWK on 07/21/20509 Lisinopril 20 Mg Tablet, 20 MG PO BID Prescribed by: ESSENCE HAWK on 07/21/20509 Multivit-Min/Iron/Folic/Vit K1 1 Each Tab.chew, 1 EACH PO DAILY, (Reported) Pantoprazole Sodium 40 Mg Tablet.dr, 40 MG PO DAILY Prescribed by: ESSENCE HAWK on 07/21/20509 Phosphate 1 Ea Tablet, 1 EA PO DAILY Prescribed by: ESSENCE HAWK on 07/21/20 0510 Potassium Chloride 10 Meq Tablet.er, 10 MEQ PO DAILY@0700 Prescribed by: ESSENCE HAWK on 07/21/20 0510 Selenium 200 Mcg Capsule, 200 MCG PO DAILY, (Reported) Turmeric Root Extract 538 Mg Capsule, 538 MG PO DAILY, (Reported) Ubidecarenone 30 Mg Capsule, 30 MG PO DAILY, (Reported) Vit C/E/Zn/Coppr/Lutein/Zeaxan 1 Each Capsule, 1 EACH PO DAILY, (Reported) [Cardio Enterprise] , 1 PO DAILY, (Reported) [Niacin Flush Free] , 250 MG PO DAILY, (Reported) Patient Home Medication List Home Medication List Reviewed: Yes Review of Systems Review of Systems Constitutional: No chills, No diaphoresis EENTM: No ear discharge, No ear pain Respiratory: No cough, No short of breath Cardiovascular: No edema, No palpitations Gastrointestinal: No abdominal pain, No constipation, No nausea, No vomiting Genitourinary: No discharge, No dysuria Musculoskeletal: No back pain, No joint pain Skin: change in color, pruritus, rash All Other Systems Reviewed Negative Unless Noted: Yes Past Xvhcjfg-Onviuq-Dpdnxi Hx Patient Social History Alcohol Use: Denies Use Smoking Status: Never a Smoker 2nd Hand Smoke Exposure: No Recent Hopitalizations: No Immunizations Up To Date Tetanus Booster (TDap): Unknown PED Vaccines UTD: No Date of Pneumonia Vaccine: Aug 26, 2013 Seasonal Allergies Seasonal Allergies: No Past Medical History Surgeries: Yes ( cataracts, colon sx, hemorrhoids x3, labia abscess) Appendectomy, Cardiac, Gallbladder, Hysterectomy, Vascular Surgery Respiratory: No Cardiac: Yes (typical atrial flutter) Atrial Fibrillation, Hypertension, Peripheral Vascular Neurological: No Reproductive Disorders: No [employer]CH[employer] History: Menopausal Sexually Transmitted Disease: No Genitourinary: No Gastrointestinal: Yes (ulceritive colitis, ) Gastroesophageal Reflux, Obstructive Bowel Musculoskeletal: Yes (BRUSITIS) Arthritis Endocrine: No HEENT: Yes Cataract Cancer: No Psychosocial: No Integumentary: Yes (bacterial folliculitis) Blood Disorders: No Adverse Reaction/Blood Tranf: No Family Medical History No Pertinent Family Hx Physical Exam Vital Signs Capillary Refill : General Appearance: WD/WN, mild distress HEENT: PERRL/EOMI, pharynx normal Neck: full range of motion, normal inspection Cardiovascular: normal peripheral pulses, regular rate, rhythm Respiratory: no respiratory distress, no accessory muscle use, other (Negative for stridor) Neurologic/Psychiatric: alert, normal mood/affect, oriented x 3 Skin: rash (Erythematous, hives wheals, localized pruritic rash over her right upper arm with an area of injury consistent with insect sting on the back of her tricep.) Progress/Results/Core Measures Results/Orders My Orders Orders - FANI CAM Diphenhydramine Tablet (Benadryl Tablet) (05/21/21 22:45) Methylprednisolone Sod Succ (Solu-Medrol (05/21/21 22:45) Progress Progress Note : Time: 22:41 Progress Note She took some loratadine earlier today. We will encourage her to take that twice a day in addition to Benadryl 1 tablet every 6 hours. We will give her a shot of steroid and return precautions. She is okay with this plan. Departure Impression Primary Impression: Insect sting allergy, current reaction Qualified Codes: T63.481A - Toxic effect of venom of other arthropod, accidental (unintentional), initial encounter Disposition: HOME, SELF-CARE Condition: Stable Departure-Patient Inst. Decision time for Depature: 22:42 Referrals: ESSENCE HAWK DO (PCP) Primary Care Physician Patient Instructions: Insect Bites and Stings (DC) Add. Discharge Instructions: Keep the skin clean with regular soap and water only. You can use Claritin/loratadine or Zyrtec/cetirizine 10 mg twice a day until the itching and rash goes away. For breakthrough itching you should use Benadryl 1 or 2 tablets every 6 hours as necessary. You have been given a shot of steroid to slow down the inflammation. If your symptoms or not improved by Sunday or Sunday then follow-up with your primary care doctor for reevaluation. If you have difficulty breathing, swallowing your saliva or stridor then I encourage you to promptly return to the nearest ER. All discharge instructions reviewed with patient and/or family. Voiced understanding. FANI CAM May 21, 2021 22:39
[2021-05-21] MEDS ORDERED: methylPREDNISolone 125 MG (Solu-MEDROL) VIAL IM ONE (22:45)
[2021-05-21] MEDS ORDERED: methylPREDNISolone 125 MG (Solu-MEDROL) VIAL IVP ONE (22:45)
[2021-05-21] MEDS ORDERED: diphenhydrAMINE 25 MG TAB (BENADRYL) PO ONE ×2 (22:45→23:00)
== END 2021-05-21 22:55 | disposition home or self-care (01) ==
LOC: EDUNIT# 21:46 → ER 21:50
DX: T63.481A Toxic effect of venom of other arthropod, accidental (unintentional), initial encounter (principal); I10 Essential (primary) hypertension; I48.91 Unspecified atrial fibrillation; K21.9 Gastro-esophageal reflux disease without esophagitis; Z79.01 Long term (current) use of anticoagulants; Z79.82 Long term (current) use of aspirin; Z79.899 Other long term (current) drug therapy
CPT/HCPCS: 99284

== ENCOUNTER 2021-08-11 15:15 | Outpatient (RCR) | payer MEDICARE, MEDICAID | END 2021-08-15 | disposition home or self-care (01) | PROVIDERS: ATTEND Internal Medicine | DX: R53.1 Weakness (principal); R29.898 Other symptoms and signs involving the musculoskeletal system ==

== ENCOUNTER 2021-10-04 14:30 | Outpatient (RCR) | payer MEDICARE, MEDICAID | END 2021-10-04 16:30 | disposition home or self-care (01) | PROVIDERS: ATTEND Internal Medicine | DX: I69.354 Hemiplegia and hemiparesis following cerebral infarction affecting left non-dominant side (principal) ==

== ENCOUNTER 2021-12-22 13:13 | Outpatient (RCR) | payer MEDICARE, MEDICAID ==
[~2021-12-22 13:13] MED LIST changes: -AMIO200T6 PO; +AMIO200T65 PO; +CYCL10TA25 PO; -CYCL10TA9 PO; +POTA-160 PO; -POTA10TA6 PO
== END 2021-12-26 | disposition home or self-care (01) ==
PROVIDERS: ATTEND Internal Medicine
DX: I69.352 Hemiplegia and hemiparesis following cerebral infarction affecting left dominant side (principal)

== ENCOUNTER 2022-01-17 14:51 | Outpatient (RCR) | payer MEDICARE, MEDICAID | END 2022-01-23 | disposition home or self-care (01) | PROVIDERS: ATTEND Internal Medicine | DX: I69.359 Hemiplegia and hemiparesis following cerebral infarction affecting unspecified side (principal) ==

== ENCOUNTER → 2022-02-23 | Outpatient (RCR) | payer MEDICARE, MEDICAID | END | disposition home or self-care (01) | PROVIDERS: ATTEND Internal Medicine | DX: I69.359 Hemiplegia and hemiparesis following cerebral infarction affecting unspecified side (principal) ==

== ENCOUNTER 2022-03-02 14:23 | Outpatient (RCR) | payer MEDICARE, MEDICAID | END 2022-03-25 | disposition home or self-care (01) | PROVIDERS: ATTEND Internal Medicine | DX: I69.354 Hemiplegia and hemiparesis following cerebral infarction affecting left non-dominant side (principal) ==

== ENCOUNTER 2022-03-23 14:32 | Outpatient (RCR) | payer MEDICARE, MEDICAID | END 2022-03-25 | disposition home or self-care (01) | PROVIDERS: ATTEND Nurse Practitioner Family | DX: M75.02 Adhesive capsulitis of left shoulder (principal); I69.398 Other sequelae of cerebral infarction ==

== ENCOUNTER 2022-04-25 14:25 | Outpatient (RCR) | payer MEDICARE, MEDICAID | END 2022-04-25 15:03 | disposition home or self-care (01) | PROVIDERS: ATTEND Nurse Practitioner Family | DX: M75.02 Adhesive capsulitis of left shoulder (principal); I10 Essential (primary) hypertension; Z86.73 Personal history of transient ischemic attack (TIA), and cerebral infarction without residual deficits ==

== ENCOUNTER → 2022-04-26 | Outpatient (CLI) | payer MEDICARE, MEDICAID ==
--- NOTE | 2022-04-26 13:54 | Diagnostic Imaging Report ---
PROCEDURE: CT head without contrast. TECHNIQUE: Multiple contiguous axial images were obtained through the brain without the use of intravenous contrast. Auto Exposure Controls were utilized during the CT exam to meet ALARA standards for radiation dose reduction. INDICATION: Posterior scalp mass. Comparison is made with prior examination from 09/13/2016. FINDINGS: There is some focal decreased attenuation in the distribution of the right middle cerebral artery compatible with prior CVA. There is prominence of the ventricles and sulci. There is some mild chronic microvascular ischemic disease. There is no hydrocephalus. There is no midline shift. There is no hemorrhage. There is no extra-axial fluid collection. The calvarium is intact. There is a benign-appearing area of sclerosis on the right posterolateral scalp. IMPRESSION: Atrophy and some chronic microvascular ischemic disease with focal diffusion restriction in the distribution of the right middle cerebral artery compatible with prior CVA. Dictated by: Dictated on workstation # [id number]
== END ==
LOC: RAD 12:45
PROVIDERS: ATTEND Otolaryngology Otolaryngology/Facial Plastic Surgery
DX: G31.9 Degenerative disease of nervous system, unspecified (principal); I67.82 Cerebral ischemia
CPT/HCPCS: 70450

== ENCOUNTER → 2022-05-15 | Outpatient (CLI) | payer MEDICARE, MEDICAID ==
[~2022-05-15] MED LIST changes: +BARIUM for suspension 96% w/w (Vanilla Silq Medium Density) PO ONE; +BARIUM for suspension 98% w/w (Vanilla Silq High Density) PO ONE
--- NOTE | 2022-05-15 12:00 | Diagnostic Imaging Report ---
INDICATION: Dysphagia and difficulty swallowing. The patient ingested effervescent crystals as well as thin and thick barium and imaging over the esophagus was performed in multiple obliquities. A total of 57 seconds of fluoroscopic time was utilized. Preliminary radiograph of the chest is unremarkable. The esophagus has a fairly smooth contour without evidence of mass. There is some mild smooth narrowing of the most distal aspect of the esophagus near the GE junction which could represent a short stricture. No obstruction to contrast column is seen. The patient does have tertiary contractions consistent with esophageal dysmotility. No gastroesophageal reflux or hiatal hernia was demonstrated. IMPRESSION: There is a short segment of mild luminal narrowing in the distal esophagus near the GE junction which may represent a short stricture however no obstruction is identified. Generalized esophageal dysmotility. Dictated by: Dictated on workstation # [id number]
== END ==
LOC: RAD 10:52
PROVIDERS: ATTEND Surgery
DX: R13.10 Dysphagia, unspecified (principal)
CPT/HCPCS: 74220

== ENCOUNTER → 2022-05-25 | Outpatient (RCR) | payer MEDICARE, MEDICAID ==
[~2022-05-25] MED LIST changes: -BARIUM for suspension 96% w/w (Vanilla Silq Medium Density) PO ONE; -BARIUM for suspension 98% w/w (Vanilla Silq High Density) PO ONE
== END | disposition home or self-care (01) ==
PROVIDERS: ATTEND Internal Medicine
DX: I69.352 Hemiplegia and hemiparesis following cerebral infarction affecting left dominant side (principal)

== ENCOUNTER 2022-06-22 08:56 | Outpatient (RCR) | payer MEDICARE, MEDICAID | END 2022-06-25 | disposition home or self-care (01) | PROVIDERS: ATTEND Internal Medicine | DX: I69.352 Hemiplegia and hemiparesis following cerebral infarction affecting left dominant side (principal) ==

== ENCOUNTER 2022-07-13 08:59 | Outpatient (RCR) | payer MEDICARE, MEDICAID | END 2022-07-26 | disposition home or self-care (01) | PROVIDERS: ATTEND Internal Medicine | DX: I69.352 Hemiplegia and hemiparesis following cerebral infarction affecting left dominant side (principal) ==

== ENCOUNTER 2022-08-02 11:22 | Outpatient (RCR) | payer MEDICARE, MEDICAID | END 2022-08-02 14:45 | disposition home or self-care (01) | PROVIDERS: ATTEND Internal Medicine | DX: I69.359 Hemiplegia and hemiparesis following cerebral infarction affecting unspecified side (principal) ==

== ENCOUNTER → 2022-08-25 | Outpatient (CLI) | payer MEDICARE, MEDICAID | LOC: CARD 10:30 | PROVIDERS: ATTEND Nurse Practitioner Family | DX: I51.7 Cardiomegaly (principal) | CPT/HCPCS: 93306 ==

== ENCOUNTER → 2022-10-31 | Outpatient (CLI) | payer MEDICARE, MEDICAID ==
[~2022-10-31] MED LIST changes: +ALBU8.5H6 IH; +CATHETER FLUSH 10 ML SYR IVP PRN; +REGADENOSON 0.4 MG/5 ML SYR (LEXISCAN) IV ONE; -RT-ALBUINH IH
[2022-10-31 09:47] VITALS: BP 218/86
--- NOTE | 2022-10-31 15:08 | STRESS TEST ---
DATE OF SERVICE: 10/31/2022 RESTING AND POST REGADENOSON TECHNETIUM-99M TETROFOSMIN SPECT CT IMAGING ORDERING PHYSICIAN: Dr. Harmon. PRIMARY PHYSICIAN: Dr. Singh. CLINICAL DIAGNOSIS: Chest discomfort. Baseline images were carried out after injection of 10.5 mCi technetium technetium-99m Tetrofosmin. This was followed by 0.4 mg regadenoson and 30.1 mCi technetium-99m Tetrofosmin for stress imaging. The electrocardiogram showed sinus rhythm at baseline. Some artifact was noted during the study. The electrocardiogram did not change significantly. The patient tolerated the procedure well. Review of images at rest and following stress does not indicate any significant perfusion defect consistent with myocardial ischemia or infarction. Gated images show normal to hyperdynamic left ventricular systolic function with a calculated ejection fraction of 80%. CONCLUSIONS: 1. No evidence of significant myocardial ischemia or infarction on this study. 2. Hyperdynamic left ventricular systolic function with an ejection fraction of 80%. 3. No regional wall motion abnormalities seen on the study. Job ID: [id number] DocumentID: [id number] Dictated Date: 10/31/2022 12:35:45 [employer] Date: 10/31/2022 15:07:00 Dictated By: EUGENE HARMON MD; KENYA; FACP; FACC;
== END ==
LOC: CARD 07:33
PROVIDERS: ATTEND Internal Medicine Cardiovascular Disease
DX: R07.89 Other chest pain (principal)
CPT/HCPCS: 78452; 93017; A9502

== ENCOUNTER → 2022-11-07 | Outpatient (CLI) | payer MEDICARE, MEDICAID ==
[~2022-11-07] MED LIST changes: -CATHETER FLUSH 10 ML SYR IVP PRN; -REGADENOSON 0.4 MG/5 ML SYR (LEXISCAN) IV ONE
--- NOTE | 2022-11-07 16:09 | Diagnostic Imaging Report ---
INDICATION: Right knee pain, no known injury. AP and lateral views of the right knee are obtained. No fracture or acute bony abnormality is seen. Joint spaces are unremarkable. IMPRESSION: Negative right knee. Dictated by: Dictated on workstation # [id number]
== END ==
LOC: RAD 11:39
PROVIDERS: ATTEND Internal Medicine
DX: M25.561 Pain in right knee (principal)
CPT/HCPCS: 73560

== ENCOUNTER 2023-06-22 13:31 | Outpatient (RCR) | payer MEDICARE, MEDICAID | END 2023-06-25 | disposition home or self-care (01) | PROVIDERS: ATTEND Internal Medicine | DX: R42 Dizziness and giddiness (principal) ==

== ENCOUNTER 2023-07-24 15:43 | Outpatient (RCR) | payer MEDICARE, MEDICAID | END 2023-07-26 | disposition home or self-care (01) | PROVIDERS: ATTEND Internal Medicine | DX: R42 Dizziness and giddiness (principal); I10 Essential (primary) hypertension ==

== ENCOUNTER 2023-09-12 13:27 | Outpatient (RCR) | payer MEDICAID, MEDICARE | END 2023-09-12 15:56 | disposition home or self-care (01) | PROVIDERS: ATTEND Internal Medicine | DX: R42 Dizziness and giddiness (principal); E03.9 Hypothyroidism, unspecified; I10 Essential (primary) hypertension ==